=== PATIENT | female | born 1985 | race Caucasian/White ===

== ENCOUNTER 2019-07-02 19:30 | Observation (INO) | payer MEDICAID, SELFPAY ==
--- NOTE | 2019-07-02 19:38 | CTR_ITS ---
PROCEDURE INFORMATION: Exam: CT Head Without Contrast Exam date and time: 07/02/2019 7:40 PM Age: 34 years old Clinical indication: Weakness, extremity; Left; Patient HX: Patient had recent miscarriage; Additional info: Stroke-like symptoms TECHNIQUE: Imaging protocol: Computed tomography of the head without contrast. Total DLP: 790.75 mGy-cm Radiation optimization: All CT scans at this facility use at least one of these dose optimization techniques: automated exposure control; mA and/or kV adjustment per patient size (includes targeted exams where dose is matched to clinical indication); or iterative reconstruction. Other technique: STROKE PROTOCOL was implemented. COMPARISON: CT head wo con* [id number] 07/18/2016 10:01 PM FINDINGS: Brain: Normal. No hemorrhage. Unremarkable white matter. No mass effect. Midline shift: There is no shift of midline structures. Ventricles: Normal. No ventriculomegaly. Bones/joints: Unremarkable. No acute fracture. Sinuses: Visualized sinuses are unremarkable. No fluid levels. Mastoid air cells: Visualized mastoid air cells are well aerated. Soft tissues: Unremarkable. CT/CT head wo con* [id number] IMPRESSION: No acute intracranial abnormality. ASSESSMENT: ASPECTS ([place] Stroke Program Early CT Score) is 10. Radiation Dose CTDIVOL = (mGy): DLP = 790.75 (mGy-cm)
[2019-07-02 19:40] VITALS: BMI 25.8
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
[2019-07-02 20:05] VITALS: BP 128/82; PULSE 75; RESP 16; TEMP 37.1; O2SAT 100
--- NOTE | 2019-07-02 20:06 | ECG_ITS ---
Measurements Intervals [place] Rate: 72 P: 37 MS: 138 QRS: 9 QRSD: 88 T: 21 QT: 369 QTc: 405 SINUS RHYTHM Compared to ECG 07/18/2016 19:51:35 No significant changes Electronically Signed On 07-03-2019 8:07:15 SECURITY MESSENGER by Wojciech Massey M.D. [email or web address]
[2019-07-02 20:15] LABS: Glucose Point of Care 100 mg/dL (70-110)
--- NOTE | 2019-07-02 20:38 | MRR_ITS ---
PROCEDURE INFORMATION: Exam: MR Head Without Contrast Exam date and time: 07/02/2019 9:41 PM Age: 34 years old Clinical indication: Weakness, extremity; Left; Additional info: Stroke protocol TECHNIQUE: Imaging protocol: MR of the head without contrast. COMPARISON: MR angio head wo con [id number] 07/02/2019 10:44 PM FINDINGS: Brain: Normal. No acute infarct. No hemorrhage. No significant white matter disease. No edema. Ventricles: Normal. No ventriculomegaly. Bones/joints: Unremarkable. Soft tissues: Unremarkable. Sinuses: Normal as visualized. No acute sinusitis. Mastoid air cells: Normal as visualized. No mastoid effusion. Orbits: Unremarkable. MR/MR head wo con* [id number] IMPRESSION: No acute findings.
--- NOTE | 2019-07-02 20:38 | MRR_ITS ---
PROCEDURE INFORMATION: Exam: MR Angiogram Head Without Contrast, Arteries Exam date and time: 07/02/2019 9:41 PM Age: 34 years old Clinical indication: Weakness; Additional info: Stroke protocol TECHNIQUE: Imaging protocol: MR angiogram head without contrast. Exam focused on the arteries. COMPARISON: CT head wo con* [id number] 07/02/2019 7:58 PM FINDINGS: Right internal carotid artery: Unremarkable. Intracranial segment is patent with no significant stenosis. No aneurysm. Right anterior cerebral artery: Unremarkable. No occlusion or significant stenosis. No aneurysm. Right middle cerebral artery: Unremarkable. No occlusion or significant stenosis. No aneurysm. Right posterior cerebral artery: Unremarkable. No occlusion or significant stenosis. No aneurysm. Right vertebral artery: Unremarkable. No occlusion or significant stenosis. No aneurysm. Left internal carotid artery: Unremarkable. Intracranial segment is patent with no significant stenosis. No aneurysm. Left anterior cerebral artery: Unremarkable. No occlusion or significant stenosis. No aneurysm. Left middle cerebral artery: Unremarkable. No occlusion or significant stenosis. No aneurysm. Left posterior cerebral artery: Unremarkable. No occlusion or significant stenosis. No aneurysm. Left vertebral artery: Unremarkable. No occlusion or significant stenosis. No aneurysm. Basilar artery: Unremarkable. No occlusion or significant stenosis. No aneurysm. MR/MR angio head wo con [id number] IMPRESSION: No acute findings.
[2019-07-02 20:48] VITALS: BP 136/86; PULSE 79; RESP 14; O2SAT 98
[2019-07-02 20:59] LABS: Basophils # 0.1 10^3/uL (0.0-0.1); Basophils % 0.7 %; Eosinophils # 0.3 10^3/uL (0.0-0.8); Eosinophils % 4.5 %; Hematocrit 28.3 % (37.0-47.0); Hemoglobin 8.3 g/dL (11.5-15.3); Lymphocytes # 2.2 10^3/uL (0.8-4.8); Lymphocytes % 31.9 %; Mean Corpuscular HGB Conc 29.3 g/dL (30.0-36.0); Mean Corpuscular Hemoglobin 21.8 pg (28.0-34.0); Mean Corpuscular Volume 74.5 fL (81-99); Mean Platelet Volume 10.8 fL (7.4-10.4); Monocytes # 0.5 10^3/uL (0.2-0.9); Monocytes % 6.7 %; Neutrophils # 3.8 10^3/uL (1.8-7.7); Neutrophils % 55.9 %; Nucleated Red Blood Cells % 0 %; Platelet Count 245 10^3/cmm (130-400); Red Cell Distribution Width 22.7 % (12.1-15.1); White Blood Count 6.8 10^3/uL (4.0-10.0)
[2019-07-02 21:08] LABS: INR 1.08 (0.8-1.2)
[2019-07-02 21:09] LABS: Partial Thromboplastin Time 30.6 SECONDS (23.9-36.7)
[2019-07-02 21:14] LABS: Alanine Aminotransferase 12 U/L (0-33); Albumin Level 3.7 g/dL (3.5-5.2); Alkaline Phosphatase 75 IU/L (35-105); Aspartate Amino Transferase 19 U/L (0-32); Blood Urea Nitrogen 9 mg/dL (6-20); Calcium 9.8 mg/Dl (8.6-10.0); Carbon Dioxide 25 mmol/L (22-29); Chloride 102 mmol/L (98-107); Globulin 3.2 g/dL (1.3-4.6); Glomerular Filtration Rate 113.8 mL/min (90-130); Glucose 102 mg/dL (74-109); Sodium 138 mmol/L (136-145); Total Bilirubin 0.2 mg/dL (0.15-1.2); Total Protein 6.9 g/dL (6.6-8.7)
--- NOTE | 2019-07-02 21:19 | PM.SAN ---
Stroke Alert Activation ED Arrival Date: 07/02/19 Last Known Normal/at Baseline: 3-4 hours ago (More than 5 hours) Other Last Known Well Infomation: I was called to the emergency department because of profound left-sided weakness and numbness in this otherwise healthy 34-year-old woman who suffered a miscarriage 8 days ago and had D&C 3 days ago for persistent bleeding. She was at 14 weeks of gestation when she suffered miscarriage. She drove to her son's school at 3:00 today [address] the [address], discovered that her left leg was numb. By the time she got inside the school she was experiencing some weakness of the left leg and called her to warn him of it. She returned home, took a shower and felt no better. She started down the steps to have supper and discovered that her left arm was numb. She presented here to triage and was evaluated by Nicky. She described left arm and leg numbness, starting in the leg and Nicky presented the story to Dr. Dr. Gamez for concern about activating stroke alert. Dr. Dr. Gamez said that she was too far outside of the window but later, after further evaluation of the patient he became concerned that she was worse, her left side was now almost flaccid, and he activated stroke team. I came immediately and evaluated the patient and found her to have a fairly dense left hemiparesis. She was 5 hours from onset of symptoms at the time that I saw her initially and outside of the window for treatment with TPA. Her NIH stroke scale score was high enough to consider thrombectomy. MRI with MRA was performed and showed no acute changes. By the time she returned from MRI she had a severe throbbing pounding headache, consistent with migraine with aura. The patient says that when she was a child she had migraines but since adulthood she only has headaches when she is . She had a CT scan of the head performed 07/18/2016 that was done because of pain, numbness, paresthesias and chest pain but her symptoms at that time were not similar to current symptoms and she did not have a headache. That study was normal. Stroke Alert Activated by: Stroke alert was not actually activated but after discovering that the patient was hemiplegic Dr. Dr. Gamez called me. I came stat to the emergency department. Stroke Alert Activation Date: 07/02/19 Stroke MD @ Bedside Date: 07/02/19 Stroke MD @ Bedside Time: 20:45 NIH Stroke Scale Time: 20:50 NIH stroke score NIHSS: Level Of Consciousness - 1a: 0 Level Of Consciousness Questions - 1b: Both Correct Level Of Consciousness Commands - 1c: Both Correct Best Gaze - 2: Normal Visual Sanchez - 3: No Visual Loss Facial Palsy - 4: Normal Motor Arm Right - 5: No Drift Motor Arm Left - 5: Effort Against [place] Motor Leg Right - 6: No Drift Motor Leg Left - 6: No Effort Against [place] Limb Ataxia - 7: Absent Sensory - 8: Mild To Moderate Loss Best Language - 9: No Aphasia Dysarthia - 10: Normal Extinction And Inattention - 11: 0 Score: Total Score: 6 Stroke Alert Data/Treatment tPA Contraindication: tPA Contraindication: Treatment not indcated tPA Admin Prior to Arrival: No Patient & Family Educated on: Cause of Stroke, Risk Factors and Treament Plan Other Patient & Family Education: MRI brain and MRA were reviewed. Final diagnosis is status migrainosus and migraine equivalent. I have been at the patient's bedside for over 2 hours waiting for the MRI, reviewing MRI/MRA and providing ongoing neurologic evaluation and monitoring. I have communicated with the patient and her as they were very anxious and concerned about her symptoms. At this time she is regaining some strength on the left side but now has a severe throbbing pounding headache. Plan discussed with Dr. Dr. Arrieta. Critical Care Time Critical Care Time: 105 - 134 mins Coding Level of Care Code Acute Radio Antenna Installer for Julito Velásquez
[2019-07-02 21:37] LABS: Add Urine Microscopic? YES; Bilirubin Urine Neg (NEGATIVE); Blood Urine 3+ (Negative); Glucose Urine UA Norm (Normal); Ketones Urine Negative (Negative); Leukocyte Esterase Urine Negative (Negative); Nitrate Urine Negative (Negative); Protein Urine Neg (Negative); Specific Gravity, Urine 1.005 (1.005-1.030); Urine Appearance Clear (CLEAR); Urine Color Yellow (Yellow); Urobilinogen Urine Norm (Negative); pH Urine 7 (5-7)
[2019-07-02 21:40] LABS: RBC Urine 40-50 /hpf (0-2); WBC Urine 0-4 /hpf (0-5)
[2019-07-02 21:41] LABS: Add Urine Culture? Yes; Bacteria Urine TRACE
[2019-07-02 21:46] VITALS: BP 113/56; PULSE 67; RESP 16; O2SAT 100
[2019-07-02 22:00] VITALS: BP 124/69; PULSE 68; RESP 14; O2SAT 99
[2019-07-02] MEDS: valproic acid inj 500 MG in sodium chloride 0.9% 50 ML 55 MG IV (22:07)
--- NOTE | 2019-07-02 22:41 | PC.NURSE ---
PATIENT TO MRI
[2019-07-02 23:39] VITALS: BP 119/70; PULSE 97; RESP 14; O2SAT 98
[2019-07-02 23:52] LABS: Amphetamines Screen Urine Negative (Negative); Barbiturates Screen Urine Negative (Negative); Benzodiazepines Screen Urine Negative (Negative); Cocaine Screen Urine Negative (Negative); Opiate Screen Urine Negative (Negative); PCP Screen Urine Negative (Negative); THC Screen Urine Negative (Negative)
[2019-07-03] VITALS (10 sets, daily range): BP systolic 102–118; BP diastolic 57–80; PULSE 54–66; RESP 14–20; TEMP 36.5–37.2; O2SAT 98–100
[2019-07-03] MEDS: sodium chloride 0.9% 1,000 ML 100 ML IV ×2 (00:43→09:52)
[2019-07-03] MEDS: valproic acid inj 500 MG in sodium chloride 0.9% 50 ML 55 MG IV (01:07)
--- NOTE | 2019-07-03 02:30 | P.HP_ITS ---
Providers/Chief Complaint Admitting Physician: Jessica Mccray MD Primary Care Provider: Will Trujillo Jr, MD Chief Complaint: COMPLEX MIGRAINE W/STATUS History of Present Illness Debby Bates is a 34 year old female who presented to the emergency room with left-sided weakness and inability to walk. 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 Initially she had some numbness in her left leg. She subsequently began to have weakness in the leg. She was able to make it back home okay but after dinner she began to have numbness in her left arm followed by weakness in the left arm. She was not able to walk which prompted the ER visit. She had a CT of the head that was unremarkable. NIH score was 6. Dr. Hutchins was called although patient was outside of the window for consideration for acute stroke intervention. An MRI and an MRA of the brain were done. These were unremarkable and final diagnosis per neurology with status migrainosus and migraine equivalent. Patient does have a history of migraines as a child. DHE protocol was initiated in the emergency room with Shelbi. Patient is being admitted for further evaluation and treatment. Upon my evaluation with her she is complaining of severe pain in her left leg from groin to knee. She continues to have headache. Remainder of DHE protocol is being initiated. She has had some nausea. She is sensitive to lights and sounds. No chest pain or palpitations. No significant shortness of breath. She had a miscarriage at 14 weeks gestation and underwent a D&C last Monday. She continues to have some bleeding but it is starting to subside. She still has some mild lower abdominal pain but denies any fever. No purulent discharge. Review of Systems Const: Denies: fever or chills Eyes: Reports: photophobia ENMT: Reports: dry mouth Card: Reports: lightheadedness; Denies: chest pain or palpitations Resp: Denies: shortness of breath or pain on inspiration GI: Reports: abdominal pain, nausea and vomiting; Denies: diarrhea or constipation : Reports: vaginal bleeding (Status post D&C the other day, decreasing); Denies: painful urination or urinary frequency Musc: Reports: extremity pain (Left leg) Skin/Breast: Denies: rash, itching or redness Neuro: Reports: headache, numbness in extremities, weakness in extremities, changes in sensation and difficulty walking; Denies: confusion, behavioral changes, slurred speech or involuntary movements Corey/Lymph: Denies: easy bruising Medications/Allergies Home Medications Medication Instructions Recorded Confirmed Last Taken Type diphenhydramine HCl [Unisom 50 mg PO BEDTIME PRN 07/02/19 07/02/19 Unknown History SleepGels] ibuprofen 200 mg PO Q6H PRN 07/02/19 07/02/19 07/01/19 History iron 159 mg PO DAILY 07/02/19 07/02/19 07/02/19 History multivitamin 1 tab PO DAILY 07/02/19 07/02/19 07/02/19 History vitamin B complex 1 tab PO DAILY 07/02/19 07/02/19 07/02/19 History Allergies Allergy/AdvReac Type Severity Reaction Status Date / Time No Known Allergies Allergy Unverified 07/02/19 21:17 PFSH Acute PFSH: Statuses (acute, chronic, etc) shown below reflect problem list status as previously entered and may not be historically accurate Medical History Grand multipara (Acute) Hyperemesis gravidarum (Resolved) Superficial thrombophlebitis (Resolved) Surgical History History of (Acute) multiple History of dilation and curettage (Acute) 06/28/19 for miscarriage, in [place] Family History Denies family history of Clotting disorder Bleeding disorder Stroke Social History Smoking and tobacco status: never smoked Alcohol intake: never Substance/Drug Use: never Female Reporductive History: : 11 Para: 8 Spontaneous abortions: Yes (3, most recent 07/15 at 14 wks) Vitals/I&O/Wt Last Vital Signs Temp 97.7 F 07/03/19 01:51 Pulse 58 L 07/03/19 01:51 Resp 20 H 07/03/19 01:51 BP 118/80 07/03/19 01:51 Pulse Ox 98 07/03/19 01:51 07/02/19 07/02/1907/03/20 14:59 22:59 06:59 Intake Total 55 / 55 Balance 55 / 55 Weight last 48 hrs Weight 74.435 kg Weight 72.575 kg Physical Exam Const: COMMON NORMALS: oriented x3 OTHER: Looks like she does not feel well HENMT: COMMON NORMALS: normocephalic, head/scalp atraumatic and oropharynx normal Eye: COMMON NORMALS: EOMs intact bilaterally PUPIL: Yes PERRL DIRECT OPHTHALMOSCOPY: Yes photophobia Neck/C-Spine: COMMON NORMALS: full ROM and supple Resp: COMMON NORMALS: normal respiratory effort, no use of accessory muscles and clear to auscultation bilaterally Cardio: COMMON NORMALS: no JVD, regular rate, regular rhythm and no murmurs GI: COMMON NORMALS: normal to inspection, nondistended, normoactive bowel sounds and soft to palpation PALPATION: Yes tender Details: LLQ and RLQ, No guarding, No rigid and No rebound tenderness present Back/Pelvis: COMMON NORMALS: no CVA tenderness Extremity: NARRATIVE EXTREMITY EXAM: No lower extremity edema. Pulses are 2+ and equal in both feet and brisk capillary refill. Patient has pain in the left groin medially that extends posteriorly culminating in the popliteal fossa. Palpable cords suspect above the popliteal fossa. No superficial warmth or redness but very tender along the path of the vein Neuro: COMMON NORMALS: oriented x3 and moves all extremities MOTOR EXAM: other (Strength is slightly weaker on the left than the right more so in the leg than the arm) Skin: COMMON NORMALS: no rashes or lesions noted and skin turgor normal Data Labs: Other Labs: Laboratory Tests 07/02/19 07/02/19 07/02/19 20:20 20:50 20:50 MCV 74.5 L PT 14.40 H INR 1.08 Total Bilirubin AST ALT Alkaline Phosphata se Albumin Urine Protein Neg Urine Glucose (UA) Norm Urine Ketones Negative Urine Occult Blood 3+ H Urine Nitrate Negative Ur Leukocyte Keila ase Negative 07/02/19 20:50 MCV PT INR Total Bilirubin 0.2 AST 19 ALT 12 Alkaline Phosphata se 75 Albumin 3.7 Urine Protein Urine Glucose (UA) Urine Ketones Urine Occult Blood Urine Nitrate Ur Leukocyte Keila ase Imaging^: MRA head: Radiologist's impression: IMPRESSION: No acute findings. MRI head: Radiologist's impression: IMPRESSION: No acute findings. CT Head: Radiologist's impression: IMPRESSION: No acute intracranial abnormality. A&P Assessment and plan (1) Migraine: DHE protocol per Dr Hutchins, who saw her in the ED. Will monitor response. Is already improving with less weakness and less headache.. Status: Acute Qualifiers: Intractability: intractable Migraine type: hemiplegic Status migrainosus presence: with status migrainosus Qualified Code(s): G43.411 - Hemiplegic migraine, intractable, with status migrainosus Code(s): G43.909 - Migraine, unspecified, not intractable, without status migrainosus (2) Left leg pain: This is new today. Pain tracks along the path where I would expect the saphenous vein to be and clinically has palpable cords above the popliteal space. No external signs otherwise presently. I let her know that I was concerned about a blood clot or recurrent thrombophlebitis, which she has had in the past. She expressed understanding. Reviewed that treatment, if identified will include blood thinners. I am hoping this is just a tight tendon, but with recent miscarriage and drive back from [place],, need to be certain not a DVT. Status: Acute Code(s): M79.605 - Pain in left leg (3) History of dilation and curettage: Need to keep this in mind. Decreased bleeding, no passage of large clots. I discussed with her that if we have to consider anticoagulation, she may have increased bleeding we will need to monitor. She expressed understanding. Status: Acute Code(s): Z98.890 - Other specified postprocedural states (4) Microcytic anemia: Likely iron deficiency related to recent blood loss/ loss . Last comparative value was normal a few years ago. Status: Acute Code(s): D50.9 - Iron deficiency anemia, unspecified Additional A&P Information Additional A&P Information: Observation admisison Continue DHE protocol Neuro checks US of LLE tonight > with ongoing uterine bleeding after D&C, do not want to start empiric treatment unless indicated. Prophylactic dose lovenox for now Continue iron and mvi from home meds Monitor for increase in or change in bleeding as well as for worsening abdominal discomfort Will need follow up with PCP +/- neurology after DC Anticipate discharge home with family FULL code Plans discussed with patient and she was given an opportunity to ask questions Attestations Medical Necessity Statement*: Currently anticipate stay less than 2 midnights for treatment of hemiplegic migraine with status Coding Level of Care Code Acute Brass Cutter for Chg Fwd Diagnoses Migraine G43.411 Intractability: intractable Migraine type: hemiplegic Status migrainosus presence: with status migrainosus Left leg pain M79.605 History of dilation and curettage Z98.890 Microcytic anemia D50.9
[2019-07-03] MEDS: ondansetron 2 mg/ML SDV 2 mL 4 MG IVP ×2 (02:33→02:57)
[2019-07-03] MEDS: diphenhydrAMINE 50 mg/mL SDV 1mL 25 MG IVP (02:34)
[2019-07-03] MEDS: dihydroergotamine 1 mg/mL Inj 0.5 MG IVP (02:40)
--- NOTE | 2019-07-03 02:47 | USCV_ITS ---
Debby Bates Age: 34 Gender: F : 1985 Exam Date: 07/03/2019 03:18 Ordering Phys: Jessica Mccray MD Technologist: Bandar Strong Exam Location: [facility] [place] Indication: LT LEG PAIN AND SWELLING HISTORY: Lower extremity swelling. Lower extremity edema. PROCEDURES: Venous duplex imaging was performed in only the left lower extremity. The following venous structures were evaluated: common femoral vein, profunda vein, proximal portion of the greater saphenous vein, superficial femoral vein, and the popliteal vein. In addition, the posterior tibial and peroneal trunk were evaluated. On the left side, the common femoral, superficial femoral, profunda femoral, popliteal, posterior tibial, greater saphenous veins, and the peroneal trunk were identified and interrogated in the standard fashion. These veins were found to be easily compressible with spontaneous blood flow. No evidence of insufficiency or thrombus noted. FINDINGS: Normal 2-D Doppler and augmentation and compressibility throughout the lower extremity venous structures. Additional imaging through the proximal calf veins also reveals no thrombus. Limited evaluation of the greater saphenous vein is patent with no thrombus.. CONCLUSIONS No evidence of left lower extremity DVT. Velasquez Orona MD (Electronically Signed) Final Date: 03 July 2019 13:20 S
--- NOTE | 2019-07-03 03:03 | PC.NURSE ---
0230-Dr Mccray at bedside. started DHE protocol. pre med pt rates pain in head 5/10. administered 4mg of zofran and 25mg of benadryl IVP per protocol. waited appropriate amount of time in between then gave pt 0.5mg of DHE. pt became nauseous. verbal order from dr Mccray at bedside for 4mg of zofran IVP. bp and pulse ox WNL. 0253- reassessed pain rates it 3/10. pt states nausea is better. 0300- pt states that she has no more pain in her head. rates it 0/10 at this time. continue to monitor pt. instructed pt to call for any worsening symptoms.
[2019-07-03] MEDS: enoxaparin 40 mg/0.4 mL Syringe SUBCUT (04:57)
[2019-07-03 05:32] LABS: Basophils % 0.5 %; Eosinophils # 0.3 10^3/uL (0.0-0.8); Eosinophils % 4.4 %; Hematocrit 30.9 % (37.0-47.0); Hemoglobin 9.1 g/dL (11.5-15.3); Lymphocytes # 2.3 10^3/uL (0.8-4.8); Lymphocytes % 37.1 %; Mean Corpuscular HGB Conc 29.4 g/dL (30.0-36.0); Mean Corpuscular Hemoglobin 21.9 pg (28.0-34.0); Mean Corpuscular Volume 74.3 fL (81-99); Monocytes # 0.4 10^3/uL (0.2-0.9); Monocytes % 6.7 %; Neutrophils # 3.1 10^3/uL (1.8-7.7); Nucleated Red Blood Cells % 0 %; Platelet Count 205 10^3/cmm (130-400); Red Blood Count 4.16 10^6/uL (4.1-5.3); Red Cell Distribution Width 22.4 % (12.1-15.1); White Blood Count 6.1 10^3/uL (4.0-10.0)
[2019-07-03 07:02] LABS: Glucose Point of Care 83 mg/dL (70-110)
[2019-07-03] MEDS: multivitamin therapeutic Tablet 1 TAB PO (09:52)
[2019-07-03] MEDS: b-complex-vitamin c Tablet 1 EACH PO (09:52)
--- NOTE | 2019-07-03 10:28 | P.DS_ITS ---
Discharge Providers Date of Admission: 07/03/19 00:21 Date of Discharge: 07/03/19 Attending Provider at Admission: Jessica Mccray MD Attending Provider at Discharge: Jeanne Truong MD Primary Care Provider: Will Trujillo Jr, MD Diagnoses at Discharge Discharge Diagnosis (1) Migraine: Status: Acute Problem details: -initial concern for CVA given neuro deficits on presentation, initial NIH-6. Evaluated by Neuro; consult by Dr. Hutchins appreciated -imaging including MRI, MRA negative -not tPA candidate -symptoms due to complex migraine; following DHE protocol, symptoms now resolved -hemodynamically stable -patient to contact Dr. Hutchins immediately if symptoms recur Qualifiers: Intractability: intractable Migraine type: hemiplegic Status migrainosus presence: with status migrainosus Qualified Code(s): G43.411 - Hemiplegic migraine, intractable, with status migrainosus (2) Left leg pain: Status: Acute Problem details: -now resolved -venous duplex ordered to r/o VTE given prior hx of superficial thrombophlebitis; results pending (3) History of dilation and curettage: Status: Acute Problem details: -06/28/19 for miscarriage, in [place] -is multigravida with hx of prior miscarriages -has some residual bleeding likely from procedure, no concern for retained products of conception -patient scheduled for f/u with Dr. Rodriguez tomorrow (4) Microcytic anemia: Status: Acute Problem details: -has hx of chronic microcytic anemia, baseline Hg appears to be around 11. Suspect slight drop in hemoglobin is from recent miscarriage and D & C -continue iron supplementation -hemodynamically stable Reason for Visit Reason for Visit: Reason For Visit: COMPLEX MIGRAINE W/STATUS Hospital Course Hospital Course: Patient was admitted to medical surgical floor. She was evaluated by Neurology as code CVA activated due to concern for stroke but following extensive and negative imaging including MRI, MRA her symptoms were attributed to a complex migraine. DHE protocol was activated per Dr. Hutchins and patient symptoms have resolved. He is advised to contact Dr. Hutchins immediately should any of her symptoms recur. She is currently asymptomatic, ambulatory and hemodynamically stable. She has a recent history of a D&C done approximately a week ago following a miscarriage at 14 weeks gestation. She has some continued bleeding and does have underlying microcytic anemia, baseline hemoglobin appears to be about 11. 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 She has not required transfusion of any blood products during her hospital stay. Patient does have a history of superficial thrombophlebitis and due to noted left lower extremity pain she had a venous duplex done to rule out VTE; results pending. She was covered with prophylactic dose of Lovenox. She will need appropriate follow-up with her primary care provider within 1 week. Physical Exam Narrative: EXAM NARRATIVE: looks appropriate for age, resting in bed Const: COMMON NORMALS: no apparent distress and oriented x3 GENERAL APPEARANCE: cooperative and comfortable ORIENTATION/CONSCIOUSNESS: Yes awake HENMT: COMMON NORMALS: normocephalic, head/scalp atraumatic, hearing grossly normal bilaterally and moist oral mucous membranes HEAD & SCALP: normocephalic and atraumatic Eye: COMMON NORMALS: PERRL, EOMs intact bilaterally and conjunctivae normal CONJUNCTIVA: Yes conjunctivae normal PUPIL: Yes PERRL Neck/C-Spine: COMMON NORMALS: full ROM GENERAL: Yes normal visual inspection and Yes trachea midline Resp: COMMON NORMALS: normal respiratory effort, no retractions, no use of accessory muscles and clear to auscultation bilaterally EFFORT & INSPECTION: Yes able to speak in complete sentences, Yes symmetric chest movement and No tachypneic AUSCULTATION: clear to auscultation bilaterally Cardio: COMMON NORMALS: regular rate, regular rhythm, S1 normal heart sound, S2 normal heart sound and no murmurs RATE: regular rate RHYTHM: regular rhythm HEART SOUNDS: S1 normal and S2 normal GI: COMMON NORMALS: normal to inspection, nondistended, normoactive bowel sounds, soft to palpation and non-tender PALPATION: Yes soft Extremity: COMMON NORMALS: normal to inspection, full ROM and no clubbing, cyanosis or edema; negative for no pedal edema Neuro: COMMON NORMALS: oriented x3, moves all extremities, no focal motor deficits, no sensory deficits noted and gait normal Psych: COMMON NORMALS: mental status grossly normal, thought process normal, cooperative, affect normal and speech normal SPEECH: Yes normal speech THOUGHT PROCESS: normal thought process Skin: COMMON NORMALS: no rashes or lesions noted, no jaundice, no petechiae and no mottling GENERAL SKIN EXAM: no rashes or lesions noted Discharge Data Data Completed and Pending: Completed Studies During Hospitalization Category Date Time Status CT head wo con* 7 0450 Urgent Cat Scan 07/02/19 19:38 Completed MR angio head wo con [id number] Urgent MRI 07/02/19 20:38 Completed MR head wo con* 7 0551 Urgent MRI 07/02/19 20:38 Completed Pending at discharge Category Date Time Status Urine Culture Sta t Lab 07/02/19 20:20 Received US venous duplex lower extremity LT [CV venous duplex Ultrasound 07/03/19 02:[place] [id number]] Stat Labs from last 24 hours 07/03/19 07/03/19 07/02/19 06:35 05:05 21:46 WBC 6.1 RBC 4.16 Hgb 9.1 L Hct 30.9 L MCV 74.3 L MCH 21.9 L MCHC 29.4 L RDW 22.4 H Plt Count 205 MPV 11.0 H Neut % (Auto) 51.0 Lymph % (Auto) 37.1 [place] % (Auto) 6.7 Eos % (Auto) 4.4 Baso % (Auto) 0.5 Neut # (Auto) 3.1 Lymph # (Auto) 2.3 [place] # (Auto) 0.4 Eos # (Auto) 0.3 Baso # (Auto) 0.0 Nucleated RBC % (a uto) 0 Nucleated RBCs # 0.0 PT INR APTT Sodium Potassium Chloride Carbon Dioxide Anion Gap BUN Creatinine GFR Calculation Glucose POC Glucose 83 Calcium Total Bilirubin AST ALT Alkaline Phosphata se Total Protein Albumin Globulin Urine Color Urine Appearance Urine pH Ur Specific Gravit y Urine Protein Urine Glucose (UA) Urine Ketones Urine Occult Blood Urine Nitrate Urine Bilirubin Urine Urobilinogen Ur Leukocyte Keila ase Urine RBC Urine WBC Ur Squamous Epith Cells Urine Bacteria Urine Opiates Scre en Negative Ur Barbiturates Sc reen Negative Ur Phencyclidine S crn Negative Ur Amphetamines Sc reen Negative U Benzodiazepines Scrn Negative Urine Cocaine Scre en Negative U Marijuana (THC) Screen Negative 07/02/19 07/02/19 07/02/19 20:50 20:50 20:50 WBC 6.8 RBC 3.80 L Hgb 8.3 L Hct 28.3 L MCV 74.5 L MCH 21.8 L MCHC 29.3 L RDW 22.7 H Plt Count 245 MPV 10.8 H Neut % (Auto) 55.9 Lymph % (Auto) 31.9 [place] % (Auto) 6.7 Eos % (Auto) 4.5 Baso % (Auto) 0.7 Neut # (Auto) 3.8 Lymph # (Auto) 2.2 [place] # (Auto) 0.5 Eos # (Auto) 0.3 Baso # (Auto) 0.1 Nucleated RBC % (a uto) 0 Nucleated RBCs # 0.0 PT 14.40 H INR 1.08 APTT 30.6 Sodium 138 Potassium 4.0 Chloride 102 Carbon Dioxide 25 Anion Gap 15.0 BUN 9 Creatinine 0.6 GFR Calculation 113.8 Glucose 102 POC Glucose Calcium 9.8 Total Bilirubin 0.2 AST 19 ALT 12 Alkaline Phosphata se 75 Total Protein 6.9 Albumin 3.7 Globulin 3.2 Urine Color Urine Appearance Urine pH Ur Specific Gravit y Urine Protein Urine Glucose (UA) Urine Ketones Urine Occult Blood Urine Nitrate Urine Bilirubin Urine Urobilinogen Ur Leukocyte Keila ase Urine RBC Urine WBC Ur Squamous Epith Cells Urine Bacteria Urine Opiates Scre en Ur Barbiturates Sc reen Ur Phencyclidine S crn Ur Amphetamines Sc reen U Benzodiazepines Scrn Urine Cocaine Scre en U Marijuana (THC) Screen 07/02/19 07/02/19 20:20 20:08 WBC RBC Hgb Hct MCV MCH MCHC RDW Plt Count MPV Neut % (Auto) Lymph % (Auto) [place] % (Auto) Eos % (Auto) Baso % (Auto) Neut # (Auto) Lymph # (Auto) [place] # (Auto) Eos # (Auto) Baso # (Auto) Nucleated RBC % (a uto) Nucleated RBCs # PT INR APTT Sodium Potassium Chloride Carbon Dioxide Anion Gap BUN Creatinine GFR Calculation Glucose POC Glucose 100 Calcium Total Bilirubin AST ALT Alkaline Phosphata se Total Protein Albumin Globulin Urine Color Yellow Urine Appearance Clear Urine pH 7 Ur Specific Gravit y 1.005 Urine Protein Neg Urine Glucose (UA) Norm Urine Ketones Negative Urine Occult Blood 3+ H Urine Nitrate Negative Urine Bilirubin Neg Urine Urobilinogen Norm Ur Leukocyte Keila ase Negative Urine RBC 40-50 H Urine WBC 0-4 H Ur Squamous Epith Cells 5-10 H Urine Bacteria Trace Urine Opiates Scre en Ur Barbiturates Sc reen Ur Phencyclidine S crn Ur Amphetamines Sc reen U Benzodiazepines Scrn Urine Cocaine Scre en U Marijuana (THC) Screen Vitals: Last Vital Signs Temp 98.5 F 07/03/19 08:15 Pulse 57 L 07/03/19 08:15 Resp 18 07/03/19 08:15 BP 108/57 07/03/19 08:15 Pulse Ox 100 07/03/19 08:15 Discharge Plan Discharge Patient Disposition: Home, Self-Care Condition: Stable Prescriptions: Continued multivitamin Tablet 1 tab PO DAILY RF: 0 Unisom SleepGels 50 mg Capsule 50 mg PO BEDTIME PRN (Reason: Sleep) RF: 0 ibuprofen 200 mg Tablet 200 mg PO Q6H PRN (Reason: Pain) RF: 0 vitamin B complex Tablet 1 tab PO DAILY RF: 0 iron 159 mg (45 mg iron) Tablet Extended Release 159 mg PO DAILY RF: 0 Discharge Orders: Discharge Order (Routine); Ordered 07/03/19 Ordered By: Jeanne Truong Referrals: Will Trujillo Jr, MD [Primary Care Provider] - 4-7 days Discharge Diet: Usual diet Discharge Activity: Resume usual activity Activity Restrictions/Additional Instructions: -Please keep scheduled appointment with Dr. Rodriguez tomorrow -Please contact Dr. Hutchins immediately if symptoms recur Discharge Attestations Time Spent in Discharge Care*: greater than 30 min Specific Discharge Activities: Specific discharge activities: educating and/or supporting family/caregiver, discussing with pcp/other providers and evaluating patient/reviewing data Quality Metrics Clinical Quality Measures During this hospital stay, did patient experience: None Coding Level of Care Code Acute Bag Worker for Darrellg Fwd Diagnoses Migraine G43.411 Intractability: intractable Migraine type: hemiplegic Status migrainosus presence: with status migrainosus Left leg pain M79.605 History of dilation and curettage Z98.890 Microcytic anemia D50.9
== END 2019-07-03 12:13 | disposition home or self-care (01) ==
LOC: ER 19:56 → MEDSURG 07-03 00:21
PROVIDERS: Admitting Provider Hospitalist; Emergency Provider Family Medicine; Family Provider Family Medicine; PCP Family Medicine; Visit Provider Family Medicine
DX: G43.411 Hemiplegic migraine, intractable, with status migrainosus (principal); M79.605 Pain in left leg; Z98.890 Other specified postprocedural states; D50.9 Iron deficiency anemia, unspecified
CPT/HCPCS: 36415; 36416; 70450; 70544; 70551; 80053; 80307; 81003; 82962; 85025; 85610; 85730; 87077; 87086; 87186; 93005; 93971; 96361; 96365; 96372; 96375; 99283; 99285; G0378; J1110; J1200; J1650; J2405; J7030

== ENCOUNTER 2020-03-14 20:17 | Emergency (ER) | payer MEDICAID, SELFPAY ==
[2020-03-14 20:24] VITALS: BP 112/74; PULSE 79; RESP 24; TEMP 36.8; O2SAT 100; BMI 26.2
--- NOTE | 2020-03-14 20:41 | ED_ITS ---
HPI - Abdominal Pain General: Chief Complaint: Abdominal Pain Stated Complaint: lower abd pain Time Seen by Provider: 03/14/20 20:30 Source: patient Mode of arrival: ambulatory Limitations: no limitations History of Present Illness: HPI narrative: Patient is a 35-year-old female who presents to ED today along with her for complaints of fairly sudden onset lower abdominal pain. Patient initially tells me it felt like she needed to have a bowel movement but states this did not alleviate her pain. She complains of nausea without vomiting. She states her bowel movement was not loose or bloody. She has not been running fevers. She otherwise felt okay prior to pain onset. LMP ended 3 days ago. She is not having any vaginal bleeding or vaginal discharge. MD elicited complaint: abdominal pain Onset (ago): hour(s) Pain Consistency: constant Location: Suprapubic and Pelvis Severity: severe Quality: cramping, stabbing and sharp Radiation: none Migration to: no migration Exacerbating factors: nothing Relieving factors: nothing Associated Symptoms: Reports nausea; Denies change in bowel habits, chills, diarrhea, dysuria, fever(s), hematochezia, melena and vomiting Related Data: Date of Last Menstrual Period: 03/07/20 Patient : No Review of Systems Const: Denies: fever(s), chills, body aches, fatigue or malaise Card: Denies: chest pain Resp: Denies: dyspnea GI: Reports: abdominal pain and nausea; Denies: vomiting, diarrhea, change in bowel habits, pain on defecation, hematochezia or melena : Denies: flank pain, difficulty voiding, dysuria, urinary frequency, urin alma urgency or urinary hesitancy Musc: Denies: neck pain, back pain, extremity pain, extremity swelling, joint pain or joint swelling Skin/Breast: Denies: rash Neuro: Denies: headache(s), numbness in extremities, weakness in extremities, sensory changes or dizziness [facility] ED PFSH: Medical History (Updated 03/15/20 @ 00:54 by SAJI Teresa) Grand multipara Hyperemesis gravidarum Superficial thrombophlebitis Surgical History (Updated 07/03/19 @ 10:47 by Jeanne Truong MD) History of multiple History of dilation and curettage -06/28/19 for miscarriage, in [place] -is multigravida with hx of prior miscarriages -has some residual bleeding likely from procedure, no concern for retained products of conception -patient scheduled for f/u with Dr. Rodriguez tomorrow Family History Denies family history of Clotting disorder Bleeding disorder Stroke Social History Smoking and tobacco status: never smoked Alcohol intake: never Female Reproductive History: Date of last menstrual period: 03/07/20 Para: 8 Spontaneous abortions: Yes (3, most recent 07/15 at 14 wks) Other reproductive history: ; monogamous with Physical Exam Const: COMMON NORMALS: average body habitus, patient oriented x3, no limitations, healthy appearing, alert and well nourished GENERAL APPEARANCE: cooperative and in distress (in pain) ORIENTATION/CONSCIOUSNESS: Yes oriented to person, Yes oriented to place and Yes oriented to time HENMT: COMMON NORMALS: normocephalic and atraumatic HEAD & SCALP: normocephalic and atraumatic Resp: COMMON NORMALS: normal respiratory effort and clear to auscultation bilaterally AUSCULTATION: clear to auscultation bilaterally Cardio: COMMON NORMALS: regular rate and regular rhythm RATE: regular rate RHYTHM: regular rhythm GI: COMMON NORMALS: Normal to inspection, nondistended, normoactive bowel sounds present, No hepatosplenomegaly present and no masses INSPECTION: Yes normal to inspection AUSCULTATION: Yes normoactive bowel sounds PALPATION: Yes Tenderness to palpation present (GI) (pain throughout lower abdomen/pelvis), Yes Guarding due to palpation present (GI) and Yes No hepatosplenomegaly present : COMMON NORMALS: Yes no CVA tenderness BLADDER/KIDNEY EXAM: Yes no CVA tenderness Back/Pelvis: COMMON NORMALS: no CVA tenderness Extremity: COMMON NORMALS: normal to inspection GENERAL: Yes normal exam except as noted Neuro: COMMON NORMALS: patient oriented x3 SENSORIUM/ORIENTATION: Yes alert, Yes oriented to person, Yes oriented to place and Yes oriented to time Skin: COMMON NORMALS: no rashes or lesions noted GENERAL SKIN EXAM: no rashes or lesions noted Course Vital Signs: Vital signs: Vital Signs Temperature 98.3 F 03/14/20 20:24 Pulse Rate 72 03/14/20 23:44 Respiratory Rate 18 03/14/20 23:44 Blood Pressure 116/64 03/14/20 23:44 Pulse Oximetry 98 03/14/20 23:44 MDM - Abdominal Pain MDM Narrative: Medical decision making narrative: Patient's vital signs are stable. She is not tachycardic or hypotensive. Labs overall are non-concerning. Her hemoglobin is 9.1 which is stable when compared to previous labs. UA is normal. She has a negative test. Patient does not complain of vaginal discharge/odor. Ultrasound showing bilateral ovarian cysts with a small amount of fluid in her cul-de-sac. CT of her abdomen/pelvis confirming this. Radiology stated fluid appeared consistent with a ruptured cyst. Clinically does not sound consistent with PID. Patient reporting feeling better after pain medications given here. She states she feels comfortable going home with return to ED precautions. Will place information with case management to get her set up with [facility] follow-up next week. Lab Data: Labs: Lab Results 03/14/20 03/14/20 03/14/20 Range/Units 20:40 20:40 20:40 WBC 10.9 H (4.0-10.0) 10^3/ uL RBC 4.52 (4.1-5.3) 10^6/u L Hgb 9.1 L (11.5-15.3) g/dL Hct 32.0 L (37.0-47.0) % MCV 70.8 L (81-99) fL MCH 20.1 L (28.0-34.0) pg MCHC 28.4 L (30.0-36.0) g/dL RDW 16.0 H (12.1-15.1) % Plt Count 261 (130-400) 10^3/c mm MPV 12.0 H (7.4-10.4) fL Neut % (Auto) 75.9 % Lymph % (Auto) 15.8 % Bullitt % (Auto) 5.0 % Eos % (Auto) 2.5 % Baso % (Auto) 0.4 % Neut # (Auto) 8.30 H (1.8-7.7) 10^3/u L Lymph # (Auto) 1.7 (0.8-4.8) 10^3/u L Bullitt # (Auto) 0.6 (0.2-0.9) 10^3/u L Eos # (Auto) 0.3 (0.0-0.8) 10^3/u L Baso # (Auto) 0.0 (0.0-0.1) 10^3/u L Nucleated RBC % (a uto) 0 % Nucleated RBCs # 0.0 /100WBC Sodium 139 (136-145) mmol/L Potassium 3.6 (3.5-5.1) mmol/L Chloride 103 (98-107) mmol/L Carbon Dioxide 24 (22-29) mmol/L Anion Gap 15.6 (5-19) BUN 7 (6-20) mg/dL Creatinine 0.5 (0.5-0.9) mg/dL GFR Calculation 139.6 H (90-130) mL/min Glucose 103 (65-115) mg/dL Calculated Osmolal ity 286 (285-295) mOsm/k g Calcium 8.9 (8.5-10.5) mg/dL Total Bilirubin 0.2 (0.15-1.2) mg/dL AST 22 (0-32) U/L ALT 15 (0-33) U/L Alkaline Phosphata se 60 (35-105) IU/L Total Protein 7.9 (6.6-8.7) g/dL Albumin 4.3 (3.5-5.2) g/dL Globulin 3.6 (1.3-4.6) g/dL HCG, Qual Negative (Negative) Urine Color (Yellow) Urine Appearance (CLEAR) Urine pH (5-7) Ur Specific Gravit y (1.005-1.030) Urine Protein (Negative) Urine Glucose (UA) (Normal) Urine Ketones (Negative) Urine Blood (Negative) Urine Nitrate (Negative) Urine Bilirubin (Negative) Prot Sulfosalicyli c Acd (Negative) Urine Urobilinogen (Negative) mg/dL Ur Leukocyte Keila ase (Negative) 03/14/20 Range/Units 21:00 WBC (4.0-10.0) 10^3/ uL RBC (4.1-5.3) 10^6/u L Hgb (11.5-15.3) g/dL Hct (37.0-47.0) % MCV (81-99) fL MCH (28.0-34.0) pg MCHC (30.0-36.0) g/dL RDW (12.1-15.1) % Plt Count (130-400) 10^3/c mm MPV (7.4-10.4) fL Neut % (Auto) % Lymph % (Auto) % Bullitt % (Auto) % Eos % (Auto) % Baso % (Auto) % Neut # (Auto) (1.8-7.7) 10^3/u L Lymph # (Auto) (0.8-4.8) 10^3/u L Bullitt # (Auto) (0.2-0.9) 10^3/u L Eos # (Auto) (0.0-0.8) 10^3/u L Baso # (Auto) (0.0-0.1) 10^3/u L Nucleated RBC % (a uto) % Nucleated RBCs # /100WBC Sodium (136-145) mmol/L Potassium (3.5-5.1) mmol/L Chloride (98-107) mmol/L Carbon Dioxide (22-29) mmol/L Anion Gap (5-19) BUN (6-20) mg/dL Creatinine (0.5-0.9) mg/dL GFR Calculation (90-130) mL/min Glucose (65-115) mg/dL Calculated Osmolal ity (285-295) mOsm/k g Calcium (8.5-10.5) mg/dL Total Bilirubin (0.15-1.2) mg/dL AST (0-32) U/L ALT (0-33) U/L Alkaline Phosphata se (35-105) IU/L Total Protein (6.6-8.7) g/dL Albumin (3.5-5.2) g/dL Globulin (1.3-4.6) g/dL HCG, Qual (Negative) Urine Color Straw (Yellow) Urine Appearance Clear (CLEAR) Urine pH 8 H (5-7) Ur Specific Gravit y 1.005 (1.005-1.030) Urine Protein Neg (Negative) Urine Glucose (UA) Norm (Normal) Urine Ketones Negative (Negative) Urine Blood Neg (Negative) Urine Nitrate Negative (Negative) Urine Bilirubin Neg (Negative) Prot Sulfosalicyli c Acd Negative (Negative) Urine Urobilinogen Norm (Negative) mg/dL Ur Leukocyte Keila ase Negative (Negative) Imaging Data ^: US transvaginal : Radiologist's impression: [facility] [address] [place] [address] Ultrasound Report Signed Patient: Debby Bates Unit #: [id number] : 1985 Age/Sex: 35 / F ADM Date: 03/14/20 Loc: ER Room/Bed: Attending Dr: Ordering Provider/Ordering MD: Maye Mukherjee Date of Service: 03/14/20 Procedure(s): US transvaginal [id number] Accession Number(s): [id number] Report Number: [id number] PROCEDURE INFORMATION: Exam: US Pelvis, Transvaginal Exam date and time: 03/14/2020 11:28 PM Age: 35 years old Clinical indication: Pelvic pain; Prior surgery; Surgery date: 6+ months; Surgery type: C-sec x 2; Additional info: Lower pelvic pain TECHNIQUE: Imaging protocol: Real-time transvaginal pelvic ultrasound with image documentation. Transvaginal imaging was used for better evaluation of the endometrium and adnexa. COMPARISON: No relevant prior studies available. FINDINGS: The uterus measures 9.9 cm in length. There is no visible focal myometrial mass. There is no intrauterine fluid. Endometrial thickness is 13 mm. Very small amount of cul-de-sac fluid. The right ovary is enlarged, measuring 53 x 31 x 46 mm, estimated volume 39.2 cc. Two relatively simple appearing cysts in the right ovary, measuring 36 x 26 x 29 mm, and 25 x 19 x 24 mm. The left ovary is upper normal in size, measuring 50 x 23 x 32 mm, estimated volume 19.2 cc. The left ovary contains a 24 x 17 x 20 mm relatively simple cyst versus dominant follicle. These may still represent physiologic cysts. Other etiologies are not excluded, including pelvic inflammatory disease, endometrioma, and ovarian neoplasm. As clinically directed, follow up in one to three months may be useful to evaluate for resolution of a physiologic cyst, and to guard against a persistent/enlarging lesion/neoplasm. Blood flow detected in each ovary. The urinary bladder was not completely evaluated/imaged at this time. US/US transvaginal [id number] IMPRESSION: 1. Bilateral ovarian cysts, more prominent on the right. Please see above details/discussion. 2. Very small amount of cul-de-sac fluid. 3. Other details discussed above. Dictated By: Charlie Murdock MD Signed By: Charlie Murdock MD Signed Date/Time: 03/15/20 001 DD/ 0009 CT Abd/Pel: Radiologist's impression: [address] [address] [address] Scan Report Signed Patient: Debby Bates Unit #: [id number] : 1985 Age/Sex: 35 / F ADM Date: Loc: ER Room/Bed: Attending Dr: Ordering Provider/Ordering MD: Maye Mukherjee Date of Service: 03/14/20 Procedure(s): CT abdomen pelvis w con* [id number] Accession Number(s): [id number] Report Number: [id number] PROCEDURE INFORMATION: Exam: CT Abdomen And Pelvis With Contrast Exam date and time: 03/14/2020 10:13 PM Age: 35 years old Clinical indication: Abdominal pain; Localized; Prior surgery; Surgery date: 6+ months; Surgery type: C-sect; Patient HX: C/O sudden onset lower abd/pelvic pain; Additional info: Lower abdominal pain TECHNIQUE: Imaging protocol: Computed tomography of the abdomen and pelvis with intravenous contrast. Radiation optimization: All CT scans at this facility use at least one of these dose optimization techniques: automated exposure control; mA and/or kV adjustment per patient size (includes targeted exams where dose is matched to clinical indication); or iterative reconstruction. Contrast material: OMNI 300; Contrast volume: 95 ml; Contrast route: INTRAVENOUS (IV); COMPARISON: US transvaginal [id number] 03/14/2020 11:03 PM RADIATION DOSE METRICS: Total DLP (mGy-cm): 639.5 FINDINGS: Lungs: The lung bases are clear. Liver: Unremarkable. Gallbladder and bile ducts: No visible gallstones by CT. No biliary tree dilation. Pancreas: Unremarkable. Spleen: Very small nonspecific 4 mm low-attenuation area in the lower spleen, unlikely be clinically significant. Adrenals: Unremarkable. Kidneys and ureters: No significant hydronephrosis of either kidney. No visible ureteral calculus. No perinephric fluid. The kidneys enhance homogeneously. Stomach and bowel: There are no CT findings to strongly suggest diverticulitis. Appendix: The appendix is visualized and appears normal. Intraperitoneal space: No free air, generalized ascites, or bowel distention. Vasculature: No evidence for abdominal aortic aneurysm. Lymph nodes: No retroperitoneal adenopathy. Bladder: Unremarkable as visualized. Reproductive: The right ovary is enlarged, and contains 2 cystic lesions, measuring up to about 35 mm in diameter. Small amount of cul-de-sac fluid. The fluid measures 2.5 x 2 x 2.5 cm, estimated volume 6-7 cc. The fluid measures fairly high in attenuation, (up to 30 Hounsfield units), and could represent peritoneal blood. No significant peritoneal fluid in the upper abdomen. This overall appearance may be related to ovarian cyst rupture and/or hemorrhage. Pelvic inflammatory disease might also be considered. Please correlate clinically. The left ovary contains a 22 mm dominant follicle versus small cyst. Significance uncertain due to relatively small size. These may still represent physiologic ovarian cysts. Other etiologies are not excluded. As clinically directed, follow up in one to three months may be useful to evaluate for resolution of a physiologic cyst, and to guard against a persistent/enlarging lesion/neoplasm. See earlier pelvic ultrasound report for further discussion. Bones/joints: No significant acute finding. Soft tissues: No significant acute finding. CT/CT abdomen pelvis w con* [id number] IMPRESSION: 1. Bilateral ovarian cysts, see above details/discussion. 2. Small amount of fairly high attenuation cul-de-sac fluid, details above. This overall appearance may be related to ovarian cyst rupture and/or hemorrhage. Pelvic inflammatory disease might also be considered. Please correlate clinically. 3. Normal appendix. 4. No free air or bowel distention. 5. Other findings discussed above. Radiation Dose CTDIVOL = (mGy): DLP = 639.5 (mGy-cm) Dictated By: Charlie Murdock MD Signed By: Charlie Murdock MD Signed Date/Time: 03/15/2041 DD/ Discharge Plan Discharge Patient Disposition: Home Clinical Impression: Ovarian cyst rupture, Bilateral ovarian cysts Condition: Stable Prescriptions: New hydrocodone-acetaminophen 5-325 mg tablet 1 tab PO Q6H PRN (Reason: pain) Qty: 14 RF: 0 Zofran 4 mg tablet 4 mg PO Q6H PRN (Reason: nausea and vomiting) Qty: 14 RF: 0 No Action multivitamin Tablet 1 tab PO DAILY RF: 0 Unisom SleepGels 50 mg Capsule 50 mg PO BEDTIME PRN (Reason: Sleep) RF: 0 ibuprofen 200 mg Tablet 200 mg PO Q6H PRN (Reason: Pain) RF: 0 vitamin B complex Tablet 1 tab PO DAILY RF: 0 iron 159 mg (45 mg iron) Tablet Extended Release 159 mg PO DAILY RF: 0 Discharge Orders: Discharge Order (Routine); Ordered 03/15/20 Ordered By: Maye Mukherjee Referrals: Will Trujillo Jr, MD [Primary Care Provider] - Patient Instructions: Ovarian Cyst (ED) Activity Restrictions/Additional Instructions: As discussed you need to return to the emergency department immediately for worsening pelvic or abdominal pain, lightheadedness, dizziness, passing out episodes, or any other concerns you may have. Case management should contact you early next week to set you up with gynecology/women's health appointment. Coding Level of Care Code ED Distribution Operation Supervisor for Julito Fwd Exam Comprehensive
[2020-03-14 20:57] LABS: Basophils % 0.4 %; Eosinophils # 0.3 10^3/uL (0.0-0.8); Eosinophils % 2.5 %; Hemoglobin 9.1 g/dL (11.5-15.3); Lymphocytes # 1.7 10^3/uL (0.8-4.8); Lymphocytes % 15.8 %; Mean Corpuscular HGB Conc 28.4 g/dL (30.0-36.0); Mean Corpuscular Hemoglobin 20.1 pg (28.0-34.0); Mean Corpuscular Volume 70.8 fL (81-99); Monocytes # 0.6 10^3/uL (0.2-0.9); Neutrophils % 75.9 %; Nucleated Red Blood Cells % 0 %; Platelet Count 261 10^3/cmm (130-400); Red Blood Count 4.52 10^6/uL (4.1-5.3); White Blood Count 10.9 10^3/uL (4.0-10.0)
[2020-03-14 21:12] LABS: Alanine Aminotransferase 15 U/L (0-33); Albumin Level 4.3 g/dL (3.5-5.2); Alkaline Phosphatase 60 IU/L (35-105); Anion Gap 15.6 (5-19); Aspartate Amino Transferase 22 U/L (0-32); Blood Urea Nitrogen 7 mg/dL (6-20); Calcium 8.9 mg/dL (8.5-10.5); Carbon Dioxide 24 mmol/L (22-29); Chloride 103 mmol/L (98-107); Globulin 3.6 g/dL (1.3-4.6); Glomerular Filtration Rate 139.6 mL/min (90-130); Glucose 103 mg/dL (65-115); Osmolality Calculated 286 mOsm/kg (285-295); Potassium 3.6 mmol/L (3.5-5.1); Sodium 139 mmol/L (136-145); Total Bilirubin 0.2 mg/dL (0.15-1.2); Total Protein 7.9 g/dL (6.6-8.7)
[2020-03-14 21:15] LABS: HCG, Serum Qual Negative (Negative)
[2020-03-14 21:24] VITALS: RESP 18; O2SAT 98
[2020-03-14] MEDS: morphine 4 mg/mL SDV 1 mL IVP (21:24)
[2020-03-14] MEDS: ondansetron 2 mg/ML SDV 2 mL 4 MG IVP (21:25)
[2020-03-14] MEDS: sodium chloride 0.9% 1,000 ML 999 ML IV (21:25)
[2020-03-14 21:30] LABS: Add Urine Microscopic? NO
[2020-03-14 21:38] LABS: Bilirubin Urine Neg (Negative); Blood Urine Neg (Negative); Glucose Urine UA Norm (Normal); Ketones Urine Negative (Negative); Leukocyte Esterase Urine Negative (Negative); Nitrate Urine Negative (Negative); Protein Urine Neg (Negative); Specific Gravity, Urine 1.005 (1.005-1.030); Sulfosalicylic Acid Urine Negative (Negative); Urine Appearance Clear (CLEAR); Urine Color Straw (Yellow); Urobilinogen Urine Norm (Negative); pH Urine 8 (5-7)
--- NOTE | 2020-03-14 21:41 | CTR_ITS ---
PROCEDURE INFORMATION: Exam: CT Abdomen And Pelvis With Contrast Exam date and time: 03/14/2020 10:13 PM Age: 35 years old Clinical indication: Abdominal pain; Localized; Prior surgery; Surgery date: 6+ months; Surgery type: C-sect; Patient HX: C/O sudden onset lower abd/pelvic pain; Additional info: Lower abdominal pain TECHNIQUE: Imaging protocol: Computed tomography of the abdomen and pelvis with intravenous contrast. Radiation optimization: All CT scans at this facility use at least one of these dose optimization techniques: automated exposure control; mA and/or kV adjustment per patient size (includes targeted exams where dose is matched to clinical indication); or iterative reconstruction. Contrast material: OMNI 300; Contrast volume: 95 ml; Contrast route: INTRAVENOUS (IV); COMPARISON: US transvaginal [id number] 03/14/2020 11:03 PM RADIATION DOSE METRICS: Total DLP (mGy-cm): 639.5 FINDINGS: Lungs: The lung bases are clear. Liver: Unremarkable. Gallbladder and bile ducts: No visible gallstones by CT. No biliary tree dilation. Pancreas: Unremarkable. Spleen: Very small nonspecific 4 mm low-attenuation area in the lower spleen, unlikely be clinically significant. Adrenals: Unremarkable. Kidneys and ureters: No significant hydronephrosis of either kidney. No visible ureteral calculus. No perinephric fluid. The kidneys enhance homogeneously. Stomach and bowel: There are no CT findings to strongly suggest diverticulitis. Appendix: The appendix is visualized and appears normal. Intraperitoneal space: No free air, generalized ascites, or bowel distention. Vasculature: No evidence for abdominal aortic aneurysm. Lymph nodes: No retroperitoneal adenopathy. Bladder: Unremarkable as visualized. Reproductive: The right ovary is enlarged, and contains 2 cystic lesions, measuring up to about 35 mm in diameter. Small amount of cul-de-sac fluid. The fluid measures 2.5 x 2 x 2.5 cm, estimated volume 6-7 cc. The fluid measures fairly high in attenuation, (up to 30 Hounsfield units), and could represent peritoneal blood. No significant peritoneal fluid in the upper abdomen. This overall appearance may be related to ovarian cyst rupture and/or hemorrhage. Pelvic inflammatory disease might also be considered. Please correlate clinically. The left ovary contains a 22 mm dominant follicle versus small cyst. Significance uncertain due to relatively small size. These may still represent physiologic ovarian cysts. Other etiologies are not excluded. As clinically directed, follow up in one to three months may be useful to evaluate for resolution of a physiologic cyst, and to guard against a persistent/enlarging lesion/neoplasm. See earlier pelvic ultrasound report for further discussion. Bones/joints: No significant acute finding. Soft tissues: No significant acute finding. CT/CT abdomen pelvis w con* [id number] IMPRESSION: 1. Bilateral ovarian cysts, see above details/discussion. 2. Small amount of fairly high attenuation cul-de-sac fluid, details above. This overall appearance may be related to ovarian cyst rupture and/or hemorrhage. Pelvic inflammatory disease might also be considered. Please correlate clinically. 3. Normal appendix. 4. No free air or bowel distention. 5. Other findings discussed above. Radiation Dose CTDIVOL = (mGy): DLP = 639.5 (mGy-cm)
--- NOTE | 2020-03-14 21:42 | USR_ITS ---
PROCEDURE INFORMATION: Exam: US Pelvis, Transvaginal Exam date and time: 03/14/2020 11:28 PM Age: 35 years old Clinical indication: Pelvic pain; Prior surgery; Surgery date: 6+ months; Surgery type: C-sec x 2; Additional info: Lower pelvic pain TECHNIQUE: Imaging protocol: Real-time transvaginal pelvic ultrasound with image documentation. Transvaginal imaging was used for better evaluation of the endometrium and adnexa. COMPARISON: No relevant prior studies available. FINDINGS: The uterus measures 9.9 cm in length. There is no visible focal myometrial mass. There is no intrauterine fluid. Endometrial thickness is 13 mm. Very small amount of cul-de-sac fluid. The right ovary is enlarged, measuring 53 x 31 x 46 mm, estimated volume 39.2 cc. Two relatively simple appearing cysts in the right ovary, measuring 36 x 26 x 29 mm, and 25 x 19 x 24 mm. The left ovary is upper normal in size, measuring 50 x 23 x 32 mm, estimated volume 19.2 cc. The left ovary contains a 24 x 17 x 20 mm relatively simple cyst versus dominant follicle. These may still represent physiologic cysts. Other etiologies are not excluded, including pelvic inflammatory disease, endometrioma, and ovarian neoplasm. As clinically directed, follow up in one to three months may be useful to evaluate for resolution of a physiologic cyst, and to guard against a persistent/enlarging lesion/neoplasm. Blood flow detected in each ovary. The urinary bladder was not completely evaluated/imaged at this time. US/ transvaginal [id number] IMPRESSION: 1. Bilateral ovarian cysts, more prominent on the right. Please see above details/discussion. 2. Very small amount of cul-de-sac fluid. 3. Other details discussed above.
[2020-03-14 23:12] VITALS: RESP 18; O2SAT 98
[2020-03-14] MEDS: fentaNYL 50 mcg/mL INJ 2mL IVP (23:12)
[2020-03-14 23:44] VITALS: BP 116/64; PULSE 72; RESP 18; O2SAT 98
[2020-03-14] MEDS: iohexol 300 mg/mL 100 mL Btl IV (23:54)
[2020-03-15 01:29] VITALS: BP 116/64; PULSE 80; RESP 18; O2SAT 99
--- NOTE | 2020-03-16 11:45 | DCPLANNER ---
manager cost had message to schedule a follow up appointment for patient with [facility]. manager cost called [facility], spoke with Suzy, gave clinic patients information. manager cost was told that patients information would be printed and reviewed. Clinic will call patient with appointment information.
--- NOTE | 2020-03-18 08:45 | DCPLANNER ---
Patient has a follow up appointment scheduled for Monday, April 06, 2020 at 2:[address] Butcher. Clinic will contact patient with appointment information.
--- NOTE | 2020-04-16 07:57 | DCPLANNER ---
Patient had follow up appointment scheduled for 04.06.20 at 2:45 at [facility] - patient did attend appointment.
== END 2020-03-15 01:29 | disposition home or self-care (01) ==
PROVIDERS: Emergency Provider Physician Assistant; PCP Family Medicine
DX: N83.292 Other ovarian cyst, left side (principal); N83.291 Other ovarian cyst, right side
CPT/HCPCS: 12345; 36415; 74177; 76830; 80053; 81003; 84703; 85025; 96365; 96375; 99282; 99284; J2270; J2405; J3010; J7030; Q9967

== ENCOUNTER 2020-03-15 22:12 | Emergency (ER) | payer MEDICAID, SELFPAY ==
[2020-03-15 22:18] VITALS: BP 117/84; PULSE 101; RESP 14; TEMP 39.1; O2SAT 97; BMI 26.2
[2020-03-15 22:46] LABS: Basophils % 0.2 %; Eosinophils # 0.2 10^3/uL (0.0-0.8); Eosinophils % 2.2 %; Hematocrit 32.4 % (37.0-47.0); Hemoglobin 9.2 g/dL (11.5-15.3); Lymphocytes # 1.5 10^3/uL (0.8-4.8); Lymphocytes % 15.8 %; Mean Corpuscular HGB Conc 28.4 g/dL (30.0-36.0); Mean Corpuscular Hemoglobin 20.2 pg (28.0-34.0); Mean Corpuscular Volume 71.1 fL (81-99); Mean Platelet Volume 12.3 fL (7.4-10.4); Monocytes # 0.7 10^3/uL (0.2-0.9); Monocytes % 7.3 %; Neutrophils # 7.08 10^3/uL (1.8-7.7); Neutrophils % 74.3 %; Nucleated Red Blood Cells % 0 %; Platelet Count 236 10^3/cmm (130-400); Red Blood Count 4.56 10^6/uL (4.1-5.3); White Blood Count 9.5 10^3/uL (4.0-10.0)
[2020-03-15] MEDS: sodium chloride 0.9% 1,000 ML 999 ML IV (22:50)
[2020-03-15 22:55] LABS: Bilirubin Urine Neg (Negative); Blood Urine Neg (Negative); Glucose Urine UA Norm (Normal); Ketones Urine 1+ (Negative); Leukocyte Esterase Urine 2+ (Negative); Nitrate Urine Negative (Negative); Protein Urine Neg (Negative); Sulfosalicylic Acid Urine Negative (Negative); Urine Color Yellow (Yellow); Urobilinogen Urine Norm (Negative); pH Urine 8 (5-7)
[2020-03-15] MEDS: acetaminophen 500 mg Tablet 1000 MG PO (22:55)
--- NOTE | 2020-03-15 22:55 | W.ED.ABDPA2 ---
HPI - Abdominal Pain General: Chief Complaint: Fever Stated Complaint: abd pain/fever Time Seen by Provider: 03/15/20 22:26 Source: patient Mode of arrival: ambulatory Limitations: no limitations History of Present Illness: HPI narrative: Patient is a 35-year-old female who presents to ED today with complaints of a fever and continued lower abdominal/pelvic pain. Patient was seen here yesterday by myself and diagnosed with bilateral ovarian cysts-one of which appeared hemorrhagic. Patient states her pain today does seem to be improving however noticed fever of up to 103. She is not having any vomiting. No changes in her bowel movements. She is not complaining of dysuria, urinary frequency, urgency. She denies vaginal discharge or vaginal odors. She is monogamous with her and denies concern for STDs. She is not having any chest pain, shortness of breath, difficulty breathing, cough. No exposure to COVID. MD elicited complaint: abdominal pain and other (fevers) Pertinent past history: other (ovarian cysts ) Pain Consistency: constant Location: Pelvis Severity: moderate Radiation: none Migration to: no migration Associated Symptoms: Reports fever(s); Denies change in bowel habits, chills, diarrhea, dysuria, hematuria, nausea, syncope and vomiting Related Data: Date of Last Menstrual Period: 03/07/20 Review of Systems Const: Reports: fever(s); Denies: chills, body aches, fatigue or malaise ENMT: Denies: throat pain or odynophagia Card: Denies: chest pain, edema, lightheadedness, syncope or pre-syncope Resp: Denies: dyspnea, productive cough, non-productive cough, hemoptysis or chest congestion GI: Reports: abdominal pain; Denies: nausea, vomiting, diarrhea or change in bowel habits : Reports: pelvic pain; Denies: flank pain, difficulty voiding, dysuria, urinary frequency, urinary urgency, urinary hesitancy, hematuria, genital lesions, genital pruritis, vaginal odor, vaginal bleeding or vaginal discharge Musc: Denies: neck pain, back pain, extremity pain, extremity swelling, joint pain or joint swelling Skin/Breast: Denies: rash Neuro: Denies: headache(s), numbness in extremities, weakness in extremities or sensory changes PFS ED PFSH: Medical History (Updated 03/16/20 @ 00:54 by SAJI Teresa) Grand multipara Hyperemesis gravidarum Superficial thrombophlebitis Surgical History (Updated 07/03/19 @ 10:47 by Jeanne Truong MD) History of multiple History of dilation and curettage -06/28/19 for miscarriage, in [place] -is multigravida with hx of prior miscarriages -has some residual bleeding likely from procedure, no concern for retained products of conception -patient scheduled for f/u with Dr. Rodriguez tomorrow Family History Denies family history of Clotting disorder Bleeding disorder Stroke Social History Smoking and tobacco status: never smoked Alcohol intake: never Female Reproductive History: Date of last menstrual period: 03/07/20 Para: 8 Spontaneous abortions: Yes (3, most recent 07/15 at 14 wks) Physical Exam Const: COMMON NORMALS: no acute distress, average body habitus, patient oriented x3, no limitations, healthy appearing, alert and well nourished HENMT: COMMON NORMALS: normocephalic and atraumatic HEAD & SCALP: normocephalic and atraumatic Resp: COMMON NORMALS: normal respiratory effort and clear to auscultation bilaterally AUSCULTATION: clear to auscultation bilaterally Cardio: COMMON NORMALS: regular rate and regular rhythm RATE: regular rate RHYTHM: regular rhythm GI: COMMON NORMALS: Normal to inspection, nondistended, normoactive bowel sounds present, Soft to palpation, No hepatosplenomegaly present and no masses PALPATION: Yes Soft to palpation, Yes Tenderness to palpation present (GI) (throughout lower abdomen/pelvis ) and Yes No hepatosplenomegaly present : COMMON NORMALS: Yes no CVA tenderness BLADDER/KIDNEY EXAM: Yes no CVA tenderness EXTERNAL FEMALE EXAM: Yes normal appearance of the urethra SPECULUM EXAM - VAGINA: No vaginal bleeding and Yes Vaginal discharge present Vaginal discharge present: clear and yellow SPECULUM EXAM - CERVIX: Yes Cervical os closed and No Cervical tenderness present BIMANUAL EXAM - VAGINA & UTERUS: Yes normal palpation, No cervical motion tenderness, No Cervical tenderness present and Yes Uterine tenderness BIMANUAL EXAM - ADNEXA, OTHER: Yes tender OB/EXTERNAL & SPECULUM: No vaginal bleeding Back/Pelvis: COMMON NORMALS: no CVA tenderness Extremity: COMMON NORMALS: normal to inspection Neuro: COMMON NORMALS: patient oriented x3 SENSORIUM/ORIENTATION: Yes alert Skin: COMMON NORMALS: no rashes or lesions noted GENERAL SKIN EXAM: no rashes or lesions noted Course Vital Signs: Vital signs: Vital Signs Temperature 98.5 F 03/16/20 01:50 Pulse Rate 72 03/16/20 01:50 Respiratory Rate 16 03/16/20 01:50 Blood Pressure 112/66 03/16/20 01:50 Pulse Oximetry 98 03/16/20 01:50 MDM - Abdominal Pain MDM Narrative: Medical decision making narrative: Patient clinically appears better than she did yesterday. She feels like her pain is improving. She refused her CXR for evaluation of her fever. She has a normal white count. Her hemoglobin is stable when compared to previous labs and when compared to yesterday's lab. Initial urine was contaminated with 25-40 squamous cells so this was repeated as a cath specimen and appears clear. She does have quite a bit of cervical discharge however lacks cervicitis or cervical inflammation. At this time I will go ahead and treat patient for a possible PID. She was given IM Rocephin and will be placed on Doxycycline as well as Flagyl as her wet prep did show bacterial vaginosis. Strict return to ED precautions given. Case was discussed with Dr. Funes who agrees with plan/treatment. Lab Data: Labs: Lab Results 03/15/20 03/15/20 03/15/20 Range/Units 22:30 22:30 22:40 WBC 9.5 (4.0-10.0) 10^3/ uL RBC 4.56 (4.1-5.3) 10^6/u L Hgb 9.2 L (11.5-15.3) g/dL Hct 32.4 L (37.0-47.0) % MCV 71.1 L (81-99) fL MCH 20.2 L (28.0-34.0) pg MCHC 28.4 L (30.0-36.0) g/dL RDW 16.0 H (12.1-15.1) % Plt Count 236 (130-400) 10^3/c mm MPV 12.3 H (7.4-10.4) fL Neut % (Auto) 74.3 % Lymph % (Auto) 15.8 % Screven % (Auto) 7.3 % Eos % (Auto) 2.2 % Baso % (Auto) 0.2 % Neut # (Auto) 7.08 (1.8-7.7) 10^3/u L Lymph # (Auto) 1.5 (0.8-4.8) 10^3/u L Screven # (Auto) 0.7 (0.2-0.9) 10^3/u L Eos # (Auto) 0.2 (0.0-0.8) 10^3/u L Baso # (Auto) 0.0 (0.0-0.1) 10^3/u L Nucleated RBC % (a uto) 0 % Nucleated RBCs # 0.0 /100WBC Sodium 138 (136-145) mmol/L Potassium 3.5 (3.5-5.1) mmol/L Chloride 104 (98-107) mmol/L Carbon Dioxide 24 (22-29) mmol/L Anion Gap 13.5 (5-19) BUN 5 L (6-20) mg/dL Creatinine 0.7 (0.5-0.9) mg/dL GFR Calculation 94.7 (90-130) mL/min Glucose 105 (65-115) mg/dL Calculated Osmolal ity 284 L (285-295) mOsm/k g Lactate (0.5-2.2) mmol/L Calcium 9.2 (8.5-10.5) mg/dL Total Bilirubin 0.6 (0.15-1.2) mg/dL AST 18 (0-32) U/L ALT 13 (0-33) U/L Alkaline Phosphata se 64 (35-105) IU/L Total Protein 8.2 (6.6-8.7) g/dL Albumin 4.2 (3.5-5.2) g/dL Globulin 4.0 (1.3-4.6) g/dL Lipase 11 L (13-60) U/L Urine Color Yellow (Yellow) Urine Appearance Sl cloudy A (CLEAR) Urine pH 8 H (5-7) Ur Specific Gravit y 1.010 (1.005-1.030) Urine Protein Neg (Negative) Urine Glucose (UA) Norm (Normal) Urine Ketones 1+ H (Negative) Urine Blood Neg (Negative) Urine Nitrate Negative (Negative) Urine Bilirubin Neg (Negative) Prot Sulfosalicyli c Acd Negative (Negative) Urine Urobilinogen Norm (Negative) mg/dL Ur Leukocyte Keila ase 2+ H (Negative) Urine RBC 0-4 H (0-2) /hpf Urine WBC 15-25 H (0-5) /hpf Ur Squamous Epith Cells 25-40 H (0-5) /hpf Amorphous Sediment Not Reportable Urine Bacteria 1+ H (NONE) /hpf 03/15/20 03/15/20 Range/Units 23:40 23:55 WBC (4.0-10.0) 10^3/ uL RBC (4.1-5.3) 10^6/u L Hgb (11.5-15.3) g/dL Hct (37.0-47.0) % MCV (81-99) fL MCH (28.0-34.0) pg MCHC (30.0-36.0) g/dL RDW (12.1-15.1) % Plt Count (130-400) 10^3/c mm MPV (7.4-10.4) fL Neut % (Auto) % Lymph % (Auto) % Screven % (Auto) % Eos % (Auto) % Baso % (Auto) % Neut # (Auto) (1.8-7.7) 10^3/u L Lymph # (Auto) (0.8-4.8) 10^3/u L Screven # (Auto) (0.2-0.9) 10^3/u L Eos # (Auto) (0.0-0.8) 10^3/u L Baso # (Auto) (0.0-0.1) 10^3/u L Nucleated RBC % (a uto) % Nucleated RBCs # /100WBC Sodium (136-145) mmol/L Potassium (3.5-5.1) mmol/L Chloride (98-107) mmol/L Carbon Dioxide (22-29) mmol/L Anion Gap (5-19) BUN (6-20) mg/dL Creatinine (0.5-0.9) mg/dL GFR Calculation (90-130) mL/min Glucose (65-115) mg/dL Calculated Osmolal ity (285-295) mOsm/k g Lactate 0.6 (0.5-2.2) mmol/L Calcium (8.5-10.5) mg/dL Total Bilirubin (0.15-1.2) mg/dL AST (0-32) U/L ALT (0-33) U/L Alkaline Phosphata se (35-105) IU/L Total Protein (6.6-8.7) g/dL Albumin (3.5-5.2) g/dL Globulin (1.3-4.6) g/dL Lipase (13-60) U/L Urine Color Yellow (Yellow) Urine Appearance Clear (CLEAR) Urine pH 7 (5-7) Ur Specific Gravit y 1.005 (1.005-1.030) Urine Protein Neg (Negative) Urine Glucose (UA) Norm (Normal) Urine Ketones 1+ H (Negative) Urine Blood Neg (Negative) Urine Nitrate Negative (Negative) Urine Bilirubin Neg (Negative) Prot Sulfosalicyli c Acd (Negative) Urine Urobilinogen Norm (Negative) mg/dL Ur Leukocyte Keila ase Negative (Negative) Urine RBC (0-2) /hpf Urine WBC (0-5) /hpf Ur Squamous Epith Cells (0-5) /hpf Amorphous Sediment Urine Bacteria (NONE) /hpf Discharge Plan Discharge Patient Disposition: Home Clinical Impression: Acute pelvic inflammatory disease (PID) Condition: Stable Prescriptions: New Flagyl 500 mg tablet 500 mg PO BID 7 Days Qty: 14 RF: 0 doxycycline monohydrate 100 mg capsule 100 mg PO Q12H 10 Days Qty: 20 RF: 0 No Action hydrocodone-acetaminophen 5-325 mg tablet 1 tab PO Q6H PRN (Reason: pain) Qty: 14 RF: 0 Zofran 4 mg tablet 4 mg PO Q6H PRN (Reason: nausea and vomiting) Qty: 14 RF: 0 multivitamin Tablet 1 tab PO DAILY RF: 0 Unisom SleepGels 50 mg Capsule 50 mg PO BEDTIME PRN (Reason: Sleep) RF: 0 ibuprofen 200 mg Tablet 200 mg PO Q6H PRN (Reason: Pain) RF: 0 vitamin B complex Tablet 1 tab PO DAILY RF: 0 iron 159 mg (45 mg iron) Tablet Extended Release 159 mg PO DAILY RF: 0 Discharge Orders: Discharge Order (Routine); Ordered 03/16/20 Ordered By: Maye Mukherjee Referrals: Will Trujillo Jr, MD [Primary Care Provider] - Patient Instructions: Pelvic Inflammatory Disease (ED), Pelvic Inflammatory Disease (PID) Activity Restrictions/Additional Instructions: Begin your antibiotics immediately. You may take Tylenol and Motrin for the fevers. You may continue your pain medication prescribed to you on the last visit as needed. You should be contacted if any of your cultures come back positive. You need to follow-up with primary care as soon as possible. As discussed on your last visit case management should be setting you up with women's health for a follow-up appointment regarding your ovarian cysts. Discharge Date/Time: 03/16/20 01:53 Coding Level of Care Code ED Rf Test Technician for Julito Fwd Exam Comprehensive
[2020-03-15 22:56] LABS: Add Urine Microscopic? YES
[2020-03-15 22:57] LABS: Add Urine Culture? No; Bacteria Urine 1+ /hpf; RBC Urine 0-4 /hpf (0-2); Squamous Epithelial Cell Urine 25-40 /hpf (0-5); WBC Urine 15-25 /hpf (0-5)
[2020-03-15 23:09] LABS: Alanine Aminotransferase 13 U/L (0-33); Albumin Level 4.2 g/dL (3.5-5.2); Alkaline Phosphatase 64 IU/L (35-105); Anion Gap 13.5 (5-19); Aspartate Amino Transferase 18 U/L (0-32); Blood Urea Nitrogen 5 mg/dL (6-20); Calcium 9.2 mg/dL (8.5-10.5); Carbon Dioxide 24 mmol/L (22-29); Chloride 104 mmol/L (98-107); Glomerular Filtration Rate 94.7 mL/min (90-130); Glucose 105 mg/dL (65-115); Lipase 11 U/L (13-60); Osmolality Calculated 284 mOsm/kg (285-295); Potassium 3.5 mmol/L (3.5-5.1); Sodium 138 mmol/L (136-145); Total Bilirubin 0.6 mg/dL (0.15-1.2); Total Protein 8.2 g/dL (6.6-8.7)
[2020-03-15] MEDS: ondansetron 2 mg/ML SDV 2 mL 4 MG IVP (23:09)
[2020-03-15 23:10] VITALS: RESP 18; O2SAT 99
[2020-03-15] MEDS: morphine 4 mg/mL SDV 1 mL IVP (23:10)
[2020-03-15 23:13] VITALS: BP 106/58; PULSE 75; RESP 18; O2SAT 99
[2020-03-15 23:54] VITALS: BP 103/63; PULSE 78; RESP 18; O2SAT 93
[2020-03-16 00:16] LABS: Add Urine Microscopic? NO
[2020-03-16 00:30] LABS: Bilirubin Urine Neg (Negative); Blood Urine Neg (Negative); Glucose Urine UA Norm (Normal); Ketones Urine 1+ (Negative); Leukocyte Esterase Urine Negative (Negative); Nitrate Urine Negative (Negative); Protein Urine Neg (Negative); Specific Gravity, Urine 1.005 (1.005-1.030); Urine Appearance Clear (CLEAR); Urine Color Yellow (Yellow); Urobilinogen Urine Norm (Negative); pH Urine 7 (5-7)
[2020-03-16 00:38] VITALS: BP 101/60; PULSE 78; RESP 16; O2SAT 99
[2020-03-16 00:38] LABS: Lactate (Lactic Acid level) 0.6 mmol/L (0.5-2.2)
[2020-03-16] MEDS: doxycycline 100 mg Tablet PO (01:18)
[2020-03-16] MEDS: metroNIDAZOLE 500 MG Tablet PO (01:18)
[2020-03-16] MEDS: cefTRIAXone 1,000 mg SDV 250 MG IM (01:20)
[2020-03-16 01:28] VITALS: BP 105/60; PULSE 72; RESP 16; O2SAT 99
[2020-03-16 01:49] VITALS: BP 112/66; PULSE 72; RESP 16; TEMP 36.9; O2SAT 98
[2020-03-16 01:50] VITALS: BP 112/66; PULSE 72; RESP 16; TEMP 36.9; O2SAT 98
[2020-03-18 10:59] LABS: Chlamydia Trachomatis RNA TMA NOT DETECTED (NOT DETECTED); Neisseria Gonorrhoeae RNA, TMA NOT DETECTED (NOT DETECTED)
== END 2020-03-16 01:53 | disposition home or self-care (01) ==
PROVIDERS: Emergency Medicine; Emergency Provider Physician Assistant; PCP Family Medicine
DX: N73.0 Acute parametritis and pelvic cellulitis (principal)
CPT/HCPCS: 12345; 80053; 81001; 81003; 83605; 83690; 85025; 87040; 87086; 87210; 87491; 87591; 96372; 96374; 96375; 99284; J0696; J2270; J2405; J7030

== ENCOUNTER → 2020-07-07 13:09 | Outpatient (BNVA) | payer MEDICAID, SELFPAY | PROVIDERS: PCP Family Medicine; Visit Provider Obstetrics & Gynecology | DX: D50.9 Iron deficiency anemia, unspecified (principal) | CPT/HCPCS: 76830; 85027 ==

== ENCOUNTER → 2021-01-11 13:02 | Outpatient (BNVA) | payer MEDICAID, SELFPAY | PROVIDERS: PCP Family Medicine; Visit Provider Obstetrics & Gynecology | DX: D50.9 Iron deficiency anemia, unspecified (principal); N83.201 Unspecified ovarian cyst, right side | CPT/HCPCS: 76830; 85027 ==

== ENCOUNTER → 2021-01-12 13:45 | Outpatient (BNVA) | payer MEDICAID, SELFPAY | PROVIDERS: PCP Family Medicine; Visit Provider Obstetrics & Gynecology | DX: N83.201 Unspecified ovarian cyst, right side (principal); N83.202 Unspecified ovarian cyst, left side; R10.2 Pelvic and perineal pain; N94.6 Dysmenorrhea, unspecified; D50.9 Iron deficiency anemia, unspecified | CPT/HCPCS: 84443 ==

== ENCOUNTER → 2021-08-24 10:15 | Outpatient (BNVA) | payer MEDICAID, SELFPAY | PROVIDERS: PCP Family Medicine; Visit Provider Obstetrics & Gynecology | DX: N83.291 Other ovarian cyst, right side (principal); N83.201 Unspecified ovarian cyst, right side | CPT/HCPCS: 82728; 82746; 83550; 85025 ==

== ENCOUNTER 2021-09-29 08:52 | Outpatient (CLI) | payer MEDICAID, SELFPAY ==
--- NOTE | 2021-09-29 09:15 | US_ITS ---
WS: [id number] TRANSABDOMINAL PELVIC AND TRANSVAGINAL PELVIC ULTRASOUND HISTORY: N83.291 - Other ovarian cyst, right side COMPARISON: 03/14/2020, 01/11/2021 Uterus: 8.9 cm x 6.3 cm x 5.4 cm. Normal size anteverted uterus. No fibroid or mass. Endometrium: 1.9 cm. Normal echogenicity. Normal size. Right ovary: 6.7 cm x 6.8 cm x 4.5 cm. There is a large complex cystic mass in the RIGHT adnexa assoc iated with the ovary. A separate ovary is not identified. Very little normal adjacent ovarian tissue. This complex cystic mass is essentially the size of the ovary. There are septations and low-level ec hoes present. The largest cyst measures 4.5 x 3.6 cm. There is through transmission. There is a small mural nodule in one of the cystic components measuring 0.7 cm. Some of the septations are thickened and nodular. Normal vascularity is noted within the adjacent ovary. Left ovary: 4.3 cm x 4.2 cm x 2.4 cm. Normal size and vascularity with a few small cysts. Small amount of free fluid in the cul-de-sac. US/US pelvic with transvaginal IMPRESSION: 1. Large complex cystic mass with nodular septations and mural nodule associat ed with the RIGHT ovary. This mass essentially encompasses the entire ovary joel suring 6.7 x 6.8 x 4.5 cm. This mass has been previously described over several prior examinations with slight increase in size. As this mass persist ovarian cystadenoma needs to be considered. Alternatively multiloculated cyst and endom etrioma within the differential. Due to the nodules along some of the septation s recommend surgical evaluation for removal. Patient is also at risk for RIGHT ovarian torsion due to the large size. 2. Negative LEFT ovary.
== END 2021-09-29 08:53 | disposition home or self-care (01) ==
LOC: RAD 08:54
PROVIDERS: PCP Family Medicine; Visit Provider Obstetrics & Gynecology
DX: N83.291 Other ovarian cyst, right side (principal)
CPT/HCPCS: 76830; 76856

== ENCOUNTER → 2021-10-11 10:50 | Outpatient (BNVA) | payer MEDICAID, SELFPAY | PROVIDERS: PCP Family Medicine; Visit Provider Obstetrics & Gynecology | DX: N83.291 Other ovarian cyst, right side (principal); Z01.818 Encounter for other preprocedural examination; N83.201 Unspecified ovarian cyst, right side; N83.202 Unspecified ovarian cyst, left side; R10.2 Pelvic and perineal pain; N94.6 Dysmenorrhea, unspecified; D50.9 Iron deficiency anemia, unspecified | CPT/HCPCS: 80053; 81000; 81025; 84443; 85025; 86850; 86900; 87635 ==

== ENCOUNTER 2021-10-13 11:19 | Observation (INO) | payer MEDICAID, SELFPAY ==
[2021-10-11 13:35] VITALS: BMI 27.8
--- NOTE | 2021-10-11 15:38 | P.ANESASSM_ITS ---
Pre-Anesthetic Assessment Height/Weight: Height 1.65 m Weight 75.75 kg Preop Diagnosis: Ovarian cystic mass Operation Date: 10/13/21 12:25 Proposed Procedures p Laparoscopic Oophorectomy(Right) - Moe Cole MD Familial anesthetic complications: Family hx of PONV Was Beta Belén taken within 24 hours: N/A Was Clonidine taken within 24 hours: N/A Social No alcohol and No tobacco Exam alert, oriented x 3, clear to auscultation bilaterally and regular rate & rhythm Airway Submandibular: within normal limits Cervical ROM: within normal limits Mallampati: Class I Dentition: full History/ROS No significant complaints Pulmonary None reported CV/HEM Deep Vein Thrombosis (No resolved no longer on anticoagulation ) Hx of anemia, iron deficiency None reported Dysmenorrhea Dyspareunia Hepatic None reported GI None reported Metabolic None reported Musc/skel None reported Neuropsych None reported Anesthetic Plan ASA status: 2 Anesthesia: Anesthesia Evaluation and General Other: We discussed risk and benefits of general anesthesia including PONV, sore throat (sometimes severe), corneal abrasion, positioning and peripheral nerve injuries, life threatening allergic reaction, post operative ICU admission requiring prolonged intubation, stroke, heart attack, , and rare incidences of recall. Patient consents to proceed with general anesthesia. Plan pre op scopolamine patch Risk of > 500 ml blood loss (7ml/kg in children): No Medications/Allergies Home Medications Medication Instructions Recorded Confirmed Last Taken Type ibuprofen 200 mg tablet 200 mg PO Q6H PRN 07/02/19 10/11/21 07/01/19 History multivitamin 1 tab PO DAILY 07/02/19 10/11/21 07/02/19 History vitamin B complex 1 tab PO DAILY 07/02/19 10/11/21 07/02/19 History doxylamine succinate 25 mg tablet 25 mg PO .at hs PRN tab 10/11/21 10/11/21 Unknown History (Unisom (doxylamine)) Allergies Allergy/AdvReac Type Severity Reaction Status Date / Time No Known Allergies Allergy Verified 10/11/21 10:09 [facility] Anesthesia Medical History Superficial thrombophlebitis Surgical History History of dilation and curettage (06/28/19) For miscarriage. Performed in [place] S/P primary low transverse (09/15/07) Performed by Dr. Ramos at [facility] in [place], [place] S/P repeat low transverse (07/29/15) Performed by Dr. Jacinto at [facility] in [place], [place] Family History (Updated 08/24/21 @ 08:19 by Elvia Levine RN) Mother Ovarian cancer, Onset Age: 50 Hypertension Denies family history of Colon cancer Diabetes Clotting disorder Heart disease Hyperlipidemia Breast cancer Anesthesia complication Bleeding disorder Uterine cancer Thyroid condition Stroke Social History (Updated 08/24/21 @ 08:19 by Elvia Levine RN) Smoking and tobacco status: never smoked Alcohol intake: never Female Reproductive History Date of last menstrual period: 10/09/21 Para: 8 Spontaneous abortions: Yes (3, most recent 07/15 at 14 wks) Data Anesthesia Cardiac Studies: No Data to Display
[2021-10-13] VITALS (22 sets, daily range): BP systolic 98–128; BP diastolic 52–89; PULSE 56–89; RESP 15–18; TEMP 36.2–37.1; O2SAT 90–100
[2021-10-13] MEDS: sodium chloride 0.9% 500 ML IV (07:56)
[2021-10-13] MEDS: enoxaparin 40 mg/0.4 mL Syringe SUBCUT (08:08)
--- NOTE | 2021-10-13 08:16 | P.ANESUD_ITS ---
Pre-Anesthetic Update Pre-Anesthetic Assessment: Date of Surgery/Procedure: 10/13/21 Preop Karen gnosis: Right ovarian mass, pelvic pain, dyspareunia, dysmenorrhea Proposed Procedure: Operation Date: 10/13/21 08:50 Proposed Procedures p Laparoscopic Oophorectomy(Right) - Moe Cole MD Any changes to Pre-Anesthetic Assessment?: No Last Intake: Intake Last Liquid Date 10/12/21 Last Liquid Time 21:30 Last Solid Date 10/12/21 Last Solid Time 21:00 Vitals: Temperature 97.4 F L 10/13/21 07:43 Temperature Source Temporal Artery S can 10/13/21 07:43 Pulse Rate 72 10/13/21 07:43 Respiratory Rate 18 10/13/21 07:43 Blood Pressure 128/89 10/13/21 07:43 Blood Pressure Kylie n 102 10/13/21 07:43 Pulse Oximetry 99 10/13/21 07:43 Oxygen Delivery Me thod 10/13/21 07:43 Exam: Pre-Anes Outpt Exam: alert, oriented x 3, clear to auscultation bilaterally and regular rate & rhythm Cardiac Studies: No Data to Display
[2021-10-13] MEDS: sodium chloride 0.9% 1,000 ML 30 ML IV (08:33)
--- NOTE | 2021-10-13 08:42 | W.PM.OPSUD ---
Surgery/Procedure H&P Update DATE OF PROCEDURE: October 13, 2021 DATE H&P PERFORMED: 10/01/21 H&P UPDATE INFORMATION: I have reviewed H&P completed within last 30 days, I have examined patient prior to procedure and No changes to prior documentation PREOP DIAGNOSIS: Right ovarian mass, pelvic pain, dyspareunia, dysmenorrhea PLANNED PROCEDURE: Operation Date: 10/13/21 08:50 Proposed Procedures p Laparoscopic Oophorectomy(Right) - Moe Cole MD
--- NOTE | 2021-10-13 10:20 | PM.OP ---
Operative Report Date of procedure: October 13, 2021 Pre-op diagnosis: Preop Diagnosis Right ovarian mass, pelvic pain, dyspareunia, dysmenorrhea Post-op diagnosis: Same as above Post-op findings: Enlarged right complex ovarian mass Procedure done: Laparoscopic right oophorectomy Specimens removed/disposition: Right ovary mass Pathology: Right ovarian mass Surgeon: Moe Cole MD Estimated blood loss (mL): 25 IV fluids (mL): 1,000 Urine output (mL): 400 Complications: None Findings: Enlarged uterus, right ovarian mass Procedure: After informed consent, the patient was taken to the operating room where general anesthesia was administered. Pre-Procedure Time-Out verifying the correct patient identity, correct procedure verified with consent, correct site and side, correct patient position, availability of correct implants and any special equipment or requirements was performed and acknowledge by the OR team. She was placed in the dorsal lithotomy position and prepped and draped in sterile fashion. The patient was examined under anesthesia and found to have a normal uterus with normal adnexa. A Monte catheter was placed in the bladder. A weighted speculum was placed in the vagina, and the anterior lip of cervix was grasped with the single toothed tenaculum. The uterus was sounded to a measure 10 cm. A uterine manipulator was advanced into the endocervical and its bulb filled with NS. Tenaculum was removed after uterine manipulator was secured. The speculum was removed from the vagina. The attention was brought to abdomen after changing gloves. The base of the umbilicus was grasped with an Allis clamp and with 2 towel clamp bilaterally tenting up the umbilicus an intraumbilical incision was made with a scalpel. While tenting up on the abdomen, a Verres needle with sleeve was admitted into the intra-abdominal cavity. A saline drop test was performed and noted to be within normal limits. Pneumoperitoneum was attained with 4 liters of carbon dioxide. The gas was seen to flow freely with normal resistance, so the CO2 gas was advanced to a higher setting. The abdomen was insufflated to an adequate distension. Once an adequate distention was reached, the Verres needle was removed. Then a 5 mm Optiview trocar and cannula were inserted under direct visualization without complications. Trocars were removed and the laparoscope was inserted. At this time, a second incision was made 3 cm above the symphysis pubis, and a 5 mm trocar and sleeve were admitted into the abdomen under direct, laparoscopic visualization without complication. A 5 mm blunt probe was advanced through the second trocar sleeve, and light manipulation of ovaries and uterus to assess the pelvis and posterior aspects was performed. The survey showed normal abdominal anatomy and pelvic survey showed an enlarged uterus and a right complex ovarian mass. A third incision was made in the left lower quadrant and the third 5 mm trocar was inserted into the abdomen under direct visualization without complcations . Examination of the pelvis revealed findings as above. At this time attention was turned to the right ovarian mass which was mobilized out of the pelvis. With the laparoscopic 5 mm Voyant device. The right ovarian mass at its stalk it was grasped, clamped, sealed and cut. Once hemostasis was assured, a Endo Catch bag was placed through the 10 mm port and the right ovarian mass was atteempted to placed in the Endo Catch bag but it proved to be too big for the endobag. The a 12mm trocar was placed through same suprapubic incision. A 12mm endobag was used and the right ovariuan mass was graspped and place inside the 12mm endobag. After extending the suparpubic incison the right ovarian mass was removed in the endobag without difficulty. Hemostasis was assured. Then rectus muscles were approximated. The fascia was reapproximated with CTX-B 0 Vicryl in an interrupted running fashion. The skin was closed with with 3 O-Vicryl in a subcuticular fashion. Then the laparoscope was inserted through the umbilical trocar to inspect pelvis and assure hemostasis. At this point, the two size #5 ports were removed under direct visualization. The camera was then removed. All laparoscopic incisions were closed with a #3-0 undyed Vicryl in a subcuticular interrupted fashion. All instruments were removed. The instruments were removed from the vagina, and excellent hemostasis was noted. The patient tolerated the procedure well, and sponge, lap and needle count were correct times two. The patient taken to the recovery room in good condition.
[2021-10-13] MEDS: ondansetron 2 mg/ML SDV 2 mL 4 MG IVP ×2 (10:40→11:01)
[2021-10-13] MEDS: meperidine 50 mg/mL INJ 12.5 MG IVP (10:52)
[2021-10-13] MEDS: scopolamine 1.5 Patch 1 PATCH TRANSDERMA (11:22)
[2021-10-13] MEDS: dextrose 5%-lactated ringers 1,000 ML 125 ML IV ×2 (12:54→21:39)
[2021-10-13] MEDS: ketorolac 30 mg/mL INJ IVP ×2 (16:08→22:50)
--- NOTE | 2021-10-13 17:40 | ANE.PACU2 ---
Inpatient post-anesthesia follow up: Airway intact: Yes Vital signs: Temperature 98.7 F Pulse Rate 60 Respiratory Rate 16 Blood Pressure 98/66 Pulse Oximetry 95 Oxygen Delivery Me thod Room Air Oxygen Flow Rate 2 Fraction of Inspir ed Oxygen Hydration adequate: Yes Nausea and vomiting: No Pain level: 3 Mental status: Baseline
[2021-10-13] MEDS: HYDROcodone-acetaminophen 5-325 mg Tablet PO (20:59)
[2021-10-14 03:20] VITALS: BP 100/64; PULSE 60; TEMP 36.8; O2SAT 97
[2021-10-14] MEDS: HYDROcodone-acetaminophen 5-325 mg Tablet PO ×3 (03:20→11:28)
[2021-10-14] MEDS: ketorolac 30 mg/mL INJ IVP (05:01)
[2021-10-14 05:16] LABS: Hemoglobin 12.2 g/dL (11.5-15.3); Mean Corpuscular HGB Conc 32.1 g/dL (30.0-36.0); Mean Corpuscular Hemoglobin 27.4 pg (28.0-34.0); Mean Corpuscular Volume 85.2 fl (81-99); Platelet Count 186 10^3/cmm (130-400); Red Blood Count 4.46 10^6/uL (4.1-5.3); White Blood Count 12.7 10^3/uL (4.0-10.0)
[2021-10-14 08:00] VITALS: BP 120/75; PULSE 62; RESP 18; TEMP 36.8
[2021-10-14] MEDS: multivitamin therapeutic Tablet 1 TAB PO (09:02)
[2021-10-14] MEDS: docusate sodium 100 mg Capsule PO (09:02)
--- NOTE | 2021-10-14 10:35 | P.DS_ITS ---
Discharge Providers SALES AND MARKETING PROFESSIONAL Date of Admission: 10/13/21 11:19 Date of Discharge: 10/14/21 Attending Provider at Admission: Moe Cole MD Attending Provider at Discharge: Moe Cole MD Primary SALES AND MARKETING PROFESSIONAL: Moe Cole MD Primary Care Provider: Will Trujillo Jr, MD Reason for Visit Reason for Visit: complex cyst right ovary Brief History: Ms. Bates is a 36 y/o female with a history of a persistent complex right ovarian mass, associated with pelvic pain, dyspareunia, dysmenorrhea. Hospital Course Hospital Course Ms. Bates is a 36 y/o , was admitted for planned right side laparoscopic oophorectomy. The procedure was performed without complication. Postop overnight observation uneventful. She is afebrile and hemodynamically stable postoperative day 1. Tolerating diet well. Ambulating without difficulty. Pain well under control. Physical Exam Narrative: GA: Alert and oriented ?3. HEENT: WNL. Heart: Regular rate and rhythm. Lungs: Clear to auscultation bilaterally. Abdomen: Bowel sounds present, nontender, minimal tenderness, incision clean and dry, no redness, pain or edema. ENERGY AUDIT ADVISOR: Spotting bleeding. Extremities: No edema, no cyanosis, no calves pain. Urinary Catheter Management: [place]: Cath Placed During This Visit: yes, but has since been removed by the nurse Reason for Continuing Indwelling Catheter: Decision to DC Catheter Urinary Catheter Date of Insertion: 10/13/21 Urinary Catheter Time of Insertion: 09:17 Date Urinary Catheter Removed: 10/14/21 Time Urinary Catheter Discontinued: 05:08 History History History 11 Term 7 Miscarriages/Ectopic 3 1 Living Children 8 Discharge Data Studies Completed and Pending Pending at discharge Category Date Time Status ES surgery / GI images Routine Exams 10/13/21 08:00 Taken Pathology: Surgical [PTH] Routine Pth 10/13/21 10:19 Received Laboratory Results WBC 12.7 10^3/uL (4.0-10.0) H 10/14/21 05:03 RBC 4.46 10^6/uL (4.1-5.3) 10/14/21 05:03 Hgb 12.2 g/dL (11.5-15.3) 10/14/21 05:03 Hct 38.0 % (37.0-47.0) 10/14/21 05:03 MCV 85.2 fl (81-99) 10/14/21 05:03 MCH 27.4 pg (28.0-34.0) L 10/14/21 05:03 MCHC 32.1 g/dL (30.0-36.0) 10/14/21 05:03 RDW 16.0 % (12.1-15.1) H 10/14/21 05:03 Plt Count 186 10^3/cmm (130-400) 10/14/21 05:03 MPV 12.0 fL (7.4-10.4) H 10/14/21 05:03 Vitals Last Vital Signs Temp 98.2 F 10/14/21 08:00 Pulse 62 10/14/21 08:00 Resp 18 10/14/21 08:00 BP 120/75 10/14/21 08:00 Pulse Ox 97 10/14/21 03:20 Discharge Plan Discharge Patient Disposition: Home Condition: Stable Prescriptions: New hydrocodone-acetaminophen 5-325 mg tablet 1 tab PO Q4H PRN (Reason: pain) Qty: 30 0RF acetaminophen 325 mg capsule 325 mg PO Q4H PRN (Reason: fever or pain) Qty: 60 0RF ibuprofen 800 mg tablet 800 mg PO TID PRN (Reason: pain) Qty: 60 0RF Continued Unisom (doxylamine) 25 mg tablet 25 mg PO .at hs PRN (Reason: sleep) 0RF multivitamin Tablet 1 tab PO DAILY 0RF vitamin B complex Tablet 1 tab PO DAILY 0RF Discontinued ibuprofen 200 mg Tablet 200 mg PO Q6H PRN (Reason: Pain) 0RF Discharge Orders: Discharge Order (Routine); Ordered 10/14/21 Ordered By: Moe Cole Referrals: Moe Cole MD [Physician] - 2 weeks Discharge Diet: Advance as tolerated and Usual diet Discharge Activity: Limit activity as instructed Patient Instructions: Opioid Safety, Laparoscopy, Exploratory Laparotomy (GEN), Salpingo-Oophorectomy (GEN) Activity Restrictions/Additional Instructions: 1. Please call [facility] clinic on next working day to make your post-operative appointment in 2 weeks. 2. Please stay home until you come back to the clinic on first post-operative check up. 3. Please follow instructions on your medications CAREFULLY. 4. If you have abdominal incision, do not cover it unless dressing is necessary because of drainage. OK to shower, but avoid bath. Leave steri-strips until they fall off. If they are still on one week after surgery, you may remove them. 5. If you had vaginal surgery or vaginal repair, Dr. Cole may instruct you to take SITZ bath. 6. Yellow, blood tinged odorous vaginal discharge is usually normal after hysterectomy or vaginal surgeries. 7. No sexual intercourse, tampons, or douches until you are completely released from the post-operative care. 8. Avoid constipation by eating right and maybe using some Metamucil or Milk of Magnesia. 9. All prescription refills are given during the working hours. Please do no wait till it runs out. Call the clinic at [phone] before your medication runs out. The clinic will get in touch with your doctor to prescribe medications if necessary. 10. Please remain within 40 mile radius from our hospital because emergencies do happen now and then during the post-operative period. 11. If you have stairs at home, take one step at a time slowly and minimize the number of trips. It helps to stay in one floor for the next few days. No lifting except what you can lift by one hand until you are released from the post-operative care. 12. Driving is discouraged until you are well healed. It may be 3-4 weeks before you feel strong enough to drive. You should be able to turn and look through the rear window without pain and you should be able to push the brake pedal very hard without pain before you drive. No fast rules, but SAFETY should be your primary concern. DO NOT drive if you are on sedating medications such as narcotics. 13. Call the clinic (during working hours) to make urgent appointment or go to the Emergency room, if any of the following occurs: i. Vaginal bleeding becomes heavy, more than a period. ii. Incision becomes red and sore, or drains pus. iii. Your temperature is over 100.4 or you have chill. iv. IV site becomes red and swollen (a little ``knot?? is usually OK) v. Persistent nausea and vomiting vi. Persistent constipation or diarrhea vii. Rash or allergic reaction to medications. Discharge Attestations SALES AND MARKETING PROFESSIONAL Time Spent in Discharge Care*: greater than 30 min Coding Level of Care Code Acute Support Director for Julito Velásquez
[2021-10-14] MEDS: ibuprofen 800 mg tablet PO (11:29)
[2021-10-14 15:15] VITALS: BP 92/61; PULSE 68; RESP 18; TEMP 36.9
[2021-10-14 15:24] VITALS: BP 92/61; PULSE 68; RESP 18; TEMP 36.9
== END 2021-10-14 15:20 | disposition home or self-care (01) ==
LOC: OBGYN 11:20
PROVIDERS: Admitting Provider Obstetrics & Gynecology; PCP Family Medicine; Visit Provider Obstetrics & Gynecology
PROC: (CPT 58661; principal; 2021-10-13 08:50)
DX: N83.202 Unspecified ovarian cyst, left side (principal)
CPT/HCPCS: 58661; 36415; 85027; 88305; G0378; J0690; J1100; J1170; J1650; J1885; J2175; J2405; J2704; J3010; J3490; J7030; J7040

== ENCOUNTER 2021-10-18 17:48 | Emergency (ER) | payer MEDICAID, SELFPAY ==
[2021-10-18 18:14] VITALS: BP 126/89; PULSE 81; RESP 16; TEMP 36.2; O2SAT 100; BMI 27.4
--- NOTE | 2021-10-18 19:09 | W.ED.DIZZY ---
HPI - Dizziness General: Chief Complaint: Dizziness Stated Complaint: nauseous, weakness Time Seen by Provider: 10/18/21 19:09 History of Present Illness: HPI Narrative: Ms. Bates is a 36-year-old lady with significant recent history of laparoscopic right oophorectomy on 10/13 who presents to the emergency department due to generalized symptoms. She reports feeling within the expected postoperative recovery and actually felt well enough yesterday to do some walking around. Earlier today she felt significantly worse endorsing generalized malaise, nausea, dizziness, and weakness. Intensity symptoms moderate. Course has persisted. She reports difficulty tolerating p.o. intake. Endorses some sore throat however felt like this is likely secondary to endotracheal tube. No other specific changes in health, exacerbating, or alleviating factors identified. Pertinent past history: other Onset (ago): hour(s) Severity: moderate Associated symptoms: Reports nausea; Denies cough, headache(s) or short of breath Review of Systems General: Reports: 10 or more systems reviewed and unremarkable except in HPI and below GI: Reports: nausea Neuro: Denies: headache(s) PFSH ED PFSH: Medical History Superficial thrombophlebitis Surgical History History of dilation and curettage (06/28/19) For miscarriage. Performed in [place] S/P primary low transverse (09/15/07) Performed by Dr. Ramos at [facility] in [place], [place] S/P repeat low transverse (07/29/15) Performed by Dr. Jacinto at [facility] in [place], [place] Family History Mother Ovarian cancer, Onset Age: 50 Hypertension Denies family history of Colon cancer Diabetes Clotting disorder Heart disease Hyperlipidemia Breast cancer Anesthesia complication Bleeding disorder Uterine cancer Thyroid condition Stroke Social History Smoking and tobacco status: never smoked Alcohol intake: never Female Reproductive History: Date of last menstrual period: 03/07/20 Para: 8 Spontaneous abortions: Yes (3, most recent 07/15 at 14 wks) Physical Exam Const: COMMON NORMALS: alert GENERAL APPEARANCE: cooperative, well developed and ill appearing (Mildly); not in distress HENMT: COMMON NORMALS: normocephalic and atraumatic HEAD & SCALP: normocephalic and atraumatic THROAT: posterior oropharynx normal Eye: COMMON NORMALS: conjunctivae normal CONJUNCTIVA: Yes conjunctivae normal SCLERA: sclerae normal Neck/C-Spine: COMMON NORMALS: supple GENERAL: Yes trachea midline Resp: COMMON NORMALS: normal respiratory effort EFFORT & INSPECTION: Yes able to speak in complete sentences Cardio: COMMON NORMALS: regular rate and regular rhythm RATE: regular rate RHYTHM: regular rhythm GI: COMMON NORMALS: Soft to palpation PALPATION: Yes Soft to palpation, Yes Tenderness to palpation present (GI) (Mild, within expected postoperative limits), No Guarding due to palpation present (GI) and No Rigid due to palpation PERCUSSION: normal to percussion Extremity: GENERAL: Yes normal exam except as noted and No edema Neuro: COMMON NORMALS: moves all extremities SENSORIUM/ORIENTATION: Yes alert and No Orientation impaired Psych: COMMON NORMALS: mental status grossly normal and Normal thought process present THOUGHT PROCESS: Normal thought process present Skin: NARRATIVE SKIN EXAM: Surgical laparoscopy sites appear well-healing without evidence of dehiscence or infection Course ED course: - Patient was seen and evaluated by me at bedside - Patient placed on cardiac monitors, IV access obtained - Initial evaluation notable for exam as above - Labs personally interpreted by me - Fluids and antiemetic given - Labs notable for no leukocytosis, hemoglobin normal. Metabolic panel without acute derangement to explain symptoms, mild transaminitis of uncertain etiology, no specific right upper quadrant tenderness on exam. Viral studies negative. No evidence of urinary tract infection. - Abdominal exam is fairly benign, certainly with an expected postoperative findings. Given laboratory studies I believe that the likelihood of intra-abdominal pathology/surgical complication is low. I did give the patient option of CT scan is the only definitive way to identify any postoperative complication, she was comfortable foregoing at this time - Upon serial reexamination after treatment the patient was mildly improved - Based on patient history, evaluation, and testing as interpreted the most likely cause of the patient's condition is generalized malaise, nausea, dizziness - The results of ED evaluation were discussed with the patient including prescriptions and/or symptomatic cares (if applicable) including appropriate and responsible use, followup plan, and return precautions. The patient verbalized understanding and felt safe for discharge. - Patient discharged in satisfactory condition. Note: Click bubbles or prepopulated curiel in note writing are used for assistance with data collection and billing and are inherently more limited than narrative and other text portions of this note. Please use narrative for additional clinical history and defer to narrative/free test for any case of contradictory information. If information appears in only free text or click bubble it should be considered present or absent as reported. Please contact note machine sign writer for clarifications of clinical information or contradictory information. MDM is a brief summary, contradictory or erroneous seeming information should be clarified and full note should be reviewed. Vital Signs: Vital signs: Vital Signs Temperature 97.2 F L 10/18/21 18:14 Pulse Rate 66 10/18/21 22:39 Respiratory Rate 16 10/18/21 22:39 Blood Pressure 111/65 10/18/21 22:39 Pulse Oximetry 97 10/18/21 22:39 MDM - Dizziness Medical Decision Making 36-year-old lady postop day 5 from laparoscopic oophorectomy presenting with nausea, dizziness, generalized malaise. Laboratory studies without acute abnormality to explain symptoms. Offered patient CT scan though did discuss low likelihood given laboratory findings, patient comfortable foregoing. Given fluids and antiemetics. Patient desires discharge and satisfactory for outpatient management with strict return precautions. Medical Records I reviewed the patient's medical records. Lab Data I reviewed the patient's lab results. : 10/18/21 19:14 10/18/21 19:14 Laboratory Results WBC 8.9 10^3/uL (4.0-10.0) 10/18/21 19:14 RBC 5.01 10^6/uL (4.1-5.3) 10/18/21 19:14 Hgb 13.7 g/dL (11.5-15.3) 10/18/21 19:14 Hct 42.8 % (37.0-47.0) 10/18/21 19:14 MCV 85.4 fl (81-99) 10/18/21 19:14 MCH 27.3 pg (28.0-34.0) L 10/18/21 19:14 MCHC 32.0 g/dL (30.0-36.0) 10/18/21 19:14 RDW 15.3 % (12.1-15.1) H 10/18/21 19:14 Plt Count 227 10^3/cmm (130-400) 10/18/21 19:14 MPV 12.2 fL (7.4-10.4) H 10/18/21 19:14 Neut % (Auto) 62.5 % 10/18/21 19:14 Lymph % (Auto) 24.2 % 10/18/21 19:14 Dent % (Auto) 8.0 % 10/18/21 19:14 Eos % (Auto) 4.6 % 10/18/21 19:14 Baso % (Auto) 0.5 % 10/18/21 19:14 Neut # (Auto) 5.54 10^3/uL (1.8-7.7) 10/18/21 19:14 Lymph # (Auto) 2.2 10^3/uL (0.8-4.8) 10/18/21 19:14 Dent # (Auto) 0.7 10^3/uL (0.2-0.9) 10/18/21 19:14 Eos # (Auto) 0.4 10^3/uL (0.0-0.8) 10/18/21 19:14 Baso # (Auto) 0.0 10^3/uL (0.0-0.1) 10/18/21 19:14 Nucleated RBC % (auto) 0 % 10/18/21 19:14 Nucleated RBCs # 0.0 /100WBC 10/18/21 19:14 Sodium 136 mmol/L (136-145) 10/18/21 19:14 Potassium 4.2 mmol/L (3.5-5.1) 10/18/21 19:14 Chloride 101 mmol/L (98-107) 10/18/21 19:14 Carbon Dioxide 26 mmol/L (22-29) 10/18/21 19:14 Anion Gap 13.2 (5-19) 10/18/21 19:14 BUN 11 mg/dL (6-20) 10/18/21 19:14 Creatinine 0.5 mg/dL (0.5-0.9) 10/18/21 19:14 GFR Calculation 138.8 mL/min (90-130) H 10/18/21 19:14 Glucose 87 mg/dL (65-115) 10/18/21 19:14 Calculated Osmolality 281 mOsm/kg (285-295) L 10/18/21 19:14 Lactic Acid 0.9 mmol/L (0.5-2.2) 10/18/21 19:38 Calcium 8.7 mg/dL (8.5-10.5) 10/18/21 19:14 Total Bilirubin 0.2 mg/dL (0.15-1.2) 10/18/21 19:14 AST 33 U/L (0-32) H 10/18/21 19:14 ALT 82 U/L (0-33) H 10/18/21 19:14 Alkaline Phosphatase 92 IU/L (35-105) 10/18/21 19:14 Total Protein 7.6 g/dL (6.6-8.7) 10/18/21 19:14 Albumin 4.3 g/dL (3.5-5.2) 10/18/21 19:14 Globulin 3.3 g/dL (1.3-4.6) 10/18/21 19:14 Urine Color Yellow (Yellow) 10/18/21 21:18 Urine Appearance Clear (CLEAR) 10/18/21 21:18 Urine pH 7 (5-7) 10/18/21 21:18 Ur Specific Ramsey 1.000 (1.005-1.030) L 10/18/21 21:18 Urine Protein Neg (Negative) 10/18/21 21:18 Urine Glucose (UA) Norm (Normal) 10/18/21 21:18 Urine Ketones Negative (Negative) 10/18/21 21:18 Urine Blood Neg (Negative) 10/18/21 21:18 Urine Nitrate Negative (Negative) 10/18/21 21:18 Urine Bilirubin Neg (Negative) 10/18/21 21:18 Urine Urobilinogen Norm mg/dL (Negative) 10/18/21 21:18 Ur Leukocyte Esterase Negative (Negative) 10/18/21 21:18 Influenza Type A Ag Negative (Negative) 10/18/21 19:42 Influenza Type B Ag Negative (Negative) 10/18/21 19:42 SARS-CoV-2 Ag (Rapid) Negative (Negative) 10/18/21 19:42 Discharge Plan Discharge Patient Disposition: Home Clinical Impression: Nausea, Malaise, Dizziness, Post-operative state Condition: Stable Prescriptions: New ondansetron 4 mg tablet,disintegrating 4 mg PO Q8H Qty: 15 0RF No Action Unisom (doxylamine) 25 mg tablet 25 mg PO .at hs PRN (Reason: sleep) 0RF multivitamin Tablet 1 tab PO DAILY 0RF vitamin B complex Tablet 1 tab PO DAILY 0RF ibuprofen 800 mg tablet 800 mg PO TID PRN (Reason: pain) Qty: 60 0RF hydrocodone-acetaminophen 5-325 mg tablet 1 tab PO Q4H PRN (Reason: pain) Qty: 30 0RF acetaminophen 325 mg capsule 325 mg PO Q4H PRN (Reason: fever or pain) Qty: 60 0RF Discharge Orders: Discharge ED (Routine); Ordered 10/18/21 Ordered By: Otoniel Martinez Referrals: Will Trujillo Jr, MD [Primary Care Provider] - Discharge Diet: Advance as tolerated Discharge Activity: Limit activity as instructed Patient Instructions: Ondansetron (By mouth), Acute Nausea and Vomiting (ED), Dizziness (ED), Opioid Safety Activity Restrictions/Additional Instructions: Thank you for visiting the emergency department. You were seen and evaluated for nausea and dizziness. The exact cause of your symptoms is unclear however based on laboratory studies and shared decision-making does not require additional inpatient management at this time. Please follow-up with your operating surgeon and primary care provider. Please return to the emergency department for worsening symptoms or anything else that you are concerned about and feel needs emergency department evaluation. Coding Level of Care Code ED Dental Hygiene Teacher for Julito Velásquez
[2021-10-18 19:24] VITALS: BP 112/81; PULSE 68; RESP 17; O2SAT 100
[2021-10-18 19:29] LABS: Basophils % 0.5 %; Eosinophils # 0.4 10^3/uL (0.0-0.8); Eosinophils % 4.6 %; Hematocrit 42.8 % (37.0-47.0); Hemoglobin 13.7 g/dL (11.5-15.3); Lymphocytes # 2.2 10^3/uL (0.8-4.8); Lymphocytes % 24.2 %; Mean Corpuscular Hemoglobin 27.3 pg (28.0-34.0); Mean Corpuscular Volume 85.4 fl (81-99); Mean Platelet Volume 12.2 fL (7.4-10.4); Monocytes # 0.7 10^3/uL (0.2-0.9); Neutrophils # 5.54 10^3/uL (1.8-7.7); Neutrophils % 62.5 %; Nucleated Red Blood Cells % 0 %; Platelet Count 227 10^3/cmm (130-400); Red Blood Count 5.01 10^6/uL (4.1-5.3); Red Cell Distribution Width 15.3 % (12.1-15.1); White Blood Count 8.9 10^3/uL (4.0-10.0)
[2021-10-18] MEDS: ondansetron 2 mg/ML SDV 2 mL 4 MG IVP (19:39)
[2021-10-18] MEDS: sodium chloride 0.9% 1,000 ML 999 ML IV (19:40)
[2021-10-18 19:47] LABS: Alanine Aminotransferase 82 U/L (0-33); Albumin Level 4.3 g/dL (3.5-5.2); Alkaline Phosphatase 92 IU/L (35-105); Anion Gap 13.2 (5-19); Aspartate Amino Transferase 33 U/L (0-32); Blood Urea Nitrogen 11 mg/dL (6-20); Calcium 8.7 mg/dL (8.5-10.5); Carbon Dioxide 26 mmol/L (22-29); Chloride 101 mmol/L (98-107); Globulin 3.3 g/dL (1.3-4.6); Glomerular Filtration Rate 138.8 mL/min (90-130); Glucose 87 mg/dL (65-115); Osmolality Calculated 281 mOsm/kg (285-295); Potassium 4.2 mmol/L (3.5-5.1); Sodium 136 mmol/L (136-145); Total Bilirubin 0.2 mg/dL (0.15-1.2); Total Protein 7.6 g/dL (6.6-8.7)
[2021-10-18 20:07] LABS: Lactic Sepsis W/Reflex 0.9 mmol/L (0.5-2.2)
[2021-10-18 20:11] LABS: Influenza A by IFA Negative (Negative); Influenza B by IFA Negative (Negative)
[2021-10-18 20:12] LABS: SARS Covid-2 Antigen Negative (Negative)
[2021-10-18 20:34] VITALS: BP 128/78; PULSE 65; RESP 16; O2SAT 100
[2021-10-18 21:46] LABS: Add Urine Microscopic? NO; Charge for UA Resulting for Rev
[2021-10-18 22:00] LABS: Urine Appearance Clear (CLEAR); Urine Color Yellow (Yellow)
[2021-10-18 22:01] LABS: Bilirubin Urine Neg (Negative); Blood Urine Neg (Negative); Glucose Urine UA Norm (Normal); Ketones Urine Negative (Negative); Leukocyte Esterase Urine Negative (Negative); Nitrate Urine Negative (Negative); Protein Urine Neg (Negative); Urobilinogen Urine Norm (Negative); pH Urine 7 (5-7)
[2021-10-18 22:39] VITALS: BP 111/65; PULSE 66; RESP 16; O2SAT 97
== END 2021-10-18 22:38 | disposition home or self-care (01) ==
PROVIDERS: Emergency Provider Emergency Medicine; PCP Family Medicine
DX: R42 Dizziness and giddiness (principal); R11.0 Nausea; R53.81 Other malaise; Z98.890 Other specified postprocedural states
CPT/HCPCS: 80053; 81003; 83605; 85025; 87040; 87426; 87804; 96361; 96374; 99284; J2405; J7030

== ENCOUNTER 2022-01-04 07:11 | Outpatient (CLI) | payer MEDICAID, SELFPAY ==
--- NOTE | 2022-01-04 07:15 | US_ITS ---
WS: [id number] TRANSABDOMINAL PELVIC AND TRANSVAGINAL PELVIC ULTRASOUND HISTORY: R10.2 - Pelvic and perineal pain COMPARISON: 09/29/2021 Uterus: 10.1 cm x 7.2 cm x 5.0 cm. Moderately enlarged anteverted uterus. No fibroid or mass. Endometrium: 1.3 cm. Normal size endometrium. Echogenicity is normal throughout. No increased vascula rity. Junctional zone is still present. There is mild widening of the endometrium but the echogenicit y is homogeneous throughout. Right ovary: Surgically removed. Left ovary: 6.0 cm x 5.0 cm x 3.9 cm. Ovary is enlarged and contains multiple minimally complex cysts . Normal vascularity within the adjacent ovarian tissue. Largest cyst measures 3.3 x 3.5 x 3.7 cm. Th ere are smooth septation the cysts. Small amount of physiologic free fluid. US/US pelvic with transvaginal IMPRESSION: 1. Mildly prominent endometrium but still within normal size. Normal homogenei ty throughout. 2. Prior RIGHT oophorectomy. 3. Enlarged LEFT ovary with multiple ovarian cysts. The largest cyst measures 3.3 x 3.5 x 3.7 cm.
== END 2022-01-04 07:12 | disposition home or self-care (01) ==
LOC: RAD 07:11
PROVIDERS: PCP Family Medicine; Visit Provider Obstetrics & Gynecology
DX: R10.2 Pelvic and perineal pain (principal); N83.202 Unspecified ovarian cyst, left side; Z90.721 Acquired absence of ovaries, unilateral
CPT/HCPCS: 76830; 76856

== ENCOUNTER 2022-02-21 14:31 | Emergency (ER) | payer MEDICAID, SELFPAY ==
[2022-02-21] VITALS (10 sets, daily range): BP systolic 114–136; BP diastolic 70–97; PULSE 61–90; RESP 10–22; TEMP 36.9; O2SAT 98–100; BMI 29.2
--- NOTE | 2022-02-21 15:02 | XR_ITS ---
WS: [id number] Exam: XR chest 1V portable [id number] Date/Time of Exam: 02/21/2022 3:07 PM Reason For Exam: weakness Comparison 04/13/2018. Findings: The lungs are clear and fully expanded. Costophrenic angles are sharp. No infiltrates. Bronchovascula r relief appears normal. Cardiac silhouette is unremarkable. Bony elements are intact. XR/XR chest 1V portable [id number] IMPRESSION: Unremarkable chest radiograph.
--- NOTE | 2022-02-21 15:02 | ECG_ITS ---
[facility] Test Date: 2022-02-21 Pat Name: Debby Bates Department: Room: Gender: Female Allergist/Immunologist: : 1985 Requested By: Yury Gabriel Order Number: [id number] Kael MD: Guy Wong M.D. Measurements Intervals [place] Rate: 73 P: 35 MO: 147 QRS: 22 QRSD: 98 T: 32 QT: 395 QTc: 436 Interpretive Statements SINUS RHYTHM Compared to ECG 07/02/2019 20:12:26 No significant changes Electronically Signed On 02-22-2022 16:29:49 CDT by Guy Wong M.D. [id number]
--- NOTE | 2022-02-21 15:02 | CT_ITS ---
WS: [id number] CT ANGIOGRAM CEREBRAL AND CAROTID ARTERIES NONCONTRAST HEAD CT. HISTORY: L sided weakness TECHNIQUE: CT angiogram is performed of the carotid and cerebral arteries. During arterial injection imaging is obtained from the skull vertex to the aortic arch in 1.25 mm imaging. Coronal and sagittal reformats are submitted. Additional multi planar reformats of the carotid and cerebral arteries are submitted, MIP imaging also reviewed. NASCET criteria utilized. All CT scans at [facility] us e at least one of these dose optimization techniques: automated exposure control; mA and/or kV adjust ment per patient size (includes targeted exams where dose is matched to clinical indication); or iter ative reconstruction. CONTRAST: Omnipaque 350; 95 mL IV. DLP: 1611.82 mGy.cm COMPARISON: 07/02/2019 No acute intracranial hemorrhage or edema. Aguilar-white matter differentiation is normal. Carotid Angiogram: Right carotid: Common carotid artery: Arises normally from the innominate artery. No significant plaque or stenosis. Internal carotid artery: No plaque or stenosis. External carotid artery: Patent. Left carotid: Common carotid artery: Arises normally from the aorta. No significant plaque or stenosis. Internal carotid artery: No plaque or stenosis. External carotid artery: Patent. Right vertebral artery: Mildly dominant. No occlusions. Left vertebral artery: Small caliber but intact. Subclavian arteries: No stenosis or significant abnormality. Upper thorax: Small groundglass nodule incompletely visualized in the superior lateral LEFT upper lob e measures 11 mm. Thyroid gland: Normal. Osseous structures: Unremarkable. CEREBRAL ANGIOGRAM: Intracranial vertebral arteries: Dominant RIGHT vertebral artery. Basilar artery: No significant stenosis or occlusion. No aneurysm. Intracranial Internal carotid arteries: Demonstrates no significant stenosis or plaque. Middle cerebral arteries: Normal. Anterior cerebral arteries and ACOM: Normal. Posterior cerebral arteries and PCOM's: Normal. Dural venous sinuses are normally enhancing. Mastoid air cells: Normal. Paranasal sinuses: Normal. Calvarium: Normal. CT/CT angio headneck* [id number] IMPRESSION: 1. Normal carotid arteries. 2. Unremarkable [place]. 3. No cerebral edema or hemorrhage. 4. Nodular focus of groundglass attenuation LEFT upper lobe. Recommend follow- up chest CT in 3-6 months.
[2022-02-21 15:12] LABS: Basophils % 0.6 %; Eosinophils # 0.3 10^3/uL (0.0-0.8); Eosinophils % 4.5 %; Hematocrit 38.3 % (37.0-47.0); Hemoglobin 11.9 g/dL (11.5-15.3); Lymphocytes # 2.1 10^3/uL (0.8-4.8); Lymphocytes % 30.5 %; Mean Corpuscular HGB Conc 31.1 g/dL (30.0-36.0); Mean Corpuscular Hemoglobin 24.6 pg (28.0-34.0); Mean Corpuscular Volume 79.3 fl (81-99); Mean Platelet Volume 12.2 fL (7.4-10.4); Monocytes # 0.6 10^3/uL (0.2-0.9); Monocytes % 9.2 %; Neutrophils # 3.83 10^3/uL (1.8-7.7); Neutrophils % 55.1 %; Nucleated Red Blood Cells % 0 %; Platelet Count 230 10^3/cmm (130-400); Red Blood Count 4.83 10^6/uL (4.1-5.3); Red Cell Distribution Width 13.9 % (12.1-15.1)
--- NOTE | 2022-02-21 15:12 | W.ED.NEUROSD ---
Documented by User: Yury He DO 03/02/22 08:55 HPI - Neuro Symptoms/Deficit General: Chief Complaint: Neuro Symptoms/Deficit Stated Complaint: face and arms going numb Time Seen by Provider: 02/21/22 14:43 Source: patient Mode of arrival: ambulatory Limitations: no limitations History of Present Illness: 37 yo female left side being weak and numb. Patient has had multiple episodes of this in the past related to headaches. Patient does have similar episodes in the past she says weakness on the left side and some difficulty speaking. She does speak [place] and her daughter helps with some communications. She has not had any vomiting or diarrhea. Her vision has remained normal her speech does seem to be somewhat affected, however it is inconsistent. Is very hesitant to speak and seems to have difficulty word finding but other times is able to speak fluently without any hesitations. Initially evaluated her for stroke however she denies any focal settings and her symptoms were inconsistent. Reviewing chart noted that patient had close previously and had seen Dr. Hutchins. Discussed with Dr. Hutchins she advised that she has had migraine variants in the past and the symptoms usually resolved by treating the migraine. Onset (ago): hour(s) Location: speech, left face, left arm and left leg Severity: moderate Quality: weak and tingling Relieving factors: none Exacerbating factors: none Context: gradual onset Associated symptoms: Reports headache(s); Deny chest pain, cough, diaphoresis, fevers/chills, anorexia, malaise, nausea, seizures, short of breath, syncope, tingling, vertigo, vomiting or weakness Treatments Prior to Arrival: none Review of Systems Const: Denies: fever(s), chills, fatigue, malaise or diaphoresis ENMT: Denies: throat pain, ear or mastoid pain, nasal discharge or nasal congestion Card: Denies: chest pain or syncope Resp: Denies: dyspnea, productive cough or non-productive cough GI: Denies: abdominal pain, nausea or vomiting : Denies: flank pain, difficulty voiding, dysuria, urinary frequency or urinary urgency Musc: Denies: neck pain or back pain Skin/Breast: Denies: rash or pruritus Neuro: Reports: headache(s); Denies: vertigo PFSH ED PFSH: Medical History Aftercare following surgery of the genitourinary system Superficial thrombophlebitis Surgical History H/O unilateral oophorectomy 10/13/2021- right oophorectomy performed by Dr Cole at [facility] History of dilation and curettage (06/28/19) For miscarriage. Performed in [place] S/P primary low transverse (09/15/07) Performed by Dr. Ramos at [facility] [place] in [place], [place] S/P repeat low transverse (07/29/15) Performed by Dr. Jacinto at [facility] [place] in [place], [place] Family History Mother Ovarian cancer, Onset Age: 50 Hypertension Denies family history of Colon cancer Diabetes Clotting disorder Heart disease Hyperlipidemia Breast cancer Anesthesia complication Bleeding disorder Uterine cancer Thyroid condition Stroke Social History Smoking and tobacco status: never smoked Alcohol intake: never Female Reproductive History: Date of last menstrual period: 02/20/22 Para: 8 Spontaneous abortions: Yes (3, most recent 07/15 at 14 wks) NIH stroke score NIHSS: Level Of Consciousness - 1a: 0 Level Of Consciousness Questions - 1b: Both Correct Level Of Consciousness Commands - 1c: Both Correct Best Gaze - 2: Normal Visual Sanchez - 3: No Visual Loss Facial Palsy - 4: Minor Paralysis Motor Arm Right - 5: No Drift Motor Arm Left - 5: Drift Motor Leg Right - 6: No Drift Motor Leg Left - 6: No Drift Limb Ataxia - 7: Present In One Limb Sensory - 8: Mild To Moderate Loss Best Language - 9: No Aphasia Dysarthia - 10: Mild/Moderate Dysarthia Extinction And Inattention - 11: 0 Score: Total Score: 5 Physical Exam Const: GENERAL APPEARANCE: cooperative and comfortable ORIENTATION/CONSCIOUSNESS: Yes awake, Yes oriented to person, Yes oriented to place and Yes oriented to time HENMT: COMMON NORMALS: normocephalic, atraumatic and hearing grossly normal bilaterally HEAD & SCALP: normocephalic and atraumatic Resp: COMMON NORMALS: normal respiratory effort, No retractions, No use of accessory muscles and clear to auscultation bilaterally AUSCULTATION: clear to auscultation bilaterally Cardio: COMMON NORMALS: regular rate, regular rhythm and No murmurs present (Cardio) RATE: regular rate RHYTHM: regular rhythm GI: COMMON NORMALS: Soft to palpation and No hepatosplenomegaly present AUSCULTATION: Yes normoactive bowel sounds PALPATION: Yes Soft to palpation, No Tenderness to palpation present (GI), No Guarding due to palpation present (GI) and Yes No hepatosplenomegaly present Extremity: COMMON NORMALS: normal to inspection, capillary refill normal, no clubbing, cyanosis or edema, no calf tenderness and no pedal edema Neuro: SENSORIUM/ORIENTATION: Yes oriented to person, Yes oriented to place and Yes oriented to time Skin: COMMON NORMALS: no rashes or lesions noted GENERAL SKIN EXAM: no rashes or lesions noted Course Vital Signs: Vital signs: Vital Signs Temperature 98.4 F 02/21/22 14:36 Pulse Rate 72 02/21/22 19:30 Respiratory Rate 15 02/21/22 19:30 Blood Pressure 123/97 02/21/22 19:30 Pulse Oximetry 98 02/21/22 19:30 MDM - Neuro Symptoms/Deficit Medical Records I reviewed the patient's medical records. Lab Data I reviewed the patient's lab results. : 02/21/22 15:06 02/21/22 15:06 Radiology Impressions Chest X-Ray 02/21/22 15:02 IMPRESSION: Unremarkable chest radiograph. Head/Neck CTA 02/21/22 15:02 IMPRESSION: 1. Normal carotid arteries. 2. Unremarkable [place]. 3. No cerebral edema or hemorrhage. 4. Nodular focus of groundglass attenuation LEFT upper lobe. Recommend follow-up chest CT in 3-6 months. Laboratory Results WBC 7.0 10^3/uL (4.0-10.0) 02/21/22 15:06 RBC 4.83 10^6/uL (4.1-5.3) 02/21/22 15:06 Hgb 11.9 g/dL (11.5-15.3) 02/21/22 15:06 Hct 38.3 % (37.0-47.0) 02/21/22 15:06 MCV 79.3 fl (81-99) L 02/21/22 15:06 MCH 24.6 pg (28.0-34.0) L 02/21/22 15:06 MCHC 31.1 g/dL (30.0-36.0) 02/21/22 15:06 RDW 13.9 % (12.1-15.1) 02/21/22 15:06 Plt Count 230 10^3/cmm (130-400) 02/21/22 15:06 MPV 12.2 fL (7.4-10.4) H 02/21/22 15:06 Neut % (Auto) 55.1 % 02/21/22 15:06 Lymph % (Auto) 30.5 % 02/21/22 15:06 [place] % (Auto) 9.2 % 02/21/22 15:06 Eos % (Auto) 4.5 % 02/21/22 15:06 Baso % (Auto) 0.6 % 02/21/22 15:06 Neut # (Auto) 3.83 10^3/uL (1.8-7.7) 02/21/22 15:06 Lymph # (Auto) 2.1 10^3/uL (0.8-4.8) 02/21/22 15:06 [place] # (Auto) 0.6 10^3/uL (0.2-0.9) 02/21/22 15:06 Eos # (Auto) 0.3 10^3/uL (0.0-0.8) 02/21/22 15:06 Baso # (Auto) 0.0 10^3/uL (0.0-0.1) 02/21/22 15:06 Nucleated RBC % (auto) 0 % 02/21/22 15:06 Nucleated RBCs # 0.0 /100WBC 02/21/22 15:06 PT 14.00 SECONDS (12.1-14.9) 02/21/22 15:06 INR 1.05 (0.8-1.2) 02/21/22 15:06 APTT 34.8 SECONDS (23.9-36.7) 02/21/22 15:06 Sodium 137 mmol/L (136-145) 02/21/22 15:06 Potassium 4.0 mmol/L (3.5-5.1) 02/21/22 15:06 Chloride 103 mmol/L (98-107) 02/21/22 15:06 Carbon Dioxide 24 mmol/L (22-29) 02/21/22 15:06 Anion Gap 14.0 (5-19) 02/21/22 15:06 BUN 8 mg/dL (6-20) 02/21/22 15:06 Creatinine 0.5 mg/dL (0.5-0.9) 02/21/22 15:06 GFR Calculation 138.1 mL/min (90-130) H 02/21/22 15:06 Glucose 92 mg/dL (65-115) 02/21/22 15:06 Calculated Osmolality 282 mOsm/kg (285-295) L 02/21/22 15:06 Calcium 9.2 mg/dL (8.5-10.5) 02/21/22 15:06 Total Bilirubin 0.2 mg/dL (0.15-1.2) 02/21/22 15:06 AST 25 U/L (0-32) 02/21/22 15:06 ALT 21 U/L (0-33) 02/21/22 15:06 Alkaline Phosphatase 91 U/L (35-105) 02/21/22 15:06 Total Protein 8.1 g/dL (6.6-8.7) 02/21/22 15:06 Albumin 4.4 g/dL (3.5-5.2) 02/21/22 15:06 Globulin 3.7 g/dL (1.3-4.6) 02/21/22 15:06 Urine Color Yellow (Yellow) 02/21/22 16:13 Urine Appearance Clear (CLEAR) 02/21/22 16:13 Urine pH 7 (5-7) 02/21/22 16:13 Ur Specific [place] 1.000 (1.005-1.030) L 02/21/22 16:13 Urine Protein Neg (Negative) 02/21/22 16:13 Urine Glucose (UA) Norm (Normal) 02/21/22 16:13 Urine Ketones Negative (Negative) 02/21/22 16:13 Urine Blood 3+ (Negative) H 02/21/22 16:13 Urine Nitrate Negative (Negative) 02/21/22 16:13 Urine Bilirubin Neg (Negative) 02/21/22 16:13 Urine Urobilinogen Norm mg/dL (Negative) 02/21/22 16:13 Ur Leukocyte Esterase Negative (Negative) 02/21/22 16:13 Urine RBC 0-4 /hpf (0-2) H 02/21/22 16:13 Urine WBC 0-4 /hpf (0-5) H 02/21/22 16:13 Ur Squamous Epith Cells 0-4 /hpf (0-5) H 02/21/22 16:13 Amorphous Sediment Not Reportable 02/21/22 16:13 Urine Bacteria Trace /hpf (NONE) 02/21/22 16:13 Urine Opiates Screen Negative ng/mL (Negative) 02/21/22 16:13 Ur Barbiturates Screen Negative ng/mL (Negative) 02/21/22 16:13 Ur Phencyclidine Scrn Negative ng/mL (Negative) 02/21/22 16:13 Ur Amphetamines Screen Negative ng/mL (Negative) 02/21/22 16:13 U Benzodiazepines Scrn Negative ng/mL (Negative) 02/21/22 16:13 Urine Cocaine Screen Negative ng/mL (Negative) 02/21/22 16:13 U Marijuana (THC) Screen Negative ng/mL (Negative) 02/21/22 16:13 Discharge Plan Discharge Patient Disposition: Home Clinical Impression: Headache, variant migraine Condition: Stable Prescriptions: No Action Unisom (doxylamine) 25 mg tablet 25 mg PO BEDTIME PRN (Reason: sleep) multivitamin Tablet 1 tab PO DAILY vitamin B complex Tablet 1 tab PO DAILY PRN (Reason: unknown) iron 325 mg (65 mg iron) Tablet See Rx Instructions .ROUTE .COMPLEX Rx Instructions: 325mg po daily while on period Advil 200 mg Tablet 400 mg PO Q6H PRN (Reason: Pain) Discharge Orders: Discharge ED (Routine); Ordered 02/21/22 Ordered By: Tashia Funes Referrals: Winter Htuchins MD [Physician] - 1-3 days Joy Savage MD [Primary Care Provider] - 1-3 days Discharge Diet: Advance as tolerated Discharge Activity: Resume usual activity Patient Instructions: Migraine Headache (ED) Coding Level of Care Code ED Purchasing Agent for Chg Fwd Documented by User: Tashia Funes MD 02/21/22 19:44 HPI - Neuro Symptoms/Deficit General: Chief Complaint: Neuro Symptoms/Deficit Stated Complaint: face and arms going numb Time Seen by Provider: 02/21/22 14:43 PFSH ED PFSH: Medical History Aftercare following surgery of the genitourinary system Superficial thrombophlebitis Surgical History H/O unilateral oophorectomy 10/13/2021- right oophorectomy performed by Dr Cole at [facility] History of dilation and curettage (06/28/19) For miscarriage. Performed in [place] S/P primary low transverse (09/15/07) Performed by Dr. Ramos at [facility] in [place], [place] S/P repeat low transverse (07/29/15) Performed by Dr. Jacinto at [facility] [place] in [place], [place] Family History Mother Ovarian cancer, Onset Age: 50 Hypertension Denies family history of Colon cancer Diabetes Clotting disorder Heart disease Hyperlipidemia Breast cancer Anesthesia complication Bleeding disorder Uterine cancer Thyroid condition Stroke Social History Smoking and tobacco status: never smoked Alcohol intake: never Course Vital Signs: Vital signs: Vital Signs Temperature 98.4 F 02/21/22 14:36 Pulse Rate 72 02/21/22 19:30 Respiratory Rate 15 02/21/22 19:30 Blood Pressure 123/97 02/21/22 19:30 Pulse Oximetry 98 02/21/22 19:30 MDM - Neuro Symptoms/Deficit Medical Decision Making Patient presents here with a migraine with aura she feels much improved here after headache medicines head CT is normal she stable for discharge she is no signs of a stroke here she is to follow-up with Dr. Cuong bull if worsening. Lab Data : 02/21/22 15:06 02/21/22 15:06 Radiology Impressions Chest X-Ray 02/21/22 15:02 IMPRESSION: Unremarkable chest radiograph. Head/Neck CTA 02/21/22 15:02 IMPRESSION: 1. Normal carotid arteries. 2. Unremarkable [place]. 3. No cerebral edema or hemorrhage. 4. Nodular focus of groundglass attenuation LEFT upper lobe. Recommend follow-up chest CT in 3-6 months. Laboratory Results WBC 7.0 10^3/uL (4.0-10.0) 02/21/22 15:06 RBC 4.83 10^6/uL (4.1-5.3) 02/21/22 15:06 Hgb 11.9 g/dL (11.5-15.3) 02/21/22 15:06 Hct 38.3 % (37.0-47.0) 02/21/22 15:06 MCV 79.3 fl (81-99) L 02/21/22 15:06 MCH 24.6 pg (28.0-34.0) L 02/21/22 15:06 MCHC 31.1 g/dL (30.0-36.0) 02/21/22 15:06 RDW 13.9 % (12.1-15.1) 02/21/22 15:06 Plt Count 230 10^3/cmm (130-400) 02/21/22 15:06 MPV 12.2 fL (7.4-10.4) H 02/21/22 15:06 Neut % (Auto) 55.1 % 02/21/22 15:06 Lymph % (Auto) 30.5 % 02/21/22 15:06 [place] % (Auto) 9.2 % 02/21/22 15:06 Eos % (Auto) 4.5 % 02/21/22 15:06 Baso % (Auto) 0.6 % 02/21/22 15:06 Neut # (Auto) 3.83 10^3/uL (1.8-7.7) 02/21/22 15:06 Lymph # (Auto) 2.1 10^3/uL (0.8-4.8) 02/21/22 15:06 [place] # (Auto) 0.6 10^3/uL (0.2-0.9) 02/21/22 15:06 Eos # (Auto) 0.3 10^3/uL (0.0-0.8) 02/21/22 15:06 Baso # (Auto) 0.0 10^3/uL (0.0-0.1) 02/21/22 15:06 Nucleated RBC % (auto) 0 % 02/21/22 15:06 Nucleated RBCs # 0.0 /100WBC 02/21/22 15:06 PT 14.00 SECONDS (12.1-14.9) 02/21/22 15:06 INR 1.05 (0.8-1.2) 02/21/22 15:06 APTT 34.8 SECONDS (23.9-36.7) 02/21/22 15:06 Sodium 137 mmol/L (136-145) 02/21/22 15:06 Potassium 4.0 mmol/L (3.5-5.1) 02/21/22 15:06 Chloride 103 mmol/L (98-107) 02/21/22 15:06 Carbon Dioxide 24 mmol/L (22-29) 02/21/22 15:06 Anion Gap 14.0 (5-19) 02/21/22 15:06 BUN 8 mg/dL (6-20) 02/21/22 15:06 Creatinine 0.5 mg/dL (0.5-0.9) 02/21/22 15:06 GFR Calculation 138.1 mL/min (90-130) H 02/21/22 15:06 Glucose 92 mg/dL (65-115) 02/21/22 15:06 Calculated Osmolality 282 mOsm/kg (285-295) L 02/21/22 15:06 Calcium 9.2 mg/dL (8.5-10.5) 02/21/22 15:06 Total Bilirubin 0.2 mg/dL (0.15-1.2) 02/21/22 15:06 AST 25 U/L (0-32) 02/21/22 15:06 ALT 21 U/L (0-33) 02/21/22 15:06 Alkaline Phosphatase 91 U/L (35-105) 02/21/22 15:06 Total Protein 8.1 g/dL (6.6-8.7) 02/21/22 15:06 Albumin 4.4 g/dL (3.5-5.2) 02/21/22 15:06 Globulin 3.7 g/dL (1.3-4.6) 02/21/22 15:06 Urine Color Yellow (Yellow) 02/21/22 16:13 Urine Appearance Clear (CLEAR) 02/21/22 16:13 Urine pH 7 (5-7) 02/21/22 16:13 Ur Specific [place] 1.000 (1.005-1.030) L 02/21/22 16:13 Urine Protein Neg (Negative) 02/21/22 16:13 Urine Glucose (UA) Norm (Normal) 02/21/22 16:13 Urine Ketones Negative (Negative) 02/21/22 16:13 Urine Blood 3+ (Negative) H 02/21/22 16:13 Urine Nitrate Negative (Negative) 02/21/22 16:13 Urine Bilirubin Neg (Negative) 02/21/22 16:13 Urine Urobilinogen Norm mg/dL (Negative) 02/21/22 16:13 Ur Leukocyte Esterase Negative (Negative) 02/21/22 16:13 Urine RBC 0-4 /hpf (0-2) H 02/21/22 16:13 Urine WBC 0-4 /hpf (0-5) H 02/21/22 16:13 Ur Squamous Epith Cells 0-4 /hpf (0-5) H 02/21/22 16:13 Amorphous Sediment Not Reportable 02/21/22 16:13 Urine Bacteria Trace /hpf (NONE) 02/21/22 16:13 Urine Opiates Screen Negative ng/mL (Negative) 02/21/22 16:13 Ur Barbiturates Screen Negative ng/mL (Negative) 02/21/22 16:13 Ur Phencyclidine Scrn Negative ng/mL (Negative) 02/21/22 16:13 Ur Amphetamines Screen Negative ng/mL (Negative) 02/21/22 16:13 U Benzodiazepines Scrn Negative ng/mL (Negative) 02/21/22 16:13 Urine Cocaine Screen Negative ng/mL (Negative) 02/21/22 16:13 U Marijuana (THC) Screen Negative ng/mL (Negative) 02/21/22 16:13 Discharge Plan Discharge Patient Disposition: Home Clinical Impression: Headache, variant migraine Condition: Stable Prescriptions: No Action Unisom (doxylamine) 25 mg tablet 25 mg PO BEDTIME PRN (Reason: sleep) multivitamin Tablet 1 tab PO DAILY vitamin B complex Tablet 1 tab PO DAILY PRN (Reason: unknown) iron 325 mg (65 mg iron) Tablet See Rx Instructions .ROUTE .COMPLEX Rx Instructions: 325mg po daily while on period Advil 200 mg Tablet 400 mg PO Q6H PRN (Reason: Pain) Discharge Orders: Discharge ED (Routine); Ordered 02/21/22 Ordered By: Tashia Funes Referrals: Winter Hutchins MD [Physician] - 1-3 days Joy Savage MD [Primary Care Provider] - 1-3 days Discharge Diet: Advance as tolerated Discharge Activity: Resume usual activity Patient Instructions: Migraine Headache (ED) Coding Level of Care Code ED Purchasing Agent for Julito Velásquez
[2022-02-21 15:28] LABS: INR 1.05 (0.8-1.2)
[2022-02-21 15:29] LABS: Partial Thromboplastin Time 34.8 SECONDS (23.9-36.7)
[2022-02-21 15:36] LABS: Alanine Aminotransferase 21 U/L (0-33); Albumin Level 4.4 g/dL (3.5-5.2); Alkaline Phosphatase 91 U/L (35-105); Aspartate Amino Transferase 25 U/L (0-32); Blood Urea Nitrogen 8 mg/dL (6-20); Calcium 9.2 mg/dL (8.5-10.5); Carbon Dioxide 24 mmol/L (22-29); Chloride 103 mmol/L (98-107); Globulin 3.7 g/dL (1.3-4.6); Glomerular Filtration Rate 138.1 mL/min (90-130); Glucose 92 mg/dL (65-115); Osmolality Calculated 282 mOsm/kg (285-295); Sodium 137 mmol/L (136-145); Total Bilirubin 0.2 mg/dL (0.15-1.2); Total Protein 8.1 g/dL (6.6-8.7)
[2022-02-21] MEDS: iohexol 350 mg/mL 100 mL Btl IV (15:36)
[2022-02-21] MEDS: promethazine 25 mg/mL SDV 1 mL IM (16:42)
[2022-02-21 16:57] LABS: Add Urine Culture? No; Add Urine Microscopic? YES; Bacteria Urine TRACE /hpf; Bilirubin Urine Neg (Negative); Blood Urine 3+ (Negative); Glucose Urine UA Norm (Normal); Ketones Urine Negative (Negative); Leukocyte Esterase Urine Negative (Negative); Nitrate Urine Negative (Negative); Protein Urine Neg (Negative); RBC Urine 0-4 /hpf (0-2); Squamous Epithelial Cell Urine 0-4 /hpf (0-5); Urine Appearance Clear (CLEAR); Urine Color Yellow (Yellow); Urobilinogen Urine Norm (Negative); WBC Urine 0-4 /hpf (0-5); pH Urine 7 (5-7)
[2022-02-21 17:01] LABS: Amphetamines Screen Urine Negative (Negative); Barbiturates Screen Urine Negative (Negative); Benzodiazepines Screen Urine Negative (Negative); Cocaine Screen Urine Negative (Negative); Opiate Screen Urine Negative (Negative); PCP Screen Urine Negative (Negative); THC Screen Urine Negative (Negative)
[2022-02-21] MEDS: dihydroergotamine 1 mg/mL Inj IVP (18:00)
[2022-02-21] MEDS: ondansetron 2 mg/ML SDV 2 mL 4 MG IVP (18:00)
[2022-02-21] MEDS: diphenhydrAMINE 50 mg/mL SDV 1mL 25 MG IVP (18:00)
[2022-02-21] MEDS: ketorolac 30 mg/mL INJ 15 MG IVP (19:19)
[2022-02-21] MEDS: metoclopramide 5 mg/mL SDV 2 mL IVP (19:20)
== END 2022-02-21 20:10 | disposition home or self-care (01) ==
PROVIDERS: Family Medicine; Emergency Provider Emergency Medicine; PCP Family Medicine
DX: G43.809 Other migraine, not intractable, without status migrainosus (principal)
CPT/HCPCS: 70496; 70498; 71045; 80053; 80306; 81001; 85025; 85610; 85730; 93005; 96372; 96374; 96375; 99285; J1110; J1200; J1885; J2405; J2550; J2765; Q9967

== ENCOUNTER 2022-02-23 14:23 | Outpatient (CLI) | payer MEDICAID, SELFPAY ==
--- NOTE | 2022-02-23 15:00 | US_ITS ---
WS: [id number] TRANSABDOMINAL PELVIC AND TRANSVAGINAL PELVIC ULTRASOUND HISTORY: N83.202 - Unspecified ovarian cyst, left side COMPARISON: 01/04/2022 Uterus: 10.4 cm x 7.0 cm x 4.0 cm. Mildly enlarged anteverted uterus. No fibroid or mass. Endometrium: 1.1 cm. Normal homogeneity. No increased vascularity or mass. Right ovary: Prior oophorectomy. No adnexal mass. Left ovary: 4.8 cm x 3.3 cm x 4.5 cm. Ovaries slightly enlarged. There are multiple small follicles a ssociated with the ovary. The largest measures 1.9 x 2.8 x 2.3 cm. No solid mass. Peripheral hypoecho ic nodules were also present on the prior study with decrease in size. The cysts have resolved. No free fluid. US/US pelvic with transvaginal IMPRESSION: 1. Normal endometrium. 2. Numerous prominent follicles associated with the LEFT ovary, 3 in total. Th e previously described cyst associated with the LEFT ovary have resolved. There are now follicles present. 3. RIGHT oophorectomy.
== END 2022-02-23 14:24 | disposition home or self-care (01) ==
LOC: RAD 14:23
PROVIDERS: PCP Family Medicine; Visit Provider Obstetrics & Gynecology
DX: N83.202 Unspecified ovarian cyst, left side (principal); Z90.721 Acquired absence of ovaries, unilateral
CPT/HCPCS: 76830; 76856

== ENCOUNTER 2022-05-08 15:35 | Emergency (ER) | payer MEDICAID, SELFPAY ==
[2022-05-08 15:42] VITALS: BP 127/84; PULSE 82; RESP 16; TEMP 36.2; O2SAT 99; BMI 29.9
[2022-05-08 16:05] LABS: Add Urine Microscopic? NO; Charge for UA Resulting for Rev
[2022-05-08 16:14] LABS: Urine Appearance Clear (CLEAR); Urine Color Yellow (Yellow); pH Urine 5 (5-7)
[2022-05-08 16:15] LABS: Bilirubin Urine Neg (Negative); Blood Urine Neg (Negative); Glucose Urine UA Norm (Normal); Ketones Urine 1+ (Negative); Leukocyte Esterase Urine Negative (Negative); Nitrate Urine Negative (Negative); Protein Urine Neg (Negative); Urobilinogen Urine Norm (Negative)
--- NOTE | 2022-05-08 16:28 | ED_ITS ---
HPI - General Adult General: Chief complaint: General Medical Stated complaint: Possible UTI Time Seen by Provider: 05/08/22 16:24 History of Present Illness: 37-year-old female comes in today with some renal discomfort. Patient reports difficulty with frequent urination with scant urine output. Patient does have a history of renal problems when she was 11 years old but does not know what was wrong. Patient states that she has been treated recurrently for a urinary tract infection but symptoms have persisted. Patient appears nontoxic. Patient appears in mild to no pain. Patient reports no routine medications except herbs. Review of Systems Const: Denies: fever(s) : Reports: difficulty voiding, urinary frequency, urinary urgency and dribbling PFSH ED PFSH: Medical History Aftercare following surgery of the genitourinary system Superficial thrombophlebitis Surgical History H/O unilateral oophorectomy 10/13/2021- right oophorectomy performed by Dr Cole at [facility] History of dilation and curettage (06/28/19) For miscarriage. Performed in [place] S/P primary low transverse (09/15/07) Performed by Dr. Ramos at [facility] in [place], [place] S/P repeat low transverse (07/29/15) Performed by Dr. Jacinto at [facility] in [place], [place] Family History Mother Ovarian cancer, Onset Age: 50 Hypertension Denies family history of Colon cancer Diabetes Clotting disorder Heart disease Hyperlipidemia Breast cancer Anesthesia complication Bleeding disorder Uterine cancer Thyroid condition Stroke Social History Smoking and tobacco status: never smoked Alcohol intake: never Female Reproductive History: Date of last menstrual period: 02/20/22 Para: 8 Spontaneous abortions: Yes (3, most recent 07/15 at 14 wks) Physical Exam Const: COMMON NORMALS: patient oriented x3 HENMT: COMMON NORMALS: normocephalic HEAD & SCALP: normocephalic Neck/C-Spine: COMMON NORMALS: full ROM Resp: COMMON NORMALS: normal respiratory effort and clear to auscultation bilaterally AUSCULTATION: clear to auscultation bilaterally Cardio: COMMON NORMALS: regular rate and regular rhythm RATE: regular rate RHYTHM: regular rhythm GI: COMMON NORMALS: Soft to palpation AUSCULTATION: Yes normoactive bowel sounds PALPATION: Yes Soft to palpation and Yes Tenderness to palpation present (GI) Details: LLQ and LUQ : BLADDER/KIDNEY EXAM: Yes CVA tenderness on the left Back/Pelvis: GENERAL BACK: Yes CVA tenderness Extremity: COMMON NORMALS: normal to inspection Neuro: COMMON NORMALS: patient oriented x3 Psych: COMMON NORMALS: cooperative Skin: COMMON NORMALS: turgor normal GENERAL SKIN EXAM: turgor normal Course Vital Signs: Vital signs: Vital Signs Temperature 97.2 F L 05/08/22 15:42 Pulse Rate 82 05/08/22 15:42 Respiratory Rate 16 05/08/22 15:42 Blood Pressure 127/84 05/08/22 15:42 Pulse Oximetry 99 05/08/22 15:42 Oxygen Delivery Me thod 05/08/22 15:42 [facility] - General Adult Medical Decision Making 37-year-old female comes in today with urinary difficulty. On exam patient has soft abdomen with some left-sided abdominal tenderness. Patient has positive CVA tenderness on the left. Vital signs are normal. Differential diagnosis includes but not limited to renal calculi, pyelonephritis, bladder dystonia. CBC noted some mild anemia microcytic in nature. BMP was unremarkable except for her sodium being 130. Urinalysis was clean. Ultrasound of the kidneys and bladder noted no hydronephrosis to suggest renal stone without any other abnormalities. Recommended patient follow-up with primary care for further evaluation and treatment. Patient agreed with plan and need for follow-up. Lab Data : 05/08/22 17:13 05/08/22 17:13 Radiology Impressions Renal Ultrasound 05/08/22 16:41 IMPRESSION: Unremarkable kidneys and bladder. Laboratory Results WBC 7.5 10^3/uL (4.0-10.0) 05/08/22 17:13 RBC 4.89 10^6/uL (4.1-5.3) 05/08/22 17:13 Hgb 11.0 g/dL (11.5-15.3) L 05/08/22 17:13 Hct 37.7 % (37.0-47.0) 05/08/22 17:13 MCV 77.1 fl (81-99) L 05/08/22 17:13 MCH 22.5 pg (28.0-34.0) L 05/08/22 17:13 MCHC 29.2 g/dL (30.0-36.0) L 05/08/22 17:13 RDW 16.0 % (12.1-15.1) H 05/08/22 17:13 Plt Count 256 10^3/cmm (130-400) 05/08/22 17:13 MPV 11.9 fL (7.4-10.4) H 05/08/22 17:13 Neut % (Auto) 57.2 % 05/08/22 17:13 Lymph % (Auto) 28.2 % 05/08/22 17:13 [place] % (Auto) 7.8 % 05/08/22 17:13 Eos % (Auto) 6.0 % 05/08/22 17:13 Baso % (Auto) 0.7 % 05/08/22 17:13 Neut # (Auto) 4.27 10^3/uL (1.8-7.7) 05/08/22 17:13 Lymph # (Auto) 2.1 10^3/uL (0.8-4.8) 05/08/22 17:13 [place] # (Auto) 0.6 10^3/uL (0.2-0.9) 05/08/22 17:13 Eos # (Auto) 0.5 10^3/uL (0.0-0.8) 05/08/22 17:13 Baso # (Auto) 0.1 10^3/uL (0.0-0.1) 05/08/22 17:13 Nucleated RBC % (auto) 0 % 05/08/22 17:13 Nucleated RBCs # 0.0 /100WBC 05/08/22 17:13 Sodium 130 mmol/L (136-145) L 05/08/22 17:13 Potassium 4.1 mmol/L (3.5-5.1) 05/08/22 17:13 Chloride 98 mmol/L (98-107) 05/08/22 17:13 Carbon Dioxide 27 mmol/L (22-29) 05/08/22 17:13 Anion Gap 9.1 (5-19) 05/08/22 17:13 BUN 11 mg/dL (6-20) 05/08/22 17:13 Creatinine 0.5 mg/dL (0.5-0.9) 05/08/22 17:13 GFR Calculation 138.1 mL/min (90-130) H 05/08/22 17:13 Glucose 110 mg/dL (65-115) 05/08/22 17:13 Calculated Osmolality 270 mOsm/kg (285-295) L 05/08/22 17:13 Calcium 9.3 mg/dL (8.5-10.5) 05/08/22 17:13 Urine Color Yellow (Yellow) 05/08/22 15:45 Urine Appearance Clear (CLEAR) 05/08/22 15:45 Urine pH 5 (5-7) 05/08/22 15:45 Ur Specific [place] 1.020 (1.005-1.030) 05/08/22 15:45 Urine Protein Neg (Negative) 05/08/22 15:45 Urine Glucose (UA) Norm (Normal) 05/08/22 15:45 Urine Ketones 1+ (Negative) H 05/08/22 15:45 Urine Blood Neg (Negative) 05/08/22 15:45 Urine Nitrate Negative (Negative) 05/08/22 15:45 Urine Bilirubin Neg (Negative) 05/08/22 15:45 Urine Urobilinogen Norm mg/dL (Negative) 05/08/22 15:45 Ur Leukocyte Esterase Negative (Negative) 05/08/22 15:45 Discharge Plan Discharge Patient Disposition: Home Clinical Impression: Dysuria Condition: Stable Prescriptions: No Action Unisom (doxylamine) 25 mg tablet 25 mg PO BEDTIME PRN (Reason: sleep) ondansetron HCl 4 mg tablet 4 mg PO Q8H PRN (Reason: nausea and vomiting) 90 Days Qty: 90 3RF Nurtec ODT 75 mg tablet,disintegrating 75 mg PO ONCE PRN (Reason: migraine headache) Qty: 15 3RF Rx Instructions: Take 1 as soon as possible when headache starts. Ubrelvy 100 mg tablet 100 mg PO ONCE PRN (Reason: migraine headache) Qty: 10 3RF multivitamin Tablet 1 tab PO DAILY vitamin B complex Tablet 1 tab PO DAILY PRN (Reason: unknown) Advil 200 mg Tablet 400 mg PO Q6H PRN (Reason: Pain) Discharge Orders: Discharge ED (Routine); Ordered 05/08/22 Ordered By: Blake Cline Referrals: Joy Savage MD [Primary Care Provider] - Discharge Diet: Usual diet Discharge Activity: Increase activity as tolerated Patient Instructions: Dysuria (ED) Activity Restrictions/Additional Instructions: Follow-up with primary care for further evaluation and treatment. Return to ER for fever greater than 100.4, persistent nausea and vomiting, blood in vomit or stool, or uncontrolled pain. Coding Level of Care Code ED Relocation Commissioner for Chg Fwd Exam Comprehensive
--- NOTE | 2022-05-08 16:41 | USR_ITS ---
PROCEDURE INFORMATION: Exam: US Retroperitoneal; Complete; Kidneys and Bladder Exam date and time: 05/08/2022 5:18 PM Age: 37 years old Clinical indication: Abdominal pain; Right; Patient HX: Recently treated UTI. Still not feeling well. Pain bilaterally flank with more per PT on RT; Additional info: CVA tenderness increased on left, possible stone TECHNIQUE: Imaging protocol: Real-time ultrasound of the retroperitoneum with image documentation. Complete exam focused on the kidneys and bladder. COMPARISON: CT abdomen pelvis w con* [id number] 03/14/2020 11:41 PM FINDINGS: Right kidney: Normal. No stones. No hydronephrosis. Left kidney: Normal. No stones. No hydronephrosis. Urinary bladder: Unremarkable. US/US renal BI* [id number] IMPRESSION: Unremarkable kidneys and bladder.
[2022-05-08 17:23] LABS: Basophils # 0.1 10^3/uL (0.0-0.1); Basophils % 0.7 %; Eosinophils # 0.5 10^3/uL (0.0-0.8); Hematocrit 37.7 % (37.0-47.0); Lymphocytes # 2.1 10^3/uL (0.8-4.8); Lymphocytes % 28.2 %; Mean Corpuscular HGB Conc 29.2 g/dL (30.0-36.0); Mean Corpuscular Hemoglobin 22.5 pg (28.0-34.0); Mean Corpuscular Volume 77.1 fl (81-99); Mean Platelet Volume 11.9 fL (7.4-10.4); Monocytes # 0.6 10^3/uL (0.2-0.9); Monocytes % 7.8 %; Neutrophils # 4.27 10^3/uL (1.8-7.7); Neutrophils % 57.2 %; Nucleated Red Blood Cells % 0 %; Platelet Count 256 10^3/cmm (130-400); Red Blood Count 4.89 10^6/uL (4.1-5.3); White Blood Count 7.5 10^3/uL (4.0-10.0)
[2022-05-08 17:46] LABS: Anion Gap 9.1 (5-19); Blood Urea Nitrogen 11 mg/dL (6-20); Calcium 9.3 mg/dL (8.5-10.5); Carbon Dioxide 27 mmol/L (22-29); Chloride 98 mmol/L (98-107); Glomerular Filtration Rate 138.1 mL/min (90-130); Glucose 110 mg/dL (65-115); Osmolality Calculated 270 mOsm/kg (285-295); Potassium 4.1 mmol/L (3.5-5.1); Sodium 130 mmol/L (136-145)
== END 2022-05-08 18:18 | disposition home or self-care (01) ==
PROVIDERS: Family Medicine; Emergency Provider Nurse Practitioner Family; PCP Family Medicine
DX: R30.0 Dysuria (principal)
CPT/HCPCS: 76770; 80048; 81003; 85025; 99284

== ENCOUNTER 2022-05-12 14:23 | Outpatient (CLI) | payer MEDICAID, SELFPAY ==
--- NOTE | 2022-05-12 14:30 | CT_ITS ---
WS: [id number] CT CHEST WITH INTRAVENOUS CONTRAST HISTORY: Follow-up groundglass attenuation LEFT upper lobe. TECHNIQUE: Contiguous 5 mm axial imaging performed on the thorax. Coronal and sagittal reformats are submitted. All CT scans at [facility] use at least of these dose optimization techniques: aut omated exposure control; mA and/or kV adjustment per patient size (includes targeted exams where dose is matched to clinical indication); or iterative reconstruction. CONTRAST: Omnipaque 350; 95 mL IV. DLP: 749.55 mGy.cm COMPARISON: 02/21/2022 Lungs and central airway: No significant increase in size than groundglass nodule measuring 12 mm in the LEFT upper lobe. This will need long-term surveillance. There are also at additional subcentimete r scattered nodules in the RIGHT upper, middle and lower lobes. Pleura: Normal. No pleural effusion. Heart and pericardium: Normal size heart with no pericardial effusion. Mediastinum and donaldo: No mediastinum or hilar adenopathy. Vessels: Normal size aortic and pulmonary artery. No coronary artery calcifications. Chest wall and lower neck: No soft tissue masses. Upper abdomen: Small hiatal hernia. There is a large amount of food debris within the stomach. Nonspe cific 7 mm hypodense lesion in the spleen. No adrenal mass. Visualized liver is negative. Osseous structures: No destructive process. CT/CT chest w con* [id number] IMPRESSION: 1. Recommend follow-up chest CT with IV contrast in 6 months. Long-term survei llance of the groundglass attenuation nodule in the LEFT upper lobe and a subce ntimeter nodules in the RIGHT lung. 2. No adenopathy. No pneumonia.
[2022-05-12] MEDS: iohexol 350 mg/mL 500 mL Btl (per mL) IV (15:11)
== END 2022-05-12 14:24 | disposition home or self-care (01) ==
LOC: RAD 14:24
PROVIDERS: PCP Family Medicine; Visit Provider Specialist
DX: G43.711 Chronic migraine without aura, intractable, with status migrainosus (principal)
CPT/HCPCS: 71260

== ENCOUNTER 2022-05-23 20:30 | Emergency (ER) | payer MEDICAID, SELFPAY ==
[2022-05-23 20:32] VITALS: BP 134/85; PULSE 66; RESP 16; TEMP 36.4; O2SAT 100
--- NOTE | 2022-05-23 20:40 | ECG_ITS ---
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 Measurements Intervals [place] Rate: 74 P: 60 [place]: 134 QRS: 38 QRSD: 98 T: 32 QT: 378 QTc: 420 Interpretive Statements SINUS RHYTHM WITH OCCASIONAL VENTRICULAR PREMATURE COMPLEXES Compared to ECG 02/21/2022 15:12:02 Ventricular premature complex(es) now present Electronically Signed On 05-23-2022 23:59:28 SUPERINTENDENT TRANSMISSION by Shashi Padilla M.D. [id number] f
--- NOTE | 2022-05-23 20:52 | XRR_ITS ---
PROCEDURE INFORMATION: Exam: XR Chest Exam date and time: 05/23/2022 9:01 PM Age: 37 years old Clinical indication: Patient HX: C/O chest pain radiating to RT arm. ; Additional info: Cp TECHNIQUE: Imaging protocol: Radiologic exam of the chest. Views: 2 views. COMPARISON: CT chest w con* [id number] 05/12/2022 2:57 PM FINDINGS: Lungs: Lungs are clear bilaterally. Pleural spaces: No pleural effusion. No pneumothorax. Heart/Mediastinum: Stable mild enlargement of the cardiac silhouette. Mediastinal contours are unremarkable. Bones/joints: Unremarkable for age. XR/XR chest 2V* [id number] IMPRESSION: 1. No acute cardiopulmonary process. 2. Stable mild enlargement of the cardiac silhouette.
--- NOTE | 2022-05-23 21:14 | W.ED.CHESTPA ---
HPI - Chest Pain General: Chief Complaint: Chest Pain Stated Complaint: CP, Right arm pain Time Seen by Provider: 05/23/22 20:51 Source: patient Mode of arrival: ambulatory Limitations: no limitations History of Present Illness: 37-year-old female states she has been having some abdominal pain along with indigestion this afternoon she states it started to radiate into her chest and having some right-sided chest pain states she had vomited and felt improved but then started having nausea again. She denies any pain currently denies any fevers or cough. Associated symptoms: Reports abdominal pain, nausea and vomiting; Deny dyspnea or fever(s) Review of Systems Const: Denies: fever(s), chills, body aches or change in appetite Eyes: Denies: blurry vision or eye discomfort ENMT: Denies: throat pain or dental pain Card: Reports: chest pain Resp: Denies: dyspnea GI: Reports: abdominal pain, nausea and vomiting : Denies: dysuria Musc: Denies: neck pain or back pain Skin/Breast: Denies: rash Neuro: Denies: headache(s) Psych: Denies: depression Corey/Lymph: Denies: easy bruising All/Imm: Denies: urticaria PFSH ED PFSH: Medical History Aftercare following surgery of the genitourinary system Superficial thrombophlebitis Surgical History H/O unilateral oophorectomy 10/13/2021- right oophorectomy performed by Dr Cole at [facility] History of dilation and curettage (06/28/19) For miscarriage. Performed in [place] S/P primary low transverse (09/15/07) Performed by Dr. Ramos at [facility] in [place], [place] S/P repeat low transverse (07/29/15) Performed by Dr. Jacinto at [facility] in [place], [place] Family History Mother Ovarian cancer, Onset Age: 50 Hypertension Denies family history of Colon cancer Diabetes Clotting disorder Heart disease Hyperlipidemia Breast cancer Anesthesia complication Bleeding disorder Uterine cancer Thyroid condition Stroke Social History Smoking and tobacco status: never smoked Alcohol intake: never Female Reproductive History: Date of last menstrual period: 02/20/22 Para: 8 Spontaneous abortions: Yes (3, most recent 07/15 at 14 wks) Physical Exam Const: COMMON NORMALS: no acute distress, patient oriented x3 and healthy appearing HENMT: COMMON NORMALS: normocephalic and atraumatic HEAD & SCALP: normocephalic and atraumatic Eye: COMMON NORMALS: Equal, round and reactive pupils present and EOMs intact bilaterally PUPIL: Yes Equal, round and reactive pupils present Neck/C-Spine: COMMON NORMALS: full ROM and supple Chest: COMMONS NORMALS: normal inspection of the chest and normal palpation of entire chest wall Resp: COMMON NORMALS: normal respiratory effort, No retractions, No use of accessory muscles and clear to auscultation bilaterally AUSCULTATION: clear to auscultation bilaterally Cardio: COMMON NORMALS: regular rate, regular rhythm and No murmurs present (Cardio) RATE: regular rate RHYTHM: regular rhythm GI: COMMON NORMALS: Normal to inspection, nondistended, normoactive bowel sounds present, Soft to palpation, non-tender and no masses PALPATION: Yes Soft to palpation Extremity: COMMON NORMALS: normal to inspection and full ROM Neuro: COMMON NORMALS: patient oriented x3, moves all extremities and no focal motor deficits Psych: COMMON NORMALS: mental status grossly normal, Normal thought process present and cooperative THOUGHT PROCESS: Normal thought process present Skin: COMMON NORMALS: no rashes or lesions noted and no wounds GENERAL SKIN EXAM: no rashes or lesions noted Course Vital Signs: Vital signs: Vital Signs Temperature 97.5 F L 05/23/22 20:32 Pulse Rate 75 05/23/22 23:42 Respiratory Rate 17 05/23/22 23:42 Blood Pressure 136/88 05/23/22 23:42 Pulse Oximetry 100 05/23/22 23:42 Oxygen Delivery Me thod 05/23/22 21:33 MDM - Chest Pain Medical Decision Making Patient presents with chest pains atypical in nature likely gastritis patient's well-appearing here initial repeat troponin is normal she feels improved she stable for discharge she is to follow-up with PCP and return if worsening. Lab Data 05/23/22 21:21 05/23/22 21:21 Radiology Impressions Chest X-Ray 05/23/22 20:52 IMPRESSION: 1. No acute cardiopulmonary process. 2. Stable mild enlargement of the cardiac silhouette. Laboratory Results WBC 9.2 10^3/uL (4.0-10.0) 05/23/22 21:21 RBC 4.99 10^6/uL (4.1-5.3) 05/23/22 21:21 Hgb 11.1 g/dL (11.5-15.3) L 05/23/22 21: Hct 37.5 % (37.0-47.0) 05/23/22 21: MCV 75.2 fl (81-99) L 05/23/22 21: MCH 22.2 pg (28.0-34.0) L 05/23/22 21: MCHC 29.6 g/dL (30.0-36.0) L 05/23/22 21: RDW 16.2 % (12.1-15.1) H 05/23/22 21:21 Plt Count 238 10^3/cmm (130-400) 05/23/22 21:21 MPV 11.9 fL (7.4-10.4) H 05/23/22 21: Neut % (Auto) 63.2 % 05/23/22 21: Lymph % (Auto) 25.1 % 05/23/22 21:21 [place] % (Auto) 7.5 % 05/23/22 21: Eos % (Auto) 3.5 % 05/23/22 21: Baso % (Auto) 0.5 % 05/23/22 21: Neut # (Auto) 5.80 10^3/uL (1.8-7.7) 05/23/22 21: Lymph # (Auto) 2.3 10^3/uL (0.8-4.8) 05/23/22 21: [place] # (Auto) 0.7 10^3/uL (0.2-0.9) 05/23/22 21:21 Eos # (Auto) 0.3 10^3/uL (0.0-0.8) 05/23/22 21: Baso # (Auto) 0.1 10^3/uL (0.0-0.1) 05/23/22 21:21 Nucleated RBC % (auto) 0 % 05/23/22 21:21 Nucleated RBCs # 0.0 /100WBC 05/23/22 21:21 Sodium 138 mmol/L (136-145) 05/23/22 21:21 Potassium 3.8 mmol/L (3.5-5.1) 05/23/22 21:21 Chloride 105 mmol/L (98-107) 05/23/22 21:21 Carbon Dioxide 22 mmol/L (22-29) 05/23/22 21:21 Anion Gap 14.8 (5-19) 05/23/22 21:21 BUN 9 mg/dL (6-20) 05/23/22 21:21 Creatinine 0.5 mg/dL (0.5-0.9) 05/23/22 21:21 GFR Calculation 138.1 mL/min (90-130) H 05/23/22 21:21 Glucose 91 mg/dL (65-115) 05/23/22 21:21 Calculated Osmolality 284 mOsm/kg (285-295) L 05/23/22 21:21 Calcium 9.7 mg/dL (8.5-10.5) 05/23/22 21:21 Total Bilirubin 0.2 mg/dL (0.15-1.2) 05/23/22 21:21 AST 16 U/L (0-32) 05/23/22 21:21 ALT 16 U/L (0-33) 05/23/22 21:21 Alkaline Phosphatase 87 U/L (35-105) 05/23/22 21:21 Troponin T Baseline 6 ng/L (0-10) 05/23/22 21:21 Troponin T 120 Minute 6.00 ng/L (0-10) 05/23/22 23:07 Total Protein 8.1 g/dL (6.6-8.7) 05/23/22 21:21 Albumin 4.2 g/dL (3.5-5.2) 05/23/22 21:21 Globulin 3.9 g/dL (1.3-4.6) 05/23/22 21:21 EKG Data EKG 1: I personally reviewed and interpreted this EKG as follows: EKG interpretation date: 05/23/22 EKG interpretation time: 20:39 Interpretation: nsr hr [address] or t wave abnormalitis qrs 98 qtc 405 Discharge Plan Discharge Patient Disposition: Home Clinical Impression: Chest pain Condition: Stable Prescriptions: New ondansetron 4 mg tablet,disintegrating 4 mg PO Q6H PRN (Reason: nausea and vomiting) Qty: 14 0RF No Action Unisom (doxylamine) 25 mg tablet 25 mg PO BEDTIME PRN (Reason: sleep) ondansetron HCl 4 mg tablet 4 mg PO Q8H PRN (Reason: nausea and vomiting) 90 Days Qty: 90 3RF Nurtec ODT 75 mg tablet,disintegrating 75 mg PO ONCE PRN (Reason: migraine headache) Qty: 15 3RF Rx Instructions: Take 1 as soon as possible when headache starts. Ubrelvy 100 mg tablet 100 mg PO ONCE PRN (Reason: migraine headache) Qty: 10 3RF multivitamin Tablet 1 tab PO DAILY vitamin B complex Tablet 1 tab PO DAILY PRN (Reason: unknown) Advil 200 mg Tablet 400 mg PO Q6H PRN (Reason: Pain) Discharge Orders: Discharge ED (Routine); Ordered 05/23/22 Ordered By: Tashia Funes Referrals: Joy Savage MD [Primary Care Provider] - 1-3 days Discharge Diet: Advance as tolerated Discharge Activity: Resume usual activity Patient Instructions: Chest Pain (ED) Coding Level of Care Code ED Egg Producer for Chg Fwd Exam Comprehensive
[2022-05-23 21:26] LABS: Basophils # 0.1 10^3/uL (0.0-0.1); Basophils % 0.5 %; Eosinophils # 0.3 10^3/uL (0.0-0.8); Eosinophils % 3.5 %; Hematocrit 37.5 % (37.0-47.0); Hemoglobin 11.1 g/dL (11.5-15.3); Lymphocytes # 2.3 10^3/uL (0.8-4.8); Lymphocytes % 25.1 %; Mean Corpuscular HGB Conc 29.6 g/dL (30.0-36.0); Mean Corpuscular Hemoglobin 22.2 pg (28.0-34.0); Mean Corpuscular Volume 75.2 fl (81-99); Mean Platelet Volume 11.9 fL (7.4-10.4); Monocytes # 0.7 10^3/uL (0.2-0.9); Monocytes % 7.5 %; Neutrophils % 63.2 %; Nucleated Red Blood Cells % 0 %; Platelet Count 238 10^3/cmm (130-400); Red Blood Count 4.99 10^6/uL (4.1-5.3); Red Cell Distribution Width 16.2 % (12.1-15.1); White Blood Count 9.2 10^3/uL (4.0-10.0)
[2022-05-23 21:33] VITALS: BP 112/81; PULSE 68; RESP 18; O2SAT 99
[2022-05-23 21:48] LABS: Alanine Aminotransferase 16 U/L (0-33); Albumin Level 4.2 g/dL (3.5-5.2); Alkaline Phosphatase 87 U/L (35-105); Anion Gap 14.8 (5-19); Aspartate Amino Transferase 16 U/L (0-32); Blood Urea Nitrogen 9 mg/dL (6-20); Calcium 9.7 mg/dL (8.5-10.5); Carbon Dioxide 22 mmol/L (22-29); Chloride 105 mmol/L (98-107); Globulin 3.9 g/dL (1.3-4.6); Glomerular Filtration Rate 138.1 mL/min (90-130); Glucose 91 mg/dL (65-115); Osmolality Calculated 284 mOsm/kg (285-295); Potassium 3.8 mmol/L (3.5-5.1); Sodium 138 mmol/L (136-145); Total Bilirubin 0.2 mg/dL (0.15-1.2); Total Protein 8.1 g/dL (6.6-8.7)
[2022-05-23 21:49] LABS: Troponin(5th) Baseline 6 ng/L (0-10)
[2022-05-23 22:00] VITALS: BP 110/69; PULSE 75; RESP 12; O2SAT 99
[2022-05-23 22:30] VITALS: BP 120/80; PULSE 63; RESP 16; O2SAT 99
[2022-05-23] MEDS: ondansetron 2 mg/ML SDV 2 mL 4 MG IVP (22:38)
[2022-05-23] MEDS: metoclopramide 5 mg/mL SDV 2 mL IVP (23:00)
[2022-05-23] MEDS: diphenhydrAMINE 50 mg/mL SDV 1mL 25 MG IVP (23:00)
--- NOTE | 2022-05-23 23:00 | ECG_ITS ---
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 Measurements Intervals [place] Rate: 74 P: 37 HI: 147 QRS: 1 QRSD: 86 T: 0 QT: 395 QTc: 438 Interpretive Statements SINUS RHYTHM Compared to ECG 05/23/2022 20:39:58 Ventricular premature complex(es) no longer present Electronically Signed On 05-24-2022 18:14:08 BAFFLE INSTALLER by Aura Newberry M.D. [id number]
[2022-05-23 23:42] VITALS: BP 136/88; PULSE 75; RESP 17; O2SAT 100
[2022-05-23 23:53] LABS: Troponin 5 2HR Delta 0 ABS# (0-10)
== END 2022-05-23 23:43 | disposition home or self-care (01) ==
PROVIDERS: Emergency Provider Emergency Medicine; PCP Family Medicine
DX: R07.9 Chest pain, unspecified (principal)
CPT/HCPCS: 36415; 71046; 80053; 84484; 85025; 93005; 96374; 96375; 99285; J1200; J2405; J2765

== ENCOUNTER 2022-07-17 15:29 | Emergency (ER) | payer MEDICAID, SELFPAY ==
[2022-07-17 15:34] VITALS: BP 122/80; PULSE 96; RESP 16; TEMP 36.7; O2SAT 100
--- NOTE | 2022-07-17 17:03 | USR_ITS ---
PROCEDURE INFORMATION: Exam: US First Trimester, Transabdominal and US , Transvaginal Exam date and time: 07/17/2022 5:12 PM Age: 37 years old Clinical indication: Lmp or gestational age (in weeks): Vag bleed; ; Additional info: Vaginal bleeding TECHNIQUE: Imaging protocol: Real-time transabdominal obstetrical ultrasound of the maternal pelvis and a first trimester , less than 14 weeks 0 days, with image documentation. Transvaginal imaging was used for better evaluation of the fetus, adnexa, and/or cervix. COMPARISON: US renal BI* [id number] 05/08/2022 5:18 PM FINDINGS: Gestation: Average ultrasound age of 11 weeks 4 days by crown-rump length. Embryonic/ heart rate: 160 beats per minute. Extra-embryonic membranes/Placenta: Unremarkable. No subchorionic bleed. Amniotic fluid: Amniotic fluid and extra-amniotic fluid is normal for gestational age. BIOMETRY: Gestational age (AUA): See Uterus finding. MATERNAL: Uterus: Uterus measures 10.8 x 8.4 x 7.8 cm. A single gestational sac is seen within the endometrium of the uterus. A single fetus is seen with a crown-rump length of 4.84 cm, consistent with an average ultrasound age of 11 weeks 4 days and an estimated due date of February 01, 2023. cardiac activity is seen, with a recorded heart rate of 160 beats per minute. Cervix: Cervix measures 3.6 cm and appears unremarkable. Right ovary/adnexa: No significant abnormality of the right adnexal region. Left ovary/adnexa: No significant abnormality of the left adnexal region.. Intraperitoneal space: No intraperitoneal free fluid. US/US OB <= 14 weeks fetus [id number] IMPRESSION: Single viable intrauterine with average ultrasound age of 11 weeks 4 days by crown-rump length, without acute findings.
--- NOTE | 2022-07-17 17:19 | W.ED.PREGNAN ---
HPI - General: Chief complaint: Vaginal Bleeding Stated complaint: 11 weeks , cramping and bleeding Time Seen by Provider: 07/17/22 17:03 History of Present Illness: 37-year-old female who is approximately 11 weeks who presents with vaginal bleeding and pelvic cramping. Patient is 12 para 8 AB 3. She presents with bleeding that started this morning. She states it was enough to soak a panty liner. The bleeding has slowed to now just being blood when she wipes after urinating. She has had some bilateral lower cramping with some associated mild low back cramping as well. She has not had any clotting or passed any tissue. She has had 3 previous miscarriages, 2 really early in and 1 at 12 weeks. She does have established OB care. She has had some dysuria and increased urinary frequency as well. No fever. Bowel movements have been normal. Date of Last Menstrual Period: 02/20/22 Review of Systems General: Reports: 10 or more systems reviewed and unremarkable except in HPI and below PFSH ED PFSH: Medical History Aftercare following surgery of the genitourinary system Superficial thrombophlebitis Surgical History H/O unilateral oophorectomy 10/13/2021- right oophorectomy performed by Dr Cole at [facility] History of dilation and curettage (06/28/19) For miscarriage. Performed in [place] S/P primary low transverse (09/15/07) Performed by Dr. Ramos at [facility] in [place], [place] S/P repeat low transverse (07/29/15) Performed by Dr. Jacinto at [facility] in [place], [place] Family History Mother Ovarian cancer, Onset Age: 50 Hypertension Denies family history of Colon cancer Diabetes Clotting disorder Heart disease Hyperlipidemia Breast cancer Anesthesia complication Bleeding disorder Uterine cancer Thyroid condition Stroke Social History Smoking and tobacco status: never smoked Alcohol intake: never Female Reproductive History: Date of last menstrual period: 08/28/22 Para: 8 Spontaneous abortions: Yes (3, most recent 07/15 at 14 wks) Physical Exam Const: COMMON NORMALS: no acute distress, patient oriented x3 and well nourished HENMT: COMMON NORMALS: normocephalic, atraumatic and moist oral mucous membranes HEAD & SCALP: normocephalic and atraumatic Eye: COMMON NORMALS: conjunctivae normal CONJUNCTIVA: Yes conjunctivae normal Resp: COMMON NORMALS: normal respiratory effort and clear to auscultation bilaterally AUSCULTATION: clear to auscultation bilaterally Cardio: COMMON NORMALS: regular rate and regular rhythm RATE: regular rate RHYTHM: regular rhythm GI: COMMON NORMALS: Normal to inspection, nondistended, normoactive bowel sounds present; negative for non-tender (Mild suprapubic tenderness) Extremity: NARRATIVE EXTREMITY EXAM: No swelling or tenderness Neuro: COMMON NORMALS: patient oriented x3 Course ED course: Patient's had an ultrasound performed in the emergency department which shows a single viable IUP, 11 weeks 4 days. We will send off quantitative hCG levels just for comparison and her bleeding would continue. Per her old chart she is Rh+. She is having some urinary tract symptoms so we will wait on the urinalysis results. Vital Signs: Vital signs: Vital Signs Temperature 98.1 F 07/17/22 15:34 Pulse Rate 96 07/17/22 15:34 Respiratory Rate 16 07/17/22 15:34 Blood Pressure 122/80 07/17/22 15:34 Pulse Oximetry 100 07/17/22 15:34 Oxygen Delivery Me thod 07/17/22 15:34 MDM - OB/Uterine Contractions Medical Decision Making 11-week 12 para 8 AB 3 female who presents with vaginal bleeding that started this morning. The vaginal bleeding was minimal. No tissue passed. She is have some cramping since that time. She has had some associated dysuria so differential includes threatened miscarriage, urinary tract infection, incomplete miscarriage, complete miscarriage, [place] Lab Data Radiology Impressions Ultrasound 07/17/22 17:03 IMPRESSION: Single viable intrauterine with average ultrasound age of 11 weeks 4 days by crown-rump length, without acute findings. Discharge Plan Discharge Clinical Impression: Threatened Condition: Stable Prescriptions: No Action Unisom (doxylamine) 25 mg tablet 25 mg PO BEDTIME PRN (Reason: sleep) ondansetron HCl 4 mg tablet 4 mg PO Q8H PRN (Reason: nausea and vomiting) 90 Days Qty: 90 3RF Nurtec ODT 75 mg tablet,disintegrating 75 mg PO ONCE PRN (Reason: migraine headache) Qty: 15 3RF Rx Instructions: Take 1 as soon as possible when headache starts. Ubrelvy 100 mg tablet 100 mg PO ONCE PRN (Reason: migraine headache) Qty: 10 3RF multivitamin Tablet 1 tab PO DAILY vitamin B complex Tablet 1 tab PO DAILY PRN (Reason: unknown) ondansetron 4 mg tablet,disintegrating 4 mg PO Q6H PRN (Reason: nausea and vomiting) Qty: 14 0RF Advil 200 mg Tablet 400 mg PO Q6H PRN (Reason: Pain) Referrals: Vipul Rodriguez MD [Primary Care Provider] - Discharge Diet: Advance as tolerated Discharge Activity: Limit activity as instructed Patient Instructions: Threatened Miscarriage (ED), Opioid Safety, Pain Management Activity Restrictions/Additional Instructions: Vaginal rest, nothing into your vagina until you are released by your OB doctor. Avoid lifting over 10 pounds. Return to the ER if you have increased pain, heavier bleeding, passing tissue or worsening pain. Follow-up in the next 2 to 3 days with your OB doctor. Coding Level of Care Code ED Mortician Helper for Chg Fwd Exam Detailed
[2022-07-17 18:42] LABS: HCG Qualitative Urine. Positive (Negative)
[2022-07-17 18:45] LABS: Basophils % 0.5 %; Eosinophils # 0.2 10^3/uL (0.0-0.8); Eosinophils % 2.4 %; Hemoglobin 13.3 g/dL (11.5-15.3); Lymphocytes # 1.7 10^3/uL (0.8-4.8); Lymphocytes % 22.2 %; Mean Corpuscular HGB Conc 30.9 g/dL (30.0-36.0); Mean Corpuscular Hemoglobin 23.2 pg (28.0-34.0); Mean Corpuscular Volume 74.9 fl (81-99); Mean Platelet Volume 11.7 fL (7.4-10.4); Monocytes # 0.6 10^3/uL (0.2-0.9); Monocytes % 7.7 %; Neutrophils # 5.24 10^3/uL (1.8-7.7); Neutrophils % 67.1 %; Nucleated Red Blood Cells % 0 %; Platelet Count 224 10^3/cmm (130-400); Red Blood Count 5.74 10^6/uL (4.1-5.3); Red Cell Distribution Width 18.9 % (12.1-15.1); White Blood Count 7.8 10^3/uL (4.0-10.0)
[2022-07-17 19:06] LABS: Alanine Aminotransferase 12 U/L (0-33); Albumin Level 4.1 g/dL (3.5-5.2); Alkaline Phosphatase 82 U/L (35-105); Aspartate Amino Transferase 18 U/L (0-32); Blood Urea Nitrogen 7 mg/dL (6-20); Calcium 9.8 mg/dL (8.5-10.5); Carbon Dioxide 24 mmol/L (22-29); Chloride 100 mmol/L (98-107); Globulin 4.7 g/dL (1.3-4.6); Glomerular Filtration Rate 138.1 mL/min (90-130); Glucose 80 mg/dL (65-115); Lipase 15 U/L (13-60); Osmolality Calculated 279 mOsm/kg (285-295); Sodium 136 mmol/L (136-145); Total Bilirubin 0.4 mg/dL (0.15-1.2); Total Protein 8.8 g/dL (6.6-8.7)
[2022-07-17 20:22] LABS: Urine Appearance Hazy (CLEAR); Urine Color Yellow (Yellow)
[2022-07-17 20:23] LABS: Add Urine Microscopic? YES; Bilirubin Urine Neg (Negative); Blood Urine 2+ (Negative); Glucose Urine UA Norm (Normal); Ketones Urine 1+ (Negative); Leukocyte Esterase Urine Trace (Negative); Nitrate Urine Negative (Negative); Protein Urine Neg (Negative); Specific Gravity, Urine 1.015 (1.005-1.030); Sulfosalicylic Acid Urine Negative (Negative); Urobilinogen Urine Neg (Negative); pH Urine 8 (5-7)
[2022-07-17 20:31] LABS: Bacteria Urine 3+ /hpf; Mucus Urine 2+ /hpf; RBC Urine 0-4 /hpf (0-2); Squamous Epithelial Cell Urine 15-25 /hpf (0-5); WBC Urine 0-4 /hpf (0-5)
[2022-07-17 20:32] LABS: Add Urine Culture? No; Amorphous Sediment Urine 2+ /hpf
[2022-07-17 21:15] VITALS: PULSE 80; RESP 16
== END 2022-07-17 21:08 | disposition home or self-care (01) ==
PROVIDERS: Emergency Medicine; Emergency Provider Emergency Medicine; PCP Family Medicine
DX: O20.0 Threatened abortion (principal); Z3A.11 11 weeks gestation of pregnancy
CPT/HCPCS: 76801; 80053; 81001; 81025; 83690; 85025; 99284

== ENCOUNTER → 2022-08-22 16:07 | Outpatient (BNVA) | payer MEDICAID, SELFPAY | PROVIDERS: PCP Family Medicine; Visit Provider Nurse Practitioner Women's Health | DX: O09.90 Supervision of high risk pregnancy, unspecified, unspecified trimester (principal); Z3A.00 Weeks of gestation of pregnancy not specified | CPT/HCPCS: 80307; 84443; 86592; 86705; 86706; 86762; 86803; 86850; 86900; 87086; 87340; 87491; 87591; 87661; 87806 ==

== ENCOUNTER → 2022-08-30 09:13 | Outpatient (BNVA) | payer MEDICAID, SELFPAY | PROVIDERS: PCP Family Medicine; Visit Provider Obstetrics & Gynecology | DX: O09.90 Supervision of high risk pregnancy, unspecified, unspecified trimester (principal); O09.529 Supervision of elderly multigravida, unspecified trimester; Z3A.00 Weeks of gestation of pregnancy not specified | CPT/HCPCS: 84315; 87624 ==

== ENCOUNTER → 2022-09-19 12:26 | Outpatient (BNVA) | payer MEDICAID, SELFPAY | PROVIDERS: PCP Family Medicine; Visit Provider Obstetrics & Gynecology | DX: Z36.89 Encounter for other specified antenatal screening (principal) | CPT/HCPCS: 76805 ==

== ENCOUNTER → 2022-09-20 11:49 | Outpatient (BNVA) | payer MEDICAID, SELFPAY | PROVIDERS: PCP Family Medicine; Visit Provider Obstetrics & Gynecology | DX: O09.90 Supervision of high risk pregnancy, unspecified, unspecified trimester (principal); Z3A.00 Weeks of gestation of pregnancy not specified | CPT/HCPCS: 81000 ==

== ENCOUNTER → 2022-10-10 13:02 | Outpatient (BNVA) | payer MEDICAID, SELFPAY | PROVIDERS: PCP Family Medicine; Visit Provider Obstetrics & Gynecology | DX: O09.90 Supervision of high risk pregnancy, unspecified, unspecified trimester (principal); Z3A.00 Weeks of gestation of pregnancy not specified | CPT/HCPCS: 81000 ==

== ENCOUNTER → 2022-10-25 11:43 | Outpatient (BNVA) | payer MEDICAID, SELFPAY | PROVIDERS: PCP Family Medicine; Visit Provider Obstetrics & Gynecology | DX: O09.90 Supervision of high risk pregnancy, unspecified, unspecified trimester (principal); Z3A.00 Weeks of gestation of pregnancy not specified | CPT/HCPCS: 81000; 82950 ==

== ENCOUNTER 2022-11-25 12:50 | Outpatient (CLI) | payer MEDICAID, SELFPAY ==
[2022-11-28 11:49] LABS: Mumps Virus AB IgG Immune Stat >300.00 AU/mL; Rubella AB IgG Immune Status 3.56 Index
== END 2022-11-25 12:51 | disposition home or self-care (01) ==
LOC: LAB 12:56
PROVIDERS: PCP Family Medicine; Visit Provider Obstetrics & Gynecology
DX: O09.90 Supervision of high risk pregnancy, unspecified, unspecified trimester (principal); Z20.828 Contact with and (suspected) exposure to other viral communicable diseases; Z3A.00 Weeks of gestation of pregnancy not specified
CPT/HCPCS: 36415; 81000; 85025; 86735; 86762; 86765

== ENCOUNTER → 2022-11-28 10:36 | Outpatient (BNVA) | payer MEDICAID, SELFPAY | PROVIDERS: PCP Family Medicine; Visit Provider Obstetrics & Gynecology | DX: O09.90 Supervision of high risk pregnancy, unspecified, unspecified trimester (principal) | CPT/HCPCS: 86735 ==

== ENCOUNTER 2022-12-01 09:54 | Emergency (ER) | payer MEDICAID, SELFPAY ==
[2022-12-01 09:56] VITALS: BP 115/79; PULSE 87; RESP 16; TEMP 36.6; O2SAT 99; BMI 32.4
--- NOTE | 2022-12-01 09:59 | ED_ITS ---
HPI - Extremity Problem General: Chief complaint: Extremity Problem,Nontraumatic Stated complaint: Left leg pain Time Seen by Provider: 12/01/22 09:55 Source: patient Mode of arrival: ambulatory History of Present Illness: 37-year-old female who is currently presents emergency room complaining of bilateral pain and aching in her legs at various times. No chest pain or shortness of breath she does have significant varicosities that have come on during the . She no history of DVT or PE she denies chest pain or shortness of breath no fever sweats or chills no vaginal bleeding or discharge or cramping. Discomfort she noticed in her legs will vary from her right to her left lower leg at various times. MD Complaint: extremity pain Onset (ago): day(s) Pain Consistency: intermittent Location: left and right Quality: aching Radiation: none Relieving factors: nothing Exacerbating factors: nothing Associated symptoms: Deny arthralgias, chest pain, fever(s), myalgias, rash or short of breath Review of Systems Const: Denies: fever(s) or chills ENMT: Denies: throat pain, ear or mastoid pain, nasal discharge or nasal congestion Card: Reports: swelling of feet/ankles; Denies: chest pain, palpitations or irregular heart rhythm Resp: Denies: dyspnea, productive cough or non-productive cough GI: Denies: abdominal pain, nausea, vomiting, hematemesis, coffee ground emesis, diarrhea, constipation, bloating, hematochezia or melena : Denies: flank pain, difficulty voiding, dysuria, urinary frequency or urinary urgency Skin/Breast: Denies: rash PFSH ED PFSH: Medical History Aftercare following surgery of the genitourinary system Superficial thrombophlebitis Supervision of high-risk Surgical History H/O unilateral oophorectomy 10/13/2021- right oophorectomy performed by Dr Cole at [facility] History of dilation and curettage (06/28/19) For miscarriage. Performed in [place] S/P primary low transverse (09/15/07) Performed by Dr. Ramos at [facility] in [place], [place] S/P repeat low transverse (07/29/15) Performed by Dr. Jacinto at [facility] in [place], [place] Family History Mother Ovarian cancer, Onset Age: 50 Hypertension Denies family history of Colon cancer Diabetes Clotting disorder Heart disease Hyperlipidemia Breast cancer Anesthesia complication Bleeding disorder Uterine cancer Thyroid condition Stroke Social History Smoking and tobacco status: never smoked Alcohol intake: never Substance/Drug Use: never Female Reproductive History: Para: 8 Spontaneous abortions: Yes (3, most recent 07/15 at 14 wks) Physical Exam 2 Const: GENERAL APPEARANCE: cooperative and comfortable ORIENTATION/CONSCIOUSNESS: Yes awake, Yes oriented to person, Yes oriented to place and Yes oriented to time HENMT: COMMON NORMALS: normocephalic, atraumatic and hearing grossly normal bilaterally HEAD & SCALP: normocephalic and atraumatic Resp: COMMON NORMALS: normal respiratory effort, No retractions, No use of accessory muscles and clear to auscultation bilaterally AUSCULTATION: clear to auscultation bilaterally Cardio: COMMON NORMALS: regular rate, regular rhythm and No murmurs present (Cardio) RATE: regular rate RHYTHM: regular rhythm GI: COMMON NORMALS: Soft to palpation and No hepatosplenomegaly present AUSCULTATION: Yes normoactive bowel sounds PALPATION: Yes Soft to palpation, No Tenderness to palpation present (GI), No Guarding due to palpation present (GI) and Yes No hepatosplenomegaly present Extremity: COMMON NORMALS: capillary refill normal, no calf tenderness and no pedal edema OTHER: Patient has extensive superficial's varicosities bilaterally extending up into the thighs some of which are tender particularly on the left leg there is no redness or erythema negative Homans Neuro: SENSORIUM/ORIENTATION: Yes oriented to person, Yes oriented to place and Yes oriented to time Skin: COMMON NORMALS: no rashes or lesions noted GENERAL SKIN EXAM: no rashes or lesions noted Course Vital Signs: Vital signs: Vital Signs Temperature 97.9 F 12/01/22 09:56 Pulse Rate 84 12/01/22 11:23 Respiratory Rate 16 12/01/22 09:56 Blood Pressure 102/72 12/01/22 11:23 Pulse Oximetry 97 12/01/22 11:23 Oxygen Delivery Me thod Room Air 12/01/22 09:56 MDM - Extremity (Nontraumatic) Medical Decision Making No evidence of DVT at this time D-dimer slight elevated which I suspect is secondary to her superficial thrombophlebitis she does have a few mildly tender varicose veins particularly in the lateral thighs bilaterally left is more so noticeable than the right. Discharge home superficial thrombophlebitis follow- up with her primary care doctor return if is any worsening or changes symptoms Medical Records I reviewed the patient's medical records. Lab Data I reviewed the patient's lab results. 12/01/22 10:15 12/01/22 10:15 Laboratory Results WBC 7.8 10^3/uL (4.0-10.0) 12/01/22 10:15 RBC 4.44 10^6/uL (4.1-5.3) 12/01/22 10:15 Hgb 11.4 g/dL (11.5-15.3) L 12/01/22 10:15 Hct 36.3 % (37.0-47.0) L 12/01/22 10:15 MCV 81.8 fl (81-99) 12/01/22 10:15 MCH 25.7 pg (28.0-34.0) L 12/01/22 10:15 MCHC 31.4 g/dL (30.0-36.0) 12/01/22 10:15 RDW 16.6 % (12.1-15.1) H 12/01/22 10:15 Plt Count 149 10^3/cmm (130-400) 12/01/22 10:15 MPV 11.3 fL (7.4-10.4) H 12/01/22 10:15 Neut % (Auto) 74.4 % 12/01/22 10:15 Lymph % (Auto) 16.5 % 12/01/22 10:15 Rock % (Auto) 5.6 % 12/01/22 10:15 Eos % (Auto) 2.7 % 12/01/22 10:15 Baso % (Auto) 0.3 % 12/01/22 10:15 Neut # (Auto) 5.82 10^3/uL (1.8-7.7) 12/01/22 10:15 Lymph # (Auto) 1.3 10^3/uL (0.8-4.8) 12/01/22 10:15 Rock # (Auto) 0.4 10^3/uL (0.2-0.9) 12/01/22 10:15 Eos # (Auto) 0.2 10^3/uL (0.0-0.8) 12/01/22 10:15 Baso # (Auto) 0.0 10^3/uL (0.0-0.1) 12/01/22 10:15 Nucleated RBC % (auto) 0 % 12/01/22 10:15 Nucleated RBCs # 0.0 /100WBC 12/01/22 10:15 D-Dimer 0.73 ug/mIFEU (0-0.59) H 12/01/22 10:18 Sodium 136 mmol/L (136-145) 12/01/22 10:15 Potassium 3.8 mmol/L (3.5-5.1) 12/01/22 10:15 Chloride 105 mmol/L (98-107) 12/01/22 10:15 Carbon Dioxide 21 mmol/L (22-29) L 12/01/22 10:15 Anion Gap 13.8 (5-19) 12/01/22 10:15 BUN 5 mg/dL (6-20) L 12/01/22 10:15 Creatinine 0.5 mg/dL (0.5-0.9) 12/01/22 10:15 GFR Calculation 138.1 mL/min (90-130) H 12/01/22 10:15 Glucose 105 mg/dL (65-115) 12/01/22 10:15 Calculated Osmolality 280 mOsm/kg (285-295) L 12/01/22 10:15 Calcium 9.0 mg/dL (8.5-10.5) 12/01/22 10:15 Total Bilirubin 0.3 mg/dL (0.15-1.2) 12/01/22 10:15 AST 14 U/L (0-32) 12/01/22 10:15 ALT 10 U/L (0-33) 12/01/22 10:15 Alkaline Phosphatase 97 U/L (35-105) 12/01/22 10:15 Total Protein 6.3 g/dL (6.6-8.7) L 12/01/22 10:15 Albumin 3.0 g/dL (3.5-5.2) L 12/01/22 10:15 Globulin 3.3 g/dL (1.3-4.6) 12/01/22 10:15 Urine Color Yellow (Yellow) 12/01/22 10:24 Urine Appearance Sl hazy (CLEAR) A 12/01/22 10:24 Urine pH 6.5 (5-7) 12/01/22 10:24 Ur Specific [place] 1.020 (1.005-1.030) 12/01/22 10:24 Urine Protein Neg (Negative) 12/01/22 10:24 Urine Glucose (UA) Norm (Normal) 12/01/22 10:24 Urine Ketones Negative (Negative) 12/01/22 10:24 Urine Blood Neg (Negative) 12/01/22 10:24 Urine Nitrate Negative (Negative) 12/01/22 10:24 Urine Bilirubin Neg (Negative) 12/01/22 10:24 Urine Urobilinogen Norm mg/dL (Negative) 12/01/22 10:24 Ur Leukocyte Esterase Negative (Negative) 12/01/22 10:24 Urine RBC 0-4 /hpf (0-2) H 12/01/22 10:24 Urine WBC 0-4 /hpf (0-5) H 12/01/22 10:24 Ur Squamous Epith Cells 10-15 /hpf (0-5) H 12/01/22 10:24 Ur Renal Epithelial Cell Trace /hpf 12/01/22 10:24 Amorphous Sediment Not Reportable 12/01/22 10:24 Urine Bacteria 1+ /hpf (NONE) H 12/01/22 10:24 Hyaline Casts 0-4 /lpf H 12/01/22 10:24 Fine Granular Casts 0-4 /lpf H 12/01/22 10:24 Urine Mucus 1+ /hpf 12/01/22 10:24 Discharge Plan Discharge Patient Disposition: Home Clinical Impression: Superficial thrombophlebitis, Varicose veins during Condition: Stable Prescriptions: No Action Fish Oil 120-180 mg capsule 1 cap PO DAILY Unisom (doxylamine) 25 mg tablet 25 mg PO BEDTIME PRN (Reason: sleep) (DME) comp.stocking,knee,long,medium Misc See Rx Instructions .Route Qty: 12 0RF Rx Instructions: As directed vitamin B complex Tablet 1 tab PO DAILY Aspir-81 81 mg Tablet,Delayed Release (Dr/Ec) 81 mg PO DAILY Calcium 500 500 mg calcium (1,250 mg) Tablet 500 mg PO DAILY acetaminophen 500 mg Capsule 500 mg PO Q6H PRN (Reason: Pain) 28 mg iron- 800 mcg Tablet 1 tab PO DAILY Discharge Orders: Discharge ED (Routine); Ordered 12/01/22 Ordered By: uYry He Referrals: Joy Savage MD [Primary Care Provider] - Discharge Diet: Usual diet Discharge Activity: Increase activity as tolerated Patient Instructions: Superficial Thrombophlebitis (ED), Opioid Safety, Pain Management Coding Level of Care Code ED [employer] for Julito Velásquez
[2022-12-01 10:26] LABS: Basophils % 0.3 %; Eosinophils # 0.2 10^3/uL (0.0-0.8); Eosinophils % 2.7 %; Hematocrit 36.3 % (37.0-47.0); Hemoglobin 11.4 g/dL (11.5-15.3); Lymphocytes # 1.3 10^3/uL (0.8-4.8); Lymphocytes % 16.5 %; Mean Corpuscular HGB Conc 31.4 g/dL (30.0-36.0); Mean Corpuscular Hemoglobin 25.7 pg (28.0-34.0); Mean Corpuscular Volume 81.8 fl (81-99); Mean Platelet Volume 11.3 fL (7.4-10.4); Monocytes # 0.4 10^3/uL (0.2-0.9); Monocytes % 5.6 %; Neutrophils # 5.82 10^3/uL (1.8-7.7); Neutrophils % 74.4 %; Nucleated Red Blood Cells % 0 %; Platelet Count 149 10^3/cmm (130-400); Red Blood Count 4.44 10^6/uL (4.1-5.3); Red Cell Distribution Width 16.6 % (12.1-15.1); White Blood Count 7.8 10^3/uL (4.0-10.0)
[2022-12-01 10:39] LABS: Alanine Aminotransferase 10 U/L (0-33); Alkaline Phosphatase 97 U/L (35-105); Anion Gap 13.8 (5-19); Aspartate Amino Transferase 14 U/L (0-32); Blood Urea Nitrogen 5 mg/dL (6-20); Carbon Dioxide 21 mmol/L (22-29); Chloride 105 mmol/L (98-107); Creatinine Clr Calc Pharmacy 167.5728; Globulin 3.3 g/dL (1.3-4.6); Glomerular Filtration Rate 138.1 mL/min (90-130); Glucose 105 mg/dL (65-115); Osmolality Calculated 280 mOsm/kg (285-295); Potassium 3.8 mmol/L (3.5-5.1); Sodium 136 mmol/L (136-145); Total Bilirubin 0.3 mg/dL (0.15-1.2); Total Protein 6.3 g/dL (6.6-8.7)
[2022-12-01 10:41] LABS: D Dimer 0.73 ug/mIFEU (0-0.59)
[2022-12-01 11:03] LABS: Urine Appearance SL Hazy (CLEAR); Urine Color Yellow (Yellow); pH Urine 6.5 (5-7)
[2022-12-01 11:04] LABS: Add Urine Microscopic? YES; Bilirubin Urine Neg (Negative); Blood Urine Neg (Negative); Glucose Urine UA Norm (Normal); Ketones Urine Negative (Negative); Leukocyte Esterase Urine Negative (Negative); Nitrate Urine Negative (Negative); Protein Urine Neg (Negative); RBC Urine 0-4 /hpf (0-2); Urobilinogen Urine Norm (Negative); WBC Urine 0-4 /hpf (0-5)
[2022-12-01 11:05] LABS: Bacteria Urine 1+ /hpf; Hyaline Casts Urine 0-4 /lpf; Mucus Urine 1+ /hpf; Renal Epithelial Cells Urine TRACE /hpf
[2022-12-01 11:06] LABS: Add Urine Culture? No; Fine Granular Casts Urine 0-4 /lpf
[2022-12-01 11:23] VITALS: BP 102/72; PULSE 84; O2SAT 97
== END 2022-12-01 11:23 | disposition home or self-care (01) ==
PROVIDERS: Emergency Provider Family Medicine; PCP Family Medicine
DX: O22.20 Superficial thrombophlebitis in pregnancy, unspecified trimester (principal); I80.03 Phlebitis and thrombophlebitis of superficial vessels of lower extremities, bilateral; O22.00 Varicose veins of lower extremity in pregnancy, unspecified trimester; I83.93 Asymptomatic varicose veins of bilateral lower extremities; Z3A.00 Weeks of gestation of pregnancy not specified
CPT/HCPCS: 36415; 80053; 81001; 85025; 85378; 99283

== ENCOUNTER → 2022-12-09 10:48 | Outpatient (BNVA) | payer MEDICAID, SELFPAY | PROVIDERS: PCP Family Medicine; Visit Provider Obstetrics & Gynecology | DX: O09.90 Supervision of high risk pregnancy, unspecified, unspecified trimester (principal) | CPT/HCPCS: 81000 ==

== ENCOUNTER → 2022-12-23 11:04 | Outpatient (BNVA) | payer MEDICAID, SELFPAY | PROVIDERS: PCP Family Medicine; Visit Provider Obstetrics & Gynecology | DX: O09.90 Supervision of high risk pregnancy, unspecified, unspecified trimester (principal) | CPT/HCPCS: 81000 ==

== ENCOUNTER → 2023-01-06 10:42 | Outpatient (BNVA) | payer MEDICAID, SELFPAY | PROVIDERS: PCP Family Medicine; Visit Provider Obstetrics & Gynecology | DX: O09.90 Supervision of high risk pregnancy, unspecified, unspecified trimester (principal); N39.0 Urinary tract infection, site not specified | CPT/HCPCS: 81000; 87086 ==

== ENCOUNTER → 2023-01-13 08:46 | Outpatient (BNVA) | payer MEDICAID, SELFPAY | PROVIDERS: PCP Family Medicine; Visit Provider Obstetrics & Gynecology | DX: O09.90 Supervision of high risk pregnancy, unspecified, unspecified trimester (principal) | CPT/HCPCS: 81000; 87081 ==

== ENCOUNTER 2023-01-17 16:09 | Outpatient (CLI) | payer MEDICAID, SELFPAY ==
[2023-01-17] VITALS (7 sets, daily range): BP systolic 104–140; BP diastolic 59–80; PULSE 68–93; TEMP 35.5–36.1
--- NOTE | 2023-01-17 20:25 | PM.OBTRLD ---
OB L&D Triage Visit Information: Date of evaluation: 01/17/23 Reason for evaluation: other Comments/Additional reason(s) for visit: 38 y.o. 1 3 8 EDC February 01, 2023 At 36 w 6 d Presents to L&D c/o lower abdominal pains States pains intermittent Lasting minutes No fever, chills, nausea, vomiting Eating well Normal BM No dysuria No vaginal bleeding or fluid leakage + active movements h/o c-sections x two Evaluation: monitor accelerations: Present 15x15 Cervical dilation (cm): 1 Cervical effacement (%): 25 station: -4 Vital signs: Vital Signs - 24 hr 01/17/23 16:30 01/17/23 16:50 01/17/23 17:11 Temperature 96.4 F L Pulse Rate 74 83 93 Blood Pressure 116/80 105/72 140/73 01/17/23 17:32 01/17/23 17:50 01/17/23 18:33 Temperature 97.0 F L Pulse Rate 84 82 Blood Pressure 119/79 113/67 01/17/23 19:32 Temperature 95.9 F L Pulse Rate 68 Blood Pressure 104/59 Comments: Exam: Afebrile, VS normal Comfortable, in no distress Abd: soft, nontender Cervix: FT ? 1 cm / high Ext: normal UA negative External monitor: occasional UCs heart tracing good variability, + accelerations Care VIC Calculator Estimated Delivery Date Method Current WG Current Estimate 02/06/23 LMP (Certain) 37w 2d Other Estimates 02/01/23 Ultrasound #1 38w 0d 01/31/23 Ultrasound #2 38w 1d Final Diagnosis Final Diagnosis (1) Supervision of high-risk : Plan: 36 w 6 d c/o lower abdominal pain likely early labor pains / muscle spasms doubt active labor, cystitis plan discharge home call / return if pain persists / worsens F/u Dr. Cole next week h/o c-sections x two Status: Acute Code(s): O09.90 - Supervision of high risk , unspecified, unspecified trimester Coding Level of Care Code Acute Code for Chg Fwd Diagnoses Supervision of high-risk O09.90 Time Spent (min) 45
== END 2023-01-17 20:35 | disposition home or self-care (01) ==
LOC: OPOB 16:15 → OBGYN 16:15
PROVIDERS: PCP Family Medicine; Visit Provider Obstetrics & Gynecology
DX: O09.93 Supervision of high risk pregnancy, unspecified, third trimester (principal); R10.9 Unspecified abdominal pain; Z3A.37 37 weeks gestation of pregnancy
CPT/HCPCS: 59025; 99211

== ENCOUNTER 2023-01-20 17:13 | Outpatient (CLI) | payer MEDICAID, SELFPAY ==
[2023-01-20] VITALS (24 sets, daily range): BP systolic 101–136; BP diastolic 60–94; PULSE 61–96; RESP 16; TEMP 36.3; BMI 31.6
[2023-01-20 21:00] LABS: Basophils % 0.3 %; Eosinophils # 0.2 10^3/uL (0.0-0.8); Eosinophils % 2.5 %; Hematocrit 36.5 % (37.0-47.0); Hemoglobin 11.8 g/dL (11.5-15.3); Lymphocytes # 1.8 10^3/uL (0.8-4.8); Lymphocytes % 20.6 %; Mean Corpuscular HGB Conc 32.3 g/dL (30.0-36.0); Mean Corpuscular Hemoglobin 26.8 pg (28.0-34.0); Mean Corpuscular Volume 82.8 fl (81-99); Mean Platelet Volume 11.6 fL (7.4-10.4); Monocytes # 0.7 10^3/uL (0.2-0.9); Monocytes % 7.5 %; Neutrophils # 6.06 10^3/uL (1.8-7.7); Neutrophils % 68.8 %; Nucleated Red Blood Cells % 0 %; Platelet Count 140 10^3/cmm (130-400); Red Blood Count 4.41 10^6/uL (4.1-5.3); Red Cell Distribution Width 18.7 % (12.1-15.1); White Blood Count 8.8 10^3/uL (4.0-10.0)
[2023-01-20 21:06] LABS: Bilirubin Urine Neg (Negative); Blood Urine 3+ (Negative); Glucose Urine UA Norm (Normal); Ketones Urine Negative (Negative); Leukocyte Esterase Urine Negative (Negative); Nitrate Urine Negative (Negative); Protein Urine Trace (Negative); Urine Appearance Hazy (CLEAR); Urine Color Red (Yellow); Urobilinogen Urine Norm (Negative); pH Urine 6 (5-7)
[2023-01-20 21:07] LABS: Add Urine Culture? Yes; RBC Urine 80-100 /hpf (0-2); Squamous Epithelial Cell Urine 0-4 /hpf (0-5); WBC Urine 0-4 /hpf (0-5)
--- NOTE | 2023-01-20 22:13 | PM.OPHPUD ---
Labor & Delivery H&P Update Date of Procedure: January 20, 2023 Date H&P Performed: 01/20/23 H&P update information: I have reviewed H&P completed within last 30 days, I have examined patient prior to procedure and Changes to prior documentation as noted here Changes to previous documentation: The patient had a little blood on my glove after vaginal exam today. She went home and had more bleeding and passing nickel sized clots. She presented to labor and delivery. She had no further bleeding until she got up to the bathroom. She passed another clot. She will be admitted for observation and if she continues to have bleeding, I will perform a repeat on her. Admission Diagnosis: at 37w4d
[2023-01-20] MEDS: dextrose 5%-lactated ringers 1,000 ML 999 ML IV (22:47)
[2023-01-21] VITALS (9 sets, daily range): BP systolic 97–113; BP diastolic 61–74; PULSE 56–73
== END 2023-01-21 03:30 | disposition home or self-care (01) ==
LOC: OPOB 17:14 → OBGYN 17:15
PROVIDERS: PCP Family Medicine; Visit Provider Obstetrics & Gynecology
DX: O46.90 Antepartum hemorrhage, unspecified, unspecified trimester (principal); Z3A.37 37 weeks gestation of pregnancy
CPT/HCPCS: 36415; 59025; 81000; 81001; 85025; 86850; 86900; 87086; 99211; J7121

== ENCOUNTER → 2023-01-27 10:53 | Outpatient (BNVA) | payer MEDICAID, SELFPAY | PROVIDERS: PCP Family Medicine; Visit Provider Obstetrics & Gynecology | DX: O09.90 Supervision of high risk pregnancy, unspecified, unspecified trimester (principal) | CPT/HCPCS: 81000 ==

== ENCOUNTER 2023-01-31 05:08 | Inpatient (IN) | payer OTHER, MEDICAID, SELFPAY ==
--- NOTE | 2023-01-30 10:09 | P.ANESASSM_ITS ---
Pre-Anesthetic Assessment Height/Weight: Height 1.65 m Operation Date: 01/31/23 07:20 Proposed Procedures p Repeat section 29658,O34.219(Not Applicable) - Moe Cole MD Familial anesthetic complications: None Was Beta Belén taken within 24 hours: N/A Was Clonidine taken within 24 hours: N/A Social No alcohol Exam alert, oriented x 3, clear to auscultation bilaterally and regular rate & rhythm Airway Mallampati: Class II Dentition: full Anesthetic Plan ASA status: 2 Anesthesia: Regional (specify below) Other: spinal Risk of > 500 ml blood loss (7ml/kg in children): Yes, adequate IV access and fluids planned Medications/Allergies Home Medications Medication Instructions Recorded Confirmed Last Taken Type doxylamine succinate 25 mg tablet mg 01/20/23 01/27/23 1 Day Ago History (Unisom (doxylamine)) ~01/19/23 [id number] 1 mg tab PO 01/20/23 01/27/23 Unknown History tablet Allergies Allergy/AdvReac Type Severity Reaction Status Date / Time No Known Allergies Allergy Verified 01/27/23 09:10 [facility] Anesthesia Medical History Aftercare following surgery of the genitourinary system Superficial thrombophlebitis Supervision of high-risk Surgical History H/O unilateral oophorectomy 10/13/2021- right oophorectomy performed by Dr Cole at [facility] History of dilation and curettage (06/28/19) For miscarriage. Performed in [place] S/P primary low transverse (09/15/07) Performed by Dr. Ramos at [facility] [place] in [place], [place] S/P repeat low transverse (07/29/15) Performed [address] Jacinto at [facility] [place] in [place], [place] Family History Mother Ovarian cancer, Onset Age: 50 Hypertension Denies family history of Colon cancer Diabetes Clotting disorder Heart disease Hyperlipidemia Breast cancer Anesthesia complication Bleeding disorder Uterine cancer Thyroid condition Stroke Social History Smoking and tobacco status: never smoked Alcohol intake: never Substance/Drug Use: never Female Reproductive History Para: 8 Spontaneous abortions: Yes (3, most recent 07/15 at 14 wks) Data Anesthesia Cardiac Studies: No Data to Display
[2023-01-31] VITALS (37 sets, daily range): BP systolic 101–146; BP diastolic 58–78; PULSE 60–96; RESP 15; TEMP 35.9–36.6; O2SAT 96–99; BMI 32.9
[2023-01-31 06:19] LABS: Basophils % 0.4 %; Eosinophils # 0.2 10^3/uL (0.0-0.8); Eosinophils % 2.1 %; Hematocrit 38.7 % (37.0-47.0); Hemoglobin 12.6 g/dL (11.5-15.3); Lymphocytes # 1.8 10^3/uL (0.8-4.8); Lymphocytes % 20.3 %; Mean Corpuscular HGB Conc 32.6 g/dL (30.0-36.0); Mean Corpuscular Hemoglobin 27.2 pg (28.0-34.0); Mean Corpuscular Volume 83.4 fl (81-99); Mean Platelet Volume 11.3 fL (7.4-10.4); Monocytes # 0.6 10^3/uL (0.2-0.9); Monocytes % 6.8 %; Neutrophils # 6.31 10^3/uL (1.8-7.7); Nucleated Red Blood Cells % 0 %; Platelet Count 132 10^3/cmm (130-400); Red Blood Count 4.64 10^6/uL (4.1-5.3); Red Cell Distribution Width 18.8 % (12.1-15.1)
[2023-01-31] MEDS: lactated ringers 1,000 ML 999 ML IV (06:24)
[2023-01-31] MEDS: citric acid-sodium citrate 30 mL UDC PO (06:38)
[2023-01-31] MEDS: famotidine 20 mg/2 mL INJ IVP (06:39)
[2023-01-31] MEDS: metoclopramide 5 mg/mL SDV 2 mL 10 MG IVP (06:39)
--- NOTE | 2023-01-31 06:45 | PM.OPHPUD ---
Labor & Delivery H&P Update Date of Procedure: January 31, 2023 Date H&P Performed: 01/20/23 H&P update information: I have reviewed H&P completed within last 30 days, I have examined patient prior to procedure and No changes to prior documentation Admission Diagnosis: Preop diagnosis: previous c section Planned procedure: Operation Date: 01/31/23 07:20 Proposed Procedures p Repeat section 61538,O34.219(Not Applicable) - Moe Cole MD
--- NOTE | 2023-01-31 06:53 | P.ANESUD_ITS ---
Pre-Anesthetic Update Pre-Anesthetic Assessment: Date of Surgery/Procedure: 01/31/23 Preop Karen gnosis: previous c section Proposed Procedure: Operation Date: 01/31/23 07:20 Proposed Procedures p Repeat section 05590,O34.219(Not Applicable) - Moe Cole MD Any changes to Pre-Anesthetic Assessment?: No Last Intake: 23:30 Labs Last 48hrs: Short CBC 01/31/23 Range/Units 05:26 WBC 9.0 (4.0-10.0) 10^3/ uL Hgb 12.6 (11.5-15.3) g/dL Hct 38.7 (37.0-47.0) % MCV 83.4 (81-99) fl Plt Count 132 (130-400) 10^3/c mm Neut % (Auto) 70.0 % Neut # (Auto) 6.31 (1.8-7.7) 10^3/u L Vitals: Pulse Rate 75 01/31/23 06:48 Respiratory Rate 15 01/31/23 05:28 Respiratory Effort Spontaneous, Non- Labored 01/31/23 05:35 Respiratory Depth Normal 01/31/23 05:35 Respiratory Patter n Normal 01/31/23 05:35 Blood Pressure 118/75 01/31/23 05:33 Pulse Oximetry 98 01/31/23 06:48 Oxygen Delivery Me thod Room Air 01/31/23 05:35 Cardiac Studies: No Data to Display
--- NOTE | 2023-01-31 08:21 | PM.OP ---
Operative Report Date of procedure: January 31, 2023 Pre-op diagnosis: Preop Diagnosis Term previous c section Post-op diagnosis: same Procedure done: Repeat low-transverse delivery Surgeon: Moe Cole MD Estimated blood loss (mL): 500 IV fluids (mL): 1,300 Urine output (mL): 200 Complications: None Procedure: After assuring informed consent, the patient was taken to the operating room and anesthesia was initiated. She was placed in the dorsal supine position with a left lateral tilt. The abdomen was prepped and draped in the usual sterile manner. A time-out procedure was performed. Preop antibiotics was administered. A Pfannenstiel skin incision was made with the scalpel and carried through to the underlying layer of fascia with the Bovie. The fascia was nicked in the midline and the incision extended laterally with the Baxter scissors. The superior aspect of the fascial incision was then grasped with Radhika clamps and elevated and the underlying rectus muscle dissected off bluntly and sharp with baxter scissors dense adhesions. Attention was then turned to the inferior aspect of the incision which, in similar fashion, was grasped and tented up with Radhika clamps and the rectus muscle dissected bluntly. The rectus muscles were then in the midline and the peritoneum identified, tented up and entered sharply with Metzenbaum scissors. The peritoneal incision was then extended superiorly and inferiorly with good visualization of the bladder. The Herber O retractor was then inserted and the vesicouterine peritoneum identified, grasped with pickups and entered sharply with Metzenbaum scissors. This incision was then extended laterally and the bladder flap created digitally. The bladder blade was then reinserted and the uterus incised in a low transverse fashion with the scalpel. The uterine incision was then extended with the bandage scissors. The bladder blade was removed and the infant was then delivered in the cephalic presentation atraumatically at 0816 hours. The nose and the mouth were suctioned with bulb and the cord clamped and cut. The cord was normal and had three vessels. Amniotic fluid was clear. The placenta was then removed manually and the uterus exteriorized and cleared of all clots and debris. The uterine incision was repaired with 0 Vicryl in a running-locked fashion. A second layer of the same suture was used to obtain excellent hemostasis. The gutters were cleared of all clots. The uterus was then returned to the abdomen. The rectus muscles were approximated with 3-0 chromic gut. The fascia was reapproximated with 0 Vicryl in an interrupted running fashion. Exparell was infiltrated in subcutaneous adipose tissue for pain management. The skin was closed with Insorb?s subcuticular absorbable sally. The patient tolerated the procedure well. The sponge, lap and needle counts were correct times three.
--- NOTE | 2023-01-31 08:40 | ANE.PACU2 ---
Inpatient post-anesthesia follow up: Airway intact: Yes Vital signs: Temperature 97.3 F Pulse Rate 96 Respiratory Rate 15 Blood Pressure 146/59 Pulse Oximetry 98 Oxygen Delivery Me thod Room Air Oxygen Flow Rate Fraction of Inspir ed Oxygen Hydration adequate: Yes Nausea and vomiting: No Pain level: 1 Mental status: Baseline
[2023-01-31] MEDS: dextrose 5%-lactated ringers 1,000 ML 125 ML IV (10:27)
[2023-01-31] MEDS: ketorolac 30 mg/mL INJ IVP ×2 (14:17→21:02)
[2023-01-31] MEDS: ferrous sulfate EC 325 mg Tablet PO (17:59)
[2023-01-31] MEDS: docusate sodium 100 mg Capsule PO (17:59)
[2023-01-31 21:28] LABS: Hematocrit 34.1 % (37.0-47.0); Hemoglobin 11.4 g/dL (11.5-15.3); Mean Corpuscular HGB Conc 33.4 g/dL (30.0-36.0); Mean Corpuscular Hemoglobin 28.3 pg (28.0-34.0); Mean Corpuscular Volume 84.6 fl (81-99); Platelet Count 148 10^3/cmm (130-400); Red Blood Count 4.03 10^6/uL (4.1-5.3); Red Cell Distribution Width 18.6 % (12.1-15.1); White Blood Count 12.3 10^3/uL (4.0-10.0)
[2023-02-01] VITALS (9 sets, daily range): BP systolic 112–129; BP diastolic 60–83; PULSE 66–78; RESP 16; TEMP 35.8–36.6; O2SAT 97
[2023-02-01] MEDS: acetaminophen 500 mg Tablet 1000 MG PO (06:01)
[2023-02-01] MEDS: HYDROcodone-acetaminophen 5-325 mg Tablet PO ×3 (08:29→19:53)
[2023-02-01] MEDS: prenatal vitamin Capsule 1 CAP PO (09:49)
[2023-02-01] MEDS: ferrous sulfate EC 325 mg Tablet PO ×2 (09:49→19:52)
[2023-02-01] MEDS: docusate sodium 100 mg Capsule PO ×2 (09:49→19:53)
[2023-02-01] MEDS: simethicone 80 mg Chew PO (09:53)
--- NOTE | 2023-02-01 11:48 | PM.PN ---
Subjective Subjective: Mrs. Bates is a 37 year old , status post repeat low-transverse delivery day 1. Refers some pain Vitals/I&O/Wt Last Vital Signs Temp 96.4 F L 02/01/23 09:51 Pulse 67 02/01/23 09:48 Resp 15 01/31/23 05:28 BP 121/60 02/01/23 09:46 Pulse Ox 97 02/01/23 09:48 O2 Del Method Room Air 01/31/23 09:30 01/31/23 02/01/23 02/01/23 22:59 06:59 14:59 Intake Total 1000 / 3300 Output Total 300 / 2200 Balance 700 / 1100 Weight last 48 hrs Weight 89.811 kg Physical Exam Narrative: GA; alert and oriented x 3 HEENT: normal Breasts: engorged Nipples - skin intact Lungs; clear to auscultation Heart: regular rhythm, no murmurs. Abd: Appropriately tender. BS+. Uterine fundus below umbilicus. No Fundal Tenderness. Incision clean and dry, no redness, pain or edema. Perineum: normal lochia. Extremities: no edema, no cyanosis, no tenderness. Urinary Catheter Management: Monte: Cath Placed During This Visit: yes, but has since been removed by the nurse Reason for Continuing Indwelling Catheter: Required Immobilization for Trauma or Surgery or Anesthesia Urinary Catheter Date of Insertion: 01/31/23 Urinary Catheter Time of Insertion: 07:19 Date Urinary Catheter Removed: 01/31/23 Time Urinary Catheter Discontinued: 18:50 Data 01/31/23 21:05 A&P Assessment and plan (1) Term delivered: Mrs. Bates is a 37 year old , status post repeat low-transverse delivery day 1. She is afebrile and hemodynamically stable. Tolerating diet well. Refer incision hurts some requested pain medication. Ambulating without difficulty Plan Continue postop observation. Attestations Medical Necessity Statement*: In my professional opinion per admitting diagnosis Coding Level of Care Code Acute Code for Chg Fwd Diagnoses Term delivered O80
[2023-02-01] MEDS: ibuprofen 800 mg tablet PO (15:32)
--- NOTE | 2023-02-01 17:19 | PM.OBGYDC ---
Discharge Providers EXCELLENCE SPECIALIST Date of Admission: 01/31/23 05:08 Date of Discharge: 02/01/23 Attending Provider at Admission: Moe Cole MD Attending Provider at Discharge: Moe Cole MD Primary EXCELLENCE SPECIALIST: Moe Cole MD Primary Care Provider: Joy Savage MD Diagnoses at Discharge Discharge Diagnosis (1) Term delivered: Status: Acute Reason for Visit Reason for Visit: O34.219 Hospital Course Hospital Course Mrs. Bates is a 37 year old , status post repeat low-transverse delivery day 1. She is afebrile and hemodynamically stable. Tolerating diet well. Refer incision hurts some requested pain medication. Ambulating without difficulty. Her boy is being transferred to a higher level of care. Patient requested to be discharged to be able to go to her babies being transferred. She was counseled regarding pelvic rest for 6 weeks (no sex, no tampons, no vaginal douches). Return to the emergency room if any fever, increased bleeding or pain. Information Peripartum Data: Delivery Method: Physical Exam Narrative: GA; alert and oriented x 3 HEENT: normal Breasts: engorged Nipples - skin intact Lungs; clear to auscultation Heart: regular rhythm, no murmurs. Abd: Appropriately tender. BS+. Uterine fundus below umbilicus. No Fundal Tenderness. Incision clean and dry, no redness, pain or edema. Perineum: normal lochia. Extremities:+2 edema, no cyanosis, no tenderness. Varicose vein. Urinary Catheter Management: Monte: Cath Placed During This Visit: yes, but has since been removed by the nurse Reason for Continuing Indwelling Catheter: Required Immobilization for Trauma or Surgery or Anesthesia Urinary Catheter Date of Insertion: 01/31/23 Urinary Catheter Time of Insertion: 07:19 Date Urinary Catheter Removed: 01/31/23 Time Urinary Catheter Discontinued: 18:50 History History History 12 Term 7 1 Miscarriages/Ectopic 3 Living Children 8 Discharge Data Studies Completed and Pending Laboratory Results WBC 12.3 10^3/uL (4.0-10.0) H 01/31/23 21:05 RBC 4.03 10^6/uL (4.1-5.3) L 01/31/23 21:05 Hgb 11.4 g/dL (11.5-15.3) L 01/31/23 21:05 Hct 34.1 % (37.0-47.0) L 01/31/23 21:05 MCV 84.6 fl (81-99) 01/31/23 21:05 MCH 28.3 pg (28.0-34.0) 01/31/23 21:05 MCHC 33.4 g/dL (30.0-36.0) 01/31/23 21:05 RDW 18.6 % (12.1-15.1) H 01/31/23 21:05 Plt Count 148 10^3/cmm (130-400) 01/31/23 21:05 MPV 12.0 fL (7.4-10.4) H 01/31/23 21:05 Neut % (Auto) 70.0 % 01/31/23 05:26 Lymph % (Auto) 20.3 % 01/31/23 05:26 Guthrie % (Auto) 6.8 % 01/31/23 05:26 Eos % (Auto) 2.1 % 01/31/23 05:26 Baso % (Auto) 0.4 % 01/31/23 05:26 Neut # (Auto) 6.31 10^3/uL (1.8-7.7) 01/31/23 05:26 Lymph # (Auto) 1.8 10^3/uL (0.8-4.8) 01/31/23 05:26 Guthrie # (Auto) 0.6 10^3/uL (0.2-0.9) 01/31/23 05:26 Eos # (Auto) 0.2 10^3/uL (0.0-0.8) 01/31/23 05:26 Baso # (Auto) 0.0 10^3/uL (0.0-0.1) 01/31/23 05:26 Nucleated RBC % (auto) 0 % 01/31/23 05:26 Nucleated RBCs # 0.0 /100WBC 01/31/23 05:26 Blood Type O Positive 01/31/23 05:26 Rho(D) Type Positive 01/31/23 05:26 Antibody Screen Negative 01/31/23 05:26 Vitals Last Vital Signs Temp 96.4 F L 02/01/23 09:51 Pulse 66 02/01/23 15:34 Resp 15 01/31/23 05:28 BP 118/78 02/01/23 15:34 Pulse Ox 97 02/01/23 09:48 O2 Del Method Room Air 01/31/23 09:30 Discharge Plan Discharge Patient Disposition: Home Condition: Stable Prescriptions: New hydrocodone-acetaminophen 5-325 mg tablet 1 tab PO Q4H PRN (Reason: pain) Qty: 30 0RF simethicone [Anti-Gas Ultra Strength] 180 mg capsule 180 mg PO BID PRN (Reason: abdominal distention) Qty: 60 0RF acetaminophen 325 mg capsule 325 mg PO Q4H PRN (Reason: fever or pain) Qty: 60 0RF ibuprofen 800 mg tablet 800 mg PO TID PRN (Reason: pain) Qty: 60 0RF Continued Tylenol Ex Str Rapid Release 500 mg Tablet 1,000 mg PO Q6H PRN (Reason: Pain) 1 mg Tablet 1 tab PO DAILY Unisom (doxylamine) 25 mg Tablet 25 mg PO DAILY Discharge Orders: Discharge Order (Routine); Ordered 02/01/23 Ordered By: Moe Cole Referrals: Moe Cole MD [Physician] - 2 weeks Discharge Diet: Usual diet Discharge Activity: Limit activity as instructed Patient Instructions: Caring for Your Baby (GEN), Your [place] Appearance (GEN), (GEN), Opioid Safety Activity Restrictions/Additional Instructions: 1. Please call [facility] on next working day to make your post-operative appointment in 2 weeks. 2. Please stay home until you come back to the clinic on first post-hospatilization check up. 3. Please follow instructions on your medications CAREFULLY. 4. If you have abdominal incision, do not cover it unless dressing is necessary because of drainage. OK to shower, but avoid bath. Leave steri-strips until they fall off. If they are still on one week after surgery, you may remove them. 5. If you had vaginal surgery or vaginal repair, Dr. Cole may instruct you to take SITZ bath. 6. Yellow, blood tinged odorous vaginal discharge is usually normal after hysterectomy or vaginal surgeries. 7. No SEXUAL INTERCOURSE, tampons, or douches until you are completely released from the post-operative care. 8. Avoid constipation by eating right and maybe using some Metamucil or Milk of Magnesia. 9. All prescription refills are given during the working hours. Please do no wait till it runs out. Call the clinic at [phone] before your medication runs out. The clinic will get in touch with your doctor to prescribe medications if necessary. 10. Please remain within 40 mile radius from our hospital because emergencies do happen now and then during the post-operative period. 11. If you have stairs at home, take one step at a time slowly and minimize the number of trips. It helps to stay in one floor for the next few days. No lifting except what you can lift by one hand until you are released from the post-operative care. 12. Driving is discouraged until you are well healed. It may be 3-4 weeks before you feel strong enough to drive. You should be able to turn and look through the rear window without pain and you should be able to push the brake pedal very hard without pain before you drive. No fast rules, but SAFETY should be your primary concern. DO NOT drive if you are on sedating medications such as narcotics. 13. Call the clinic (during working hours) to make urgent appointment or go to the Emergency room, if any of the following occurs: i. Vaginal bleeding becomes heavy, more than a period. ii. Incision becomes red and sore, or drains pus. iii. Your TEMPERATURE is over 100.4F or you have chill. iv. IV site becomes red and swollen (a little ``knot?? is usually OK) v. Persistent nausea and vomiting vi. Persistent constipation or diarrhea vii. Rash or allergic reaction to medications. Discharge Attestations EXCELLENCE SPECIALIST Time Spent in Discharge Care*: greater than 30 min Coding Level of Care Code Acute Code for Chg Fwd Diagnoses Term delivered O80
== END 2023-02-01 21:50 | disposition home or self-care (01) | DRG 788 ==
PROVIDERS: Admitting Provider Obstetrics & Gynecology; PCP Family Medicine; Visit Provider Obstetrics & Gynecology
PROC: 10D00Z1 Extraction of Products of Conception, Low, Open Approach (ICD-10-PCS; CPT 59514; principal; 2023-01-31 07:00)
DX: O34.219 Maternal care for unspecified type scar from previous cesarean delivery (principal); Z3A.39 39 weeks gestation of pregnancy; Z37.0 Single live birth
CPT/HCPCS: 36415; 51702; 59025; 59409; 85025; 85027; 86850; 86900; 96374; 96375; 96376; C9290; J1100; J1885; J2274; J2405; J2765; J3490; J7120; J7121

== ENCOUNTER → 2023-02-23 09:00 | Outpatient (BNVA) | payer MEDICAID, SELFPAY | PROVIDERS: PCP Family Medicine; Visit Provider Obstetrics & Gynecology | DX: R39.89 Other symptoms and signs involving the genitourinary system (principal) | CPT/HCPCS: 87086 ==

== ENCOUNTER → 2023-07-23 11:22 | Outpatient (BNVA) | payer OTHER, MEDICAID, SELFPAY | PROVIDERS: PCP Family Medicine; Visit Provider Emergency Medicine | DX: R39.9 Unspecified symptoms and signs involving the genitourinary system (principal) | CPT/HCPCS: 81000 ==

== ENCOUNTER → 2023-08-30 14:41 | Outpatient (BNVA) | payer OTHER, MEDICAID, SELFPAY | PROVIDERS: PCP Family Medicine; Visit Provider Specialist | DX: N34.3 Urethral syndrome, unspecified (principal) | CPT/HCPCS: 36415; 81003 ==

== ENCOUNTER 2023-09-21 16:40 | Outpatient (CLI) | payer OTHER, MEDICAID, SELFPAY ==
--- NOTE | 2023-09-21 17:00 | CT_ITS ---
WS: [id number] Exam: CT chest olaf shook [id number] Date/Time of Exam: 09/21/2023 4:49 PM Reason For Exam: J98.4 - Other disorders of lung DLP: 360.[address] scans at [facility] use at least one of these dose optimization techniques: automated e xposure control; mA and/or kV adjustment per patient size (includes targeted exams where dose is matc hed to clinical indication); or iterative reconstruction. Comparison 05/12/2022. The lungs are fully expanded. Stable appearing 12 mm groundglass nodule in the LEFT upper lobe. There are also stable subcentimeter nodules in the RIGHT lung. No new suspicious nodule or mass is identif ied. The airway is patent. The thoracic aorta is normal in caliber. No hilar or mediastinal lymphaden opathy. No superior mediastinal masses. Normal thyroid lobes. No chest wall abnormalities. Bony struc tures are unremarkable. CT sections of the upper abdomen demonstrate no significant abnormal finding. IMPRESSION: 1. Stable appearing 12 mm groundglass nodule in the LEFT upper lobe. Stable appearing subcentimeter n odules in the RIGHT lung. 2. No new suspicious nodule or mass identified. No lymphadenopathy in the chest.
== END 2023-09-21 16:41 | disposition home or self-care (01) ==
LOC: RAD 16:40
PROVIDERS: PCP Family Medicine; Visit Provider Specialist
DX: J98.4 Other disorders of lung (principal); R91.8 Other nonspecific abnormal finding of lung field
CPT/HCPCS: 71250

== ENCOUNTER 2023-09-29 09:17 | Outpatient (CLI) | payer OTHER, MEDICAID, SELFPAY ==
--- NOTE | 2023-09-29 09:25 | US_ITS ---
WS: [id number] US pelv w/transvag [id number] HISTORY: PELVIC PERINEAL PAIN/DORSALGIA COMPARISON: 02/23/2022 Uterus: 8.5 cm x 6.5 cm x 5.2 cm. Normal size anteverted uterus. No fibroid or mass. Endometrium: 1.6 cm. Normal. Right ovary: RIGHT oophorectomy. There is an elongated fluid-filled structure in the RIGHT adnexa wit h no increased vascularity. Left ovary: 5.6 cm x 6.2 cm x 5.4 cm. Enlarged ovary with multiple cysts. The largest cyst measures 3 .6 x 3.5 x 3.2 cm. There are additional smaller cysts throughout the ovary. Normal vascularity. No free fluid in the cul-de-sac. IMPRESSION: 1. Normal endometrium. 2. Elongated tubular structure in the RIGHT adnexa was not definitely benefit on prior studies. Diff erential includes abnormal loop of GI tract, dilated fallopian tubes if not surgically removed versus pelvic vein engorgement. CT of the pelvis may be of benefit to evaluate these structure etiology. 3. Enlarged LEFT ovary with several ovarian cysts. The largest measures 3.6 x 3.5 x 3.2 cm.
--- NOTE | 2023-09-29 09:25 | US_ITS ---
WS: [id number] RENAL ULTRASOUND HISTORY: BACK PAIN/PELVIC PAIN/DORSALGIA COMPARISON: 05/08/2022 TECHNIQUE: 2-D and color Doppler imaging of the kidney submitted. Right kidney: 12.1 cm x 4.9 cm x 5.1 cm. Cortex: 1.4 cm Normal echogenicity with no hydronephrosis or mass. Left kidney: 11.8 cm x 6.0 cm x 5.7 cm. Cortex: 1.3 cm Normal echogenicity with no hydronephrosis or mass. Aorta: Normal. Urinary Bladder: Not distended. IMPRESSION: Normal renal ultrasound.
== END 2023-09-29 09:18 | disposition home or self-care (01) ==
LOC: RAD 09:17
PROVIDERS: PCP Family Medicine; Visit Provider Family Medicine
DX: R10.2 Pelvic and perineal pain (principal); M54.9 Dorsalgia, unspecified
CPT/HCPCS: 76770; 76830; 76856

== ENCOUNTER 2023-11-02 12:22 | Outpatient (CLI) | payer OTHER, MEDICAID, SELFPAY ==
--- NOTE | 2023-11-02 12:27 | CT_ITS ---
WS: [id number] CT PELVIS WITH CONTRAST HISTORY: ? DILATED FALLOPIAN TUBE VERSUS PEVIC VEIN ENGORGEMENT TECHNIQUE: Contiguous imaging is performed of the pelvis with contrast. Coronal and sagittal reformat s are reviewed. All CT scans at [facility] use at least one of these dose optimization techni ques: automated exposure control; mA and/or kV adjustment per patient size (includes targeted exams w here dose is matched to clinical indication); or iterative reconstruction. DLP: 261.05 mGy.cm COMPARISON: None available. Contrast: Omnipaque 350; 100 mL IV. Moderate bilateral enlarged pelvic vein engorgement. Pelvic vein enlargement is present bilaterally a nd progressed since the CT from 2019. Diameter of the pelvic veins greater than 4 mm consistent with pelvic varices. The largest diameter of the pelvic veins is approaching 10 mm. The uterus is midline. No free fluid in the pelvis. Small follicle RIGHT adnexa measuring 1.4 cm maximum. There is a larger cyst in the LEFT adnexa measuring 4.1 x 4.2 cm. The uterus is midline. No solid masses. No fallopian tube enlargement is identified. No adenopathy. CT/CT pelvis w con* [id number] IMPRESSION: 1. Bilateral pelvic venous congestion. Dilated pelvic veins measuring up to 10 mm. 2. LEFT ovarian cyst 4.1 x 4.2 cm. Cyst is decreased in size since the ultraso und of 09/29/2023. No fallopian tube enlargement.
[2023-11-02] MEDS: iohexol 300 mg/mL 100 mL Btl IV (13:01)
== END 2023-11-02 12:23 | disposition home or self-care (01) ==
LOC: RAD 12:22
PROVIDERS: PCP Family Medicine; Visit Provider Family Medicine
DX: R93.89 Abnormal findings on diagnostic imaging of other specified body structures (principal); I87.8 Other specified disorders of veins; N83.202 Unspecified ovarian cyst, left side
CPT/HCPCS: 72193; Q9967

== ENCOUNTER 2024-05-10 22:43 | Emergency (ER) | payer OTHER, MEDICAID, SELFPAY ==
[2024-05-10 22:52] VITALS: BP 139/84; PULSE 65; RESP 18; TEMP 36.6; O2SAT 98
--- NOTE | 2024-05-10 22:59 | XRR_ITS ---
PROCEDURE INFORMATION: Exam: XR Chest Exam date and time: 05/10/2024 11:03 PM Age: 39 years old Clinical indication: Chest pressure; Patient HX: C/O chest pain; Additional info: Cp TECHNIQUE: Imaging protocol: Radiologic exam of the chest. Views: 1 view. COMPARISON: CT chest [facility] [id number] 09/21/2023 4:51 PM FINDINGS: Lungs: Unremarkable. No consolidation. Pleural spaces: Unremarkable. No pleural effusion. No pneumothorax. Heart/Mediastinum: Unremarkable. No cardiomegaly. Bones/joints: Unremarkable. XR/XR chest 1V portable [id number] IMPRESSION: No acute findings.
--- NOTE | 2024-05-10 22:59 | ECG_ITS ---
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 Measurements Intervals [place] Rate: 71 P: 61 MO: 133 QRS: 61 QRSD: 86 T: 60 QT: 383 QTc: 417 Interpretive Statements SINUS RHYTHM WITH OCCASIONAL SUPRAVENTRICULAR PREMATURE COMPLEXES INTERPRETATION BASED ON A DEFAULT AGE OF 40 YEARS Compared to ECG 05/23/2022 23:00:19 No significant changes Electronically Signed On 05-11-2024 15:55:06 INFORMATION DELIVERY ANALYST by Shashi Padilla M.D. [email or web address]
[2024-05-10 23:08] VITALS: BP 122/85; PULSE 64; RESP 15; O2SAT 97
[2024-05-10 23:09] LABS: Basophils # 0.1 10^3/uL (0.0-0.1); Basophils % 0.7 %; Eosinophils # 0.4 10^3/uL (0.0-0.8); Eosinophils % 4.6 %; Hematocrit 32.1 % (36-47); Lymphocytes # 2.5 10^3/uL (0.8-4.8); Lymphocytes % 30.5 %; Mean Corpuscular HGB Conc 28.3 g/dL (30-55); Mean Corpuscular Hemoglobin 19.8 pg (27-33); Mean Corpuscular Volume 69.9 fl (85-98); Mean Platelet Volume 10.8 fL (7.4-10.4); Monocytes # 0.7 10^3/uL (0.2-0.9); Monocytes % 8.9 %; Neutrophils # 4.57 10^3/uL (1.8-7.7); Neutrophils % 55.1 %; Nucleated Red Blood Cells % 0 %; Platelet Count 247 10^3/cmm (157-399); Red Blood Count 4.59 10^6/uL (3.85-5.65); Red Cell Distribution Width 19.4 % (12.1-15.1)
[2024-05-10 23:27] LABS: Troponin(5th) Baseline < 6 ng/L (0-10)
[2024-05-10 23:40] LABS: Alanine Aminotransferase 29 U/L (0-33); Albumin Level 4.3 g/dL (3.5-5.2); Alkaline Phosphatase 94 U/L (35-105); Anion Gap 12.2 (5-19); Aspartate Amino Transferase 31 U/L (0-32); Blood Urea Nitrogen 16 mg/dL (6-20); Calcium 9.6 mg/dL (8.5-10.5); Carbon Dioxide 27 mmol/L (22-29); Chloride 102 mmol/L (98-107); Creatine Phosphokinase 61 U/L (26-192); Creatinine Clr Calc Pharmacy 154.6934; Globulin 3.2 g/dL (1.3-4.6); Glomerular Filtration Rate 136.6 mL/min (90-130); Glucose 96 mg/dL (65-115); Osmolality Calculated 285 mOsm/kg (285-295); Potassium 4.2 mmol/L (3.5-5.1); Sodium 137 mmol/L (136-145); Total Bilirubin 0.2 mg/dL (0.15-1.2); Total Protein 7.5 g/dL (6.6-8.7)
[2024-05-10 23:42] LABS: NT Pro B Type Natriuretic Pept 91 pg/mL (0-125)
--- NOTE | 2024-05-10 23:59 | ED_ITS ---
HPI - Chest Pain 2 General: Chief Complaint: Chest Pain Stated Complaint: CP Sob n/v left arm numb pain in back Time Seen by Provider: 05/10/24 22:59 History of Present Illness: 39-year-old female presenting with epiga stric discomfort radiating into her shoulders and left greater than right arm this evening. She notes that it started while she was fixing dinner. She became nauseated and did not eat dinner. She was diaphoretic as well. She still having pain on and off. Pepcid did not seem to help. Baking soda and a blood pressure medication she took at home did not seem to help either. She has not had pain like this before she says. Related Data Home Medications Medication Instructions Recorded Confirmed acetaminophen 500 mg tablet 1,000 mg PO Q6H PRN Pain 01/31/23 01/03/24 doxylamine succinate 25 mg tablet 25 mg PO DAILY PRN 02/23/23 01/03/24 (Unisom (doxylamine)) Previous Rx's Medication Instructions Recorded ciprofloxacin HCl 500 mg tablet 500 mg PO BID 10 days #20 tabs 07/23/23 (Cipro) ondansetron 8 mg disintegrating 8 mg PO Q8H 5 days #15 tabs 07/23/23 tablet tranexamic acid 650 mg tablet 1,300 mg (2 x 650 mg) PO TID 5 09/14/23 days #30 tabs ibuprofen 800 mg tablet 800 mg PO TID PRN pain #90 tabs 10/02/23 ubrogepant 100 mg tablet (Ubrelvy) See Rx Instructions .Route 01/03/24 .COMPLEX #10 tabs lansoprazole 30 mg capsule,delayed 30 mg PO DAILY #30 caps 05/11/24 release (Prevacid) sucralfate 1 gram tablet 1 g PO TID 4 weeks #84 tabs 05/11/24 Allergies Allergy/AdvReac Type Severity Reaction Status Date / Time Iodinated Contrast Media Allergy Mild ADR-Itching Unverified 01/03/24 14:03 diphenhydramine Allergy Unconscious Verified 05/10/24 22:55 [From Benadryl] [facility] ED 2 [facility]: Medical History Supervision of high-risk Aftercare following surgery of the genitourinary system Superficial thrombophlebitis Surgical History H/O unilateral oophorectomy 10/13/2021- right oophorectomy performed by Dr Cole at [facility] S/P repeat low transverse (07/29/15) Per[place] Jacinto [place] [facility] [place], [place] S/P primary low transverse (09/15/07) Per[place] Dr. Ramos at [facility] [place] History of dilation and curettage (06/28/19) For miscarriage. Performed in [place] Family History Mother Ovarian cancer, Onset Age: 50 Hypertension Denies family history of Colon cancer Diabetes Clotting disorder Heart disease Hyperlipidemia Breast cancer Anesthesia complication Bleeding disorder Uterine cancer Thyroid disease Stroke Social History Smoking and tobacco/nicotine status: never used tobacco/nicotine Alcohol intake: never Substance/Drug Use: never Female Reproductive History: Para: 8 Spontaneous abortions: Yes (3, most recent 07/15 at 14 wks) Physical Exam 2 Const: COMMON NORMALS: no acute distress GENERAL APPEARANCE: cooperative and ill appearing (Mildly); not frail appearing HENMT: COMMON NORMALS: normocephalic, atraumatic and Normal external nose present HEAD & SCALP: normocephalic and atraumatic FACE & SINUS: normal facial exam and face symmetric NOSE: Normal external nose present Eye: COMMON NORMALS: Equal, round and reactive pupils present and EOMs intact bilaterally PUPIL: Yes Equal, round and reactive pupils present Neck/C-Spine: GENERAL: Yes trachea midline Chest: CHEST: Yes Symmetrical chest wall rise Resp: COMMON NORMALS: normal respiratory effort, No retractions, No use of accessory muscles and clear to auscultation bilaterally AUSCULTATION: clear to auscultation bilaterally Cardio: COMMON NORMALS: regular rate and regular rhythm RATE: regular rate RHYTHM: regular rhythm GI: COMMON NORMALS: Normal to inspection, nondistended, normoactive bowel sounds present OTHER: Epigastric tenderness. Extremity: COMMON NORMALS: no pedal edema Neuro: NISHANT COMA SCALE: document GCS findings Independence coma scale eye opening: Spontaneous Independence coma scale verbal response: Orientated Nishant coma scale motor response: Obey commands Nishant coma scale total score: 15 S ENSORY EXAM: Yes extremities (intact) Psych: COMMON NORMALS: speech normal SPEECH: Yes normal speech Skin: COMMON NORMALS: no rashes or lesions noted GENERAL SKIN EXAM: no rashes or lesions noted Course 2 Vital Signs: Vital signs: Vital Signs Temperature 97.9 F 05/10/24 22:52 Pulse Rate 65 05/11/24 02:23 Respiratory Rate 18 05/11/24 02:23 Blood Pressure 108/70 05/11/24 02:23 Pulse Oximetry 97 05/11/24 02:23 Oxygen Delivery Me thod Room Air 05/10/24 23:08 MDM - Chest Pain Medical Decision Making Hemoglobin is 9.1. Her MCV is 70. She states that she has been on her period for the last week. White blood cell count is 8. Troponin is less than 6. EKG is essentially normal. Troponin is 6 at 0 and 2 hours. D-dimer is negative. Chest x-ray is negative. She is tender in her epigastrium. Abdominal CT shows no acute findings. There is an 8 cm left ovarian cyst increased in size from prior. Radiology recommends gynecology follow-up. She was informed of this. We will ask case management to make her an appointment. She will be treated for gastritis. Lab Data 05/10/24 23:05 05/10/24 23:05 Radiology Impressions Chest X-Ray 05/10/24 22:59 IMPRESSION: No acute findings. Abdomen/Pelvis CT 05/11/24 00:09 IMPRESSION: 1. No acute findings. 2. 8 cm left ovarian cyst with a smaller cyst or septation along the medial margin increased in size compared to the prior study. Recommend consultation with gynecology and follow-up. Laboratory Results WBC 8.30 10^3/uL (3.29-11.43) 05/10/24 23:05 RBC 4.59 10^6/uL (3.85-5.65) 05/10/24 23:05 Hgb 9.10 g/dL (11.27-16.99) L 05/10/24 23:05 Hct 32.1 % (36-47) L 05/10/24 23:05 MCV 69.9 fl (85-98) L 05/10/24 23:05 MCH 19.8 pg (27-33) L 05/10/24 23:05 MCHC 28.3 g/dL (30-55) L 05/10/24 23:05 RDW 19.4 % (12.1-15.1) H 05/10/24 23:05 Plt Count 247 10^3/cmm (157-399) 05/10/24 23:05 MPV 10.8 fL (7.4-10.4) H 05/10/24 23:05 Neut % (Auto) 55.1 % 05/10/24 23:05 Lymph % (Auto) 30.5 % 05/10/24 23:05 [place] % (Auto) 8.9 % 05/10/24 23:05 Eos % (Auto) 4.6 % 05/10/24 23:05 Baso % (Auto) 0.7 % 05/10/24 23:05 Neut # (Auto) 4.57 10^3/uL (1.8-7.7) 05/10/24 23:05 Lymph # (Auto) 2.5 10^3/uL (0.8-4.8) 05/10/24 23:05 [place] # (Auto) 0.7 10^3/uL (0.2-0.9) 05/10/24 23:05 Eos # (Auto) 0.4 10^3/uL (0.0-0.8) 05/10/24 23:05 Baso # (Auto) 0.1 10^3/uL (0.0-0.1) 05/10/24 23:05 Nucleated RBC % (auto) 0 % 05/10/24 23:05 Nucleated RBCs # 0.0 /100WBC 05/10/24 23:05 D-Dimer 0.30 ug/mLFEU (0-0.59) 05/10/24 23:05 Sodium 137 mmol/L (136-145) 05/10/24 23:05 Potassium 4.2 mmol/L (3.5-5.1) 05/10/24 23:05 Chloride 102 mmol/L (98-107) 05/10/24 23:05 Carbon Dioxide 27 mmol/L (22-29) 05/10/24 23:05 Anion Gap 12.2 (5-19) 05/10/24 23:05 BUN 16 mg/dL (6-20) 05/10/24 23:05 Creatinine 0.5 mg/dL (0.5-0.9) 05/10/24 23:05 GFR Calculation 136.6 mL/min (90-130) H 05/10/24 23:05 Glucose 96 mg/dL (65-115) 05/10/24 23:05 Calculated Osmolality 285 mOsm/kg (285-295) 05/10/24 23:05 Calcium 9.6 mg/dL (8.5-10.5) 05/10/24 23:05 Total Bilirubin 0.2 mg/dL (0.15-1.2) 05/10/24 23:05 AST 31 U/L (0-32) 05/10/24 23:05 ALT 29 U/L (0-33) 05/10/24 23:05 Alkaline Phosphatase 94 U/L (35-105) 05/10/24 23:05 Creatine Kinase 61 U/L (26-192) 05/10/24 23:05 Troponin T Baseline < 6 ng/L (0-10) 05/10/24 23:05 Troponin T 120 Minute 6.00 ng/L (0-10) 05/11/24 01:22 Delta Troponin T 0.71680 ABS# (0-10) 05/11/24 01:22 NT-Pro-B Natriuret Pep 91 pg/mL (0-125) 05/10/24 23:05 Total Protein 7.5 g/dL (6.6-8.7) 05/10/24 23:05 Albumin 4.3 g/dL (3.5-5.2) 05/10/24 23:05 Globulin 3.2 g/dL (1.3-4.6) 05/10/24 23:05 All radiology interpretation(s) finalized by discharge Discharge Plan Discharge Patient Disposition: Home Clinical Impression: Gastritis, Ovarian cyst Condition: Stable Prescriptions: New sucralfate 1 gram tablet 1 g PO TID 28 Days Qty: 84 0RF lansoprazole [Prevacid] 30 mg capsule,delayed release(DR/EC) 30 mg PO DAILY Qty: 30 0RF No Action Ubrelvy 100 mg tablet See Rx Instructions .ROUTE .COMPLEX Qty: 10 5RF Dose Instruction: TAKE ONE TABLET BY MOUTH ONCE FOR HEADACHE. Rx Instructions: TAKE ONE TABLET BY MOUTH ONCE FOR HEADACHE. ciprofloxacin HCl [Cipro] 500 mg tablet 500 mg PO BID 10 Days Qty: 20 0RF ondansetron 8 mg tablet,disintegrating 8 mg PO Q8H 5 Days Qty: 15 0RF ibuprofen 800 mg tablet 800 mg PO TID PRN (Reason: pain) Qty: 90 3RF tranexamic acid 650 mg tablet 1,300 mg PO TID 5 Days Qty: 30 0RF acetaminophen 500 mg Tablet 1,000 mg PO Q6H PRN (Reason: Pain) Unisom (doxylamine) 25 mg tablet 25 mg PO DAILY PRN Discharge Orders: Discharge ED (Routine); Ordered 05/11/24 Ordered By: Derick Ochoa Referrals: Joy Savage MD [Primary Care Provider] - 1-3 days Patient Instructions: Gastritis (ED), Opioid Safety, Pain Management Activity Restrictions/Additional Instructions: Medication as directed. Return for vomiting liquids, increasing pain despite treatment, fever, other concerning symptoms. Call your doctor on Monday for follow-up appointment. Case management will make an appointment with gynecology for you. You should hear from them next week. Coding Level of Care Code ED Post Splitter for Julito Velásquez
[2024-05-11] VITALS (27 sets, daily range): BP systolic 105–126; BP diastolic 67–89; PULSE 54–74; RESP 11–20; O2SAT 95–99
[2024-05-11] MEDS: lidocaine 2% viscous 15 ML, aluminum-mag hydrox-simethicon 30 ML, sucralfate oral liq 1 GM PO (00:03)
[2024-05-11] MEDS: ondansetron 2 mg/ML SDV 2 mL 4 MG IVP (00:04)
[2024-05-11] MEDS: morphine 4 mg/mL SDV 1 mL 2 MG IVP (00:06)
--- NOTE | 2024-05-11 00:09 | CTR_ITS ---
PROCEDURE INFORMATION: Exam: CT Abdomen And Pelvis With Contrast Exam date and time: 05/11/2024 12:28 AM Age: 39 years old Clinical indication: Abdominal pain; Prior surgery; Surgery date: 6+ months; Surgery type: RT oophorectomy. Csection; Patient HX: C/O epigastric pain with nausea. Known 4x4 left ovarian cyst. TECHNIQUE: Imaging protocol: Computed tomography of the abdomen and pelvis with contrast. Radiation optimization: All CT scans at this facility use at least one of these dose optimization techniques: automated exposure control; mA and/or kV adjustment per patient size (includes targeted exams where dose is matched to clinical indication); or iterative reconstruction. Contrast material: OMNI 350; Contrast volume: 80 ml; Contrast route: INTRAVENOUS (IV); COMPARISON: 1. CT pelvis w con* [id number] 11/02/2023 12:[address] abdomen pelvis w con* [id number] 03/14/2020 11:41 PM RADIATION DOSE METRICS: Total DLP (mGy-cm): 603.25 FINDINGS: Liver: Mild hepatic steatosis noted. Gallbladder and biliary ducts: Normal. No calcified stones. No ductal dilation. Pancreas: Normal. No ductal dilation. Spleen: Normal. No splenomegaly. Adrenal glands: Normal. No mass. Kidneys and ureters: See Soft tissues finding. Stomach and bowel: Unremarkable. No obstruction. No mucosal thickening. Appendix: No evidence of appendicitis. Intraperitoneal space: Unremarkable. No free air. No significant fluid collection. Vasculature: Unremarkable. No abdominal aortic aneurysm. Lymph nodes: Shotty nonspecific retroperitoneal lymph nodes noted. Urinary bladder: Unremarkable as visualized. Reproductive: 8 cm left ovarian cyst with a smaller cyst or septation along the medial margin increased in size compared to the prior study. Recommend consultation with gynecology and follow-up. Bones/joints: Unremarkable. No acute fracture. Soft tissues: Mildly prominent vessels in the perineal region and right upper thigh unchanged. Mild bilateral pelvicaliectasis Other findings: Similar to prior exam CT/CT abdomen pelvis w con* [id number] IMPRESSION: 1. No acute findings. 2. 8 cm left ovarian cyst with a smaller cyst or septation along the medial margin increased in size compared to the prior study. Recommend consultation with gynecology and follow-up.
[2024-05-11] MEDS: hyDROXYzine 25 mg Capsule PO (00:18)
[2024-05-11] MEDS: methylPREDNISolone sod succ 40 mg/mL INJ IVP (00:18)
[2024-05-11] MEDS: iohexol 350 mg/mL 500 mL Btl (per mL) IV (00:38)
--- NOTE | 2024-05-11 01:12 | ECG_ITS ---
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 Measurements Intervals [place] Rate: 63 P: 56 CA: 163 QRS: 34 QRSD: 102 T: 25 QT: 432 QTc: 443 Interpretive Statements SINUS RHYTHM Compared to ECG 05/10/2024 22:48:48 No significant changes Electronically Signed On 05-12-2024 21:02:23 IN FILE OPERATOR by Shashi Padilla M.D. [email or web address]
[2024-05-11 01:49] LABS: Troponin 5 2HR Delta 0.00001 ABS# (0-10)
--- NOTE | 2024-05-13 08:54 | DCPLANNER ---
messaged [facility] for er f/u
== END 2024-05-11 02:25 | disposition home or self-care (01) ==
PROVIDERS: Emergency Provider Emergency Medicine; PCP Family Medicine
DX: K29.70 Gastritis, unspecified, without bleeding (principal); N83.202 Unspecified ovarian cyst, left side
CPT/HCPCS: 36415; 71045; 74177; 80053; 82550; 83880; 84484; 85025; 85378; 93005; 96374; 96375; 99285; J2270; J2405; J2919

== ENCOUNTER → 2024-07-10 10:54 | Outpatient (BNVA) | payer OTHER, MEDICAID, SELFPAY | PROVIDERS: PCP Family Medicine; Visit Provider Obstetrics & Gynecology | DX: N83.202 Unspecified ovarian cyst, left side (principal); D25.9 Leiomyoma of uterus, unspecified; Z90.721 Acquired absence of ovaries, unilateral | CPT/HCPCS: 76830 ==

== ENCOUNTER → 2024-07-12 17:04 | Outpatient (BNVA) | payer OTHER, MEDICAID, SELFPAY | PROVIDERS: PCP Family Medicine; Visit Provider Obstetrics & Gynecology | DX: N92.1 Excessive and frequent menstruation with irregular cycle (principal) | CPT/HCPCS: 82728; 83001; 84443; 85025 ==

== ENCOUNTER 2024-09-04 12:00 | Outpatient (CLI) | payer OTHER, SELFPAY ==
--- NOTE | 2024-09-04 12:00 | CTR_ITS ---
PROCEDURE INFORMATION: Exam: CT Chest Without Contrast; Diagnostic Exam date and time: 09/04/2024 12:03 PM Age: 39 years old Clinical indication: Condition or disease; Lung condition and disease; Pulmonary nodule, solitary; Additional info: R91.1 - solitary pulmonary nodule TECHNIQUE: Imaging protocol: Diagnostic computed tomography of the chest without contrast. Radiation optimization: All CT scans at this facility use at least one of these dose optimization techniques: automated exposure control; mA and/or kV adjustment per patient size (includes targeted exams where dose is matched to clinical indication); or iterative reconstruction. COMPARISON: CT chest [facility] [id number] 09/21/2023 4:51 PM RADIATION DOSE METRICS: Total DLP (mGy-cm): 400.65 FINDINGS: Lungs: Unchanged 12 mm ground-glass nodular opacity lateral left upper lobe. A few smaller solid, subsolid, and ground-glass noncalcified nodular opacities in the right lung are unchanged. No other significant pulmonary abnormalities. Pleural spaces: Unremarkable. No pneumothorax. No pleural effusion. Heart: Unremarkable. No cardiomegaly. No pericardial effusion. Coronary arteries: No calcification in the visualized coronary arteries. Lymph nodes: Unremarkable. No enlarged lymph nodes. Vasculature: Unremarkable. No aortic aneurysm. Bones/joints: Unchanged mild scoliosis and spondylosis. Otherwise, unremarkable. Soft tissues: Unremarkable visualized body wall. Otherwise, unremarkable. Other findings: Unremarkable visualized upper abdominal structures. CT/CT chest [facility] [id number] IMPRESSION: 1. Unchanged 12 mm ground-glass nodular opacity lateral left upper lobe. A few smaller solid, subsolid, and ground-glass noncalcified nodular opacities in the right lung are unchanged. For patients at low risk (minimal or absent history of smoking and of other known risk factors), recommend CT Chest at 6-12 months, then consider CT Chest at 18-24 months. For patients at high risk (history of smoking or of other known risk factors), recommend CT Chest at 6-12 months, then CT Chest at 18-24 months. (Reference: Will). 2. Additional details as above. REFERENCES: Will Wagner et al. Guidelines for Management of Incidental Pulmonary Nodules Detected on CT Images: From the Fleischner Society 2017. Radiology. 2017;284(1):228-243.
== END 2024-09-04 12:01 | disposition home or self-care (01) ==
LOC: RAD 12:01
PROVIDERS: PCP Family Medicine; Visit Provider Specialist
DX: R91.8 Other nonspecific abnormal finding of lung field (principal); M41.9 Scoliosis, unspecified; M47.9 Spondylosis, unspecified
CPT/HCPCS: 71250

== ENCOUNTER → 2024-09-09 15:22 | Outpatient (BNVA) | payer OTHER, SELFPAY | PROVIDERS: PCP Family Medicine; Visit Provider Obstetrics & Gynecology | DX: D25.0 Submucous leiomyoma of uterus (principal); N83.292 Other ovarian cyst, left side | CPT/HCPCS: 76830 ==

== ENCOUNTER 2024-12-10 12:07 | Outpatient (CLI) | payer OTHER, SELFPAY ==
[2024-12-10 13:05] LABS: Basophils % 0.5 %; Eosinophils # 0.6 10^3/uL (0.0-0.8); Eosinophils % 7.5 %; Hematocrit 39.1 % (36-47); Lymphocytes # 1.2 10^3/uL (0.8-4.8); Lymphocytes % 16.5 %; Mean Corpuscular HGB Conc 28.9 g/dL (30-55); Mean Corpuscular Hemoglobin 21.3 pg (27-33); Mean Corpuscular Volume 73.6 fl (85-98); Mean Platelet Volume 11.4 fL (7.4-10.4); Monocytes # 0.6 10^3/uL (0.2-0.9); Monocytes % 7.8 %; Neutrophils # 4.93 10^3/uL (1.8-7.7); Neutrophils % 67.3 %; Nucleated Red Blood Cells % 0 %; Platelet Count 229 10^3/cmm (157-399); Red Blood Count 5.31 10^6/uL (3.85-5.65); Red Cell Distribution Width 22.5 % (12.1-15.1); White Blood Count 7.33 10^3/uL (3.29-11.43)
[2024-12-10 13:33] LABS: Ferritin 114 ng/mL (15-150); Iron 25 ug/dL (37-145); Total Iron Binding Capacity 310 mcg/dl; Unsaturated Iron Binding 285 ug/dL (112-347)
[2024-12-10 13:44] LABS: Vitamin B12 1271 pg/mL (232-1245)
[2024-12-10 20:09] LABS: Folate Level > 20.0 ng/mL (4.8-37.3)
== END 2024-12-10 12:08 | disposition home or self-care (01) ==
PROVIDERS: PCP Nurse Practitioner Family; Visit Provider Nurse Practitioner Family
DX: D50.9 Iron deficiency anemia, unspecified (principal)
CPT/HCPCS: 36415; 82607; 82728; 82746; 83540; 83550; 85025

== ENCOUNTER 2025-01-18 18:19 | Emergency (ER) | payer OTHER, SELFPAY ==
--- OUTSIDE RECORDS SUMMARY | 2022-12-30 05:25 | XMS_ITS | Continuity of Care Document ---
Author Organization [facility] Address [address] [id number] [address] Phone Care Team Providers Care Enrolled Nurse Name Role Phone Naga Dickens DDS Unavailable Unavailable Allergies, Adverse Reactions, Alerts Substance Reaction Status Criticality No Known Allergies Active No Inform ation Medications Medication Instructions Dosage Effective Dates (start - stop) Status Comments Tylenol 325 mg tablet take 2 tablets by oral route every 8 hours as needed for pain from oral surgery - Active amoxicillin 500 mg capsule First dose take 2 caps then take 1 capsule by oral route every 6 hours - Active iron 18 mg tablet - Active Vitamin C 500 mg capsule,extended release - Active Calcium 500 500 mg calcium (1,250 mg) tablet - Active Procedures Procedure Date Molar (Excluding Final Cheondoism) [place] Porcelain/Ceramic Substrate No Work Today/No Charge EDR Approval Note [place] Prep EDR Approval Note Intraoral Periapical First Film Limited Oral Evaluation Problem Focused Resin-Based Composite One Surface, Posterior EDR Approval Note Limited Oral Evaluation Problem Focused Periodic Oral Evaluation Established Patient Bitewings Four Films Resin-Based Composite Two Surfaces, Posterior Prophylaxis Adult Resin-Based Composite One Surface, Posterior EDR Approval Note [place] Porcelain/Ceramic [place] Porcelain/Ceramic [place] Porcelain/Ceramic [place] Porcelain/Ceramic Bitewings Four Films EDR Approval Note [place] Prep [place] Prep EDR Approval Note Pre-Pay For Services Treatment Plan Complete Resin-Based Composite Two Surfaces, Anterior Resin-Based Composite Two Surfaces, Posterior EDR Approval Note [place]ings Four Films Intraoral Periapical First Film Intraoral Periapical Each Additional Film Intraoral Periapical Each Additional Film Intraoral Periapical Each Additional Film Panoramic Film Treatment Plan Complete Prophylaxis Adult Periodic Oral Evaluation Established Patient EDR Approval Note Treatment Plan Complete Custom Abutment Includes Placement Ceramic Implant [place] EDR Approval Note Impression EDR Approval Note Resin-Based Composite One Surface, Anterior Resin-Based Composite Two Surfaces, Posterior EDR Approval Note No Work Today/No Charge EDR Approval Note No Work Today/No Charge EDR Approval Note Post Op No Charge EDR Approval Note Surgical Placement Of Implant Body: Endo steal Impl EDR Approval Note No Work Today/No Charge EDR Approval Note Resin-Based Composite Two Surfaces, Anterior Resin-Based Composite Two Surfaces, Posterior [place] Porcelain/Ceramic Substrate EDR Approval Note [place] Prep EDR Approval Note Pre-Pay For Services Resin-Based Composite Two Surfaces, Posterior Bitewings Four Films Intraoral Periapical First Film Intraoral Periapical Each Additional Film Intraoral Periapical Each Additional Film Periodic Oral Evaluation Established Patient EDR Approval Note Intraoral Periapical First Film Intraoral Periapical Each Additional Film Intraoral Periapical Each Additional Film Bitewings Four Films Panoramic Film Comprehensive Oral Evaluatio n New Or Established EDR Approval Note Limited Oral Evaluation Problem Focused Resin-Based Composite One Surface, Posterior EDR Approval Note Limited Oral Evaluation Problem Focused EDR Approval Note Prophylaxis Adult Resin-Based Composite Three Surfaces, Posterior Resin-Based Composite Two Surfaces, Posterior Resin-Based Composite Two Surfaces, Posterior EDR Approval Note Resin-Based Composite Three Surfaces, Anterior Resin-Based Composite Two Surfaces, Anterior EDR Approval Note Perio Probing Resin-Based Composite Two Surfaces, Posterior Resin-Based Composite Two Surfaces, Posterior Resin-Based Composite Two Surfaces, Posterior EDR Approval Note Resin-Based Composite Two Surfaces, Posterior Resin-Based Composite One Surface, Posterior EDR Approval Note Molar (Excluding Final Cheondoism) Core Buildup, Including Any Pins 2014 EDR Approval Note Pulpal Debridement, Primary And Permanen t Teeth EDR Approval Note Bitewings Four Films Intraoral Periapical First Film Intraoral Periapical Each Additional Film Intraoral Periapical Each Additional Film Intraoral Periapical Each Additional Film Panoramic Film Comprehensive Oral Evaluatio n New Or Established EDR Approval Note EDR Approval Note Prophylaxis Adult Interim Partial Denture (Maxillary) Denture Impression Secondary EDR Approval Note EDR Approval Note Resin-Based Composite Three Surfaces, Posterior Resin-Based Composite Two Surfaces, Posterior Denture Impression Primary EDR Approval Note EDR Approval Note Limited Oral Evaluation Problem Focused EDR Approval Note Resin-Based Composite Two Surfaces, Anterior Resin-Based Composite Two Surfaces, Posterior Resin-Based Composite Three Surfaces, Posterior EDR Approval Note Bitewings Four Films Periodic Oral Evaluation Established Patient EDR Approval Note Resin-Based Composite Two Surfaces, Posterior EDR Approval Note Prophylaxis Adult Bitewings Four Films Panoramic Film Intraoral Periapical First Film Intraoral Periapical Each Additional Film Intraoral Periapical Each Additional Film Periodic Oral Evaluation Established Patient EDR Approval Note Prophylaxis Adult Full Mouth Debridement To Enable Compreh ensive Tiffany Advance Directives Directive Yes / No Effective Date File Name No Information Encounters Encounter Description Practice Location Reason(s) For Visit Diagnoses Date Provider Providers Copied on Encounter [facility], [id number]-Zp [facility], [place], [place], [address], [place] tel:[phone] [facility] No Information 3 Maninder Nielson. [address] [place], [address], [place]. tel:[phone] [facility], [address] [id number] [place] [address], [place] tel:[phone] [facility] No Information 3 Maninder Nielson. [address] [place], [address], [place]. tel:[phone] Referring Provider: Naga Whalen, [address] [place], [address]. tel:[phone] [facility], [address] [id number] 255801BA-[place], [address], [place] tel:[phone] [facility] No Information 3 Frankie Santiago. [address] [place], [address], [place]. tel:[phone] Referring Provider: Jack David, [address] [place], [address]. tel:[phone] [facility], [address] [id number] 770211VE[place], [address], [place] tel:[phone] [facility] No Information 3 Frankie Santiago. [address] [place], [address], [place]. tel:[phone] Referring Provider: Jack David, [address] [place], [address]. tel:[phone] [facility], [address] [id number] 568661JM[place], [address], [place] tel:[phone] [facility] No Information 3 Samuel Hanley. [address] [place], [address], [place]. tel:[phone] Referring Provider: Talon Baker, [address] [place], [address]. tel:[phone] [facility], [address] [id number] 311635HG-Gg [facility], [place], [place], [address], [place] tel:[phone] [facility] No Information 2 Frankie Santiago. [address] [place], [address], [place]. tel:[phone] Referring Provider: Jack David, [address] [place], [address]. tel:[phone] [place] Provider: Rinku Rossi, [address] [place], [address] . tel:[phone] [facility], [address] [id number] 297210OP[place], [address], [place] tel:[phone] [facility] No Information 2 Indy Lozano. [address] [place], [place], [address], [place]. tel:[phone] Referring Provider: Blake Haynes, [address] [place], [address] . tel:[phone] [facility], [address] [id number] 687366JK-[place], [address], [place] tel:[phone] [facility] No Information 2 Maninder Nielson. [address] [place], [address], [place]. tel:[phone] Referring Provider: Naga Whalen, [address] [place], [address]. tel:[phone] [facility], [address] [id number] 610785WS-Gh [place], [address], [place] tel:[phone] [facility] No Information 1 Maninder Nielson. [address] [place], [address], [place]. tel:[phone] Referring Provider: Naga Whalen, [address] [place], [address]. tel:[phone] [facility], [address] [id number] 763728LJ-Lh [place], [address], [place] tel:[phone] [facility] No Information 1 Maninder Nielson. [address] [place], [address], [place]. tel:[phone] Referring Provider: Naga Whalen, [address] [place], [address]. tel:[phone] [facility], [address] [id number] 708178EX-Rk [place], [address], [place] tel:[phone] [facility] Encounter for dental exam and cleaning w/o abnormal findings 1 Maninder Nielson. [address] [place], [address], [place]. tel:[phone] Referring Provider: Naga Whalen, [address] [place], [address]. tel:[phone] [facility], [address] [id number] 120362YK-Xq [place], [address], [place] tel:[phone] [facility] Encounter for dental exam and cleaning w/o abnormal findings 1 Maninder Nielson. [address] [place], [address], [place]. tel:[phone] Referring Provider: Naga Whalen, [address] [place], [address]. tel:[phone] [facility], [address] [id number] 375982IR-Tm [place], [address], [place] tel:[phone] [facility] Encounter for dental exam and cleaning w/o abnormal findings 0 Maninder Nielson. [address] [place], [address], [place]. tel:[phone] Referring Provider: Naga Whalen, [address] [place], [address]. tel:[phone] [facility], [address] [id number] 979335NN-[place], [address], [place] tel:[phone] [facility] Encounter for dental exam and cleaning w/o abnormal findings 0 Maninder Nielson. [address] [place], [address], [place]. tel:[phone] Referring Provider: Naga Whalen, [address] [place], [address]. tel:[phone] [facility], [address] [id number] 419457EG-Sb[place], [place], [address], [place] tel:[phone] [facility] Encounter for dental exam and cleaning w/o abnormal findings 0 Maninder Nielson. [address] [place], [address], [place]. tel:[phone] Referring Provider: Naga Whalen, [address] [place], [address]. tel:[phone] [facility], [address] [id number] 369148RL-[place], [address], [place] tel:[phone] [facility] Encounter for dental exam and cleaning w/o abnormal findings 0 Maninder Nielson. [address] [place], [address], [place]. tel:[phone] Referring Provider: Naga Whalen, [address] [place], [address]. tel:[phone] [facility], [address] [id number] 214685[facility] [place], [place], [address], [place] tel:[phone] [facility] Encounter for dental exam and cleaning w/o abnormal findings 9 Maninder Nielson. [address] [place], [address], [place]. tel:[phone] Referring Provider: Naga Whalen, [address] [place], [address]. tel:[phone] [facility], [address] [id number] 996128PP-[place], [address], [place] tel:[phone] [facility] Encounter for dental exam and cleaning w/o abnormal findings 9 No Information [facility], [address] Erahu929S43 354441QK-[place], [address], [place] tel:[phone] [facility] Encounter for dental exam and cleaning w/o abnormal findings 9 Maninder Nielson. [address] [place], [address], [place]. tel:[phone] Referring Provider: aNga Whalen, [address] [place], [address]. tel:[phone] [facility], [address] [id number] 226190IH-[place], [address], [place] tel:[phone] [facility] Encounter for dental exam and cleaning w/o abnormal findings 9 Maninder Nielson. [address] [place], [address], [place]. tel:[phone] Referring Provider: Naga Whalen, [address] [place], [address]. tel:[phone] [facility], [address] [id number] 545642BY-Wr [place], [address], [place] tel:[phone] [facility] Encounter for dental exam and cleaning w/o abnormal findings 9 Maninder Nielson. [address] [place], [address], [place]. tel:[phone] Referring Provider: Naga Whalen, [address] [place], [address]. tel:[phone] [facility], [address] [id number] 561776MD-Ho[place], [place], [address], [place] tel:[phone] [facility] Encounter for dental exam and cleaning w/o abnormal findings Maninder Nielson. [address] [place], [address], [place]. tel:[phone] Referring Provider: Naga Whalen, [address] [place], [address]. tel:[phone] [facility], [address] [id number] 889283TQ-[place], [address], [place] tel:[phone] [facility] Encounter for dental exam and cleaning w/o abnormal findings 8 Maninder Nielson. [address] [place], [address], [place]. tel:[phone] Referring Provider: Naga Whalen, [address] [place], [address]. tel:[phone] [facility], [address] [id number] 097310OU-Wg [place], [address], [place] tel:[phone] [facility] Encounter for dental exam and cleaning w/o abnormal findings 7 No Information [facility], [address] [id number] 068194SZ[facility], [place], [place], [address], [place] tel:[phone] [facility] Encounter for dental exam and cleaning w/o abnormal findings 7 No Information [facility], [address] [id number]-Hn [facility], [place], [place], [address], [place] tel:[phone] [facility] No Information 6 No Information [facility], [address] [id number] 365534PH-Th [facility], [place], [place], [address], [place] tel:[phone] [facility] No Information 6 Neil Santana. [address] [place], [address], [place]. tel:[phone] Referring Provider: Esther Gabriel, [address] [place], [address]. tel:[phone] [facility], [address] [id number] 076829YG[facility], [place], [place], [address], [place] tel:[phone] [facility] No Information 5 Maninder Nielson. [address] [place], [address], [place]. tel:[phone] Referring Provider: Naga Whalen, [address] [place], [address]. tel:[phone] [facility], [address] [id number] 739771SE-Jf [facility], [place], [place], [address], [place] tel:[phone] [facility] No Information 5 Maninder Nielson. [address] [place], [address], [place]. tel:[phone] Referring Provider: Naga Whalen, [address] [place], [address]. tel:[phone] [facility], [address] [id number] 696516AI-Kf [place], [address], [place] tel:[phone] [facility] No Information 5 Maninder Nielson. [address] [place], [address], [place]. tel:[phone] Referring Provider: Naga Whalen, [address] [place], [address]. tel:[phone] [facility], [address] [id number] 590676MZ-Ns[place], [place], [address], [place] tel:[phone] [facility] No Information 5 Maninder Nielson. [address] [place], [address], [place]. tel:[phone] Referring Provider: Naga Whalen, [address] [place], [address]. tel:[phone] [facility], [address] [id number] 817739KT-[place], [place], [address], [place] tel:[phone] [facility] No Information 5 Maninder Nielson. [address] [place], [address], [place]. tel:[phone] Referring Provider: Naga Whalen, [address] [place], [address]. tel:[phone] [facility], [address] [id number] 088743RQ[facility], [place], [place], [address], [place] tel:[phone] [facility] No Information 0 5 Abiodun Wood. [address] [place] [address], [address], [place]. tel:[phone] Referring Provider: Israel Rascon, [address] [place] [address], [address]. tel:[phone] [facility], [address] [id number] 567526ZV-[place], [place], [address], [place] tel:[phone] [facility] No Information 5 Maninder Nielson. [address] [place], [address], [place]. tel:[phone] Referring Provider: Naga Whalen, [address] [place], [address]. tel:[phone] [facility], [address] [id number] 796608PJ-[place], [place], [address], [place] tel:[phone] [facility] No Information 3 Maninder Nielson. [address] [place], [address], [place]. tel:[phone] Referring Provider: Naga Whalen, [address] [place], [address]. tel:[phone] [facility], [address] [id number] 160775QO-[place], [address], [place] tel:[phone] [facility] No Information 0 3 Maninder Nielson. [address] [place], [address], [place]. tel:[phone] Referring Provider: Naga Whalen, [address] [place], [address]. tel:[phone] [facility], [address] [id number] 290798BO-[place], [place], [address], [place] tel:[phone] [facility] No Information 3 Maninder Nielson. [address] [place], [address], [place]. tel:[phone] Referring Provider: Naga Whalen, [address] [place], [address]. tel:[phone] [facility], [address] [id number] 092302LT-Ev[place], [place], [address], [place] tel:[phone] [facility] No Information 3-201 3 Joseline Nieto. [address] [place], [address], [place]. tel:[phone] Referring Provider: Gerson Westfall, [address] [place], [address]. tel:[phone] [facility], [address] [id number] 582239BX-Sl[place], [place], [address], [place] tel:[phone] [facility] No Information 3 Maninder Nielson. [address] [place], [address], [place]. tel:[phone] Referring Provider: Naga Whalen, [address] [place], [address]. tel:[phone] [facility], [address] [id number] 125035QX-[place], [place], [address], [place] tel:[phone] [facility] No Information 3 Maninder Nielson. [address] [place], [address], [place]. tel:[phone] Referring Provider: Naga Whalen, [address] [place], [address]. tel:[phone] [facility], [address] Firgu996K50 672827FG-[place], [place], [address], [place] tel:[phone] [facility] No Information 2 Maninder Nielson. [address] [place], [address], [place]. tel:[phone] Referring Provider: Naga Whalen, [address] [place], [address]. tel:[phone] [facility], [address] [id number] 910661OK-[place], [place], [address], [place] tel:[phone] [facility] No Information 2 Neil Santana. [address] [place], [address], [place]. tel:[phone] Referring Provider: Esther Gabriel, [address] [place], [address]. tel:[phone] [facility], [address] [id number] 716669QY-NbL[place], [place], [address], [place] tel:[phone] [facility] No Information 9 2 Maninder Nielson. [address] [place], [address], [place]. tel:[phone] Referring Provider: Naga Whalen, [address] [place], [address]. tel:[phone] [facility], [address] [id number] 865627OB-[place], [place], [address], [place] tel:[phone] [facility] No Information [phone] No Information [facility], [address] [id number] 298972FD-Zw[place], [place], [address], [place] tel:[phone] [facility] No Information 0201 0 Neil Santana. [address] [place], [address], . tel:[phone] Family History Family Member Type Diagnosis Age At Onset Mother Problem (finding) migraine Payers Payer name Insurance type Covered libertarian ID Authoriza tion(s) No Information Social History Type Description Quantity Date Captured Comments Alcohol Use Details No Caffeine Use Details Unknown Tobacco Use Status No Information Smoking Status No Information Sex Female Sexual Orientation Decline To Specify Gender Identity Female Chief Complaint And Reason For Visit No Information Reason For Referral Reason For Referral No Information Plan Of Treatment Date Type Action Status Goal Tobacco cessation counseling completed History Of Present Illness Encounter Date Complaint History Of Prese nt Illness No Information Functional Status Date Functional Assessmen t No Information Instructions Date Instruction Additional Infor ramiro Lifestyle education Related to D ental Examination Lifestyle education Related to D ental Examination Lifestyle education Related to D ental Examination Good oral hygiene while Good oral hygiene while Good oral hygiene while Good oral hygiene while Assessments Type Assessment Date No Information Patient Care Teams Name Effective Dates (start - stop) Status Members No Information
--- OUTSIDE RECORDS SUMMARY | 2025-01-15 15:00 | XMS_ITS | Encounter Summary ---
Author Organization [facility] Address 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 Name Role Phone Unavailable Primary Care Provider Unavailabl e Reason for Visit * Reason Comments Post-op Visit Hysterectomy Vaginal Bleeding Encounter Details Date Type Department Care Team (Latest Contact Info) Description 01/15/2025 3:00 PM CDT Office Visit [facility] [place] [address] [address] Janna Aguilar FNP [address] [place] [address] Postoperative follow-up (Primary Dx); Ovarian cyst, left; Status post hysterectomy; Vaginal discharge; Chronic blood loss anemia; Hot flashes due to surgical menopause Social History Tobacco Use Types Packs/Day Years Used Date Smoking Tobacco: Never Tobacco Cessation:Counseling Given: Not Answered Alcohol Use Standard Drinks/Week Comments Never 0 (1 standard drink = 0.6 oz pur e alcohol) Comments No Sex and Gender Information Value Date Recorded Sex Assigned at Not on file Legal Sex Female 9:31 AM CDT Gender Identity Not on file Sexual Orientation Not on file documented as of this encounter Last Filed Vital Signs Vital Sign Reading Time Taken Comments Blood Pressure 108/68 01/15/2025 2:57 PM CDT Pulse 89 01/15/2025 2:57 PM CDT Temperature 36.9 C (98.4 F) 01/15/2025 2:57 PM CDT Respiratory Rate - - Oxygen Saturation 98% 01/15/2025 2:57 PM CDT Inhaled Oxygen Concentration - - Weight 73.5 kg (162 lb) 01/15/2025 2:57 PM CDT Height 167.6 cm (5' 6 ) 01/15/2025 2:57 PM CDT Body Mass Index 26.15 01/15/2025 2:57 PM CDT documented in this encounter Progress Notes * Janna Aguilar FNP - 01/15/2025 2:48 PM CDT Chief Complaint Patient presents with Post-op Visit Hysterectomy Vaginal Bleeding HISTORY OF PRESENT ILLNESS Debby Bates is a 40 y.o. female who presents to the office for her third post operative visit following a Hysterectomy Total Robotic Xi, Examination Under Anesthesia, Cystourethroscopy, Omentectomy Robotic Xi, and Peritoneal Biopsy Robotic Xi for left ovarian cyst and abdominal pain. Pathology negative for malignancy Postoperatively she is feeling well and is without complaints today. She was treated for a UTI at her initial postop visit. She denies any further symptoms today. She was also treated with silver nitrate for vaginal cuff bleeding at that visit and again 5 days later. She reports she has [place] and also had sex last week. She had some bleeding after sex but states no further bleeding since. She denies pain. She states she has hot flashes, worse at night but is managing with estradiol through her pcp. Oncology History No history exists. This medical record reflects the history of present illness as obtained by myself in discussion with the patient. Chart reviewed including meds, allergies, results, tests. Objective PHYSICAL EXAM BP 108/68 Pulse 89 Temp 98.4 ??F (36.9 ??C) (Temporal) Ht 5' 6 (1.676 m) Wt 73.5 kg (162 lb) LMP 11/22/2024 SpO2 98% BMI 26.15 kg/m?? Physical Exam Vitals reviewed. Exam conducted with a melt supervisor present. Constitutional: General: She is not in acute distress. Appearance: Normal appearance. She is not ill-appearing. HENT: Head: Normocephalic. Nose: Nose normal. Mouth/Throat: Mouth: Mucous membranes are moist. Eyes: Conjunctiva/sclera: Conjunctivae normal. Cardiovascular: Rate and Rhythm: Normal rate and regular rhythm. Heart sounds: Normal heart sounds. No murmur heard. Pulmonary: Effort: Pulmonary effort is normal. No respiratory distress. Breath sounds: Normal breath sounds. No wheezing. Abdominal: General: Abdomen is flat. Bowel sounds are normal. There is no distension. Palpations: Abdomen is soft. There is no mass. Tenderness: There is abdominal tenderness. Genitourinary: Vagina: Vaginal discharge present. Comments: Copious green drainage in vagina. Obtained culture. No active bleeding. Vaginal cuff is closed, sutures visible and palpable. Uterus, adnexa, and cervix are surgically absent. No pelvis masses noted. No tenderness or irregularities appreciated on bimanual exam. Musculoskeletal: Cervical back: Normal range of motion. Right lower leg: No edema. Left lower leg: No edema. Skin: General: Skin is warm and dry. Coloration: Skin is not jaundiced or pale. Neurological: Mental Status: She is alert and oriented to person, place, and time. Psychiatric: Mood and Affect: Mood normal. Behavior: Behavior normal. Thought Content: Thought content normal. Judgment: Judgment normal. ASSESSMENT and PLAN: ICD-10-CM ICD-9-CM 1. Postoperative follow-up Z09 V67.00 2. Ovarian cyst, left N83.202 620.2 3. Status post hysterectomy Z90.710 V88.01 4. Vaginal discharge N89.8 623.5 ANAEROBIC/AEROBIC CULTURE W GRAM STAIN ANAEROBIC/AEROBIC CULTURE W GRAM STAIN amoxicillin-clavulanate (AUGMENTIN) 875-125 mg tablet 5. Chronic blood loss anemia D50.0 280.0 6. Hot flashes due to surgical menopause E89.41 627.4 Again discussed with the patient nothing in the vagina including intercourse for 12 weeks from the surgery date. Stressed no intercourse until 12 weeks postop. May resume normal activity gradually and as tolerated. Reviewed postop instructions, including: no heavy lifting, no intercourse or anything in the vaginauntil 12 weeks after surgery, no submerging in water including bathtubs, hot tubs, swimming pools, lakes, or cisneros. Obtained culture of vaginal discharge. Ordered Augmentin BID X 10 days. Follow up in 2 weeks or sooner if symptoms increase. Continue to have annual pelvic exams with OBGYN or PCP. Continue follow up with PCP for routine health care. The patient verbalized understanding and agreed to plan of care. KERLINE Bonilla, 01/15/2025 3:59 PM documented in this encounter Plan of Treatment Upcoming Encounters Date Type Department Care Team (Late st Contact Info) Description 01/30/2025 11:30 AM CDT Office Visit [facility] [place] [address] [address] Janna Aguilar FNP [address] [place] [address] Pending Results Name Type Priority Associated Diagnoses Date /Time ANAEROBIC/AEROBIC CULTURE W GRAM STAIN Microbiology Routine Vaginal discharge 01/15/2025 3:38 PM CDT Scheduled Procedures Name Priority Associated Diagnoses Date/Ti me HYSTERECTOMY TOTAL LAPAROSCOPIC left ovarian cyst, fibroid uterus 12/09/2024 10:40 AM CDT HYSTERECTOMY TOTAL ROBOTIC XI left ovarian cyst, fibroid uterus 12/09/2024 10:40 AM CDT SALPINGO-OOPHORECTOMY LAPAROSCOPIC left ovarian cyst, fibroid uterus 12/09/2024 10:40 AM CDT documented as of this encounter Procedures Procedure Name Priority Date/Time Associated Diagnosis Comments ANAEROBIC/AEROBIC CULTURE W GRAM STAIN Routine 01/15/2025 3:38 PM CDT Vaginal discharge documented in this encounter Visit Diagnoses Diagnosis Postoperative follow-up- Primary Follow-up examination, following unspecified surgery Ovarian cyst, left Other and unspecified ovarian cyst Status post hysterectomy Acquired absence of both cervix and uterus Vaginal discharge Leukorrhea, not specified as infective Chronic blood loss anemia 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
[2025-01-18 18:22] VITALS: BP 106/71; PULSE 99; RESP 16; TEMP 37.3; BMI 25.8
--- OUTSIDE RECORDS SUMMARY | 2025-01-18 18:31 | XMS_ITS | Clinical Summary ---
Author Organization [facility] Cherelle zoë [place] Address [address] [facility] [place] [address] Care Team Providers Care Drafter Name Role Phone Unavailable Primary Care Provider Unavailabl e Allergies Active Allergy Reactions Criticality Noted Date Comments Iodinated Contrast Media Angioedema High 10/30/2024 Sneezing, pruritus, throat closed, dyspnea But has received with premedication with Benadryl and she was ok Medications ferrous sulfate 134 mg (27 mg iron) Tablet Take 134 mg by mouth. Active vitamin B complex Tablet Sustained Release Take 1 Tablet by mouth daily. Active ascorbic acid, vitamin C, (VITAMIN C) 100 mg Tablet Take 100 mg by mouth daily. Active polyethylene glycol 3350 (MIRALAX) 17 gram/dose Powder Take 1 Scoop (17 Grams) by mouth 1 time daily as needed for Constipation. 238 Gram 12/05/2024 4:21 PM CDT 5 Active acetaminophen (TYLENOL) 500 mg tablet Take 500 mg by mouth every 6 hours as needed. Active estradioL (ESTRACE) 0.5 mg tablet Take 1 Tablet (0.5 mg) by mouth daily. 90 Tablet 4 5 Active ondansetron (ZOFRAN ODT) 4 mg Tablet, Rapid Dissolve Take 1 Tablet (4 mg) by mouth every 8 hours as needed for Nausea/Emesis . Dissolve tablet on top of tongue, then swallow with saliva. 20 Tablet 5 Active amoxicillin-cla vulanate (AUGMENTIN) 875-125 mg tabletIndicatio ns:Vaginal discharge Take 1 Tablet by mouth every 12 hours for 10 days. 20 Tablet 5 01/26/20 25 Active nitrofurantoin (MACROBID) 100 mg capsule Take 1 Capsule (100 mg) by mouth 2 times daily for 7 days. 14 Capsule 07/0212/31/19 25 Discontinu ed(Other) Hospital, Clinic, or Other Facility Administered Medication Ordered Dose Route Frequency Start Date End Date Status ondansetron (ZOFRAN ODT) tablet 4 mgIndications:Naus ea 4 mg Oral ONE TIME ONLY 12/25/2024 12/30/2024 Discontinue d Active Problems Problem Noted Date Diagnosed Date Ovarian cyst, left 12/03/2024 Menorrhagia 12/03/2024 Chronic blood loss anemia 12/03/2024 Lower abdominal pain 12/03/2024 Encounters Date Type Department Care Team Description 01/15/2025 3:00 PM CDT Office Visit [facility] [address] [phone] Janna Aguilar FNP Postoperative follow-up (Primary Dx); Ovarian cyst, left; Status post hysterectomy; Vaginal discharge; Chronic blood loss anemia; Hot flashes due to surgical menopause 01/08/2025 External Device Data [facility] ABSTRACTION Provider, Abstract 01/08/2025 External Device Data [facility] ABSTRACTION Provider, Abstract 01/08/2025 External Device Data [facility] ABSTRACTION Provider, Abstract 01/08/2025 External Device Data [facility] ABSTRACTION Provider, Abstract 01/07/2025 External Device Data [facility] ABSTRACTION Provider, Abstract 12/30/2024 11:00 AM CDT Office Visit [facility] [address] [phone] Sonia Vital DO Screening mammogram, encounter for (Primary Dx) 12/30/2024 Telephone [facility] [place] [address] [place] [address] Non-Staff, Physician establish care 12/25/2024 12:00 PM CDT Office Visit [facility] [address] [phone] Sonia Vital DO Asymptomatic postsurgical menopause (Primary Dx); Screening mammogram, encounter for; Nausea; Chronic anemia; Dysuria 12/24/2024 External Device Data [facility] ABSTRACTION Provider, Abstract 12/11/2024 External Device Data [facility] ABSTRACTION Provider, Abstract 12/10/2024 External Device Data [facility] ABSTRACTION Provider, Abstract 12/06/2024 Orders Only [facility] [place] [id number] [facility] [address] [place] [phone] Shruthi Sam, BISMARK Postoperative nausea (Primary Dx) 12/05/2024 Travel 12/03/2024 6:24 PM CDT Anesthesia Event [facility] Operating Room [address] [place] [address] Christoph Ayala MD Casanova, Anthony, MD 12/03/2024 5:11 PM CDT - 12/03/2024 8:[address] [facility] Operating Room [facility] [place] [address] Sonia Vital DO HYSTERECTOMY TOTAL ROBOTIC XI 12/03/2024 1:31 AM CDT - 12/05/2024 4:35 PM CDT Hospital Encounter [facility] 5B Gynecology [address] [place] [address] Kathy Streeter MD Patel, Taksh, MD Raavi, Tapasya, MD Lower abdominal pain Discharge Disposition: Home or Self Care 12/02/2024 Chart Note [facility] [address] [place] [phone] Sonia Vital DO 11/26/2024 2:05 PM CDT Ancillary Procedure [facility] Services [address] [place] [phone] Nisa Burgess MD Pre-op testing 11/26/2024 1:16 PM CDT - 11/26/2024 11:59 PM CDT Hospital Encounter [facility] Pre Admission Testing [facility] [address] [facility] [address] [place] [phone] Nisa Burgess MD Discharge Disposition: Home or Self Care 11/14/2024 External Device Data ST[place] ABSTRACTION Provider, Abstract 11/13/2024 External Device Data [facility] ABSTRACTION Provider, Abstract 11/12/2024 External Device Data [facility] ABSTRACTION Provider, Abstract 11/06/2024 Results Follow-Up [facility] [address] [phone] Shruthi Sam NP CERV/VAG CYTO SCREEN PAP W/HPV 11/05/2024 External Device Data [facility] ABSTRACTION Provider, Abstract 11/05/2024 External Device Data [facility] ABSTRACTION Provider, Abstract 11/05/2024 External Device Data [facility] ABSTRACTION Provider, Abstract 11/01/2024 Prep for Surgery [facility] [address] [phone] Kary Gomez RN Pre-op testing (Primary Dx) 10/30/2024 11:00 AM CDT Office Visit [facility] [address] [phone] Nisa Burgess MD Screening for cervical cancer (Primary Dx); Screening mammogram, encounter for from Last 3 Months Family History Medical History Relation Name Comments Ovarian Cancer Mother Relation Name Status Comments Mother MOTHER HAD OVAR JOHN PRE CANCER, HAD FULL HYSTERECTOMY IN [facility] Social History Tobacco Use Types Packs/Day Years [...] on file Sexual Orientation Not on file Last Filed Vital Signs Vital Sign Reading Time Taken Comments Blood Pressure 108/68 01/15/2025 2:57 PM CDT Pulse 89 01/15/2025 2:57 PM CDT Temperature 36.9 C (98.4 F) 01/15/2025 2:57 PM CDT Respiratory Rate 18 12/05/2024 1:10 PM CDT Oxygen Saturation 98% 01/15/2025 2:57 PM CDT Inhaled Oxygen Concentration - - Weight 73.5 kg (162 lb) 01/15/2025 2:57 PM CDT Height 167.6 cm (5' 6 ) 01/15/2025 2:57 PM CDT Body Mass Index 26.15 01/15/2025 2:57 PM CDT Plan of Treatment Upcoming Encounters Date Type Department Care Team (Late st Contact Info) Description 01/30/2025 11:30 AM CDT Office Visit [facility] [place] [address] [phone] Janna Aguilar FNP [address] [place] [address] Scheduled Procedures Name Priority Associated Diagnoses Date/Ti me HYSTERECTOMY TOTAL LAPAROSCOPIC left ovarian cyst, fibroid uterus 12/09/2024 10:40 AM CDT HYSTERECTOMY TOTAL ROBOTIC XI left ovarian cyst, fibroid uterus 12/09/2024 10:40 AM CDT SALPINGO-OOPHORECTOMY LAPAROSCOPIC left ovarian cyst, fibroid uterus 12/09/2024 10:40 AM CDT Health Maintenance Due Date Last Done Comments Pre-Diabetes and Diabetes Screening 1984 HPV VACCINES (1 - 3-dose series) 01/02/1999 DTAP/TDAP/TD VACCINES (1 - Tdap) 01/02/2003 HEPATITIS B VACCINES (1 of 3 - 19+ 3-dose series) 12/24 BREAST CANCER SCREENING 2024 INFLUENZA VACCINE (#1) 2025 PAP SMEAR 10/31/2027 10/30/2024 CERVICAL CANCER SCREENING 10/30/2029 HPV/Cotest (21-29) 10/30/2029 10/30/2024 HPV/Cotest (30-65) 10/30/2029 10/30/2024 Procedures Procedure Name Priority Date/Time Associated Diagnosis Comments ANAEROBIC/AEROBIC CULTURE W GRAM STAIN Routine 01/15/2025 3:38 PM CDT Vaginal discharge URINALYSIS W/REFLEX MICROSCOPIC Routine 12/25/2024 1:26 PM CDT Dysuria IRON, TIBC, AND PERCENT SATURATION Routine 12/25/2024 1:25 PM CDT Chronic anemia CBC WITH DIFFERENTIAL Routine 12/25/2024 1:25 PM CDT Chronic anemia TELEMETRY REPORT 12/06/2024 2:16 AM CDT DIFFERENTIAL, MANUAL Routine 12/05/2024 5:24 AM CDT BASIC METABOLIC PANEL Routine 12/05/2024 5:24 AM CDT CBC WITH DIFFERENTIAL Routine 12/05/2024 5:24 AM CDT DIFFERENTIAL, MANUAL Stat 12/04/2024 9:04 AM CDT COMPREHENSIVE METABOLIC PANEL Stat 12/04/2024 9:04 AM CDT CBC WITH DIFFERENTIAL Stat 12/04/2024 9:04 AM CDT POC GLUCOSE Routine 12/04/2024 7:31 AM CDT POC GLUCOSE Routine 12/03/2024 11:14 PM CDT PATHOLOGY Pathology 12/03/2024 8:17 PM CDT CYTOLOGY, NON GYNE Pathology 12/03/2024 8: 12 PM CDT TRANSFUSE PACKED RED BLOOD CELLS Routine 12/03/2024 7:44 PM CDT TRANSFUSE PACKED RED BLOOD CELLS Routine 12/03/2024 6:46 PM CDT PREPARE RED BLOOD CELLS Routine 12/04/19 6:14 PM CDT PREPARE RED BLOOD CELLS Routine 12/04/19 6:14 PM CDT PREPARE RED BLOOD CELLS Routine 12/04/19 6:14 PM CDT PREPARE RED BLOOD CELLS Routine 12/04/19 6:14 PM CDT PERITONEAL BIOPSY ROBOTIC XI 12/03/2024 5:11 PM CDT W[place] UNLISTED LAPAROSCOPY PX ABD PERTONEUM & OMENTUM 12/03/2024 5:11 PM CDT CYSTOURETHROSCOPY 12/03/2024 5:1 1 PM CDT EXAMINATION UNDER ANESTHESIA 12/03/2024 5:11 PM CDT HYSTERECTOMY TOTAL ROBOTIC XI 12/03/2024 5:11 PM CDT HEMOGLOBIN AND HEMATOCRIT Stat 2024 3:30 PM CDT EKG 12-LEAD Routine 12/03/2024 2:19 PM CDT TYPE AND SCREEN Routine 12/03/2024 10:09 AM CDT IRON, TIBC, AND PERCENT SATURATION Routine 12/03/2024 10:09 AM CDT DIFFERENTIAL, MANUAL Routine 12/03/2024 10:09 AM CDT BASIC METABOLIC PANEL Routine 12/03/2024 10:09 AM CDT CBC WITH DIFFERENTIAL Routine 12/03/2024 10:09 AM CDT HCG QUANTITATIVE, BLOOD Routine 12/04/19 10:09 AM CDT HCG QUALITATIVE, URINE Routine 4:52 AM CDT XR CHEST PA AND LATERAL 2 VW Routine 11/26/2024 2:08 PM CDT Pre-op testing HCG QUALITATIVE, URINE Stat 1:56 PM CDT Pre-op testing VERIFICATION BLOOD GROUP Stat 025 1:47 PM CDT TYPE AND SCREEN Stat 11/26/2024 1:31 PM CDT Pre-op testing DIFFERENTIAL, MANUAL Stat 11/26/2024 1:31 PM CDT Pre-op testing COMPREHENSIVE METABOLIC PANEL Stat 11/26/2024 1:31 PM CDT Pre-op testing CBC WITH DIFFERENTIAL Stat 11/26/2024 1:31 PM CDT Pre-op testing HCG QUALITATIVE, SERUM Routine 1:31 PM CDT Pre-op testing EKG 12-LEAD Routine 11/26/2024 1:29 PM CDT CERV/VAG CYTO SCREEN PAP W/HPV Routine 10/30/2024 12:43 PM CDT Screening for cervical cancer from Last 3 Months Results * URINALYSIS WITH REFLEX MICROSCOPIC (12/25/2024 1:26 PM CDT) COLOR UA YELLOW YELLOW [facility] CLARITY UA CLEAR CLEAR [facility] SPECIFIC GRAVITY UA 1.012 1.001 - 1.035 [facility] PH UA 6.0 5.0 - 8.0 [facility] GLUCOSE UA NEGATIVE NEGATIVE [facility] BILIRUBIN UA NEGATIVE NEGATIVE [facility] KETONES UA NEGATIVE NEGATIVE [facility] BLOOD UA NEGATIVE NEGATIVE [facility] PROTEIN UA NEGATIVE NEGATIVE [facility] NITRITE UA NEGATIVE NEGATIVE [facility] LEUKOCYTE ESTERASE UA NEGATIVE NEGATIVE [facility] Comment: FASTING:NO FASTING: NO Test Performed at: [email or web address] [address] [place] [address] Terry Choudhary Urine URINE SPECIMEN OBTAINED BY CLEAN CATCH PROCEDURE / Unknown 12/25/2024 1:26 PM CDT 12/25/2024 1:26 PM CDT us Sonia Vital DO URINE ORDERABLES Final Resul t [facility] [phone] [email or web address] [address] [place] [address] * IRON, TIBC, AND PERCENT SATURATION (12/25/2024 1:25 PM CDT) Only the most recent of2 resultswithin the time period is included. Pathologist [facility] IRON 61 40 - 190 mcg/dL [facility] TIBC 350 250 - 450 mcg/dL (calc) [facility] IRON % SATURATION 17 16 - 45 % (calc) [facility] Comment: Test Performed at: [facility] [address] [place] [address] Emilia Comer MD Blood 12/25/2024 1:25 PM CDT 12/25/2024 1:26 PM CDT us Sonia Vital DO CHEMISTRY ORDERABLES Final R esult [facility] [email or web address] [address] * (ABNORMAL) CBC WITH DIFFERENTIAL (12/25/2024 1:25 PM CDT) Only the most recent of5 resultswithin the time period is included. [facility] WBC 7.9 3.8 - 10.8 Thousand/u L [facility] RBC 5.56(H) 3.80 - 5.10 Million/uL [facility] HEMOGLOBIN 12.7 11.7 - 15.5 g/dL [facility] HEMATOCRIT 43.1 35.0 - 45.0 % [facility] MCV 77.5(L) 80.0 - 100.0 fL [facility] MCH 22.8(L) 27.0 - 33.0 pg [facility] MCHC 29.5(L) 32.0 - 36.0 g/dL [facility] Comment: For adults, a slight decrease in the calculated MCHC value (in the range of 30 to 32 g/dL) is most likely not clinically significant; however, it should be interpreted with caution in correlation with other red cell parameters and the patient's clinical condition. RDW 26.3(H) 11.0 - 15.0 % [facility] PLATELETS 308 140 - 400 Thousand/u L [facility] MPV 7.5 - 12.5 fL [facility] Comment: Due to platelet or RBC variability in size or shape the result cannot be reported accurately. NEUTROPHIL ABSOLUTE 5,119 1,500 - 7,800 cells/uL [facility] LYMPHOCYTE ABSOLUTE 1,928 850 - 3,900 cells/uL [facility] MONOCYTE ABSOLUTE 474 200 - 950 cells/uL [facility] EOSINOPHIL ABSOLUTE 332 15 - 500 cells/uL [facility] BASOPHILS ABSOLUTE 47 0 - 200 cells/uL [facility] NEUTROPHIL 64.8 % [facility] LYMPHOCYTES 24.4 % [facility] MONOCYTE 6.0 % [facility] EOSINOPHILS 4.2 % [facility] BASOPHILS 0.6 % [facility] COMMENT HEMATOLOGY [facility] Comment: Anisocytosis 3 + Microcytosis 1 + Hypochromasia 1 + Dimorphic RBC population is present Slide review performed at: [email or web address] [address] [place] [address] General Farm Manager: Hardeep Nice [id number] FASTING:NO FASTING: NO Test Performed at: [email or web address] [address] [place] [address] Terry Choudhary Blood 12/25/2024 1:25 PM CDT 12/25/2024 1:26 PM CDT us Sonia Vital DO HEMATOLOGY ORDERABLES Final Result [facility] [phone] [facility] [address] [place] [address] * TELEMETRY REPORT (12/06/2024 2:16 AM CDT) us Provider Scanning ECG ORDERABLES Final Result * MANUAL DIFFERENTIAL (12/05/2024 5:24 AM CDT) Only the most recent of4 resultswithin the time period is included. Pathologist [facility] PLATELET EST. Adequate 12/05/2024 6:30 AM CDT [facility] ANISOCYTOSIS 2+ /hpf 12/05/2024 6:30 AM CDT [facility] POIKILOCYTES 2+ /hpf 12/05/2024 6:30 AM CDT [facility] MICROCYTES 2+ /hpf 12/05/2024 6:30 AM CDT [facility] POLYCHROMASIA 1+ /hpf 12/05/2024 6:30 AM CDT [facility] HYPOCHROMIA 2+ /hpf 12/05/2024 6:30 AM CDT [facility] OVALOCYTES 1+ /hpf 12/05/2024 6:30 AM CDT [facility] Blood Venipuncture / Unknown 12/05/2024 5:24 AM CDT 12/05/2024 5:56 AM CDT Sonia Vital DO HEMATOLOGY ORDERABLES COM Fi nal Result [facility] CLIA # [id number] [address] [place] [address] [place] [address] * (ABNORMAL) BASIC METABOLIC PANEL (12/05/2024 5:24 AM CDT) Only the most recent of2 resultswithin the time period is included. SODIUM 142 136 - 145 mmol/L 12/05/2024 6:30 AM CDT [facility] POTASSIUM 3.7 3.5 - 5.1 mmol/L 12/05/2024 6:30 AM T [facility] CHLORIDE 109(H) 98 - 107 mmol/L 12/05/2024 6:30 AM [facility] CO2 22 22 - 29 mmol/L 12/05/2024 6:30 AM T [facility] CALCIUM 8.4(L) 8.6 - 10.0 mg/dL 12/05/2024 6:30 AM [facility] BUN 3(L) 6 - 20 mg/dL 12/05/2024 6:30 AM [facility] CREATININE 0.59 0.51 - 0.95 mg/dL 12/05/2024 6:30 AM [facility] GLUCOSE 81 74 - 99 mg/dL 12/05/2024 6:30 AM [facility] GFR >60 >=60 mL/min/1.7 3 sq meter 12/05/2024 6:30 AM [facility] Comment:eGFR calculated with 2020 CKD-EPI equation. Vegetarian diet, extremely high or low muscle mass, and may affect results. Cystatin C with Glomerular Filtration Rate is a suitable alternative for these patients. ANION GAP 11 9 - 20 mmol/L 12/05/2024 6:30 AM [facility] Blood Venipuncture / Unknown 12/05/2024 5:24 AM CDT 12/05/2024 5:56 AM CDT us Sonia Vital DO CHEMISTRY ORDERABLES Final R esult [facility] CLIA # [id number] [address] [place] [id number] * (ABNORMAL) COMPREHENSIVE METABOLIC PANEL (12/04/2024 9:04 AM CDT) Only the most recent of2 resultswithin the time period is included. SODIUM 138 136 - 145 mmol/L 12/04/2024 10:02 AM [facility] POTASSIUM 3.9 3.5 - 5.1 mmol/L 12/04/2024 10:02 AM [facility] CHLORIDE 106 98 - 107 mmol/L 12/04/2024 10:02 AM [facility] CO2 18(L) 22 - 29 mmol/L 12/04/2024 10:02 AM [facility] CALCIUM 8.3(L) 8.6 - 10.0 mg/dL 12/04/2024 10:02 AM [facility] BUN 6 6 - 20 mg/dL 12/04/2024 10:02 AM [facility] CREATININE 0.51 0.51 - 0.95 mg/dL 12/04/2024 10:02 AM [facility] GLUCOSE 99 74 - 99 mg/dL 12/04/2024 10:02 AM [facility] TOTAL PROTEIN 6.8 6.4 - 8.3 g/dL 12/04/2024 10:02 AM [facility] ALBUMIN 3.8 3.5 - 5.2 g/dL 12/04/2024 10:02 AM [facility] BILIRUBIN TOTAL 0.5 0.0 - 1.0 mg/dL 12/04/2024 10:02 AM [facility] ALKALINE PHOSPHATASE 49 35 - 104 U/L 12/04/2024 10:02 AM [facility] AST 22 10 - 35 U/L 12/04/2024 10:02 AM [facility] ALT 11 <=35 U/L 12/04/2024 10:02 AM [facility] GFR >60 >=60 mL/min/1.7 3 sq meter 12/04/2024 10:02 AM [facility] Comment:eGFR calculated with 2020 CKD-EPI equation. Vegetarian diet, extremely high or low muscle mass, and may affect results. Cystatin C with Glomerular Filtration Rate is a suitable alternative for these patients. ANION GAP 14 9 - 20 mmol/L 12/04/2024 10:02 AM CDT [facility] Blood Venipuncture / Unknown 12/04/2024 9:04 AM CDT 12/04/2024 9:26 AM CDT Alok Rivers MD CHEMISTRY ORDERABLES Final Resu lt Performing Organization Address [facility] de Phone Number [facility] [id number] [address] [address] [place] [address] * (ABNORMAL) POC GLUCOSE (12/04/2024 7:31 AM CDT) Only the most recent of2 resultswithin the time period is included. GLUCOSE POC 104(H) 74 - 99 mg/dL 12/04/2024 7:31 AM CDT [facility] SPECIMEN SOURCE, GLUCOSE POC Capillary 12/04/2024 7:31 AM CDT [facility] Blood, whole 12/04/2024 7:31 AM CDT 12/04/2024 7:56 AM CDT Alok Rivers MD POINT OF CARE TESTING Final Res ult Performing Organization Address [facility] de Phone Number [facility] [id number] [address] [address] * PATHOLOGY (12/03/2024 8:17 PM CDT) CASE REPORT Surgical Pathology Report Case: [id number] Authorizing Provider: Sonia Vital DO Collected: 12/03/2024 08:17 PM Ordering Location: [facility] Received: 12/04/2024 08:42 AM Operating Room Pathologist: Casey Vo MD Specimens: A) - Ovary, left & Fallopian tube, left B) - Ovary, left, cyst fluid C) - Uterus, Cervix, Fallopian tube, right D) - Peritoneum, bladder E) - Peritoneum, right pelvic F) - Peritoneum, left pelvic G) - Peritoneum, posterior cul-de-sac H) - Peritoneum, right gutter I) - Peritoneum, left gutter J) - Peritoneum, right diaphragm K) - Peritoneum, left diaphragm L) - Omentum 10:05 AM T [facility] [employer] [facility] FINAL DIAGNOSIS A. Ovary and fallopian tube, left, salpingo-oophorectomy - serous cystadenofibroma of the left ovary, 10 cm in greatest dimension - no malignancy or diagnostic borderline features identified on resected specimen - benign serous adenofibroma (0.8 cm) at left tubal fimbria. / B. Ovarian cyst fluid, left, cell block - no malignant cells identified - histiocytes and bland epithelial cells. / C. Uterus and right fallopian tube, hysterectomy with right salpingectomy - serosal adhesions with focal endosalpingiosis - proliferative endometrium - focal adenomyosis - benign dilated right fallopian tube. / D. Peritoneum, urinary bladder - no tumor identified. / E. Peritoneum, right pelvic - no tumor identified. / F. Peritoneum, left pelvic - endosalpingosis. / G. Peritoneum, posterior cul-de-sac - endosalpingiosis. / H. Peritoneum, right gutter - endosalpingiosis. / I. Peritoneum, left gutter - no tumor identified. / J. Peritoneum, right diaphragm - no tumor identified. / K. Peritoneum, left diaphragm - no tumor identified. / L. Omentum, excision - no tumor identified. REV:JULIÁN(A,F,G,H) Casey Vo MD [id number] 10:05 AM T [facility] [employer] [facility] at 1005 CDT GROSS DESCRIPTION A. Received fresh labeled [place] -left ovary and fallopian tube is a 59 g, 10.0 x 8.5 x 4.5 cm intact cystic ovary with an attached 4.3 cm in length by 0.5 cm in diameter fimbriated fallopian tube. The ovary is weighed after opening and draining of cyst contents. The ovarian capsule is remarkable for a 2.0 x 2.0 cm capsular papillary nodule. The remaining capsule is smooth, translucent and intact. The capsule is inked blue and opening reveals a multiloculated cyst filled with serosanguineous fluid. The cyst lining contains scattered areas of papillary nodules ranging from 1.9-2.8 cm in greatest dimension that is comprising less than 10% of the cyst lining. There is a 5.5 cm in greatest dimension area of cyst lining that is thickened and edematous with apparent corpus luteal follicles. The remaining cyst lining is smooth and trabeculated with no normal ovarian parenchyma identified. The fimbriated end of the fallopian tube appears mildly edematous with a focal 0.8 x 0.5 x 0.4 cm flaherty-white firm nodule. The fallopian tube is sectioned to reveal a pale-flaherty cut surface with a pinpoint lumen. International [employer]ant sections are submitted for frozen section consultation. [employer] sections are submitted as follows: A1-frozen section remnant, capsular nodule A2-frozen section remnant, additional papillary excrescences A3-transverse sections of the fimbriated end of the fallopian tube with entire nodule Y4-qjepe-htcozrd of body of fallopian tube G1-R0-rbfpuzhds of capsular nodule A8-A9-cyst lining papillary excrescences Z40-E14-jrqptalmh cyst lining R26-cubnoo cyst Frozen section diagnosis (Dr. Benjamin): Serous cystadenofibroma with focal borderline features and surface involvement. No carcinoma or invasion identified. B. (C) Ovary, left cyst fluid - 40 ml cloudy yellow fluid received in formalin. Processed for cell block only B1. Jessica Goodwin (part B) C. Received in a container of formalin labeled [place]ok[place] -uterus, cervix, right fallopian tube is a previously bivalved uterus with cervix measuring 11.8 x 8.5 x 5.1 cm and weighing (without bilateral adnexa) 194 g. Attached to the uterus is a portion of right fallopian tube with no fimbriated end (6.8 x 2.3 cm). The serosal surface of the uterus contains mild adhesions on the anterior surface but is otherwise flaherty-pink, smooth and glistening. The ectocervical mucosa is flaherty-pink, smooth and glistening with no discrete lesions identified. The endocervical canal measures 3.1 x 2.8 cm and the endometrial cavity measures 5.8 x 4.3 cm. The endomyometrium is serially sectioned to reveal a thickened endometrial lining, up to 1.0 cm and an average myometrial thickness of 1.0 cm. There are scattered areas of endometrial glands pushing up on the underlying myometrium. The right fallopian tube is markedly dilated and sectioned to reveal a dilated cut surface filled with clear serous fluid. International Accountant sections are submitted as follows: C1-serosa with adhesions and peritoneal reflections C2-anterior cervix C3-posterior cervix C4-anterior endomyometrium, full-thickness cross-section C5-posterior endomyometrium C6-dilated right fallopian tube D. Received in a container of formalin labeled [place] -bladder peritoneum is a 0.3 x 0.2 x 0.2 cm fragment of pale-flaherty soft tissue. The specimen is submitted entirely in D1. E. Received in a container of formalin labeled [place] -right pelvic peritoneum is a 0.5 x 0.5 x 0.2 cm fragment of yellow-flaherty adipose tissue. The specimen is bisected and submitted entirely in E1. F. Received in a container of formalin labeled [place] -left pelvic peritoneum is a 0.8 x 0.6 x 0.2 cm fragment of pale-flaherty peritoneal tissue. The specimen is trisected and submitted entirely in F1. G. Received in a container of formalin labeled [place] -posterior cul-de-sac is a 0.5 x 0.3 x 0.1 cm fragment of pale-flaherty peritoneal tissue. The specimen is bisected and submitted entirely in G1. H. Received in a container of formalin labeled [place] -right gutter peritoneum is a 0.7 x 0.6 x 0.2 cm fragment of pale-flaherty peritoneal tissue. The specimen is trisected and submitted entirely in H1. I. Received in a container of formalin labeled [place] -left gutter peritoneum is a 1.1 x 0.5 x 0.3 cm fragment of yellow-flaherty adipose tissue. The specimen is trisected and submitted entirely in I1. J. Received in a container of formalin labeled [place] -right diaphragm peritoneum is a 0.5 x 0.3 x 0.1 cm fragment of pale-flaherty peritoneal tissue. The specimen is bisected and submitted entirely in J1. K. Received in a container of formalin labeled [place] -left diaphragm peritoneum is a 0.5 x 0.2 x 0.1 cm fragment of pale-flaherty peritoneal tissue. The specimen is bisected and submitted entirely in K1. L. Received in a container of formalin labeled [place] -omentum is a 41.5 x 17.4 x 2.0 cm omentum resection. Sectioning reveals a diffusely yellow-flaherty, fatty, homogenous cut surface with no discrete nodules or abnormalities identified. International Accountant sections are submitted in L1-L3. Alla Benoit Renata (part A; C-L) 10:05 AM CDT [facility] OPERATIVE PROCEDURE 1: HYSTERECTOMY TOTAL ROBOTIC XI 2: EXAMINATION UNDER ANESTHESIA 3: CYSTOURETHROSCOPY 4: OMENTECTOMY ROBOTIC XI 5: PERITONEAL BIOPSY ROBOTIC XI 5 10:05 AM CDT [facility] CLINICAL INFORMATION None 10:05 AM CDT [facility] COMMENT The [employer] voice-activated dictation system may have been used in the creation of this report. Inherent to this system is the possibility of errors in syntax, grammar, punctuation, or other areas that could impact interpretation. If there are interpretive questions about the report, please contact the performing pathologist. Unless gross only is specified in the diagnosis, the microscopic examination substantiates the above cited diagnosis. The performance characteristics of all immunohistochemical stains cited in this report (if any) were determined by the [facility] of [facility] in compliance with CLIA'88 regulations. Some of these tests rely on the use of analyte specific reagents and are subject to specific labeling requirements by the FDA. All controls show appropriate reactivity. This testing was developed by the [facility]. It has not been cleared or approved by the FDA. The FDA has determined that such clearance or approval is not necessary. 10:05 AM CDT [facility] Tissue (Ovary, left & Fallopian tube, left) Collection / Unknown 12/03/2024 8:17 PM CDT 12/04/2024 8:42 AM CDT Comment:OR 10 Tissue specimen (specimen) Collection / Unknown 12/03/2024 9:15 PM CDT 12/04/2024 8:50 AM CDT Tissue specimen (specimen) (Uterus, Cervix, Fallopian tube, right) 12/03/2024 9:18 PM CDT 12/04/2024 8:52 AM CDT Tissue specimen (specimen) ENTIRE SEROUS MEMBRANE OF PERITONEUM / Unknown 12/03/2024 10:10 PM CDT 12/04/2024 8:53 AM CDT Tissue specimen (specimen) ENTIRE SEROUS MEMBRANE OF PERITONEUM / Unknown 12/03/2024 10:11 PM CDT 12/04/2024 8:54 AM CDT Tissue specimen (specimen) ENTIRE SEROUS MEMBRANE OF PERITONEUM / Unknown 12/03/2024 10:12 PM CDT 12/04/2024 8:54 AM CDT Tissue specimen (specimen) ENTIRE SEROUS MEMBRANE OF PERITONEUM / Unknown 12/03/2024 10:13 PM CDT 12/04/2024 8:55 AM CDT Tissue specimen (specimen) ENTIRE SEROUS MEMBRANE OF PERITONEUM / Unknown 12/03/2024 10:14 PM CDT 12/04/2024 8:55 AM CDT Tissue specimen (specimen) ENTIRE SEROUS MEMBRANE OF PERITONEUM / Unknown 12/03/2024 10:15 PM CDT 12/04/2024 8:56 AM CDT Tissue specimen (specimen) ENTIRE SEROUS MEMBRANE OF PERITONEUM / Unknown 12/03/2024 10:16 PM CDT 12/04/2024 8:56 AM CDT Tissue specimen (specimen) ENTIRE SEROUS MEMBRANE OF PERITONEUM / Unknown 12/03/2024 10:17 PM CDT 12/04/2024 8:57 AM CDT Tissue specimen (specimen) (Omentum) 12/03/2024 10:20 PM CDT 12/04/2024 8:57 AM CDT us Sonia Vital DO PATHOLOGY/CYTOLOGY ORDERABLE S Final Result [facility] LABORATORY SERVICES [facility] # [id number] [address] [place] [id number] * CYTOLOGY, NON GYNE (12/03/2024 8:12 PM CDT) CASE REPORT Medical Cytology Report Case: [id number] Authorizing Provider: Sonia Vital DO Collected: 12/03/2024 08:12 PM Ordering Location: [facility] Received: 12/04/2024 06:15 AM Operating Room Pathologist: Casey Vo MD Specimen: Pelvis, washings 5 10:05 AM CDT [facility] FINAL DIAGNOSIS A. Pelvic washings, ThinPrep cytology with cell block - no malignant cells identified. Casey Vo MD [id number] 5 10:05 AM CDT [facility] at 1005 CDT GROSS DESCRIPTION A. Pelvic washings - 35 ml cloudy yellow fluid processed for ThinPrep and cell block A2 5 10:05 AM CDT [facility] OPERATIVE PROCEDURE 1: HYSTERECTOMY TOTAL ROBOTIC XI 2: EXAMINATION UNDER ANESTHESIA 3: CYSTOURETHROSCOPY 4: OMENTECTOMY ROBOTIC XI 5: PERITONEAL BIOPSY ROBOTIC XI 5 10:05 AM CDT [facility] CLINICAL INFORMATION None 10:05 AM T [facility] COMMENT The [employer] voice-activated dictation system may have been used in the creation of this report. Inherent to this system is the possibility of errors in syntax, grammar, punctuation, or other areas that could impact interpretation. If there are interpretive questions about the report, please contact the performing pathologist. Unless gross only is specified in the diagnosis, the microscopic examination substantiates the above cited diagnosis. The performance characteristics of all immunohistochemical stains cited in this report (if any) were determined by the [facility] in compliance with CLIA'88 regulations. Some of these tests rely on the use of analyte specific reagents and are subject to specific labeling requirements by the FDA. All controls show appropriate reactivity. This testing was developed by the [facility]. It has not been cleared or approved by the FDA. The FDA has determined that such clearance or approval is not necessary. 5 10:05 AM CDT [facility] Washings ENTIRE PELVIS / Unknown Collection / Unknown 12/03/2024 8:12 PM CDT 12/04/2024 6:15 AM CDT Comment:SENT FRESH TO LAB. us Sonia Vital DO PATHOLOGY/CYTOLOGY ORDERABLE S Final Result Performing Organization Address [facility]/ZIP Co de Phone Number [facility] CLIA # [id number] [address] [address] * TRANSFUSE RED BLOOD CELLS (12/03/2024 7:44 PM CDT) Only the most recent of2 resultswithin the time period is included. Christoph Ayala MD BLOOD TRANSFUSION ORDERABLES Fin al Result * PREPARE RED BLOOD CELLS (12/03/2024 6:14 PM CDT) Only the most recent of4 resultswithin the time period is included. [facility] COMPONENT TYPE [id number] [facility] [place] COMPONENT IDENTIFICATION [id number] [facility] [place] UNIT ABO O [facility] [place] UNIT RH POS [facility] [place] CROSSMATCH Compatible [facility] [place] COMPONENT STATUS Returned [facility] [place] COMPONENT EXPIRATION DATE/TIME [id number] [facility] [place] COMPONENT CODING SYSTEM 5100 [facility] [place] VOLUME, BLOOD PRODUCT 350 [facility] [place] 12/03/2024 6:14 PM CDT Claude Vital MD LAB TRANSFUSION ORDERABLE S Edited Result - Final [facility] [employer] [facility] CLIA#[id number] [address] [place] [address], * (ABNORMAL) HEMOGLOBIN AND HEMATOCRIT (12/03/2024 3:30 PM CDT) [facility] HEMOGLOBIN 7.4(L) 12.0 - 16.0 g/dL 12/03/2024 4:08 PM CDT [facility] [employer] [facility] HEMATOCRIT 26.5(L) 36.0 - 46.0 % 12/03/2024 4:08 PM CDT [facility] Blood Venipuncture / Unknown 12/03/2024 3:30 PM CDT 12/03/2024 3:57 PM CDT us Sonia Vital DO HEMATOLOGY ORDERABLES Final Result [facility] CLIA # [id number] [address] [place] [address] * EKG 12-LEAD (12/03/2024 2:19 PM CDT) Only the most recent of2 resultswithin the time period is included. 12/03/2024 2:19 PM CDT Narrative INTERFACE SYSTEM - 12/04/2024 6:36 AM CDT [address] [address] Test Date: 2024-12-03 Pat Name: GERALDO BATES Department: 12 Room: [address] [place] [address] Gender: Female [employer] Supervisor: [id number] : 1985 Requested By: Order Number: [id number] Reading : Charlie Srinivasan Measurements Intervals [place] Rate: 68 P: 59 WV: 150 QRS: 13 QRSD: 88 T: 22 QT: 420 QTc: 446 Interpretive Statements Normal sinus rhythm Normal ECG Electronically Signed On 12-04-2024 6:36:57 CDT by Charlie Srinivasan Procedure Note Charlie Srinivasan MD - 12/04/[address] [address] Test Date: 2024-12-03 Pat Name: GERALDO BATES Department: 12 Room: [address] [place] [address] Gender: Female [employer] Supervisor: [id number] : 1985 Requested By: Order Number: [id number] Kael MALHOTRA: Charlie Srinivasan Measurements Intervals [place] Rate: 68 P: 59 WV: 150 QRS: 13 QRSD: 88 T: 22 QT: 420 QTc: 446 Interpretive Statements Normal sinus rhythm Normal ECG Electronically Signed On 12-04-2024 6:36:57 CDT by Charlie Srinivasan Alok Rivers MD ECG ORDERABLES Final Result INTERFACE SYSTEM Refer to clinic/hospital department * TYPE AND SCREEN (12/03/2024 10:09 AM CDT) Only the most recent of2 resultswithin the time period is included. Pathologist [facility] ABO GROUP O 12/03/2024 12:13 PM CDT [facility] [place] RH (D) TYPE Positive 12/03/2024 12:13 PM CDT [facility] [place] ANTIBODY SCREEN Negative 12/03/2024 12:13 PM CDT [facility] [place] Blood Venipuncture / Unknown 12/03/2024 10:09 AM CDT 12/03/2024 10:16 AM CDT Sandeep Bryant MD BLOOD BANK ORDERABLES Edited Res ult - Final [facility] [employer] [facility] CLIA#[id number] [address] [place] [address], * HCG QUANTITATIVE, BLOOD (12/03/2024 10:09 AM CDT) HCG QUANT, BLOOD <0.1 0.0 - 1.0 mIU/mL 12/03/2024 10:59 AM CDT [facility] Comment: HCG Quantitative Reference Range Male <= 2 mIU/mL Female Non premenopausal <= 1 mIU/mL Non postmenopausal <= 7 mIU/mL Gestational Age HCG Concentration 3 Weeks 5.8 - 71.2 mIU/mL 4 Weeks 9.5 - 750 mIU/mL 5 Weeks 217 - 7138 mIU/mL 6 Weeks 158 - 31,795 mIU/mL 7 Weeks 3697 - 163,563 mIU/mL 8 Weeks 32,065 - 149,571 mIU/mL 9 Weeks 63,803 - 151,410 mIU/mL 10 Weeks 46,509 - 186,977 mIU/mL 12 Weeks 27,832 - 210,612 mIU/mL 14 Weeks 13,950 - 62,530 mIU/mL 15 Weeks 12,039 - 70,971 mIU/mL 16 Weeks 9040 - 56,451 mIU/mL 17 Weeks 8175 - 55,868 mIU/mL 18 Weeks 8099 - 58,176 mIU/mL Blood Venipuncture / Unknown 12/03/2024 10:09 AM CDT 12/03/2024 10:18 AM CDT us Nisa Burgess MD CHEMISTRY ORDERABLES Final Resu lt Performing Organization Address [facility] Co de Phone Number [facility] CLIA # [id number] [facility] [id number] * HCG QUALITATIVE, URINE (12/03/2024 4:52 AM CDT) Only the most recent of2 resultswithin the time period is included. HCG QUAL URINE Negative Negative 12/03/2024 5:07 AM CDT [facility] COLOR UA Yellow Pale to Dark Yellow 12/03/2024 5:07 AM CDT [facility] CLARITY UA Clear Clear 12/03/2024 5:07 AM CDT [facility] Urine URINE SPECIMEN OBTAINED BY CLEAN CATCH PROCEDURE / Unknown Collection / Unknown 12/03/2024 4:52 AM CDT 12/03/2024 5:01 AM CDT us Nisa Burgess MD URINE ORDERABLES Final Result Performing Organization Address [facility] Co de Phone Number [facility] CLIA # [id number] [address] [id number] * XR CHEST PA AND LATERAL 2 VW (11/26/2024 2:08 PM CDT) Anatomical Region Laterality Modality Chest Computed Radiogr aphy 11/26/2024 2:08 PM CDT Impressions 11/27/2024 8:39 AM CDT IMPRESSION: Normal chest. Narrative 11/27/2024 8:39 AM CDT Exam: XR CHEST PA AND LATERAL 2 VW Date/Time of Exam: 11/26/2024 2:08 PM Reason For Exam: See Diagnosis Diagnosis: Pre-op testing Findings: The heart size is normal. The lungs are clear. The costophrenic angles are sharp. No pneumothorax is seen. Procedure Note Juan Jose Tamayo MD - 11/27/2024 Exam: XR CHEST PA AND LATERAL 2 VW Date/Time of Exam: 11/26/2024 2:08 PM Reason For Exam: See Diagnosis Diagnosis: Pre-op testing Findings: The heart size is normal. The lungs are clear. The costophrenic angles are sharp. No pneumothorax is seen. IMPRESSION: Normal chest. Nisa Burgess MD DIAGNOSTIC IMAGING ORDERABLES F inal Result * VERIFICATION BLOOD GROUP (11/26/2024 1:47 PM CDT) Pathologist [facility] ABO GROUP O 11/26/2024 3:01 PM CDT [facility] [place] RH (D) TYPE Positive 11/26/2024 3:01 PM CDT [facility] [place] Blood BLOOD SPECIMEN / Unknown Venipuncture / Unknown 11/26/2024 1:47 PM CDT 11/26/2024 2:14 PM CDT Nisa Burgess MD BLOOD BANK ORDERABLES Final Res ult [facility] [place] CLIA#[id number] [address] [place] [address], [place] [phone] * HCG QUALITATIVE, BLOOD (11/26/2024 1:31 PM CDT) Pathologist [facility] HCG QUAL, BLOOD Negative Negative 11/26/2024 6:10 PM CDT [facility] Blood Venipuncture / Unknown 11/26/2024 1:31 PM CDT 11/26/2024 5:25 PM CDT us Nisa Burgess MD CHEMISTRY ORDERABLES Final Resu lt [facility] CLIA # [id number] [address] [address] [place] [address] * CERV/VAG CYTO SCREEN PAP W/HPV (10/30/2024 12:43 PM CDT) Pathologist [facility] CLINICAL INFORMATION [email or web address] Comment:RELEASE TO PATIENT : IMMEDIATE LAST MENSTRUAL PERIOD [email or web address] Comment:NONE GIVEN PREV PAP: [email or web address] Comment:NONE GIVEN PREV BX: [employer] [place] Comment:NONE GIVEN SOURCE [facility] Comment:ENDOCERVIX ADEQUACY: [email or web address] Comment: Satisfactory for evaluation. Endocervical/transformation zone component absent. Age and/or menstrual status not provided PAP INTERP [facility] Comment: Cytology Results: Negative for intraepithelial lesion or malignancy. COMMENT (PAP TEST) [facility] Comment: This case could not be evaluated with computer assisted technology. The slide was manually screened according to routine procedures. RX SPECIALIST: Jing nino [facility] Comment: AVN, CT(ASCP) CT Screening location: [address] [address] EXPLANATORY NOTE Que [facility] Comment: EXPLANATORY NOTE: The Pap is a screening test for cervical cancer. It is not a diagnostic test and is subject to false negative and false positive results. It is most reliable when a satisfactory sample, regularly obtained, is submitted with relevant clinical findings and history, and when the Pap result is evaluated along with historic and current clinical information. HPV E6/E7 Not Detected Not Detected [email or web address] Comment: Methodology: Livestock Trader-Mediated Amplification This assay detects E6/E7 viral messenger RNA (mRNA) from 14 high-risk HPV types (16,18,31,33,35,39,45,51,52,56,58,59,66,68). Cervical sources are required for HPV testing. If a vaginal source from a patient who has had a total hysterectomy with removal of cervix was submitted, please contact the testing laboratory for alternative testing options. For additional information, please refer to http://education.Healthify/faq/HAX051p6 (This link if provided for information/ educational purposes only.) Test Performed at: [address] [address] [facility] SWAB OF ENDOCERVIX / Unknown 10/30/2024 12:43 PM CDT 10/31/2024 8:46 PM CDT Nisa Burgess MD PATHOLOGY/CYTOLOGY ORDERABLES F inal Result [facility] [phone] [address] from Last [id number] [place] [address] [facility] MEDICAID PENDING [place] [facility] [employer] Advance Directives For more information, please contact: [phone] * Full Code (Latest Code Status on File) Date Activated Date Inactivated Comments 12/04/2024 12:38 AM 12/05/2024 6:53 PM * Full Code Date Activated Date Inactivated Comments 12/03/2024 1:36 AM 12/03/2024 10:57 PM
[2025-01-18 19:13] LABS: Glucose Urine UA Negative (Normal); Nitrate Urine Negative (Negative); Specific Gravity, Urine 1.013 (1.005-1.030)
[2025-01-18 19:17] LABS: Add Urine Microscopic? YES
--- NOTE | 2025-01-18 19:20 | ED_ITS ---
HPI - Fever 2 General: Chief Complaint: Fever Stated Complaint: Post surgery December 03 Fever low Back pain into Pelv Time Seen by Provider: 01/18/25 18:57 Source: patient Mode of arrival: ambulatory Limitations: no limitations History of Present Illness: 40-year-old female states she had had a hysterectomy on 610. States she was seen last week and started on amoxicillin for possible pelvic infection and states she is had some diffuse abdominal pain along with nausea and low-grade fevers. She denies any worsening improving factors Associated symptoms: Reports abdominal pain and nausea; Deny chills, chest pain, diarrhea, dysuria or headache(s) Related Data Home Medications ?Medication ?Instructions ?Recorded ?Confirmed acetaminophen 500 mg tablet 1,000 mg PO Q6H PRN Pain 0 01/31/23 09/12/24 doxylamine succinate 25 mg tablet 25 mg PO DAILY PRN 0 02/23/23 09/12/24 (Unisom (doxylamine)) Previous Rx's ?Medication ?Instructions ?Recorded ondansetron 8 mg disintegrating 8 mg PO Q8H 5 days #15 tabs 07/23/23 tablet tranexamic acid 650 mg tablet 1,300 mg (2 x 650 mg) PO TID 5 09/14/23 days #30 tabs lansoprazole 30 mg capsule,delayed 30 mg PO DAILY #30 caps 05/11/24 release (Prevacid) ibuprofen 800 mg tablet 800 mg PO TID PRN pain #90 t abs 06/14/24 oxybutynin chloride 5 mg tablet 5 mg PO DAILY #60 tabs 07/12/24 ubrogepant 100 mg tablet (Ubrelvy) See Rx Instructions .Route 07/16/24 .COMPLEX #10 tabs Allergies Allergy/AdvReac Type Severity Reaction Status Date / Time Iodinated Contrast Media Allergy Mild ADR-Itching Verified 07/16/24 08:00 diphenhydramine (From Allergy Unconscious Verified 07/16/24 08:00 Benadryl) Review of Systems 2 Const: Reports: fever(s); Denies: chills, body aches or change in appetite ENMT: Denies: throat pain or dental pain Card: Denies: chest pain Resp: Denies: dyspnea GI: Reports: abdominal pain and nausea; Denies: diarrhea : Denies: dysuria Musc: Denies: neck pain or back pain Skin/Breast: Denies: rash Neuro: Denies: headache(s) PFSH ED 2 PFSH: Medical History Supervision of high-risk Aftercare following surgery of the genitourinary system Superficial thrombophlebitis Surgical History H/O unilateral oophorectomy 10/13/2021- right oophorectomy performed by Dr Cole at [facility] S/P repeat low transverse (07/29/15) [place] [facility] [place] S/P primary low transverse (09/15/07) [place] [facility] [place] History of dilation and curettage (06/28/19) For miscarriage. Performed in [place] Family History Mother Ovarian cancer, Onset Age: 50 Hypertension Denies family history of Colon cancer Diabetes Clotting disorder Heart disease Hyperlipidemia Breast cancer Anesthesia complication Bleeding disorder Uterine cancer Thyroid disease Stroke Social History Smoking and tobacco/nicotine status: never used tobacco/nicotine Alcohol intake: never Substance/Drug Use: never Female Reproductive History: Para: 8 Spontaneous abortions: Yes (3, most recent 07/15 at 14 wks) Physical Exam 2 Const: COMMON NORMALS: no acute distress, patient oriented x3 and healthy appearing HENMT: COMMON NORMALS: normocephalic and atraumatic HEAD & SCALP: n ormocephalic and atraumatic Eye: COMMON NORMALS: conjunctivae normal CONJUNCTIVA: Yes conjunctivae normal Neck/C-Spine: COMMON NORMALS: full ROM and supple Chest: COMMONS NORMALS: normal inspection of the chest Resp: COMMON NORMALS: normal respiratory effort Cardio: COMMON NORMALS: regular rate, regular rhythm and No murmurs present (Cardio) RATE: regular rate RHYTHM: regular rhythm GI: COMMON NORMALS: Normal to inspection, nondistended, normoactive bowel sounds present, Soft to palpation, non-tender and no masses PALPATION: Yes Soft to palpation Extremity: COMMON NORMALS: normal to inspection and full ROM Neuro: COMMON NORMALS: patient oriented x3, moves all extremities and no focal motor deficits Psych: COMMON NORMALS: mental status grossly normal, Normal thought process present and cooperative THOUGHT PROCESS: Normal thought process present Skin: COMMON NORMALS: no rashes or lesions noted and no wounds GENERAL SKIN EXAM: no rashes or lesions noted Course 2 Vital Signs: Vital signs: Vital Signs Temperature 99.2 F 01/18/25 18:22 Pulse Rate 99 01/18/25 18:22 Respiratory Rate 16 01/18/25 18:22 Blood Pressure 106/71 01/18/25 18:22 Oxygen Delivery Me thod Room Air 01/18/25 18:22 MDM - Fever Medical Decision Making Patient presents here with low-grade fevers along with some slight abdominal pain exam here is benign white count is normal no sign of any severe infection will give her dose of Rocephin she is continue amoxicillin she is to follow-up with her OB return if worsening she understands agrees plan Medical Records I reviewed the patient's medical records. Lab Data I reviewed the patient's lab results. 01/18/25 19:23 01/18/25 19:23 Laboratory Results WBC 6.73 10^3/uL (3.29-11.43) 01/18/25 19:23 RBC 5.29 10^6/uL (3.85-5.65) 01/18/25 19:23 Hgb 12.80 g/dL (11.27-16.99) 01/18/25 19:23 Hct 41.5 % (36-47) 01/18/25 19:23 MCV 78.4 fl (85-98) L 01/18/25 19:23 MCH 24.2 pg (27-33) L 01/18/25 19:23 MCHC 30.8 g/dL (30-55) 01/18/25 19:23 RDW Not Reportable 01/18/25 19:23 Plt Count 175 10^3/cmm (157-399) 01/18/25 19:23 MPV Not Reportable 01/18/25 19:23 Neut % (Auto) 71.8 % 01/18/25 19:23 Lymph % (Auto) 16.9 % 01/18/25 19:23 [place] % (Auto) 9.2 % 01/18/25 19:23 Eos % (Auto) 1.6 % 01/18/25 19:23 Baso % (Auto) 0.4 % 01/18/25 19:23 Neut # (Auto) 4.82 10^3/uL (1.8-7.7) 01/18/25 19:23 Lymph # (Auto) 1.1 10^3/uL (0.8-4.8) 01/18/25 19:23 [place] # (Auto) 0.6 10^3/uL (0.2-0.9) 01/18/25 19:23 Eos # (Auto) 0.1 10^3/uL (0.0-0.8) 01/18/25 19:23 Baso # (Auto) 0.0 10^3/uL (0.0-0.1) 01/18/25 19:23 Nucleated RBC % (auto) 0 % 01/18/25 19:23 Nucleated RBCs # 0.0 /100WBC 01/18/25 19:23 Sodium 138 mmol/L (136-145) 01/18/25 19:23 Potassium 4.2 mmol/L (3.5-5.1) 01/18/25 19:23 Chloride 102 mmol/L (98-107) 01/18/25 19:23 Carbon Dioxide 26 mmol/L (22-29) 01/18/25 19:23 Anion Gap 14.2 (5-19) 01/18/25 19:23 BUN 13 mg/dL (6-20) 01/18/25 19:23 Creatinine 0.7 mg/dL (0.5-0.9) 01/18/25 19:23 GFR Calculation 92.2 mL/min (90-130) 01/18/25 19:23 Glucose 92 mg/dL (65-115) 01/18/25 19:23 Calculated Osmolality 286 mOsm/kg (285-295) 01/18/25 19:23 Lactic Acid 0.6 mmol/L (0.5-2.2) 01/18/25 19:23 Calcium 9.3 mg/dL (8.5-10.5) 01/18/25 19:23 Total Bilirubin 0.3 mg/dL (0.15-1.2) 01/18/25 19:23 AST 27 U/L (0-32) 01/18/25 19:23 ALT 21 U/L (0-33) 01/18/25 19:23 Alkaline Phosphatase 95 U/L (35-105) 01/18/25 19:23 C-Reactive Protein 20.8 mg/L (0.0-4.9) H 01/18/25 19:23 Total Protein 7.9 g/dL (6.6-8.7) 01/18/25 19:23 Albumin 4.2 g/dL (3.5-5.2) 01/18/25 19:23 Globulin 3.7 g/dL (1.3-4.6) 01/18/25 19:23 Lipase 18 U/L (13-60) 01/18/25 19:23 Urine Color Yellow (Yellow) 01/18/25 19:03 Urine Appearance Clear (CLEAR) 01/18/25 19:03 Urine pH 7.5 (5-7) 01/18/25 19:03 Ur Specific [place] 1.013 (1.005-1.030) 01/18/25 19:03 Urine Protein Negative (Negative) 01/18/25 19:03 Urine Glucose (UA) Negative (Normal) 01/18/25 19:03 Urine Ketones Negative (Negative) 01/18/25 19:03 Urine Blood Negative (Negative) 01/18/25 19:03 Urine Nitrate Negative (Negative) 01/18/25 19:03 Urine Bilirubin Negative (Negative) 01/18/25 19:03 Urine Urobilinogen 0.2 mg/dL (Negative) 01/18/25 19:03 Ur Leukocyte Esterase Negative (Negative) 01/18/25 19:03 Urine RBC 0-2 /hpf (0-2) 01/18/25 19:03 Urine WBC 0-5 /hpf (0-5) 01/18/25 19:03 Ur Squamous Epith Cells 0-5 /hpf (0-5) 01/18/25 19:03 Amorphous Sediment Not Reportable 01/18/25 19:03 Urine Bacteria None seen /hpf (NONE) 01/18/25 19:03 Hyaline Casts 0-4 /lpf H 01/18/25 19:03 No radiology studies performed this visit Discharge Plan Discharge Condition: Stable Prescriptions: No Action ibuprofen 800 mg tablet 800 mg PO TID PRN (Reason: pain) Qty: 90 3RF ondansetron 8 mg tablet,disintegrating 8 mg PO Q8H 5 Days Qty: 15 0RF Ubrelvy 100 mg tablet See Rx Instructions .ROUTE .COMPLEX Qty: 10 5RF Dose Instruction: TAKE ONE TABLET BY MOUTH ONCE FOR HEADACHE. Rx Instructions: TAKE ONE TABLET BY MOUTH ONCE FOR HEADACHE. oxybutynin chloride 5 mg tablet 5 mg PO DAILY Qty: 60 0RF tranexamic acid 650 mg tablet 1,300 mg PO TID 5 Days Qty: 30 0RF acetaminophen 500 mg Tablet 1,000 mg PO Q6H PRN (Reason: Pain) lansoprazole [Prevacid] 30 mg capsule,delayed release(DR/EC) 30 mg PO DAILY Qty: 30 0RF Unisom (doxylamine) 25 mg tablet 25 mg PO DAILY PRN Print Language: Armenian Coding Level of Care Code ED Distribution Designer for Julito Velásquez
[2025-01-18] MEDS: ondansetron 2 mg/ML SDV 2 mL 4 MG IVP (19:37)
[2025-01-18 19:42] LABS: Hematocrit 41.5 % (36-47); Hemoglobin 12.80 g/dL (11.27-16.99); Mean Corpuscular HGB Conc 30.8 g/dL (30-55); Mean Corpuscular Hemoglobin 24.2 pg (27-33); Mean Corpuscular Volume 78.4 fl (85-98); Nucleated Red Blood Cells % 0 %; Platelet Count 175 10^3/cmm (157-399); Red Blood Count 5.29 10^6/uL (3.85-5.65); White Blood Count 6.73 10^3/uL (3.29-11.43)
[2025-01-18 19:50] LABS: Lactic Sepsis W/Reflex 0.6 mmol/L (0.5-2.2)
[2025-01-18 19:52] LABS: Alanine Aminotransferase 21 U/L (0-33); Albumin Level 4.2 g/dL (3.5-5.2); Alkaline Phosphatase 95 U/L (35-105); Anion Gap 14.2 (5-19); Aspartate Amino Transferase 27 U/L (0-32); Blood Urea Nitrogen 13 mg/dL (6-20); Calcium 9.3 mg/dL (8.5-10.5); Carbon Dioxide 26 mmol/L (22-29); Chloride 102 mmol/L (98-107); Creatinine Clr Calc Pharmacy 107.8756; Globulin 3.7 g/dL (1.3-4.6); Glucose 92 mg/dL (65-115); Lipase 18 U/L (13-60); Osmolality Calculated 286 mOsm/kg (285-295); Potassium 4.2 mmol/L (3.5-5.1); Sodium 138 mmol/L (136-145); Total Protein 7.9 g/dL (6.6-8.7)
[2025-01-18] MEDS: cefTRIAXone 1,000 mg SDV 1000 MG IVP (20:18)
== END 2025-01-18 20:26 | disposition home or self-care (01) ==
PROVIDERS: Emergency Medicine; Emergency Provider Emergency Medicine
DX: R10.9 Unspecified abdominal pain (principal); R50.9 Fever, unspecified; Z98.890 Other specified postprocedural states
CPT/HCPCS: 36415; 80053; 81001; 83605; 83690; 85025; 86140; 96374; 96375; 99285; J0696; J1885; J2405

== ENCOUNTER 2025-04-30 13:51 | Outpatient (CLI) | payer OTHER, SELFPAY ==
--- NOTE | 2025-04-30 14:00 | MM_ITS ---
WS: [id number] BILATERAL 3D TOMOSYNTHESIS DIGITAL SCREENING MAMMOGRAPHY WITH CAD CLINICAL INFORMATION: Z12.39 - Encounter for other screening for malignant neop... HISTORY: Screening mammogram. No current complaints. COMPARISON: Baseline TECHNIQUE: Bilateral CC and MLO views. FINDINGS: The breasts are composed of heterogeneous fibroglandular density tissue, which can limit the detection of small underlying mass lesions. No suspicious mass, asymmetry, calcifications, or architectural distortion. No evidence of malignancy. MM/MM [facility] tomosynthesis [id number] IMPRESSION: DENSITY: The breasts are heterogeneously dense, which may obscure small masses. BI-RADS: 1 - Negative FOLLOW UP: 1 Year Follow-up Recommend return to annual screening mammography.
== END 2025-04-30 13:52 | disposition home or self-care (01) ==
LOC: RAD 13:51
PROVIDERS: Visit Provider Obstetrics & Gynecology
DX: Z12.31 Encounter for screening mammogram for malignant neoplasm of breast (principal); R92.333 Mammographic heterogeneous density, bilateral breasts; R92.323 Mammographic fibroglandular density, bilateral breasts
CPT/HCPCS: 77063; 77067

== ENCOUNTER 2025-05-06 11:43 | Emergency (ER) | payer OTHER, SELFPAY ==
--- OUTSIDE RECORDS SUMMARY | 2025-05-06 11:50 | XMS_ITS | Encounter Summary ---
Author Organization [facility] Address [address] [place] [address] Care Team Providers Care Return To Vendor Name Role Phone Unavailable Primary Care Provider Unavailabl e Encounter Details Date Type Department Care Team (Late Contact Info) Description 03/08/2025 Results Follow-Up [facility] [address] [id number] Stephany Sutton APRN [address] [facility] [address] [place] [address] ANAEROBIC/AEROBIC CULTURE W GRAM STAIN, GC/CHLAMYDIA, UROGENITAL Social History Tobacco Use Types Packs/Day Years Used Date Smoking Tobacco: Never Alcohol Use Standard Drinks/Week Comments Never 0 (1 standard drink = 0.6 oz pur e alcohol) Feeling Safe Answer Date Recorded Are you in a relationship wi th someone who hurts you emotionally and/or physically? 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 [place] [phone] Irina Wu FNP [address] [facility] [address] [place] [phone] documented as of this encounter Visit Diagnoses Not on filedocumented in this encounter Additional Health Concerns Infection Onset Date Last Indicated Resolved Time C Diff 01/29/2025 03/20/2025 R/O GI Pathogen 03/20/2025 03/20/2025 03/21/2025 8 :01 PM CDT documented as of this encounter
--- OUTSIDE RECORDS SUMMARY | 2025-05-06 11:50 | XMS_ITS | Clinical Summary ---
Author Organization [facility] (Formerly [facility])[3] Cherelle zoë [place] Address [address] [place] [address] Care Team Providers Care Carry Out Clerk Name Role Phone Unavailable Primary Care Provider Unavailabl e Allergies Active Allergy Reactions Criticality Noted Date Comments Iodinated Contrast Media Angioedema High 10/30/2024 Sneezing, pruritus, throat closed, dyspnea But has received with premedication with Benadryl and she was ok Piperacillin-Tazobactam Angioedema High 01/30/2025 Medications ferrous sulfate 134 mg (27 mg [...] daily as needed for Constipation. 238 Gram 5 4:21 PM CDT 12/06/19 Active Additional Information Patient not taking.Reported on 03/17/2025 acetaminophen (TYLENOL) 500 mg tablet Take 500 mg by mouth every 6 hours as needed. Active ondansetron (ZOFRAN ODT) 4 mg Tablet, Rapid Dissolve Take 1 Tablet (4 mg) by mouth every 8 hours as needed for Nausea/Emesis. Dissolve tablet on top of tongue, then swallow with saliva. 20 Tablet 12/31/19 25 Active Additional Information Patient not taking.Reported on 03/17/2025 ondansetron (ZOFRAN ODT) 4 mg Tablet, Rapid Dissolve Take 1 Tablet (4 mg) by mouth every 8 hours as needed for Nausea/Emesis. Dissolve tablet on top of tongue, then swallow with saliva. 6 Tablet 03/08/20 25 Active Additional Information Patient not taking.Reported on 03/17/2025 doxylamine (UNISOM) 25 mg Tablet Take 25 mg by mouth nightly as needed for Insomnia. Active estradioL (ESTRACE) 0.5 mg tablet Take 1 Tablet (0.5 mg) by mouth daily. 90 Tablet 03/18/20 25 Active multivitamin (DAILY-ABIGAIL) tablet Take 1 Tablet by mouth daily. Active fecal microbio spore,live-brpk (Vowst) CapsuleIndications :Recurrent Clostridioides difficile infection VOWST is 4 capsules taken orally once daily for 3 consecutive days VOWST should be taken on an empty stomach prior to the first meal of the day 12 Capsule 04/03/20 25 Active vancomycin (VANCOCIN) 125 mg CapsuleIndications :Recurrent Clostridioides difficile infection Take 1 Capsule (125 mg) by mouth 2 times daily for 7 days, THEN 1 Capsule (125 mg) daily for 7 days, THEN 1 Capsule (125 mg) every other day for 14 days. 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 difficile diarrhea 01/29/2025 Ovarian cyst, left 12/03/2024 Menorrhagia 12/03/2024 Chronic blood loss anemia 12/03/2024 Lower abdominal pain 12/03/2024 Encounters Date Type Department Care Team Description 04/29/2025 External Device Data [facility] ABSTRACTION Provider, Abstract 04/16/2025 External Device Data [facility] ABSTRACTION Provider, Abstract 04/08/2025 External Device Data [facility] ABSTRACTION Provider, Abstract 04/08/2025 External Device Data [facility] ABSTRACTION Provider, Abstract 04/08/2025 External Device Data [facility] ABSTRACTION Provider, Abstract 04/03/2025 Orders Only [facility] (Formerly [facility])[3] Gastroenterology- [place] [address] [phone] Kelsey Marin, [place] Recurrent Clostridioides difficile infection (Primary Dx) 04/02/2025 9:00 AM CDT Office Visit [facility] (Former[facility])[3] Gastroenterology[address] [place] [address] Fetty Nghiaatrice, SOAPING DEPARTMENT SUPERVISOR Recurrent Clostridioides difficile infection (Primary Dx) 04/02/2025 Telephone [facility] ([facility])[3] Gastroenterology[address] [place] [phone] FetJesus vyase, SOAPING DEPARTMENT SUPERVISOR Results 03/24/2025 Results Follow-Up [facility] [address] [place] [phone] September, SOAPING DEPARTMENT SUPERVISOR GI PATHOGEN PCR PANEL 03/24/2025 Orders Only [facility] [address] [place] [phone] [place], September, SOAPING DEPARTMENT SUPERVISOR Clostridioides difficile infection (Primary Dx) 03/22/2025 Nurse Triage [facility] [address] [place] [address] Summary-Cherelle Barger RN 03/20/2025 3:45 PM CDT Clinical Support [facility] [address] [place] [address] Acute diarrhea 03/17/2025 1:00 PM CDT Office Visit [facility] [address] [place] [address] Putnamseptember, SOAPING DEPARTMENT SUPERVISOR Encounter to establish care (Primary Dx); Acute diarrhea; Chronic neck pain; Hot flashes due to surgical menopause; Vaginal discharge 03/12/2025 Orders Only [facility] ([facility]3] Womens Oncology [address] [place] [phone] Janna Aguilar, KERLINE Vaginal discharge (Primary Dx); Status post hysterectomy; Hot flashes due to surgical menopause; Chronic vaginitis; C. difficile diarrhea; Abdominal pain, unspecified abdominal location 03/12/2025 External Device Data [facility] ABSTRACTION Provider, Abstract 03/11/2025 External Device Data [facility] ABSTRACTION Provider, Abstract 03/11/2025 External Device Data [facility] ABSTRACTION Provider, Abstract 03/08/2025 Results Follow-Up [facility] [address] [place] [phone] Stephany Sutton APRN ANAEROBIC/AEROBIC CULTURE W GRAM STAIN, GC/CHLAMYDIA, UROGENITAL 03/07/2025 9:46 AM CDT - 03/07/2025 12:24 PM CDT Emergency [facility] Emergency Medicine [address] [facility] [address] [place] [address] Justin Toro MD Day, Shamuel M, MD Hot flashes due to surgical menopause (Primary Dx); Vaginal discharge Discharge Disposition: Home or Self Care 03/07/2025 Travel 03/04/2025 External Device Data [facility] ABSTRACTION Provider, Abstract 03/04/2025 External Device Data [facility] ABSTRACTION Provider, Abstract 02/25/2025 External Device Data [facility] ABSTRACTION Provider, Abstract 02/17/2025 1:30 PM CDT Office Visit [facility] ([facility])[3] Womens Oncology [address] [phone] Janna Aguilar FNP Postoperative follow-up (Primary Dx); Vaginal discharge; Dysuria; History of Infection of deep incisional surgical site after procedure, subsequent encounter; Status post hysterectomy; Tick bite of abdominal wall, initial encounter 02/04/2025 External Device Data [facility] ABSTRACTION Provider, Abstract 02/04/2025 External Device Data [facility] ABSTRACTION Provider, Abstract 02/04/2025 External Device Data [facility] ABSTRACTION Provider, Abstract from Last 3 Months Family History Medical History Relation Name Comments Ovarian Cancer Mother Relation Name Status Comments Mother MOTHER HAD OVAR JOHN PRE CANCER, HAD FULL [facility]ST[facility]CTOMY IN THE [facility] Social History Tobacco Use Types Packs/Day Years Used Date Smoking Tobacco: Never Passive Smoke Exposure: Never Smokeless Tobacco: Never Tobacco Cessation:Counseling Given: No Alcohol Use Standard Drinks/Week Comments Never 0 [...] Sign Reading Time Taken Comments Blood Pressure 121/87 04/02/2025 9:03 AM CDT Pulse 67 04/02/2025 9:03 AM CDT Temperature 36.7 C (98.1 F) 03/17/2025 1:05 PM CDT Respiratory Rate 18 03/17/2025 1:05 PM CDT Oxygen Saturation 96% 03/17/2025 1:05 PM CDT Inhaled Oxygen Concentration - - Weight 77.2 kg (170 lb 3.2 oz) 04/02/2025 9:03 A M CDT Height 167.6 cm (5' 6 ) 04/02/2025 9:03 AM CDT Body Mass Index 27.47 04/02/2025 9:03 AM CDT Plan of Treatment Upcoming Encounters Date Type Department Care Team (Late st Contact Info) Description 07/28/2025 2:00 PM ONLINE JOURNALIST Office Visit [facility] ([facility])[3] Gastroenterology- [place] [address] [facility] [address] [place] [address] Irina Wu FNP [address] [facility] [address] [place] [address] Health Maintenance Due Date Last Done Comments Pre-Diabetes and Diabetes Screening 1984 DTAP/TDAP/TD VACCINES (1 - Tdap) 01/02/2003 HEPATITIS B VACCINES (1 of 3 - 19+ 3-dose series) 01/02/2003 HPV VACCINES (1 - 3-dose SCD M series) 01/02/2011 INFLUENZA VACCINE (#1) 2025 BREAST CANCER SCREENING 05/18/2025 Post poned from 2024 (Patient Refused) PAP SMEAR 10/31/2027 10/30/2024 CERVICAL CANCER SCREENING 10/30/2029 HPV/Cotest (21-29) 10/30/2029 10/30/2024 HPV/Cotest (30-65) 10/30/2029 10/30/2024 Procedures Procedure Name Priority Date/Time Associated Diagnosis Comments GI PATHOGEN PCR PANEL Routine 03/20/2025 3:56 PM CDT Acute diarrhea URINALYSIS W/REFLEX MICROSCOPIC Stat 03/07/2025 10:30 AM CDT GC/CHLAMYDIA, UROGENITAL Stat 03/07/2025 10:30 AM CDT ANAEROBIC/AEROBIC CULTURE W GRAM STAIN Stat 03/07/2025 10:30 AM CDT WET PREP GENITAL Stat 03/07/2025 10:3 0 AM CDT DIFFERENTIAL, MANUAL Stat 03/07/2025 10:24 AM CDT TSH Stat 03/07/2025 10:24 AM CDT MAGNESIUM LEVEL Stat 03/07/2025 10:24 AM CDT C-REACTIVE PROTEIN Stat 03/07/2025 10 :24 AM CDT LACTIC ACID Stat 03/07/2025 10:24 AM CDT COMPREHENSIVE METABOLIC PANEL Stat 03/07/2025 10:24 AM CDT SEDIMENTATION RATE Stat 03/07/2025 10 :24 AM CDT CBC WITH DIFFERENTIAL Stat 03/07/2025 10:24 AM CDT URINALYSIS WITH REFLEX CULTURE Routine 02/17/2025 3:23 PM CDT Dysuria TICK-BORNE DISEASE AB PANEL W/REFLEX Routine 02/17/2025 3:22 PM CDT Tick bite of abdominal wall, initial encounter GENITAL CULTURE Routine 02/17/2025 2:53 PM CDT VAGINOSIS/VAGINITIS PANEL BASIC Routine 02/17/2025 2:53 PM CDT Vaginal discharge ANAEROBIC/AEROBIC CULTURE W GRAM STAIN Routine 02/17/2025 2:53 PM CDT Vaginal discharge CERV/VAG CYTO SCREEN PAP W/HPV Routine 10/30/2024 12:43 PM CDT Screening for cervical cancer from Last 3 Months or Most Recently Relevant to Health Maintenance Results * (ABNORMAL) GI PATHOGEN PCR PANEL (03/20/2025 3:56 PM CDT) C difficile toxin A/B by PCR DETECTED( A) Not Detected 03/22/2025 2:06 PM CDT [facility] Comment: The FilmArray GI PCR panel identifies the presence of C. difficile in the stool specimen but cannot differentiate between asymptomatic carriage and clinical infection. If clinically warranted, place patient in Contact Precautions-gown and gloves for every entry into patient rooms. Wash hands with soap and water. Stool STOOL SPECIMEN / Unknown Collection / Unknown 03/20/2025 3:56 PM CDT 03/21/2025 4:18 PM CDT Narrative [facility] - 03/22/2025 2:06 PM CDT Positive GI panel called to Cherelle Barger RN ([facility] on-call) by Moi Solorzano on 03/22/2025 at 2:05 PM with verbal readback. The Film Array GI Panel is a multiplexed nucleic acid detection test for 22 targets of bacteria, viruses, and parasites in stool that cause infectious diarrhea. Bacteria: Campylobacter C. difficile Plesiomonas shigelloides Salmonella Vibrio Vibrio cholerae Yersinia enterocolitica Enteroaggregative E. Coli (EAEC) Enteropathogenic E. Coli (EPEC) Enterotoxigenic E. Coli (ETEC) Shiga-like toxin-producing E. Coli (STEC) E. Coli O157 Shigella/Enteroinvasive E. Coli (EIEC) Viruses: Adenovirus F 40/41 Astrovirus Norovirus GI/GII Rotavirus A Sapovirus Parasites: Cryptosporidium Cyclospora cayetanensis Entamoeba histolytica Giardia duodenalis September [place] [facility] MICROBIOLOGY - GENERAL ORDERABLE S Final Result Performing Organization Address City/[facility]/ZIP Co de Phone Number [id number] [phone] * GC/CHLAMYDIA, UROGENITAL (03/07/2025 10:30 AM CDT) [facility] CHLAMYDIA DNA AMPLIFICATION NOT DETECTED Not Detected 03/07/2025 5:57 PM CDT [facility] GC DNA AMPLIFICATION NOT DETECTED Not Detected 03/07/2025 5:57 PM CDT [facility] Urine (Urine, 1st catch) Collection / Unknown 03/07/2025 10:30 AM CDT 03/07/2025 11:50 AM CDT Narrative [facility] - 03/07/2025 5:57 PM CDT Results should not be used for the evaluation of suspected sexual abuse or for other medico-legal indications. The only legally accepted results are from culture. Results cannot be used to assess therapeutic success or failure since nucleic acids may persist following antimicrobial therapy. Lucy Perez MD MICROBIOLOGY - GENERAL ORDERABL ES Final Result Performing Organization Address [facility] Co de Phone Number [facility] CLIA # [id number] [facility] [id number] * (ABNORMAL) ANAEROBIC/AEROBIC CULTURE W GRAM STAIN (03/07/2025 10:30 AM CDT) Only the most recent of2 resultswithin the time period is included. [facility] CULTURE STAPHYLOCOCCUS AUREUS(A) PAM MCG/ML 03/10/2025 10:15 AM CDT [facility] CULTURE 1+ or few Normal genital haroon PAM MCG/ML 03/10/2025 10:15 AM T [facility] GRAM STAIN No Polymorphonuclear WBC 03/10/2025 10:15 AM T [facility] GRAM STAIN 4+ (Heavy) Gram positive rods 03/10/2025 10:15 AM T [facility] Lesion/Drainage Fluid SPECIMEN FROM VAGINA / Unknown Collection / Unknown 03/07/2025 10:30 AM CDT 03/07/2025 11:36 AM CDT Narrative Organism Antibiotic Method Susceptibility Staphylococcus aureus OXACILLIN (Nafcillin) PAM MCG/ML 0.5 mcg/mL: Susceptible Comment:Oxacillin (N afcillin) susceptible Staphylococcus species are predictably susceptible to cefazolin, ceftriaxone, cephalexin, and amoxicillin-clavulanate Staphylococcus aureus VANCOMYCIN PAM MCG/ML <=0.5 mcg/mL: Susceptible Staphylococcus aureus ERYTHROMYCIN PAM MCG/ML <=0.25 mcg/mL: Susceptible Staphylococcus aureus CLINDAMYCIN PAM MCG/ML 0.25 mcg/mL: Susceptible Staphylococcus aureus DOXYCYCLINE PAM MCG/ML <=0.5 mcg/mL: Susceptible Staphylococcus aureus TRIMETHOPRIM/ SULFAMETHOXAZOLE PAM MCG/ML <=10 mcg/mL: Susceptible us Lucy Perez MD MICROBIOLOGY - GENERAL ORDERABL ES Final Result [facility] # [id number] [address] [place] [address] * URINALYSIS WITH REFLEX MICROSCOPIC (03/07/2025 10:30 AM CDT) COLOR UA Yellow Pale to Dark Yellow 03/07/2025 11:05 AM [facility] CLARITY UA Clear Clear 03/07/2025 11:05 AM [facility] SPECIFIC GRAVITY UA 1.015 1.003 - 1.035 03/07/2025 11:05 AM [facility] PH UA 7.0 5.0 - 8.0 03/07/2025 11:05 AM T [facility] LEUKOCYTE ESTERASE UA Negative Negative 03/07/2025 11:05 AM T [facility] NITRITE UA Negative Negative 03/07/2025 11:05 AM [facility] PROTEIN UA Negative Negative 03/07/2025 11:05 AM T [facility] GLUCOSE UA Negative Negative 03/07/2025 11:05 AM T [facility] KETONES UA Negative Negative 03/07/2025 11:05 AM [facility] UROBILINOGEN UA 0.2 <2.0 mg/dL 11:05 AM [facility] BILIRUBIN UA Negative Negative 03/07/2025 11:05 AM [facility] BLOOD UA Negative Negative 03/07/2025 11:05 AM [facility] Urine URINE SPECIMEN OBTAINED BY CLEAN CATCH PROCEDURE / Unknown Collection / Unknown 03/07/2025 10:30 AM CDT 03/07/2025 10:55 AM CDT Lucy Perez MD URINE ORDERABLES Final Result [id number] [address] [place] [address] * WET PREP GENITAL (03/07/2025 10:30 AM CDT) TRICHOMONAS WET PREP Not Observed Not Observed 03/07/2025 11:21 AM T [facility] CLUE CELLS WET PREP Not Observed Not Observed 03/07/2025 11:21 AM T [facility] YEAST WET PREP Not Observed Not Observed 2024 11:21 AM T [facility] EPITHELIAL CELLS WET PREP >/= 25 Epithelial Cells/lpf >/= 25 Epithelial Cells/lpf 03/07/2025 11:21 AM T [facility] WBC WET PREP WBC < Epithelial Cells WBC < Epithelial Cells 03/07/2025 11:21 AM CDT [facility] Genital SPECIMEN FROM VAGINA / Unknown 03/07/2025 10:30 AM CDT 03/07/2025 10:50 AM CDT us Lucy Perez MD MICROBIOLOGY - GENERAL ORDERABL ES Final Result Performing Organization Address City/[facility]/ZIP Co de Phone Number [facility] CLIA # [id number] [address] [place] [address] * MANUAL DIFFERENTIAL (03/07/2025 10:24 AM CDT) PLATELET EST. Adequate 03/07/2025 11:42 AM CDT [facility] RBC MORPHOLOGY Normal 03/07/2025 11:42 AM CDT [facility] Blood Venipuncture / Unknown 03/07/2025 10:24 AM CDT 03/07/2025 11:00 AM CDT Narrative [facility] - 03/07/2025 11:42 AM CDT Smear reviewed. Findings consistent with automated results. us Lucy Perez MD HEMATOLOGY ORDERABLES COM Final Result Performing Organization Address [facility] Co de Phone Number [facility] CLIA # [id number] [address] [place] [address] * LACTIC ACID (03/07/2025 10:24 AM CDT) LACTIC ACID 1.1 <=2.0 mmol/L 03/07/2025 11:21 AM CDT [facility] Blood BLOOD SPECIMEN / Unknown Venipuncture / Unknown 03/07/2025 10:24 AM CDT 03/07/2025 11:00 AM CDT us Lucy Perez MD CHEMISTRY ORDERABLES Final Resu lt Performing Organization Address City/[facility]/ZIP Co de Phone Number [facility] CLIA # [id number] [address] [place] [address] * (ABNORMAL) CBC WITH DIFFERENTIAL (03/07/2025 10:24 AM CDT) [facility] Signature WBC 6.7 4.0 - 10.0 K/uL 03/07/2025 11:42 AM [facility] RBC 4.88 3.93 - 5.22 M/uL 03/07/2025 11:42 AM [facility] HEMOGLOBIN 13.1 11.2 - 15.7 g/dL 03/07/2025 11:42 AM [facility] HEMATOCRIT 39.6 34.1 - 44.9 % 03/07/2025 11:42 AM [facility] MCV 81.1 79.4 - 94.8 fL 03/07/2025 11:42 AM [facility] MCH 26.8 25.6 - 32.2 pg 03/07/2025 11:42 AM [facility] MCHC 33.1 32.2 - 35.5 g/dL 03/07/2025 11:42 AM [facility] RDW 17.2(H) 11.0 - 14.5 % 03/07/2025 11:42 AM [facility] RDW-STDEV 46.0 36.9 - 56.9 fL 03/07/2025 11:42 AM [facility] PLATELETS 206 163 - 337 K/uL 03/07/2025 11:42 AM [facility] MPV 11.5 10.0 - 14.8 fL 03/07/2025 11:42 AM [facility] NEUTROPHILS 61 34 - 71 % 03/07/2025 11:42 AM [facility] LYMPHOCYTES 23 19 - 52 % 03/07/2025 11:42 AM [facility] MONOCYTES 9 5 - 13 % 03/07/2025 11:42 AM [facility] EOSINOPHILS 6 1 - 6 % 03/07/2025 11:42 AM [facility] BASOPHILS 1 0 - 1 % 03/07/2025 11:42 AM CDT [facility] IMMATURE GRANULOCYTES 0 % 03/07/2025 11:42 AM CDT [facility] NEUTROPHIL ABSOLUTE 4.09 1.56 - 6.13 K/uL 03/07/2025 11:42 AM CDT [facility] LYMPHOCYTE ABSOLUTE 1.56 1.20 - 3.40 K/uL 03/07/2025 11:42 AM CDT [facility] MONOCYTE ABSOLUTE 0.60(H) 0.24 - 0.36 K/uL 03/07/2025 11:42 AM CDT [facility] EOSINOPHIL ABSOLUTE 0.41(H) 0.04 - 0.36 K/uL 03/07/2025 11:42 AM CDT [facility] BASOPHILS ABSOLUTE 0.04 0.01 - 0.08 K/uL 03/07/2025 11:42 AM CDT [facility] IMMATURE GRANULOCYTES ABSOLUTE 0.01 K/uL 03/07/2025 11:42 AM CDT [facility] Blood Venipuncture / Unknown 03/07/2025 10:24 AM CDT 03/07/2025 11:00 AM CDT us Lucy Perez MD HEMATOLOGY ORDERABLES Final Res ult [facility] [id number] [address] [place] [address] * SEDIMENTATION RATE (03/07/2025 10:24 AM CDT) ESR (SEDIMENTATION RATE) 18 0 - 20 mm/Hr 03/07/2025 11:26 AM CDT [facility] Blood Venipuncture / Unknown 03/07/2025 10:24 AM CDT 03/07/2025 11:00 AM CDT Narrative [facility] - 03/07/2025 11:26 AM CDT Tube Lot: #[id number] Exp Date: 06/25/2026 QC1 LOT [id number] EXP.06/30/2025 QC2 LOT [id number] EXP.06/30/2025 us Lucy Perez MD HEMATOLOGY ORDERABLES Final Res ult Performing Organization Address [facility] Co de Phone Number [facility] [id number] [address] [place] [address] * C-REACTIVE PROTEIN (03/07/2025 10:24 AM CDT) CRP <3.0 <5.0 mg/L 03/07/2025 11:28 AM CDT [facility] Blood Venipuncture / Unknown 03/07/2025 10:24 AM CDT 03/07/2025 11:00 AM CDT us Lucy Perez MD CHEMISTRY ORDERABLES Final Resu lt Performing Organization Address [facility] Co [place] Phone Number [facility] [id number] [address] [place] [address] * TSH (03/07/2025 10:24 AM CDT) TSH 1.91 0.27 - 4.20 uIU/mL 03/07/2025 11:29 AM CDT [facility] Blood Venipuncture / Unknown 03/07/2025 10:24 AM CDT 03/07/2025 11:00 AM CDT us uLcy Perez MD CHEMISTRY ORDERABLES Final Resu lt Performing Organization Address [facility] Co de Phone Number [facility] # [id number] [address] [place] [address] * MAGNESIUM LEVEL (03/07/2025 10:24 AM CDT) MAGNESIUM 2.1 1.6 - 2.6 mg/dL 03/07/2025 11:28 AM CDT [facility] Blood Venipuncture / Unknown 03/07/2025 10:24 AM CDT 03/07/2025 11:00 AM CDT us Lucy Perez MD CHEMISTRY ORDERABLES Final Resu lt [facility] CLIA # [id number] [address] [place] [address] * COMPREHENSIVE METABOLIC PANEL (03/07/2025 10:24 AM CDT) SODIUM 139 136 - 145 mmol/L 03/07/2025 11:28 AM [facility] POTASSIUM 4.5 3.5 - 5.1 mmol/L 03/07/2025 11:28 AM [facility] CHLORIDE 104 98 - 107 mmol/L 03/07/2025 11:28 AM [facility] CO2 27 22 - 29 mmol/L 03/07/2025 11:28 AM [facility] CALCIUM 9.7 8.6 - 10.0 mg/dL 03/07/2025 11:28 AM [facility] BUN 12 6 - 20 mg/dL 03/07/2025 11:28 AM [facility] CREATININE 0.52 0.51 - 0.95 mg/dL 03/07/2025 11:28 AM [facility] GLUCOSE 82 74 - 99 mg/dL 03/07/2025 11:28 AM [facility] TOTAL PROTEIN 7.7 6.6 - 8.7 g/dL 03/07/2025 11:28 AM [facility] ALBUMIN 4.2 3.5 - 5.2 g/dL 03/07/2025 11:28 AM [facility] BILIRUBIN TOTAL 0.3 0.0 - 1.2 mg/dL 03/07/2025 11:28 AM [facility] ALKALINE PHOSPHATASE 78 35 - 104 U/L 03/07/2025 11:28 AM [facility] AST 26 0 - 35 U/L 03/07/2025 11:28 AM CDT [facility] ALT 23 0 - 35 U/L 03/07/2025 11:28 AM T [facility] GFR >60 >=60 mL/min/1.7 3 sq meter 03/07/2025 11:28 AM T [facility] Comment:eGFR calculated with 2020 CKD-EPI equation. Vegetarian diet, extremely high or low muscle mass, and may affect results. Cystatin C with Glomerular Filtration Rate is a suitable alternative for these patients. ANION GAP 8 5 - 20 mmol/L 03/07/2025 11:28 AM T [facility] Blood Venipuncture / Unknown 03/07/2025 10:24 AM CDT 03/07/2025 11:00 AM CDT us Lucy Perez MD CHEMISTRY ORDERABLES Final Resu lt [facility] CLIA # [id number] [address] [place] [address] * URINALYSIS WITH REFLEX CULTURE (02/17/2025 3:23 PM CDT) COLOR UA YELLOW YELLOW [facility] CLARITY UA CLEAR CLEAR [facility] SPECIFIC GRAVITY UA 1.009 1.001 - 1.035 [facility] PH UA 7.0 5.0 - 8.0 [facility] [...] UA NEGATIVE NEGATIVE [facility] WBC UA NONE SEEN < OR = 5 /HPF [facility] RRL RBC UA NONE SEEN < OR = 2 /HPF [facility] [place] RRL EPITHELIAL CELLS, URINE NONE SEEN < OR = 5 /HPF [facility] RR BACTERIA UA NONE SEEN NONE SEEN /HPF [facility] RRL HYALINE CAST NONE SEEN NONE SEEN /LPF [facility] RRL URINE CULTURE [facility] Comment: NO CULTURE INDICATED Test Performed at: [facility] [address] [place] [address] Terry MIDDLETON Urine URINE SPECIMEN OBTAINED BY CLEAN CATCH PROCEDURE / Unknown 02/17/2025 3:23 PM CDT 02/17/2025 3:23 PM CDT Janna Aguilar SOAPING DEPARTMENT SUPERVISOR URINE ORDERABLES Final Result [facility] [phone] [facility] [address] [place] [address] * TICK-BORNE DISEASE AB PANEL W/REFLEX (02/17/2025 3:22 PM CDT) A.PHAGOCYTOPH IGG <1:64 [facility]/ [facility], A.PHAGOCYTOPH IGM <1:20 [facility], ANAPLASMA PHAGOCYTOPHILUM INTERP [facility]/ [facility], Comment: ANTIBODY NOT DETECTED REFERENCE RANGE: IgG <1:64 IgM <1:20 Anaplasma phagocytophilum is the tick-borne agent causing Human Granulocytic Ehrlichiosis (HGE). HGE is distinct and separate from Human Monocytic Ehrlichiosis (HME), caused by Ehrlichia chaffeensis. Serologic cross-reactivity between A. phagocytophilum and E. Chaffeensis is minimal (5-15%). This test was developed and its analytical performance characteristics have been determined by [facility]. It has not been cleared or approved by FDA. This assay has been validated pursuant to the CLIA regulations and is used for clinical purposes. BABESIA DUNCANI/WA1 IGG AB <1:256 [facility]/ [facility], Comment: REFERENCE RANGE: <1:256 INTERPRETIVE CRITERIA: <1:256 Antibody not detected > or = 1:256 Antibody detected Babesia duncani, also known as WA1, has been associated with symptoms similar to those caused by Babesia microti. Little, if any, cross-reactivity occurs between Babesia microti and WA1. This test was developed and its analytical performance characteristics have been determined by [facility]. It has not been cleared or approved by FDA. This assay has been validated pursuant to the CLIA regulations and is used for clinical purposes. BABESIA MICROTI IGG AB <1:64 titer [facility]/ [facility], BABESIA MICROTI IGM AB <1:20 titer [facility]/ [facility], BABESIA MICROTI INTERPRETATION [facility]/ [facility], Comment: ANTIBODY NOT DETECTED REFERENCE RANGES: IgG <1:64 IgM <1:20 Elevated antibody levels to B. microti indicate exposure to the organism. Human babesiosis infection is transmitted by the bite of an infected Ixodes tick or less frequently from transfusion with blood from an infected donor. Definitive diagnosis is made by identifying intraerythrocytic organisms in peripheral blood. In patients with low parasitemia, antibody detection by IFA is recommended. IgG levels greater than or equal to 1:1024 can be detected in acute phase patients with parasites in blood smears. The IFA assay can be used as a seroepidemiologic tool to study the frequency and distribution of B. microti in endemic areas especially in persons with mixed infections also involving Borrelia burgdorferi. This test was developed and its analytical performance characteristics have been determined by [facility]. It has not been cleared or approved by FDA. This assay has been validated pursuant to the CLIA regulations and is used for clinical purposes. LYME IGG, IGM AB <0.90 INDEX [facility]/ [facility], Comment: REFERENCE RANGE: <0.90 Index Interpretation < 0.90 NEGATIVE 0.90-1.09 EQUIVOCAL > 1.09 POSITIVE As recommended by the Food and Drug Administration (FDA), all samples with positive or equivocal results in a Borrelia burgdorferi antibody screen will be tested using a blot method. Positive or equivocal screening test results should not be interpreted as truly positive until verified as such using a supplemental assay (e.g., B. burgdorferi blot). The screening test and/or blot for B. burgdorferi antibodies may be falsely negative in early stages of Lyme disease, including the period when erythema migrans is apparent. EHRLICHIA CHAFFEENSIS IGG AB <1:64 [facility]/ [facility], EHRLICHIA CHAFFEENSIS IGM AB <1:20 [facility]/ [facility], EHRLICHIA CHAFFEENSIS INTERP [facility]/ [facility], Comment: ANTIBODY NOT DETECTED REFERENCE RANGE: IgG <1:64 IgM <1:20 Ehrlichia chaffeensis has been identified as the causative agent of Human Monocytic Ehrlichiosis (HME). Infected individuals produce specific antibodies to E. chaffeensis that can be detected by an immunofluorescent antibody (IFA) test. Single IgG IFA titers of 1:64 or greater indicate exposure to E. chaffeensis. A four-fold rise in IgG titers between acute and convalescent samples and/or the presence of IgM antibody against E. chaffeensis suggest recent or current infection. This test was developed and its analytical performance characteristics have been determined by [facility]. It has not been cleared or approved by FDA. This assay has been validated pursuant to the CLIA regulations and is used for clinical purposes. Test Performed at: [facility], [id number] [place] [address] Grace Hernandez MD,PhD,JERE Blood 02/17/2025 3:22 PM CDT 02/17/2025 3:22 PM CDT us Janna CHURCHILL CHEMISTRY ORDERABLES Final Resul t [facility] [phone] [facility], [address] [place], [place] * VAGINOSIS/VAGINITIS PANEL BASIC (02/17/2025 2:53 PM CDT) BACTERIAL VAGINOSIS NEGATIVE NEGATIVE [facility] [place] RYANN SPECIES NOT DETECTED NOT DETECTED [facility] [place] RYANN GLABRATA NOT DETECTED NOT DETECTED [facility] [place] Comment: Ryann species C. albicans, C. tropicalis, C. parapsilosis, and/or C. dubliniensis can be detected, but not differentiated, in the Ryann spp. result. TRICHOMONAS VAGINALIS (TV), TMA NOT DETECTED NOT DETECTED [facility] [place] Comment: Test Performed at: [facility] [address] [place] [address] Emilia Comer MD Genital SPECIMEN FROM VAGINA / Unknown 02/17/2025 2:53 PM CDT 02/17/2025 6:27 PM CDT us Janna Aguilar [facility] MICROBIOLOGY - GENERAL ORDERABLE S Final Result Performing Organization Address City/[facility]/ZIP Co de Phone Number [facility] [phone] [facility] [address] [facility] [place] [address] * GENITAL CULTURE (02/17/2025 2:53 PM CDT) GENITAL CULTURE SEE [facility] [place] Comment: CULTURE, GENITAL Micro Number: [id number] Test Status: Final Specimen Source: Vagina Specimen Quality: Adequate Result: Growth of normal urogenital haroon. We received a specimen from a genital site with an order for an aerobic or aerobic/anaerobic culture. This body site is not appropriate for the test requested, therefore an aerobic genital culture was performed. If this is not what you intended to order, please contact your local manager client service immediately so that we can adjust our billing appropriately. You may also inquire about alternative or additional testing. Test Performed at: [facility] [address] [place] [address] Emilia Comer MD 02/17/2025 2:53 PM CDT 02/17/2025 6:26 PM CDT Janna HORTONP MICROBIOLOGY - GENERAL ORDERABLE S Final Result [facility] [phone] [facility] [address] [facility] [place] [place] [address] * CERV/VAG CYTO SCREEN PAP W/HPV (10/30/2024 12:43 PM CDT) CLINICAL INFORMATION [facility] Comment:RELEASE TO PATIENT : IMMEDIATE LAST MENSTRUAL PERIOD [facility] Comment:NONE GIVEN PREV PAP: [facility] Comment:NONE GIVEN PREV BX: [facility] Comment:NONE GIVEN SOURCE [facility] Comment:ENDOCERVIX ADEQUACY: [facility] Comment: Satisfactory for evaluation. Endocervical/transformation zone component absent. Age and/or menstrual status not provided PAP INTERP [facility] Comment: Cytology Results: Negative for intraepithelial lesion or malignancy. COMMENT (PAP TEST) [facility] Comment: This case could not be evaluated with computer assisted technology. The slide was manually screened according to routine procedures. PROGRAMS ASSISTANT: [facility] Comment: AVN, CT(ASCP) CT Screening location: [place] [address] EXPLANATORY NOTE [facility] Comment: EXPLANATORY NOTE: The Pap is a [...] information. HPV E6/E7 Not Detected Not Detected [facility] Comment: Methodology: Patient Companion-Mediated Amplification This assay detects E6/E7 viral messenger RNA (mRNA) from 14 high-risk HPV types (16,18,31,33,35,39,45,51,52,56,58,59,66,68). Cervical sources are required for HPV testing. If a vaginal source from a patient who has had a total hysterectomy with removal of cervix was submitted, please contact the testing laboratory for alternative testing options. For additional information, please refer to http://education.[employer]/faq/CUV550k6 (This link if provided for information/ educational purposes only.) Test Performed at: [facility] [address] [place] [address] Giles Cordova Genital SWAB OF ENDOCERVIX / Unknown 10/30/2024 12:43 PM CDT 10/31/2024 8:46 PM CDT us Nisa Burgess MD PATHOLOGY/CYTOLOGY ORDERABLES F inal Result [facility] [phone] [facility] [address] [place] [address] from Last 3 Months or Most Recently Relevant to Health Maintenance Additional Health Concerns Infection Onset Date Last Indicated C Diff 01/29/2025 03/20/2025 Insurance [facility] [employer] Advance Directives For more information, please contact: [phone] * Full Code (Latest Code Status on File) Date Activated Date Inactivated Comments 01/29/2025 12:29 PM 02/01/2025 3:03 PM * Full Code Date Activated Date Inactivated Comments 12/04/2024 12:38 AM 12/05/2024 6:53 PM * Full Code Date Activated Date Inactivated Comments 12/03/2024 1:36 AM 12/03/2024 10:57 PM
--- OUTSIDE RECORDS SUMMARY | 2025-05-06 11:50 | XMS_ITS | Encounter Summary ---
Author Organization [facility] Address [address] [place] [address] Care Team Providers Care Computer Information Science Professor Name Role Phone Unavailable Primary Care Provider Unavailabl e Encounter Details Date Type Department Care Team (Late st Contact Info) Description 04/29/2025 External Device Data [place] ABSTRACTION Provider, Abstract NO ADDRESS ON FILE Social History Tobacco Use Types Packs/Day Years Used Date Smoking Tobacco: Never Passive Smoke Exposure: Never Smokeless Tobacco: Never Alcohol Use Standard Drinks/Week Comments [...] st Contact Info) Description 07/28/2025 2:00 PM CHILD SUPPORT INVESTIGATOR Office Visit [facility] [place] [address] [address] Irina Wu FNP [address] [facility] [address] [place] [phone] documented as of this encounter Visit Diagnoses Not on filedocumented in this encounter Additional Health Concerns Infection Onset Date Last Indicated Resolved Time C Diff 01/29/2025 03/20/2025 documented as of this encounter
--- NOTE | 2025-05-06 11:56 | CT_ITS ---
WS: [id number] CT ABDOMEN AND PELVIS NONCONTRAST HISTORY: abd pain, bloody stools and abdominal pain. History of C. difficile. TECHNIQUE: Imaging performed through the abdomen and pelvis. Coronal and sagittal reformats are submitted. All CT scans at [facility] use at least one of these dose optimization techniques: automated exposure control; mA and/or kV adjustment per patient size (includes targeted exams where dose is matched to clinical indication); or iterative reconstruction. DLP: 616.63 mGy.cm COMPARISON: 05/11/2024 Lower thorax: Lung bases are clear. Visualized heart is normal. No hiatal hernia. Liver: Normal size liver. No mass or bile duct dilatation. Gallbladder: Normal gallbladder. No pericholecystic fluid or cholelithiasis. No gallbladder wall thickening. Pancreas: Normal size and attenuation. Normal pancreatic duct. No pancreatitis or mass. Spleen: Normal. Adrenal glands: Normal. No mass. Right kidney: Normal size kidney with no mass or hydronephrosis. Left kidney: Normal size kidney with no mass or hydronephrosis. Small extrarenal pelvis. Aorta: Normal abdominal aorta, no aneurysm or atherosclerosis. No free fluid, intraperitoneal air or significant lymphadenopathy. GI tract: No small bowel obstruction. Normal appendix. Marked diffuse constipation with inspissated feces. No colonic wall thickening or pericolonic edema. Abdominal wall: Mild fat stranding in the abdominal wall below the umbilicus similar to the prior study. Pelvis: Prior hysterectomy. Urinary bladder is well distended. Varicosities are noted along the RIGHT abdominal wall continuing centrally over the mons. Osseous structures: Unremarkable. CT/CT abdomen pelvis wo con [id number] IMPRESSION: 1. Diffuse moderate constipation. No evidence for inflammatory bowel disease o r infection. 2. No ascites. 3. No renal obstruction. 4. Prior hysterectomy.
[2025-05-06 12:02] VITALS: BP 118/87; PULSE 73; RESP 18; TEMP 36.8; O2SAT 99; BMI 28.2
--- NOTE | 2025-05-06 12:11 | ED_ITS ---
HPI - GI Bleed 2 General: Chief complaint: GI Bleed Stated complaint: abd pain and dirrea Time Seen by Provider: 05/06/25 12:10 History of Present Illness: 40-year-old female presents emergency ro om directed here by Dr. Woo from infectious disease clinic they have had trouble with C. difficile with her. She has had formed stools recently she has still had some blood-tinged stool she has been feeling very weak and drained no vomiting. Associated symptoms: Denies abdominal pain, chills, fever(s) or rash Related Data Home Medications ?Medication ?Instructions ?Recorded ?Confirmed doxylamine succinate 25 mg tablet 25 mg PO DAILY PRN S leep 02/23/23 05/06/25 (Unisom (doxylamine)) estradiol 0.5 mg tablet 0.5 mg PO DAILY 03/13/2505/20 ubrogepant 100 mg tablet (Ubrelvy) 100 mg PO DAILY PRN Headache 05/06/25 05/06/25 Previous Rx's ?Medication ?Instructions ?Recorded ibuprofen 800 mg tablet 800 mg PO TID PRN pain #90 t abs 06/14/24 fidaxomicin 200 mg tablet (Dificid) 200 mg PO BID 10 d ays #20 tabs 05/06/25 fidaxomicin 200 mg tablet (Dificid) See Rx Instruction s .Route 05/06/25 .COMPLEX #10 tabs ondansetron HCl 4 mg tablet 4 mg PO Q8H PRN nausea and 05/11/25 vomiting 10 days #30 tabs Allergies Allergy/AdvReac Type Severity Reaction Status Date / Time Iodinated Contrast Media Allergy Mild ADR-Itching Verified 05/06/25 10:33 diphenhydramine (From Allergy Unconscious Verified 05/06/25 10:33 Benadryl) Review of Systems 2 Const: Denies: fever(s) or chills Card: Denies: chest pain Resp: Denies: dyspnea GI: Denies: abdominal pain : Denies: dysuria, urinary frequency or urinary urgency Musc: Denies: neck pain or back pain Skin/Breast: Denies: rash PFSH ED 2 PFSH: Medical History Hormone replacement therapy (HRT) Supervision of high-risk Aftercare following surgery of the genitourinary system Superficial thrombophlebitis Surgical History H/O unilateral oophorectomy 10/13/2021- right oophorectomy performed by Dr Cole at [facility] S/P repeat low transverse (07/29/15) Performed by Dr. Jacinto at [facility] in [place], [place] S/P primary low transverse (09/15/07) Performed by Dr. Ramos at [facility] [place] in [place], [place] History of dilation and curettage (06/28/19) For miscarriage. Performed in [place] Family History Mother Ovarian cancer, Onset Age: 50 Hypertension Denies family history of Colon cancer Diabetes Clotting disorder Heart disease Hyperlipidemia Breast cancer Anesthesia complication Bleeding disorder Uterine cancer Thyroid disease Stroke Social History Smoking and tobacco/nicotine status: never used tobacco/nicotine Alcohol intake: never Substance/Drug Use: never Female Reproductive History: Para: 8 Spontaneous abortions: Yes (3, most recent 07/15 at 14 wks) Physical Exam 2 Const: COMMON NORMALS: no acute distress GENERAL APPEARANCE: cooperative and comfortable ORIENTATION/CONSCIOUSNESS: Yes awake, Yes oriented to person, Yes oriented to place and Yes oriented to time HENMT: COMMON NORMALS: normocephalic, atraumatic and hearing grossly normal bilaterally HEAD & SCALP: normocephalic and atraumatic Resp: COMMON NORMALS: normal respiratory effort, No retractions, No use of accessory muscles and clear to auscultation bilaterally AUSCULTATION: clear to auscultation bilaterally Cardio: COMMON NORMALS: regular rate, regular rhythm and No murmurs present (Cardio) RATE: regular rate RHYTHM: regular rhythm GI: COMMON NORMALS: No hepatosplenomegaly present AUSCULTATION: Yes normoactive bowel sounds PALPATION: Yes Tenderness to palpation present (GI) (Diffuse no distention no tympany), No Guarding due to palpation present (GI) and Yes No hepatosplenomegaly present Extremity: COMMON NORMALS: normal to inspection, capillary refill normal, no clubbing, cyanosis or edema, no calf tenderness and no pedal edema Neuro: SENSORIUM/ORIENTATION: Yes oriented to person, Yes oriented to place and Yes oriented to time Skin: COMMON NORMALS: no rashes or lesions noted GENERAL SKIN EXAM: no rashes or lesions noted Course 2 Vital Signs: Vital signs: Vital Signs Temperature 98.2 F 05/06/25 12:02 Pulse Rate 59 L 05/06/25 15:08 Respiratory Rate 18 05/06/25 12:02 Blood Pressure 120/86 05/06/25 15:08 Pulse Oximetry 100 05/06/25 15:08 Oxygen Delivery Me thod Room Air 05/06/25 14:07 MDM - GI Bleed Medical Decision Making White count normal no signs of any significant colitis. CT shows some constipation there is no evidence of megacolon or wall thickening. Will discharge patient home have her continue medications as per Dr. Woo. Follow-up per Dr. Woo direction. Dr. Woo was in the department reviewed and discussed the patient's results with me as well as with the patient. Medical Records I reviewed the patient's medical records. Lab Data I reviewed the patient's lab results. 05/06/25 12:16 05/06/25 12:16 Radiology Impressions Abdomen/Pelvis CT 05/06/25 11:56 IMPRESSION: 1. Diffuse moderate constipation. No evidence for inflammatory bowel disease or infection. 2. No ascites. 3. No renal obstruction. 4. Prior hysterectomy. Laboratory Results WBC 6.53 10^3/uL (3.29-11.43) 05/06/25 12:16 RBC 5.43 10^6/uL (3.85-5.65) 05/06/25 12:16 Hgb 15.00 g/dL (11.27-16.99) 05/06/25 12:16 Hct 47.0 % (36-47) 05/06/25 12:16 MCV 86.6 fl (85-98) 05/06/25 12:16 MCH 27.6 pg (27-33) 05/06/25 12:16 MCHC 31.9 g/dL (30-55) 05/06/25 12:16 RDW 13.9 % (12.1-15.1) 05/06/25 12:16 Plt Count 200 10^3/cmm (157-399) 05/06/25 12:16 MPV 11.5 fL (7.4-10.4) H 05/06/25 12:16 Neut % (Auto) 54.2 % 05/06/25 12:16 Lymph % (Auto) 30.0 % 05/06/25 12:16 [place] % (Auto) 7.8 % 05/06/25 12:16 Eos % (Auto) 7.0 % 05/06/25 12:16 Baso % (Auto) 0.8 % 05/06/25 12:16 Neut # (Auto) 3.54 10^3/uL (1.8-7.7) 05/06/25 12:16 Lymph # (Auto) 2.0 10^3/uL (0.8-4.8) 05/06/25 12:16 [place] # (Auto) 0.5 10^3/uL (0.2-0.9) 05/06/25 12:16 Eos # (Auto) 0.5 10^3/uL (0.0-0.8) 05/06/25 12:16 Baso # (Auto) 0.1 10^3/uL (0.0-0.1) 05/06/25 12:16 Nucleated RBC % (auto) 0 % 05/06/25 12:16 Nucleated RBCs # 0.0 /100WBC 05/06/25 12:16 Sodium 140 mmol/L (136-145) 05/06/25 12:16 Potassium 4.4 mmol/L (3.5-5.1) 05/06/25 12:16 Chloride 101 mmol/L (98-107) 05/06/25 12:16 Carbon Dioxide 28 mmol/L (22-29) 05/06/25 12:16 Anion Gap 15.4 (5-19) 05/06/25 12:16 BUN 15 mg/dL (6-20) 05/06/25 12:16 Creatinine 0.5 mg/dL (0.5-0.9) 05/06/25 12:16 GFR Calculation 136.0 mL/min (90-130) H 05/06/25 12:16 Glucose 82 mg/dL (65-115) 05/06/25 12:16 Calculated Osmolality 290 mOsm/kg (285-295) 05/06/25 12:16 Calcium 10.1 mg/dL (8.5-10.5) 05/06/25 12:16 Total Bilirubin 0.4 mg/dL (0.15-1.2) 05/06/25 12:16 AST 33 U/L (0-32) H 05/06/25 12:16 ALT 39 U/L (0-33) H 05/06/25 12:16 Alkaline Phosphatase 120 U/L (35-105) H 05/06/25 12:16 Total Protein 8.8 g/dL (6.6-8.7) H 05/06/25 12:16 Albumin 4.8 g/dL (3.5-5.2) 05/06/25 12:16 Globulin 4.0 g/dL (1.3-4.6) 05/06/25 12:16 Lipase 16 U/L (13-60) 05/06/25 12:16 HCG, Qual Negative (Negative) 05/06/25 12:16 Urine Color Yellow (Yellow) 05/06/25 14:45 Urine Appearance Clear (CLEAR) 05/06/25 14:45 Urine pH 6.0 (5-7) 05/06/25 14:45 Ur Specific [place] 1.007 (1.005-1.030) 05/06/25 14:45 Urine Protein Negative (Negative) 05/06/25 14:45 Urine Glucose (UA) Negative (Normal) 05/06/25 14:45 Urine Ketones Negative (Negative) 05/06/25 14:45 Urine Blood Negative (Negative) 05/06/25 14:45 Urine Nitrate Negative (Negative) 05/06/25 14:45 Urine Bilirubin Negative (Negative) 05/06/25 14:45 Urine Urobilinogen 0.2 mg/dL (Negative) 05/06/25 14:45 Ur Leukocyte Esterase Negative (Negative) 05/06/25 14:45 Urine RBC 0-2 /hpf (0-2) 05/06/25 14:45 Urine WBC 0-5 /hpf (0-5) 05/06/25 14:45 Ur Squamous Epith Cells 0-5 /hpf (0-5) 05/06/25 14:45 Amorphous Sediment Not Reportable 05/06/25 14:45 Urine Bacteria None seen /hpf (NONE) 05/06/25 14:45 Hyaline Casts 0-4 /lpf H 05/06/25 14:45 All radiology interpretation(s) finalized by discharge Discharge Plan Discharge Patient Disposition: Home Clinical Impression: C. difficile colitis, Abdominal pain Condition: Stable Prescriptions: New fidaxomicin [Dificid] 200 mg tablet 200 mg PO BID 10 Days Qty: 20 0RF fidaxomicin [Dificid] 200 mg tablet See Rx Instructions .ROUTE .COMPLEX Qty: 10 0RF Rx Instructions: take 200mg once every other day for 20 days after completing first 10 day course No Action ibuprofen 800 mg tablet 800 mg PO TID PRN (Reason: pain) Qty: 90 3RF estradiol 0.5 mg tablet 0.5 mg PO DAILY ondansetron HCl 4 mg tablet 4 mg PO Q8H PRN (Reason: nausea and vomiting) 10 Days Qty: 30 0RF Ubrelvy 100 mg tablet 100 mg PO DAILY PRN (Reason: Headache) Unisom (doxylamine) 25 mg tablet 25 mg PO DAILY PRN (Reason: Sleep) Discharge Orders: Discharge ED (Routine); Ordered 05/06/25 Ordered By: Yury He Discharge Diet: Usual diet Discharge Activity: Resume usual activity Patient Instructions: Abdominal Pain (ED), Opioid Safety, Pain Management, Patient Portal & Radha Instructions Activity Restrictions/Additional Instructions: Thank you for choosing [facility] for your healthcare needs today. It is very important that you follow up as instructed or that you return to the Emergency Department should you have concerns or if your condition changes or worsens in any way. Emergency department visits are focused on emergent conditions, in some cases you may require further evaluation on an outpatient basis. You were seen because of concern of worsening of your C. difficile colitis. CT was normal. Dr. Woo and I conferred she recommends that the medication changes listed at the end of your discharge instructions to follow-up with her. She also asked that you collect stool samples for further evaluation. These can be returned to the hospital lab once they have been collected. (Please note that included in your discharge packet is information concerning opioid safety and pain management. This information is given to all patients were discharged from the ER regardless of their discharge diagnosis or the medicines they usually take or are prescribed.) Take dificid 200mg (one tablet) twice a day for 10 days. Then take dificid one tablet every other day on days 11-20 Print Language: Georgian Coding Level of Care Code ED Embedded Processor for Julito Velásquez
[2025-05-06 12:30] LABS: Hematocrit 47.0 % (36-47); Hemoglobin 15.00 g/dL (11.27-16.99); Mean Corpuscular HGB Conc 31.9 g/dL (30-55); Mean Corpuscular Hemoglobin 27.6 pg (27-33); Mean Corpuscular Volume 86.6 fl (85-98); Nucleated Red Blood Cells % 0 %; Platelet Count 200 10^3/cmm (157-399); Red Blood Count 5.43 10^6/uL (3.85-5.65); White Blood Count 6.53 10^3/uL (3.29-11.43)
[2025-05-06 12:38] LABS: HCG, Serum Qual Negative (Negative)
[2025-05-06 12:45] LABS: Alanine Aminotransferase 39 U/L (0-33); Albumin Level 4.8 g/dL (3.5-5.2); Alkaline Phosphatase 120 U/L (35-105); Anion Gap 15.4 (5-19); Aspartate Amino Transferase 33 U/L (0-32); Blood Urea Nitrogen 15 mg/dL (6-20); Calcium 10.1 mg/dL (8.5-10.5); Carbon Dioxide 28 mmol/L (22-29); Chloride 101 mmol/L (98-107); Creatinine Clr Calc Pharmacy 157.3876; Globulin 4.0 g/dL (1.3-4.6); Glucose 82 mg/dL (65-115); Lipase 16 U/L (13-60); Osmolality Calculated 290 mOsm/kg (285-295); Potassium 4.4 mmol/L (3.5-5.1); Sodium 140 mmol/L (136-145); Total Protein 8.8 g/dL (6.6-8.7)
[2025-05-06] MEDS: ondansetron 2 mg/ML SDV 2 mL 4 MG IVP (13:01)
[2025-05-06 14:07] VITALS: BP 122/89; PULSE 61; O2SAT 100
[2025-05-06 15:00] LABS: Glucose Urine UA Negative (Normal); Nitrate Urine Negative (Negative); Specific Gravity, Urine 1.007 (1.005-1.030)
--- NOTE | 2025-05-06 15:06 | PC.NURSE ---
Pt was educated on specimen hat, need to use specimen hat to collect and turn in. PT was given lab hat, cups and bio bag. Pt voiced understanding.
[2025-05-06 15:08] VITALS: BP 120/86; PULSE 59; O2SAT 100
== END 2025-05-06 15:00 | disposition home or self-care (01) ==
PROVIDERS: Emergency Medicine; Emergency Provider Family Medicine
DX: A04.72 Enterocolitis due to Clostridium difficile, not specified as recurrent (principal)
CPT/HCPCS: 36415; 74176; 80053; 81001; 83690; 84703; 85025; 96361; 96374; 99285; J2405; J7120

== ENCOUNTER 2025-05-08 09:09 | Outpatient (CLI) | payer OTHER, SELFPAY ==
[2025-05-08 11:34] LABS: C.Diff PCR (Lab) NEGATIVE (Negative)
== END 2025-05-08 09:10 | disposition home or self-care (01) ==
PROVIDERS: PCP Student in an Organized Health Care Education/Training Program; Visit Provider Student in an Organized Health Care Education/Training Program
DX: A04.71 Enterocolitis due to Clostridium difficile, recurrent (principal); R19.7 Diarrhea, unspecified
CPT/HCPCS: 87045; 87427; 87449; 87493

== ENCOUNTER 2025-06-20 11:35 | Outpatient (CLI) | payer OTHER, SELFPAY ==
[2025-06-20 13:17] LABS: C.Diff PCR (Lab) POSITIVE (Negative)
[2025-06-20 13:46] LABS: Clostridioides Difficile Toxin POSITIVE (Negative)
== END 2025-06-20 11:36 | disposition home or self-care (01) ==
PROVIDERS: PCP Student in an Organized Health Care Education/Training Program; Visit Provider Student in an Organized Health Care Education/Training Program
DX: K52.9 Noninfective gastroenteritis and colitis, unspecified (principal)
CPT/HCPCS: 87045; 87324; 87427; 87449; 87493